=== PATIENT | female | born 1965 | race Caucasian/White ===

== ENCOUNTER 2017-02-16 15:27 | Inpatient (IN) | payer MEDICAID, OTHER ==
[2017-02-16] MEDS ORDERED: LORazepam TAB(*) 1 MG PO ONE (15:39)
[2017-02-16 17:39] LABS: Hematocrit 42 % (35-47); Hemoglobin 14.4 g/dl (12.0-16.0); Mean Corpuscular HGB Conc 34 g/dl (31-36); Mean Corpuscular Hemoglobin 32 pg (27-31); Mean Corpuscular Volume 95 fL (80-97); Mean Platelet Volume 9 um3 (7.4-10.4); Red Blood Count 4.45 10^6/ul (4.0-5.4); Red Cell Distribution Width 13 % (10.5-15); White Blood Count 6.8 10^3/ul (3.5-10.8)
[2017-02-16 17:53] LABS: ALT 12 U/L (7-52); AST 13 U/L (13-39); Anion Gap 5 mmol/L (2-11); BUN/Creatinine Ratio 30.6 (8-20); Blood Urea Nitrogen 19 mg/dL (6-24); CO2 Carbon Dioxide 26 mmol/L (22-32); Calcium 9.4 mg/dL (8.6-10.3); Chloride 107 mmol/L (101-111); EGFR Non-African American 101.1 (>60); Globulin 2.5 g/dL (2-4); Glucose 102 mg/dL (70-100); Potassium 3.9 mmol/L (3.5-5.0); Sodium 138 mmol/L (133-145); Total Protein 6.5 g/dL (6.4-8.9)
[2017-02-16 18:16] LABS: Acetaminophen < 15 mcg/mL; Alcohol < 10 mg/dL (<10); Salicylate < 2.50 mg/dL (<30)
[2017-02-16 18:26] LABS: TSH (Thyroid Stimulating Horm) 0.28 mcIU/mL (0.34-5.60)
[2017-02-16 18:32] LABS: Alkaline Phosphatase 31 U/L (34-104)
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
[2017-02-17] MEDS ORDERED: Albuterol HFA INHALER* 8 gm MDI INH PRN (00:57)
[2017-02-17] MEDS: QUEtiapine TAB* 100 MG PO SCH ×2 (01:11→19:44)
[2017-02-17] MEDS: Naltrexone (NF) 50 MG TAB PO SCH ×2 (01:11→19:43)
--- NOTE | 2017-02-17 01:59 | PN ---
Demetri Norwood SooYoung, scribed for Ed Omer MD on 02/16/17 at 2359 . Progress Note - Progress Note Date of Service: 02/16/17 Note: Sign out from Dr. Thornton, pending MHE. COT: Discussed pt with mental health agency sales representative, pt will be voluntarily admitted. DX: MOOD DISORDER Dispo: Stable, admit to [facility]. The documentation as recorded by the genaroibDemetri marcano SooYoung accurately reflects the service I personally performed and the decisions made by , Ed Omer MD.
[2017-02-17] MEDS ORDERED: Al Hydrox/Mg Hydrox/Simet LIQ* 30 ML UDC PO PRN (03:43)
[2017-02-17] MEDS ORDERED: ACAMPROSATE 333 MG PO SCH (09:00)
[2017-02-17] MEDS ORDERED: RESTASIS EYE BOTH EYES SCH (09:00)
[2017-02-17] MEDS: Omeprazole CAP* 20 MG PO SCH (10:16)
[2017-02-17] MEDS: Docusate CAP* 100 MG PO SCH ×2 (10:16→19:42)
[2017-02-17] MEDS: lamoTRIgine TAB(*) 100 MG PO SCH (10:16)
[2017-02-17] MEDS: Gabapentin CAP(*) 300 MG PO SCH ×3 (10:16→19:42)
[2017-02-17] MEDS: Vitamin THERAPEUTIC TAB PO SCH (10:16)
[2017-02-17] MEDS: Mometasone/Formoter 200/5 MDI INH SCH ×2 (10:18→19:44)
[2017-02-17] MEDS: Polyethylene Glycol 3350* 17 GM PACKET PO SCH (10:19)
[2017-02-17] MEDS: CMC:Cyclosporine 0.05% OPHTH (NF) 0.4 ML VIAL BOTH EYES SCH (11:24)
[2017-02-17] MEDS: ACAMPROSATE 333 MG PO SCH ×2 (14:55→19:44)
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
[2017-02-17] MEDS: Prazosin CAP* 1 MG PO SCH (19:42)
[2017-02-17] MEDS: Prazosin CAP* 5 MG PO SCH (19:43)
[2017-02-17] MEDS ORDERED: QUEtiapine TAB* 100 MG PO SCH (21:00)
[2017-02-18] MEDS: Gabapentin CAP(*) 300 MG PO SCH ×3 (09:45→20:37)
[2017-02-18] MEDS: Vitamin THERAPEUTIC TAB PO SCH (09:46)
[2017-02-18] MEDS: Omeprazole CAP* 20 MG PO SCH (09:46)
[2017-02-18] MEDS: Acetaminophen TAB* 325 MG PO PRN ×2 (09:46→20:38)
[2017-02-18] MEDS: Docusate CAP* 100 MG PO SCH ×2 (09:46→20:36)
[2017-02-18] MEDS: lamoTRIgine TAB(*) 100 MG PO SCH (09:46)
[2017-02-18] MEDS: ACAMPROSATE 333 MG PO SCH ×3 (09:46→20:37)
[2017-02-18] MEDS: Bacitracin OINTMENT* 1 TUBE TOPICAL SCH (09:55)
[2017-02-18] MEDS: CMC:Cyclosporine 0.05% OPHTH (NF) 0.4 ML VIAL BOTH EYES SCH (09:56)
[2017-02-18] MEDS: QUEtiapine TAB* 25 MG PO SCH ×2 (09:56→13:18)
[2017-02-18] MEDS: Polyethylene Glycol 3350* 17 GM PACKET PO SCH (09:57)
[2017-02-18] MEDS ORDERED: Benztropine TAB* 1 MG ONE (13:12)
[2017-02-18] MEDS ORDERED: QUEtiapine TAB* 25 MG ONE (13:12)
[2017-02-18] MEDS: Mometasone/Formoter 200/5 MDI INH SCH ×2 (13:18→20:36)
[2017-02-18] MEDS: Naltrexone (NF) 50 MG TAB PO SCH (20:36)
[2017-02-18] MEDS: Prazosin CAP* 1 MG PO SCH (20:36)
[2017-02-18] MEDS: Prazosin CAP* 5 MG PO SCH (20:36)
[2017-02-18] MEDS: QUEtiapine TAB* 100 MG PO SCH (20:39)
[2017-02-19] MEDS: Omeprazole CAP* 20 MG PO SCH (08:45)
[2017-02-19] MEDS: lamoTRIgine TAB(*) 100 MG PO SCH (08:45)
[2017-02-19] MEDS: Vitamin THERAPEUTIC TAB PO SCH (08:45)
[2017-02-19] MEDS: Acetaminophen TAB* 325 MG PO PRN ×2 (08:45→18:29)
[2017-02-19] MEDS: ACAMPROSATE 333 MG PO SCH ×3 (08:46→20:23)
[2017-02-19] MEDS: Docusate CAP* 100 MG PO SCH ×2 (08:46→20:24)
[2017-02-19] MEDS: Gabapentin CAP(*) 300 MG PO SCH ×3 (08:46→20:23)
[2017-02-19] MEDS: CMC:Cyclosporine 0.05% OPHTH (NF) 0.4 ML VIAL BOTH EYES SCH (08:47)
[2017-02-19] MEDS: Polyethylene Glycol 3350* 17 GM PACKET PO SCH (08:47)
[2017-02-19] MEDS: Mometasone/Formoter 200/5 MDI INH SCH ×2 (08:47→20:24)
[2017-02-19] MEDS: QUEtiapine TAB* 25 MG PO SCH ×2 (08:49→11:59)
--- NOTE | 2017-02-19 10:39 | PN ---
Subjective - Subjective Service Type: 87286 Hosp care 15 min low complexity Subjective: Patient noted to be secluded to her room since admission. She does engage staff and is calm, cooperative with this interview. Patient reports she has been seen by [facility] and her lacerations on her left and right forearms are bandaged. Patient reports worsening NMs, fear of sleep and lack of sleep led to her diminished mood and this suicidal behavior. She reports hx of multiple PTSD symptom decompensations and can not identify the trigger for this decompensation. Patient noted to have sleep 1-2 hours last night, up pacing most of the shift. She is upset her Ambien was not restarted. She reports she and her outpt psychiatrist Dr. Portillo have tried multiple insomnia meds and Ambien in addition to Seroquel in tandem allows her to sleep. She was educated on hypoventilation syndrome in sleep while on concurrent Ambien and Seroquel. She reports no hx of waking from her sleep gasping for air or SOB at any time. She reports ongoing depressed mood. She reports she feels safe on the unit. She denies SI/HI and AH/VH. Objective - Appearance Appearance: Well Developed/Nourished Dysmorphic Features: No Hygiene: Normal Grooming: Fairly Well Kept - Behavior Psychomotor Activities: Normal Exhibits Abnormal Movement: No - Attitude and Relatedness Attitude and Relatedness: Cooperative Eye Contact: Fair - Speech Quality: Unpressured Latencies: Normal Quantity: Appropriate - Mood Patient's Decription of Mood: "depressed" - Affect Observed Affect: Depressed Affect Consistent with: Dysphoria - Thought Process Patient's Thought Process: Coherent Thought Content: No Passive Wish, No Suicidal Planning, No Homicidal Ideation, No Paranoid Ideation - Sensorium Experiencing Hallucinations: No, Sensorium is Clear Type of Hallucinations: Visual: No, Auditory: No - denies today, but reported commanding AHs to kill herself on admission., Command: No - denies today, but reported commanding AHs to kill herself on admission. - Level of Consciousness Level of Consciousness: Alert Orientation: No Intact, No Orientated to Time, No Orientated to Place, No Orientated to Person - Impulse Control Impulse Control: Intact - Insight and Judgement Insight and Judgement: Fair - Group Participation Particating in Group Activities: No - Medication Management Medication Management Adherence: Yes Assessment - Assessment Merits Inpatient Hospitalization: For Immediate Safety, For Stabilization Inpatient DSM-IV Dx: 1. PTSD exacerbation. 2. Borderline PD Plan - Plan Treatment Plan: Name: SANDY JAIMES Birthdate: 1965 [id number] 1. Continue admission to the [facility] for safety and symptom mx. 2. Wound care consulted for recent bilateral forearm lacerations. 3. Continue home psychotropic med regimen as currently prescribed. 4. Will re-start home dose Ambien at 10mg as currently prescribed by outpt psychiatrist for intractable insomnia. 5. Continue gathering collateral information from family and [facility] providers. 6. Patient to participate in milieu activities and groups. Medications: Current Medications Acamprosate (Campral (Nf)) 333 mg PO TID COUNTS INCLUDE 234 BEDS AT THE [facility] Last Admin: 02/19/17 08:46 Dose: 333 mg Acetaminophen (Tylenol Tab*) 650 mg PO Q4H PRN PRN Reason: PAIN or TEMP > 101 F Last Admin: 02/19/17 08:45 Dose: 650 mg Al Hydrox/Mg Hydrox/Simethicone (Maalox Plus*) 30 ml PO Q4H PRN PRN Reason: INDIGESTION Albuterol (Ventolin Hfa Inhaler*) 2 puff INH Q4H PRN PRN Reason: SHORTNESS OF BREATH Bacitracin (Bacitracin Ointment*) 1 applic TOPICAL . DIRECTED COUNTS INCLUDE 234 BEDS AT THE [facility] Last Admin: 02/18/17 09:55 Dose: 1 applic Cyclosporine (Restasis 0.05% Oph) 1 drop BOTH EYES DAILY COUNTS INCLUDE 234 BEDS AT THE [facility] Last Admin: 02/19/17 08:47 Dose: 1 drop Docusate Sodium (Colace Cap*) 100 mg PO BID COUNTS INCLUDE 234 BEDS AT THE [facility] Last Admin: 02/19/17 08:46 Dose: 100 mg Gabapentin (Neurontin Cap(*)) 600 mg PO TID COUNTS INCLUDE 234 BEDS AT THE [facility] Last Admin: 02/19/17 08:46 Dose: 600 mg Lamotrigine (Lamictal Tab(*)) 200 mg PO DAILY COUNTS INCLUDE 234 BEDS AT THE [facility] Last Admin: 02/19/17 08:45 Dose: 200 mg Mometasone Furoate/Formoterol Fumar (Dulera 200/5 Mdi*) 2 puff INH BID COUNTS INCLUDE 234 BEDS AT THE [facility] Last Admin: 02/19/17 08:47 Dose: 2 puff Multivitamins (Theragran Tab*) 1 tab PO DAILY COUNTS INCLUDE 234 BEDS AT THE [facility] Last Admin: 02/19/17 08:45 Dose: 1 tab Naltrexone HCl (Naltrexone (Nf)) 50 mg PO BEDTIME COUNTS INCLUDE 234 BEDS AT THE [facility] Last Admin: 02/18/17 20:36 Dose: 50 mg Omeprazole (Prilosec Cap*) 20 mg PO DAILY SHAYLA Last Admin: 02/19/17 08:45 Dose: 20 mg Polyethylene Glycol/Electrolytes (Miralax*) 17 gm PO DAILY COUNTS INCLUDE 234 BEDS AT THE [facility] Last Admin: 02/19/17 08:47 Dose: 17 gm Prazosin HCl (Minipress Cap*) 5 mg PO 2100 SHAYLA Last Admin: 02/18/17 20:36 Dose: 5 mg Prazosin HCl (Minipress Cap*) 1 mg PO 2100 SHAYLA Last Admin: 02/18/17 20:36 Dose: 1 mg Quetiapine Fumarate (Seroquel Tab*) 150 mg PO 2100 COUNTS INCLUDE 234 BEDS AT THE [facility] Last Admin: 02/18/17 20:39 Dose: 150 mg Quetiapine Fumarate (Seroquel Tab*) 50 mg PO BID@0800,1200 COUNTS INCLUDE 234 BEDS AT THE [facility] Last Admin: 02/19/17 08:49 Dose: 50 mg - Discharge Plan Outpatient Program: [facility]
[2017-02-19] MEDS: Zolpidem TAB* 10 MG PO SCH (20:21)
[2017-02-19] MEDS: QUEtiapine TAB* 100 MG PO SCH (20:22)
[2017-02-19] MEDS: Prazosin CAP* 5 MG PO SCH (20:23)
[2017-02-19] MEDS: Naltrexone (NF) 50 MG TAB PO SCH (20:23)
[2017-02-19] MEDS: Prazosin CAP* 1 MG PO SCH (20:23)
[2017-02-20] MEDS: Acetaminophen TAB* 325 MG PO PRN ×3 (05:50→19:33)
[2017-02-20] MEDS: QUEtiapine TAB* 25 MG PO SCH ×2 (09:10→11:45)
[2017-02-20] MEDS: ACAMPROSATE 333 MG PO SCH ×3 (09:11→20:42)
[2017-02-20] MEDS: Gabapentin CAP(*) 300 MG PO SCH ×3 (09:11→20:42)
[2017-02-20] MEDS: Docusate CAP* 100 MG PO SCH ×2 (09:11→20:42)
[2017-02-20] MEDS: lamoTRIgine TAB(*) 100 MG PO SCH (09:12)
[2017-02-20] MEDS: Omeprazole CAP* 20 MG PO SCH (09:12)
[2017-02-20] MEDS: Vitamin THERAPEUTIC TAB PO SCH (09:12)
[2017-02-20] MEDS: Polyethylene Glycol 3350* 17 GM PACKET PO SCH (09:12)
[2017-02-20] MEDS: Mometasone/Formoter 200/5 MDI INH SCH ×2 (09:12→21:20)
[2017-02-20] MEDS: CMC:Cyclosporine 0.05% OPHTH (NF) 0.4 ML VIAL BOTH EYES SCH (09:14)
--- NOTE | 2017-02-20 15:59 | PN ---
Subjective - Subjective Service Type: [id number] Hosp care 15 min low complexity Subjective: Patient secluded to room much of the day. She continues to report more frequent and intense flashbacks to her traumas. She reports intense anxiety. Patient reports improved sleep. She has been up for meals and is able to verbalize her needs. She is med compliant and denies med s/e's. Patient continue to report feeling safe on the unit. She denies SI/HI and AH/VH. Objective - Appearance Appearance: Well Developed/Nourished Dysmorphic Features: No Hygiene: Normal Grooming: Fairly Well Kept - Behavior Psychomotor Activities: Normal Exhibits Abnormal Movement: No - Attitude and Relatedness Attitude and Relatedness: Cooperative Eye Contact: Fair - Speech Quality: Unpressured Latencies: Normal Quantity: Appropriate - Mood Patient's Decription of Mood: "Anxious" - Affect Observed Affect: Depressed Affect Consistent with: Dysphoria - Thought Process Patient's Thought Process: Coherent Thought Content: No Passive Wish, No Suicidal Planning, No Homicidal Ideation, No Paranoid Ideation - Sensorium Experiencing Hallucinations: No, Sensorium is Clear Type of Hallucinations: Visual: No, Auditory: Yes, Command: No - Level of Consciousness Level of Consciousness: Alert Orientation: Yes Intact, Yes Orientated to Time, Yes Orientated to Place, Yes Orientated to Person - Impulse Control Impulse Control: Intact - Insight and Judgement Insight and Judgement: Fair - Group Participation Particating in Group Activities: Yes - Medication Management Medication Management Adherence: Yes Assessment - Assessment Merits Inpatient Hospitalization: For Immediate Safety, For Stabilization Inpatient DSM-IV Dx: 1. PTSD exacerbation. 2. Borderline PD Plan - Plan Treatment Plan: Name: SANDY JAIMES Birthdate: 1965 [id number] 1. Continue admission to the [facility] for safety and symptom mx. 2. Wound care consulted for recent bilateral forearm lacerations. 3. Continue psychotropic med regimen as currently prescribed. 4. Continue gathering collateral information from family and [facility] providers. 5. Patient to participate in milieu activities and groups. Medications: Current Medications Acamprosate (Campral (Nf)) 333 mg PO TID [facility] Last Admin: 02/20/17 13:36 Dose: 333 mg Acetaminophen (Tylenol Tab*) 650 mg PO Q4H PRN PRN Reason: PAIN or TEMP > 101 F Last Admin: 02/20/17 12:44 Dose: 650 mg Al Hydrox/Mg Hydrox/Simethicone (Maalox Plus*) 30 ml PO Q4H PRN PRN Reason: INDIGESTION Albuterol (Ventolin Hfa Inhaler*) 2 puff INH Q4H PRN PRN Reason: SHORTNESS OF BREATH Bacitracin (Bacitracin Ointment*) 1 applic TOPICAL . DIRECTED [facility] Last Admin: 02/18/17 09:55 Dose: 1 applic Cyclosporine (Restasis 0.05% Oph) 1 drop BOTH EYES DAILY [facility] Last Admin: 02/20/17 09:14 Dose: 1 drop Docusate Sodium (Colace Cap*) 100 mg PO BID [facility] Last Admin: 02/20/17 09:11 Dose: 100 mg Fluticasone Propionate (Flonase Nasal [place] 50mcg*) 2 spray BOTH NARES DAILY [facility] Gabapentin (Neurontin Cap(*)) 600 mg PO TID [facility] Last Admin: 02/20/17 13:36 Dose: 600 mg Lamotrigine (Lamictal Tab(*)) 200 mg PO DAILY [facility] Last Admin: 02/20/17 09:12 Dose: 200 mg Mometasone Furoate/Formoterol Fumar (Dulera 200/5 Mdi*) 2 puff INH BID [facility] Last Admin: 02/20/17 09:12 Dose: 2 puff Multivitamins (Theragran Tab*) 1 tab PO DAILY [facility] Last Admin: 02/20/17 09:12 Dose: 1 tab Naltrexone HCl (Naltrexone (Nf)) 50 mg PO BEDTIME [facility] Last Admin: 02/19/17 20:23 Dose: 50 mg Omeprazole (Prilosec Cap*) 20 mg PO DAILY [facility] Last Admin: 02/20/17 09:12 Dose: 20 mg Polyethylene Glycol/Electrolytes (Miralax*) 17 gm PO DAILY [facility] Last Admin: 02/20/17 09:12 Dose: Not Given Prazosin HCl ([place]ipress Cap*) 5 mg PO 2100 [facility] Last Admin: 02/19/17 20:23 Dose: 5 mg Prazosin HCl (Minipress Cap*) 1 mg PO 2100 [facility] Last Admin: 02/19/17 20:23 Dose: 1 mg Quetiapine Fumarate (Seroquel Tab*) 150 mg PO 2100 [facility] Last Admin: 02/19/17 20:22 Dose: 150 mg Quetiapine Fumarate (Seroquel Tab*) 50 mg PO BID@0800,1200 [facility] Last Admin: 02/20/17 11:45 Dose: 50 mg Silver Sulfadiazine (Silvadine 1%*) 1 applic TOPICAL BID [facility] Zolpidem Tartrate (Ambien Tab*) 10 mg PO BEDTIME [facility] Last Admin: 02/19/17 20:21 Dose: 10 mg - Discharge Plan Discharge Plan: Outpatient Follow Up
[2017-02-20] MEDS: Fluticasone NASAL SPRAY 50MCG* 16 gm SPRAY BTL BOTH NARES SCH (16:30)
[2017-02-20] MEDS: QUEtiapine TAB* 100 MG PO SCH (20:42)
[2017-02-20] MEDS: Naltrexone (NF) 50 MG TAB PO SCH (20:42)
[2017-02-20] MEDS: Prazosin CAP* 1 MG PO SCH (20:42)
[2017-02-20] MEDS: Prazosin CAP* 5 MG PO SCH (20:42)
[2017-02-20] MEDS: Zolpidem TAB* 10 MG PO SCH (20:42)
[2017-02-20] MEDS: Silver Sulfadiazine 1%* 20 GM TOPICAL SCH (21:21)
[2017-02-21] MEDS: Acetaminophen TAB* 325 MG PO PRN (04:25)
[2017-02-21] MEDS: Docusate CAP* 100 MG PO SCH ×2 (08:37→20:18)
[2017-02-21] MEDS: Vitamin THERAPEUTIC TAB PO SCH (08:37)
[2017-02-21] MEDS: Mometasone/Formoter 200/5 MDI INH SCH ×2 (08:37→20:19)
[2017-02-21] MEDS: Fluticasone NASAL SPRAY 50MCG* 16 gm SPRAY BTL BOTH NARES SCH (08:37)
[2017-02-21] MEDS: CMC:Cyclosporine 0.05% OPHTH (NF) 0.4 ML VIAL BOTH EYES SCH (08:38)
[2017-02-21] MEDS: Gabapentin CAP(*) 300 MG PO SCH ×3 (08:38→20:18)
[2017-02-21] MEDS: Omeprazole CAP* 20 MG PO SCH (08:38)
[2017-02-21] MEDS: lamoTRIgine TAB(*) 100 MG PO SCH (08:39)
[2017-02-21] MEDS: ACAMPROSATE 333 MG PO SCH ×3 (08:39→20:17)
[2017-02-21] MEDS: Polyethylene Glycol 3350* 17 GM PACKET PO SCH (08:41)
[2017-02-21] MEDS: Silver Sulfadiazine 1%* 20 GM TOPICAL SCH ×2 (08:45→20:19)
[2017-02-21] MEDS: QUEtiapine TAB* 25 MG PO SCH (09:02)
--- NOTE | 2017-02-21 10:32 | PN ---
Subjective - Subjective Service Type: [id number] Hosp care 15 min low complexity Subjective: Patient noted to be very anxious. She reports ongoing intense and distressing flashbacks which frighten her. She is secluded to her room much of the day. She is up for meals. Patient is med compliant. She continues to be shakey and tremulous but is not in w/d nor has she taken antipsychotic at doses which might precipitate EPS. Will monitor. Patient is med compliant. Patient is hyperactivated, +PMA; she is anxious and tremulous at times because of it. She does not report muscle rigidity, sweats or diarrhea. She had been on 2 antidepressants leading to concern for serotonin syndrome. Patient has been off both since admission. 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 Patient is amenable to d/c Seroquel which was dosed 100mg po qhs prior to admission and 150mg po qhs since admission. She reports ongoing AHs which are commanding but not telling her to kill herself. She reports ongoing poor sleep due to NMs. Patient is complaint with all meds including Prazosin 6mg po qhs. She denies SI/ HI and VH. Objective - Appearance Appearance: Well Developed/Nourished Dysmorphic Features: No Hygiene: Normal Grooming: Fairly Well Kept - Behavior Psychomotor Activities: Abnormal-Increased Exhibits Abnormal Movement: Yes - Attitude and Relatedness Attitude and Relatedness: Cooperative Eye Contact: Poor - Speech Quality: Unpressured Latencies: Short Quantity: Terse - Mood Patient's Decription of Mood: "Anxious" - Affect Observed Affect: Tearful Affect Consistent with: Dysphoria - Thought Process Patient's Thought Process: Coherent Thought Content: No Passive Wish, No Suicidal Planning, No Homicidal Ideation, No Paranoid Ideation - Sensorium Experiencing Hallucinations: Yes Type of Hallucinations: Visual: No, Auditory: Yes, Command: Yes - Level of Consciousness Level of Consciousness: Alert Orientation: Yes Intact, Yes Orientated to Time, Yes Orientated to Place, Yes Orientated to Person - Impulse Control Impulse Control: Intact - Insight and Judgement Insight and Judgement: Fair - Group Participation Particating in Group Activities: No - Medication Management Medication Management Adherence: Yes Assessment - Assessment Merits Inpatient Hospitalization: For Immediate Safety, For Stabilization Inpatient DSM-IV Dx: 1. PTSD exacerbation, r/o Treatment resistent PTSD. 2. Borderline PD Plan - Plan Treatment Plan: Name: SANDY JAIMES Birthdate: 1965 [id number] 1. Continue admission to the [facility] for safety and symptom mx. 2. Wound care consulted for recent bilateral forearm lacerations. 3. Continue to hold home regimen antidepressants. 4. Patient gives informed consent to start [place] 300mg po BID for mood augmentation and chronic SI. 5. Patient gives informed consent to start Olanzapine 10mg po qhs for AHs, worsening flashbacks and NMs, and worsening startle, anxiety and hypervigilent state. 6. Patient is amenable to d/c Seroquel which was dosed 100mg po qhs prior to admission and 150mg po qhs since admission. This provider does not expect a Seroquel discontinuation syndrome, will monitor. 7. Continue gathering collateral information from family and [facility] providers. 8. Patient to participate in milieu activities and groups. Medications: Current Medications Acamprosate (Campral (Nf)) 333 mg PO TID [facility] Last Admin: 02/21/17 08:39 Dose: 333 mg Acetaminophen (Tylenol Tab*) 650 mg PO Q4H PRN PRN Reason: PAIN or TEMP > 101 F Last Admin: 02/21/17 04:25 Dose: 650 mg Al Hydrox/Mg Hydrox/Simethicone (Maalox Plus*) 30 ml PO Q4H PRN PRN Reason: INDIGESTION Albuterol (Ventolin Hfa Inhaler*) 2 puff INH Q4H PRN PRN Reason: SHORTNESS OF BREATH Bacitracin (Bacitracin Ointment*) 1 applic TOPICAL . DIRECTED [facility] Last Admin: 02/18/17 09:55 Dose: 1 applic Cyclosporine (Restasis 0.05% Oph) 1 drop BOTH EYES DAILY [facility] Last Admin: 02/21/17 08:38 Dose: 1 drop Docusate Sodium (Colace Cap*) 100 mg PO BID [facility] Last Admin: 02/21/17 08:37 Dose: 100 mg Fluticasone Propionate (Flonase Nasal [place] 50mcg*) 2 spray BOTH NARES DAILY [facility] Last Admin: 02/21/17 08:37 Dose: 2 spray Gabapentin (Neurontin Cap(*)) 600 mg PO TID [facility] Last Admin: 02/21/17 08:38 Dose: 600 mg Lamotrigine (Lamictal Tab(*)) 200 mg PO DAILY [facility] Last Admin: 02/21/17 08:39 Dose: 200 mg Mometasone Furoate/Formoterol Fumar (Dulera 200/5 Mdi*) 2 puff INH BID [facility] Last Admin: 02/21/17 08:37 Dose: 2 puff Multivitamins (Theragran Tab*) 1 tab PO DAILY [facility] Last Admin: 02/21/17 08:37 Dose: 1 tab Naltrexone HCl (Naltrexone (Nf)) 50 mg PO BEDTIME [facility] Last Admin: 02/20/17 20:42 Dose: 50 mg Omeprazole (Prilosec Cap*) 20 mg PO DAILY [facility] Last Admin: 02/21/17 08:38 Dose: 20 mg Polyethylene Glycol/Electrolytes (Miralax*) 17 gm PO DAILY [facility] Last Admin: 02/21/17 08:41 Dose: Not Given Prazosin HCl (Minipress Cap*) 5 mg PO 2100 [facility] Last Admin: 02/20/17 20:42 Dose: 5 mg Prazosin HCl (Minipress Cap*) 1 mg PO 2100 [facility] Last Admin: 02/20/17 20:42 Dose: 1 mg Quetiapine Fumarate (Seroquel Tab*) 150 mg PO 2100 [facility] Last Admin: 02/20/17 20:42 Dose: 150 mg Quetiapine Fumarate (Seroquel Tab*) 50 mg PO BID@0800,1200 [facility] Last Admin: 02/21/17 09:02 Dose: 50 mg Silver Sulfadiazine (Silvadine 1%*) 1 applic TOPICAL BID [facility] Last Admin: 02/21/17 08:45 Dose: Not Given Zolpidem Tartrate (Ambien Tab*) 10 mg PO BEDTIME [facility] Last Admin: 02/20/17 20:42 Dose: 10 mg - Discharge Plan Discharge Plan: Outpatient Follow Up Outpatient Program: [facility]
[2017-02-21] MEDS ORDERED: LORazepam TAB(*) 1 MG PO ONE (11:44)
[2017-02-21] MEDS: Prazosin CAP* 5 MG PO SCH (20:16)
[2017-02-21] MEDS: Prazosin CAP* 1 MG PO SCH (20:17)
[2017-02-21] MEDS: OLANzapine TAB* 10 MG PO SCH (20:17)
[2017-02-21] MEDS: Zolpidem TAB* 10 MG PO SCH (20:17)
[2017-02-21] MEDS: Lithium Carbonate TAB* 300 MG PO SCH (20:18)
[2017-02-21] MEDS: Naltrexone (NF) 50 MG TAB PO SCH (20:18)
[2017-02-22] MEDS: Fluticasone NASAL SPRAY 50MCG* 16 gm SPRAY BTL BOTH NARES SCH (10:06)
[2017-02-22] MEDS: Mometasone/Formoter 200/5 MDI INH SCH ×2 (10:06→20:52)
[2017-02-22] MEDS: Docusate CAP* 100 MG PO SCH ×2 (10:07→20:52)
[2017-02-22] MEDS: lamoTRIgine TAB(*) 100 MG PO SCH (10:07)
[2017-02-22] MEDS: ACAMPROSATE 333 MG PO SCH ×3 (10:07→20:50)
[2017-02-22] MEDS: Omeprazole CAP* 20 MG PO SCH (10:07)
[2017-02-22] MEDS: Gabapentin CAP(*) 300 MG PO SCH ×3 (10:07→20:50)
[2017-02-22] MEDS: Polyethylene Glycol 3350* 17 GM PACKET PO SCH (10:07)
[2017-02-22] MEDS: CMC:Cyclosporine 0.05% OPHTH (NF) 0.4 ML VIAL BOTH EYES SCH (10:08)
[2017-02-22] MEDS: Vitamin THERAPEUTIC TAB PO SCH (10:14)
[2017-02-22] MEDS: Silver Sulfadiazine 1%* 20 GM TOPICAL SCH ×2 (10:14→20:52)
--- NOTE | 2017-02-22 10:43 | PN ---
Subjective - Subjective Service Type: [id number] Hosp care 15 min low complexity Subjective: Patient more visible in the milieu and noted to social with select peers. She reports ongoing intense and distressing flashbacks. Patient is med compliant. She reports no s/e's on new psychiatric regimen including [place] and Olanzapine. Patient still displays +PMA, but is less anxious in affect and tremulous in manner. She reports ongoing NMs and poor sleep. She denies SI/HI and VH. Objective - Appearance Appearance: Well Developed/Nourished Dysmorphic Features: No Hygiene: Normal Grooming: Fairly Well Kept - Behavior Psychomotor Activities: Normal Exhibits Abnormal Movement: No - Attitude and Relatedness Attitude and Relatedness: Cooperative Eye Contact: Fair - Speech Quality: Unpressured Latencies: Normal Quantity: Appropriate - Mood Patient's Decription of Mood: "Anxious" - Affect Observed Affect: Tense Affect Consistent with: Dysphoria - Thought Process Patient's Thought Process: Coherent Thought Content: No Passive Wish, No Suicidal Planning, No Homicidal Ideation, No Paranoid Ideation - Sensorium Experiencing Hallucinations: No, Sensorium is Clear Type of Hallucinations: Visual: No, Auditory: No, Command: No - Level of Consciousness Level of Consciousness: Alert Orientation: Yes Intact, Yes Orientated to Time, Yes Orientated to Place, Yes Orientated to Person - Impulse Control Impulse Control: Intact - Insight and Judgement Insight and Judgement: Fair - Group Participation Particating in Group Activities: Yes - Medication Management Medication Management Adherence: Yes Assessment - Assessment Merits Inpatient Hospitalization: For Immediate Safety, For Stabilization Inpatient DSM-IV Dx: 1. PTSD exacerbation, r/o Treatment resistent PTSD. 2. Borderline PD Plan - Plan Treatment Plan: Name: SANDY JAIMES Birthdate: 1965 [id number] 1. Continue admission to the [facility] for safety and symptom mx. 2. Wound care consulted for recent bilateral forearm lacerations. 3. Continue to hold home regimen antidepressants. 4. Continue Gabapentin, Prazosin, Naltrexone, Campral, Ambien, and Lamictal at home doses currently prescribed. 5. Continue [place] 300mg po BID for mood augmentation and chronic SI. 6. Continue Olanzapine 10mg po qhs for AHs, worsening flashbacks and NMs, and worsening startle, anxiety and hypervigilent state. 7. Seroquel D/C'd. 8. Collateral information obtained from [facility] providers. 9. Patient to participate in milieu activities and groups. Medications: Current Medications Acamprosate (Campral (Nf)) 333 mg PO TID [facility] Last Admin: 02/22/17 10:07 Dose: 333 mg Acetaminophen (Tylenol Tab*) 650 mg PO Q4H PRN PRN Reason: PAIN or TEMP > 101 F Last Admin: 02/21/17 04:25 Dose: 650 mg Al Hydrox/Mg Hydrox/Simethicone (Maalox Plus*) 30 ml PO Q4H PRN PRN Reason: INDIGESTION Albuterol (Ventolin Hfa Inhaler*) 2 puff INH Q4H PRN PRN Reason: SHORTNESS OF BREATH Bacitracin (Bacitracin Ointment*) 1 applic TOPICAL . DIRECTED [facility] Last Admin: 02/18/17 09:55 Dose: 1 applic Cyclosporine (Restasis 0.05% Oph) 1 drop BOTH EYES DAILY [facility] Last Admin: 02/22/17 10:08 Dose: 1 drop Docusate Sodium (Colace Cap*) 100 mg PO BID [facility] Last Admin: 02/22/17 10:07 Dose: 100 mg Fluticasone Propionate (Flonase Nasal [place] 50mcg*) 2 spray BOTH NARES DAILY [facility] Last Admin: 02/22/17 10:06 Dose: 2 spray Gabapentin (Neurontin Cap(*)) 600 mg PO TID [facility] Last Admin: 02/22/17 10:07 Dose: 600 mg Lamotrigine (Lamictal Tab(*)) 200 mg PO DAILY [facility] Last Admin: 02/22/17 10:07 Dose: 200 mg [place] Carbonate ([place] Carbonate Tab*) 300 mg PO BEDTIME [facility] Last Admin: 02/21/17 20:18 Dose: 300 mg Mometasone Furoate/Formoterol Fumar (Dulera 200/5 Mdi*) 2 puff INH BID [facility] Last Admin: 02/22/17 10:06 Dose: 2 puff Multivitamins (Theragran Tab*) 1 tab PO DAILY [facility] Last Admin: 02/22/17 10:14 Dose: 1 tab Naltrexone HCl (Naltrexone (Nf)) 50 mg PO BEDTIME [facility] Last Admin: 02/21/17 20:18 Dose: 50 mg Olanzapine (Zyprexa Tab*) 10 mg PO BEDTIME [facility] Last Admin: 02/21/17 20:17 Dose: 10 mg Omeprazole (Prilosec Cap*) 20 mg PO DAILY [facility] Last Admin: 02/22/17 10:07 Dose: 20 mg Polyethylene Glycol/Electrolytes (Miralax*) 17 gm PO DAILY [facility] Last Admin: 02/22/17 10:07 Dose: Not Given Prazosin HCl (Minipress Cap*) 5 mg PO 2100 [facility] Last Admin: 02/21/17 20:16 Dose: 5 mg Prazosin HCl (Minipress Cap*) 1 mg PO 2100 [facility] Last Admin: 02/21/17 20:17 Dose: 1 mg Silver Sulfadiazine (Silvadine 1%*) 1 applic TOPICAL BID [facility] Last Admin: 02/22/17 10:14 Dose: Not Given Zolpidem Tartrate (Ambien Tab*) 10 mg PO BEDTIME [facility] Last Admin: 02/21/17 20:17 Dose: 10 mg - Discharge Plan Outpatient Program: [facility]
[2017-02-22] MEDS: LORazepam TAB(*) 1 MG PO PRN (15:37)
[2017-02-22] MEDS: Zolpidem TAB* 10 MG PO SCH (20:50)
[2017-02-22] MEDS: Prazosin CAP* 1 MG PO SCH (20:50)
[2017-02-22] MEDS: Prazosin CAP* 5 MG PO SCH (20:50)
[2017-02-22] MEDS: Naltrexone (NF) 50 MG TAB PO SCH (20:51)
[2017-02-22] MEDS: OLANzapine TAB* 10 MG PO SCH (20:51)
[2017-02-22] MEDS: Lithium Carbonate TAB* 300 MG PO SCH (20:52)
[2017-02-23] MEDS: ACAMPROSATE 333 MG PO SCH ×3 (08:44→20:42)
[2017-02-23] MEDS: CMC:Cyclosporine 0.05% OPHTH (NF) 0.4 ML VIAL BOTH EYES SCH (08:45)
[2017-02-23] MEDS: Docusate CAP* 100 MG PO SCH ×2 (08:45→20:41)
[2017-02-23] MEDS: Fluticasone NASAL SPRAY 50MCG* 16 gm SPRAY BTL BOTH NARES SCH (08:46)
[2017-02-23] MEDS: Gabapentin CAP(*) 300 MG PO SCH ×3 (08:46→20:43)
[2017-02-23] MEDS: lamoTRIgine TAB(*) 100 MG PO SCH (08:47)
[2017-02-23] MEDS: Mometasone/Formoter 200/5 MDI INH SCH ×2 (08:47→20:40)
[2017-02-23] MEDS: Omeprazole CAP* 20 MG PO SCH (08:48)
[2017-02-23] MEDS: Vitamin THERAPEUTIC TAB PO SCH (08:48)
[2017-02-23] MEDS: Polyethylene Glycol 3350* 17 GM PACKET PO SCH (08:48)
[2017-02-23] MEDS: Silver Sulfadiazine 1%* 20 GM TOPICAL SCH ×2 (09:55→20:52)
--- NOTE | 2017-02-23 09:58 | PN ---
Subjective - Subjective Service Type: [id number] Hosp care 15 min low complexity Subjective: Patient more visible in the milieu and noted to social with select peers. She reports improved sleep and reported she had no NMs last night. Patient is noted to be more relaxed in affect and is less tremulous. Patient displays less PMA. She reports no s/e's on current psychiatric regimen. Appetite is fair. She denies SI/HI and AH/ VH. Objective - Appearance Appearance: Well Developed/Nourished Dysmorphic Features: No Hygiene: Mal-odorous Grooming: Fairly Well Kept - Behavior Psychomotor Activities: Abnormal-Increased Exhibits Abnormal Movement: No - Attitude and Relatedness Attitude and Relatedness: Cooperative Eye Contact: Fair - Speech Quality: Unpressured Latencies: Normal Quantity: Appropriate - Mood Patient's Decription of Mood: "Anxious" - Affect Observed Affect: Tense Affect Consistent with: Dysphoria - Thought Process Patient's Thought Process: Coherent Thought Content: No Passive Wish, No Suicidal Planning, No Homicidal Ideation, No Paranoid Ideation - Sensorium Experiencing Hallucinations: No, Sensorium is Clear Type of Hallucinations: Visual: No, Auditory: No, Command: No - Level of Consciousness Level of Consciousness: Alert Orientation: Yes Intact, Yes Orientated to Time, Yes Orientated to Place, Yes Orientated to Person - Impulse Control Impulse Control: Intact - Insight and Judgement Insight and Judgement: Fair - Group Participation Particating in Group Activities: Yes - Medication Management Medication Management Adherence: Yes Assessment - Assessment Merits Inpatient Hospitalization: For Immediate Safety, For Stabilization Inpatient DSM-IV Dx: 1. PTSD exacerbation, r/o Treatment resistent PTSD. 2. Borderline PD Plan - Plan Treatment Plan: Name: SANDY JAIMES Birthdate: 1965 [id number] 1. Continue admission to the [facility] for safety and symptom mx. 2. Wound care consulted for recent bilateral forearm lacerations. 3. Continue to hold home regimen antidepressants. 4. Continue [place] 300mg po BID for mood augmentation and chronic SI. 5. Continue Olanzapine 10mg po qhs for AHs, worsening flashbacks and NMs, 6. Seroquel D/C'd. 7. Continue gathering collateral information from family and [facility] providers. 8. Patient to participate in milieu activities and groups. Medications: Current Medications Acamprosate (Campral (Nf)) 333 mg PO TID [facility] Last Admin: 02/23/17 08:44 Dose: 333 mg Acetaminophen (Tylenol Tab*) 650 mg PO Q4H PRN PRN Reason: PAIN or TEMP > 101 F Last Admin: 02/21/17 04:25 Dose: 650 mg Al Hydrox/Mg Hydrox/Simethicone (Maalox Plus*) 30 ml PO Q4H PRN PRN Reason: INDIGESTION Albuterol (Ventolin Hfa Inhaler*) 2 puff INH Q4H PRN PRN Reason: SHORTNESS OF BREATH Bacitracin (Bacitracin Ointment*) 1 applic TOPICAL . DIRECTED [facility] Last Admin: 02/18/17 09:55 Dose: 1 applic Cyclosporine (Restasis 0.05% Oph) 1 drop BOTH EYES DAILY [facility] Last Admin: 02/23/17 08:45 Dose: 1 drop Docusate Sodium (Colace Cap*) 100 mg PO BID [facility] Last Admin: 02/23/17 08:45 Dose: 100 mg Fluticasone Propionate (Flonase Nasal [place] 50mcg*) 2 spray BOTH NARES DAILY [facility] Last Admin: 02/23/17 08:46 Dose: 2 spray Gabapentin (Neurontin Cap(*)) 600 mg PO TID [facility] Last Admin: 02/23/17 08:46 Dose: 600 mg Lamotrigine (Lamictal Tab(*)) 200 mg PO DAILY [facility] Last Admin: 02/23/17 08:47 Dose: 200 mg [place] Carbonate ([place] Carbonate Tab*) 300 mg PO BEDTIME [facility] Last Admin: 02/22/17 20:52 Dose: 300 mg Lorazepam (Ativan Tab(*)) 2 mg PO DAILY PRN PRN Reason: ANXIETY Last Admin: 02/22/17 15:37 Dose: 2 mg Mometasone Furoate/Formoterol Fumar (Dulera 200/5 Mdi*) 2 puff INH BID [facility] Last Admin: 02/23/17 08:47 Dose: 2 puff Multivitamins (Theragran Tab*) 1 tab PO DAILY [facility] Last Admin: 02/23/17 08:48 Dose: 1 tab Naltrexone HCl (Naltrexone (Nf)) 50 mg PO BEDTIME [facility] Last Admin: 02/22/17 20:51 Dose: 50 mg Olanzapine (Zyprexa Tab*) 10 mg PO BEDTIME [facility] Last Admin: 02/22/17 20:51 Dose: 10 mg Omeprazole (Prilosec Cap*) 20 mg PO DAILY [facility] Last Admin: 02/23/17 08:48 Dose: 20 mg Polyethylene Glycol/Electrolytes (Miralax*) 17 gm PO DAILY [facility] Last Admin: 02/23/17 08:48 Dose: Not Given Prazosin HCl (Minipress Cap*) 5 mg PO 2100 [facility] Last Admin: 02/22/17 20:50 Dose: 5 mg Prazosin HCl (Minipress Cap*) 1 mg PO 2100 [facility] Last Admin: 02/22/17 20:50 Dose: 1 mg Silver Sulfadiazine (Silvadine 1%*) 1 applic TOPICAL BID [facility] Last Admin: 02/23/17 09:55 Dose: 1 applic Zolpidem Tartrate (Ambien Tab*) 10 mg PO BEDTIME [facility] Last Admin: 02/22/17 20:50 Dose: 10 mg - Discharge Plan [facility]
[2017-02-23] MEDS: LORazepam TAB(*) 1 MG PO PRN (18:11)
[2017-02-23] MEDS: Lithium Carbonate TAB* 300 MG PO SCH (20:41)
[2017-02-23] MEDS: Zolpidem TAB* 10 MG PO SCH (20:44)
[2017-02-23] MEDS: OLANzapine TAB* 10 MG PO SCH (20:44)
[2017-02-23] MEDS: Prazosin CAP* 1 MG PO SCH (20:44)
[2017-02-23] MEDS: Naltrexone (NF) 50 MG TAB PO SCH (20:44)
[2017-02-23] MEDS: Prazosin CAP* 5 MG PO SCH (20:44)
[2017-02-24] MEDS: LORazepam TAB(*) 1 MG PO PRN ×2 (00:05→12:56)
[2017-02-24] MEDS: Fluticasone NASAL SPRAY 50MCG* 16 gm SPRAY BTL BOTH NARES SCH (08:35)
[2017-02-24] MEDS: Omeprazole CAP* 20 MG PO SCH (08:36)
[2017-02-24] MEDS: ACAMPROSATE 333 MG PO SCH ×3 (08:36→20:38)
[2017-02-24] MEDS: Mometasone/Formoter 200/5 MDI INH SCH ×2 (08:36→20:40)
[2017-02-24] MEDS: Gabapentin CAP(*) 300 MG PO SCH ×3 (08:36→20:38)
[2017-02-24] MEDS: lamoTRIgine TAB(*) 100 MG PO SCH (08:36)
[2017-02-24] MEDS: Docusate CAP* 100 MG PO SCH ×2 (08:36→20:39)
[2017-02-24] MEDS: CMC:Cyclosporine 0.05% OPHTH (NF) 0.4 ML VIAL BOTH EYES SCH (08:37)
[2017-02-24] MEDS: Vitamin THERAPEUTIC TAB PO SCH (08:44)
[2017-02-24] MEDS: Polyethylene Glycol 3350* 17 GM PACKET PO SCH (08:44)
[2017-02-24] MEDS: Silver Sulfadiazine 1%* 20 GM TOPICAL SCH ×2 (08:44→20:42)
[2017-02-24] MEDS: Naltrexone (NF) 50 MG TAB PO SCH (20:39)
[2017-02-24] MEDS: Zolpidem TAB* 10 MG PO SCH (20:39)
[2017-02-24] MEDS: Prazosin CAP* 5 MG PO SCH (20:39)
[2017-02-24] MEDS: Prazosin CAP* 1 MG PO SCH (20:39)
[2017-02-24] MEDS: OLANzapine TAB* 10 MG PO SCH (20:39)
[2017-02-24] MEDS: Lithium Carbonate TAB* 300 MG PO SCH (20:39)
[2017-02-24] MEDS ORDERED: LORazepam TAB(*) 1 MG ONE (23:27)
[2017-02-25] MEDS: Vitamin THERAPEUTIC TAB PO SCH (09:19)
[2017-02-25] MEDS: Gabapentin CAP(*) 300 MG PO SCH ×3 (09:19→20:44)
[2017-02-25] MEDS: lamoTRIgine TAB(*) 100 MG PO SCH (09:19)
[2017-02-25] MEDS: Mometasone/Formoter 200/5 MDI INH SCH ×2 (09:20→20:48)
[2017-02-25] MEDS: Omeprazole CAP* 20 MG PO SCH (09:20)
[2017-02-25] MEDS: Docusate CAP* 100 MG PO SCH ×2 (09:20→20:45)
[2017-02-25] MEDS: Polyethylene Glycol 3350* 17 GM PACKET PO SCH (09:22)
[2017-02-25] MEDS: Silver Sulfadiazine 1%* 20 GM TOPICAL SCH ×2 (09:22→20:44)
[2017-02-25] MEDS: CMC:Cyclosporine 0.05% OPHTH (NF) 0.4 ML VIAL BOTH EYES SCH (09:23)
[2017-02-25] MEDS: Fluticasone NASAL SPRAY 50MCG* 16 gm SPRAY BTL BOTH NARES SCH (09:23)
[2017-02-25] MEDS: ACAMPROSATE 333 MG PO SCH ×3 (09:24→20:44)
[2017-02-25] MEDS: Acetaminophen TAB* 325 MG PO PRN (15:11)
[2017-02-25] MEDS: LORazepam TAB(*) 1 MG PO PRN (16:07)
[2017-02-25] MEDS: Naltrexone (NF) 50 MG TAB PO SCH (20:45)
[2017-02-25] MEDS: Zolpidem TAB* 10 MG PO SCH (20:45)
[2017-02-25] MEDS: Prazosin CAP* 5 MG PO SCH (20:45)
[2017-02-25] MEDS: Lithium Carbonate TAB* 300 MG PO SCH (20:45)
[2017-02-25] MEDS: OLANzapine TAB* 10 MG PO SCH (20:45)
[2017-02-25] MEDS: Prazosin CAP* 1 MG PO SCH (20:45)
[2017-02-26] MEDS: diPHENhydraMINE PO* 50 MG PO PRN ×2 (03:30→08:48)
[2017-02-26] MEDS: Silver Sulfadiazine 1%* 20 GM TOPICAL SCH (07:10)
[2017-02-26] MEDS: Bacitracin OINTMENT* 1 TUBE TOPICAL SCH (07:10)
[2017-02-26 07:49] VITALS: BP 131/69
[2017-02-26] MEDS: Vitamin THERAPEUTIC TAB PO SCH (08:46)
[2017-02-26] MEDS: Fluticasone NASAL SPRAY 50MCG* 16 gm SPRAY BTL BOTH NARES SCH (08:46)
[2017-02-26] MEDS: Docusate CAP* 100 MG PO SCH (08:46)
[2017-02-26] MEDS: Mometasone/Formoter 200/5 MDI INH SCH (08:46)
[2017-02-26] MEDS: CMC:Cyclosporine 0.05% OPHTH (NF) 0.4 ML VIAL BOTH EYES SCH (08:47)
[2017-02-26] MEDS: Omeprazole CAP* 20 MG PO SCH (08:47)
[2017-02-26] MEDS: Gabapentin CAP(*) 300 MG PO SCH ×2 (08:47→13:53)
[2017-02-26] MEDS: lamoTRIgine TAB(*) 100 MG PO SCH (08:47)
[2017-02-26] MEDS: ACAMPROSATE 333 MG PO SCH ×2 (08:47→13:53)
[2017-02-26] MEDS: Polyethylene Glycol 3350* 17 GM PACKET PO SCH (08:53)
--- NOTE | 2017-02-26 12:53 | DS ---
Subjective - Subjective Service Types: 83629 Hosp DC Day Mgmt simple under 30 min Subjective: Patient noted to be visible most of the day in the milieu, pleasant, social with peers and attending groups. Patient reports ongoing benefit to mood and denies feels of agitation. Patient is med compliant and denies med s/e's. Patient reports feeling ready for discharge. Patient is A&Ox4, linear and GD in TP, and future oriented in TC. Patient reports understanding that [place] requires frequent blood draws to check for [place] level in the blood and the health of her kidneys and thyroid gland which [place] could damage. Patient again denies SI/HI and AH/VH. Patient is psychiatrically stable. Discharge plan has been discussed and patient is amenable and acknowledges understanding. atient instructed to call the crisis hotline, 911, or self present to a local ED if commanding AHs or SIs recurs. Patient was amenable and acknowledged understanding of her community supports. Patient will be discharged home. Objective - Appearance Appearance: Well Developed/Nourished Dysmorphic Features: No Hygiene: Normal Grooming: Fairly Well Kept - Behavior Psychomotor Activities: Normal Exhibits Abnormal Movement: No - Attitude and Relatedness Attitude and Relatedness: Cooperative Eye Contact: Fair - Speech Quality: Unpressured Latencies: Normal Quantity: Terse - Mood Patient's Decription of Mood: "Good" - Affect Observed Affect: Fair Affect Consistent with: Euthymia - Thought Process Patient's Thought Process: Coherent Thought Content: No Passive Wish, No Suicidal Planning, No Homicidal Ideation, No Paranoid Ideation - Sensorium Experiencing Hallucinations: No, Sensorium is Clear Type of Hallucinations: Visual: No, Auditory: No, Command: No - Level of Consciousness Level of Consciousness: Alert Orientation: Yes Intact, Yes Orientated to Time, Yes Orientated to Place, Yes Orientated to Person - Impulse Control Impulse Control: Intact - Insight and Judgement Insight and Judgement: Fair - Medication Management Medication Management Adherence: Yes Treatment Course & Assessment Clinical Course & Impression: HOSPITAL COURSE: Patient is a 51yo female with PPHx significant for MDD, R, S, w/PF, PTSD, Alcohol use d/o. Patient has significant hx for suicide attempts and SIBs, primarily cutting.Patient reports AHs commanding patient to kill herself by cutting. Patient cut both forearms, with significant lacerations to both. She also reported recent poor sleep due to worsening NMs and Flashbacks that are more frequent and distressing. She reports worsening depressive symptoms including: broken sleep, easy agitation, decreased energy, motivation, and concentration. Patient reports worsening PTSD symptoms including hyperstartle, hypervigilence when around people she doesnt know, increased intensity of NMs and Flashbacks and more intrusive memories of her traumas. On admission, patient reported she felt safe on the unit. Wound care was consulted for mx of lacerations to both forearms. Her home psychotropic regimen of Gabapentin 600 mg PO TID for anxiety, Naltrexone 50 mg PO BEDTIME for alcohol cravings, Acamprosate 333 mg PO TID for hx of alcohol dependence, lamoTRIgine 200 mg PO DAILY for mood augmentation/impulsivity, Prazosin 6 mg po qhs for mx of NMs, Zolpidem 10 mg PO BEDTIME for insomnia, and Seroquel 50mg po BID PRN agitation and 100mg po qhs for sleep related anxiety were all restarted. By hospital day 5, patient showed no improvement in intensity of presenting symptoms. Patient was amenable to D/C of Seroquel. She was educated at her current dose, a Seroquel w/d syndrome was not expected. She was amenable to the start of Olanzapine 10mg po qhs for her ongoing AHs, sleep anxiety, and mx of her daytime Flashbacks. Patient also was amenable to initiation of [place] at 300mg po qhs, a 2nd mood stabilizer for additional mood augmentation and as mx of patient's report of chronic SI. Patient reported symptom improvement on Olanzapine and [place]. She reported no NMs, improved sleep, and no further AHs by hospital day 7. On hospital day 9, patient was noted to have no agitation , no further displays of hypervigilence in the milieu, and patient reported no further Flashbacks. Patient noted to be visible most of the day in the milieu, pleasant, social with peers and attending groups. Patient reports ongoing benefit to mood and denies feels of agitation. Patient is med compliant and denies med s/e's. Patient reports feeling ready for discharge. Patient is A&Ox4, linear and GD in TP, and future oriented in TC. Patient reports understanding that [place] requires frequent blood draws to check for [place] level in the blood and the health of her kidneys and thyroid gland which [place] could damage. Patient again denies SI/HI and AH/VH. Patient is psychiatrically stable. Discharge plan has been discussed and patient is amenable and acknowledges understanding. atient instructed to call the crisis hotline, 911, or self present to a local ED if commanding AHs or SIs recurs. Patient was amenable and acknowledged understanding of her community supports. Patient will be discharged home. PERTINENT LABS: Lipid Panel (05/26/16) : Triglycerides - 99mg/dL Cholesterol - 196mg/dL LDL - 130mg/dL HDL -46.6mg/dL Laboratory Tests 02/16/17 02/16/17 02/26/17 17:30 17:30 10:15 WBC 6.8 RBC 4.45 Hgb 14.4 Hct 42 MCV 95 MCH 32 H MCHC 34 RDW 13 Plt Count 250 MPV 9 Neut % (Auto) 65.5 Lymph % (Auto) 22.9 L [place] % (Auto) 9.4 H Eos % (Auto) 1.4 Baso % (Auto) 0.8 Absolute Neuts (auto) 4.5 Absolute Lymphs (auto) 1.6 Absolute Monos (auto) 0.6 Absolute Eos (auto) 0.1 Absolute Basos (auto) 0.1 Absolute Nucleated RBC 0 Nucleated RBC % 0 Sodium 138 Potassium 3.9 Chloride 107 Carbon Dioxide 26 Anion Gap 5 BUN 19 Creatinine 0.62 Est GFR ( Amer) 130.0 Est GFR (Non-Af Amer) 101.1 BUN/Creatinine Ratio 30.6 H Glucose 102 H Calcium 9.4 Total Bilirubin 0.60 AST 13 ALT 12 Alkaline Phosphatase 31 L Total Protein 6.5 Albumin 4.0 Globulin 2.5 Albumin/Globulin Ratio 1.6 TSH 0.28 L Salicylates < 2.50 Acetaminophen < 15 [place] 0.21 L Serum Alcohol < 10 Consultants: Wound care - mx of lacerations to both forearms Discharge Meds: Home Medications Medication Instructions Recorded Confirmed Type Fluticasone-Salmeterol 250-50* 1 puff INH BID 06/05/15 02/16/17 History [Advair Diskus 250-50*] Fexofenadine-Pseudoephedrine 1 tab PO DAILY #30 tab 12/03/15 02/16/17 Rx [Lia-D 24 Hour Allergy 180-240 mg] Gabapentin CAP(*) [Neurontin 300 600 mg PO TID #180 cap 12/03/15 02/16/17 Rx CAP(*)] Naltrexone (NF) 50 mg PO BEDTIME #30 tab 12/03/15 02/16/17 Rx Pantoprazole TAB (NF) [Protonix 40 mg PO QAM #30 tab 12/03/15 02/16/17 Rx TAB (NF)] Acamprosate (NF) [Campral (NF)] 333 mg PO TID 08/08/16 02/16/17 History Diphenhydramine HCl 50 mg PO BEDTIME 08/08/16 02/16/17 History Fluticasone NASAL SPRAY 50MCG* 2 spray BOTH NARES DAILY 08/08/16 02/16/17 History [Flonase NASAL SPRAY 50MCG*] Beclomethasone 80 MCG MDI(NF) 2 puff INH BID 02/16/17 02/16/17 History [Qvar 80 MCG MDI(NF)] Meloxicam(NF) [Mobic(NF)] 15 mg PO DAILY 02/16/17 02/16/17 History Triamcinolone PASTE 0.1% (NF) 1 applic TOPICAL BEDTIME 02/16/17 02/16/17 History [Triamcinolone 0.1% PASTE *] lamoTRIgine TAB(*) [Lamictal 200 mg PO DAILY 02/16/17 02/16/17 History TAB(*)] Acamprosate (NF) [Campral (NF)] 333 mg PO TID tab 02/26/17 Rx [place] Carbonate TAB* 300 mg PO BEDTIME #30 tab 02/26/17 Rx OLANzapine TAB* [Zyprexa 10 MG 10 mg PO BEDTIME #30 tab 02/26/17 Rx TAB*] Prazosin CAP* [Minipress CAP*] 1 mg PO 2100 #30 cap 02/26/17 Rx Prazosin CAP* [Minipress CAP*] 5 mg PO 2100 #30 cap 02/26/17 Rx QUEtiapine TAB* [SEROquel TAB*] 25 mg PO DAILY PRN #30 tab 02/26/17 Rx Silver Sulfadiazine 1%* [SILVadine 1 applic TOPICAL BID #1 tube 02/26/17 Rx 1%*] Vitamin THERAPEUTIC TAB* 1 tab PO DAILY #30 tab 02/26/17 Rx [Theragran TAB*] Zolpidem TAB* [Ambien*] 10 mg PO BEDTIME #30 tab MDD 10mg 02/26/17 Rx Follow-Up: Appt. for within the next 2 weeks scheduled by SW with [facility] provider. Merits Inpatient Hospitalization: Yes Clear for Discharge: Adequate Clinical Respons, Acceptable Safety Profile Inpatient DSM-IV Dx: 1. PTSD exacerbation, r/o Treatment resistent PTSD. 2. Borderline PD Discharge Planning - Discharge Planning Discharge Plan: Outpatient Follow Up Outpatient Program: [facility] Recommendations for Continuing Care: Therapeutic Drug Levels Medications: Current Medications Acamprosate (Campral (Nf)) 333 mg PO TID REPLACED BY [facility] Last Admin: 02/26/17 08:47 Dose: 333 mg Acetaminophen (Tylenol Tab*) 650 mg PO Q4H PRN PRN Reason: PAIN or TEMP > 101 F Last Admin: 02/25/17 15:11 Dose: 650 mg Al Hydrox/Mg Hydrox/Simethicone (Maalox Plus*) 30 ml PO Q4H PRN PRN Reason: INDIGESTION Albuterol (Ventolin Hfa Inhaler*) 2 puff INH Q4H PRN PRN Reason: SHORTNESS OF BREATH Last Admin: 02/26/17 09:53 Dose: 2 inh Bacitracin (Bacitracin Ointment*) 1 applic TOPICAL . DIRECTED REPLACED BY [facility] Last Admin: 02/26/17 07:10 Dose: 1 applic Cyclosporine (Restasis 0.05% Oph) 1 drop BOTH EYES DAILY REPLACED BY [facility] Last Admin: 02/26/17 08:47 Dose: 1 drop Diphenhydramine HCl (Benadryl Po*) 50 mg PO Q6H PRN PRN Reason: ITCHING Last Admin: 02/26/17 08:48 Dose: 50 mg Docusate Sodium (Colace Cap*) 100 mg PO BID REPLACED BY [facility] Last Admin: 02/26/17 08:46 Dose: 100 mg Fluticasone Propionate (Flonase Nasal [place] 50mcg*) 2 spray BOTH NARES DAILY REPLACED BY [facility] Last Admin: 02/26/17 08:46 Dose: 2 spray Gabapentin (Neurontin Cap(*)) 600 mg PO TID REPLACED BY [facility] Last Admin: 02/26/17 08:47 Dose: 600 mg Lamotrigine (Lamictal Tab(*)) 200 mg PO DAILY REPLACED BY [facility] Last Admin: 02/26/17 08:47 Dose: 200 mg [place] Carbonate ([place] Carbonate Tab*) 300 mg PO BEDTIME REPLACED BY [facility] Last Admin: 02/25/17 20:45 Dose: 300 mg Lorazepam (Ativan Tab(*)) 2 mg PO DAILY PRN PRN Reason: ANXIETY Last Admin: 02/25/17 16:07 Dose: 2 mg Mometasone Furoate/Formoterol Fumar (Dulera 200/5 Mdi*) 2 puff INH BID REPLACED BY [facility] Last Admin: 02/26/17 08:46 Dose: 2 puff Multivitamins (Theragran Tab*) 1 tab PO DAILY REPLACED BY [facility] Last Admin: 02/26/17 08:46 Dose: 1 tab Naltrexone HCl (Naltrexone (Nf)) 50 mg PO BEDTIME REPLACED BY [facility] Last Admin: 02/25/17 20:45 Dose: 50 mg Olanzapine (Zyprexa Tab*) 10 mg PO BEDTIME REPLACED BY [facility] Last Admin: 02/25/17 20:45 Dose: 10 mg Omeprazole (Prilosec Cap*) 20 mg PO DAILY REPLACED BY [facility] Last Admin: 02/26/17 08:47 Dose: 20 mg Polyethylene Glycol/Electrolytes (Miralax*) 17 gm PO DAILY REPLACED BY [facility] Last Admin: 02/26/17 08:53 Dose: Not Given Prazosin HCl (Minipress Cap*) 5 mg PO 2100 REPLACED BY [facility] Last Admin: 02/25/17 20:45 Dose: 5 mg Prazosin HCl (Minipress Cap*) 1 mg PO 2100 REPLACED BY [facility] Last Admin: 02/25/17 20:45 Dose: 1 mg Silver Sulfadiazine (Silvadine 1%*) 1 applic TOPICAL BID REPLACED BY [facility] Last Admin: 02/26/17 07:10 Dose: 1 applic Zolpidem Tartrate (Ambien Tab*) 10 mg PO BEDTIME REPLACED BY [facility] Last Admin: 02/25/17 20:45 Dose: 10 mg Discharge Planning: Prescriptions provided for discharge [x] Yes [] No Follow up care details as per social work arrangements. Patient response to discharge plan: [] eager for discharge [x] agreeable with discharge plan [] ambivalent about discharge [] disagrees with discharge today
== END 2017-02-26 16:19 | disposition home or self-care (01) | DRG 755 ==
LOC: ED 15:27 → BSU 23:49
PROVIDERS: ADMIT Psychiatry & Neurology Psychiatry; ATTEND Psychiatry & Neurology Psychiatry
DX: F43.11 Post-traumatic stress disorder, acute (principal); G40.909 Epilepsy, unspecified, not intractable, without status epilepticus; E78.5 Hyperlipidemia, unspecified; F60.3 Borderline personality disorder; K21.9 Gastro-esophageal reflux disease without esophagitis; J45.909 Unspecified asthma, uncomplicated; F10.21 Alcohol dependence, in remission; Z91.041 Radiographic dye allergy status; Z88.5 Allergy status to narcotic agent; Z88.8 Allergy status to other drugs, medicaments and biological substances; Z91.048 Other nonmedicinal substance allergy status; Z62.810 Personal history of physical and sexual abuse in childhood
CPT/HCPCS: 36415; 80053; 80178; 80320; 80329; 84443; 85025; 99222; 99231; 99238; A9270-GY; G0480

== ENCOUNTER 2017-03-21 15:54 | Inpatient (IN) | payer MEDICAID, OTHER ==
[2017-03-21] MEDS ORDERED: LORazepam TAB(*) 1 MG PO ONE (16:08)
[2017-03-21] MEDS ORDERED: LORazepam TAB(*) 1 MG ONE (16:11)
[2017-03-21 17:02] LABS: Hematocrit 46 % (35-47); Hemoglobin 15.6 g/dl (12.0-16.0); Mean Corpuscular HGB Conc 34 g/dl (31-36); Mean Corpuscular Hemoglobin 32 pg (27-31); Mean Corpuscular Volume 94 fL (80-97); Mean Platelet Volume 9 um3 (7.4-10.4); Red Cell Distribution Width 13 % (10.5-15); White Blood Count 8.1 10^3/ul (3.5-10.8)
[2017-03-21 17:23] LABS: ALT 12 U/L (7-52); Albumin 4.2 g/dL (3.2-5.2); Alkaline Phosphatase 37 U/L (34-104); BUN/Creatinine Ratio 19.3 (8-20); Blood Urea Nitrogen 16 mg/dL (6-24); CO2 Carbon Dioxide 24 mmol/L (22-32); Chloride 104 mmol/L (101-111); EGFR African American 92.8 (>60); EGFR Non-African American 72.2 (>60); Globulin 3.1 g/dL (2-4); Glucose 94 mg/dL (70-100); Sodium 136 mmol/L (133-145); Total Protein 7.3 g/dL (6.4-8.9)
[2017-03-21 17:30] LABS: Acetaminophen < 15 mcg/mL; Alcohol < 10 mg/dL (<10); Salicylate < 2.50 mg/dL (<30)
[2017-03-21 17:31] LABS: Anion Gap 8 mmol/L (2-11)
[2017-03-21 17:46] LABS: TSH (Thyroid Stimulating Horm) 0.97 mcIU/mL (0.34-5.60)
--- NOTE | 2017-03-21 21:28 | ED ---
Cash Norwood Thomas, scribed for John Paul Thornton MD on 03/21/17 at 1609 . Psychiatric Complaint - HPI Summary HPI Summary: The patient is a 51 y/o F [facility] after she said she was going to cut her wrists and expressed SI. She is in restraints at time of examination in the ED. She was recently a psychiatric patient at [facility]. She seems depressed. There are no known aggravating or alleviating factors at this time. She does not want to in the ED and is tearful. - History Of Current Complaint Chief Complaint: EDMentalHealth Hx Obtained From: Patient Hx Last Menstrual Period: Doesnt have periods, Uterine was stripped per pt Onset/Duration: Still Present Timing: Constant Severity Currently: Moderate Character: Depressed Aggravating Factor(s): Other - Unknown Alleviating Factor(s): Other - Unknown Related History: Positive For: Prior Psychiatric Issues Has Suicidal: Reports: Thoughts - Allergies/Home Medications Allergies/Adverse Reactions: Allergies Allergy/AdvReac Type Severity Reaction Status Date / Time Cortisone Allergy Intermediate Hives Verified 04/25/16 17:34 Adhesive Tape Allergy Mild Rash Verified 04/25/16 17:34 Codeine Allergy Mild Rash Verified 04/25/16 17:34 Iodinated Contrast Media Allergy Unknown Hives Verified 04/25/16 17:34 Cephalexin Allergy Rash Verified 04/25/16 17:34 Iodine Allergy Unknown Verified 04/25/16 17:34 Reaction Details Home Medications: Home Medications Cyclosporine 0.05% OPHTH (NF) [Restasis 0.05% OPHTH] 1 drop BOTH EYES DAILY 04/27 [History Confirmed 03/21/17] Docusate CAP* [Colace Cap*] 100 mg PO BID 03/21/17 [History Confirmed 03/21/17] Fexofenadine-Pseudoephedrine [Lia-D 24 Hour Allergy] 1 tab PO DAILY [History Confirmed 03/21/17] LORazepam TAB(*) [Ativan 1 MG TAB (*)] 2 mg PO DAILY PRN 03/21/17 [History Confirmed 03/21/17] Prazosin CAP* [Minipress CAP*] 6 mg PO 2100 03/21/17 [History Confirmed 03/21/17 ] PMH/Surg Hx/FS Hx/Imm Hx Previously Healthy: No Endocrine/Hematology History: Denies: Hx Diabetes, Hx Thyroid Disease Cardiovascular History: Reports: Hx Hypercholesterolemia Denies: Hx Hypertension Respiratory History: Reports: Hx Asthma Denies: Hx Chronic Obstructive Pulmonary Disease (COPD) GI History: Reports: Hx Gastroesophageal Reflux Disease, Hx Irritable Bowel, Other GI Disorders - Hyperlipidemia Denies: Hx Ulcer Musculoskeletal History: Reports: Hx Arthritis - Right Knee, Other Musculoskeletal History - Right Hand PLATE AND PIN IN RIGHT KNEE Sensory History: Reports: Hx Cataracts, Hx Contacts or Glasses, Hx Vision Problem Denies: Hx Hearing Aid Opthamlomology History: Reports: Hx Cataracts, Hx Contacts or Glasses, Hx Vision Problem Neurological History: Reports: Hx Seizures - epiplepsy, no seizures for 11yrs Psychiatric History: Reports: Hx Anxiety, Hx Depression, Hx Post Traumatic Stress Disorder, Hx Inpatient Treatment, Hx Community Mental Health Tx, Hx Bipolar Disorder, Hx Suicide Attempt, Hx of Violent Episodes Against Others, Hx Substance Abuse, Other Psychiatric Issues/Disorders - BORDERLINE PERS D/O Denies: Hx Attention Deficit Hyperactivity Disorder, Hx Eating Disorder, Hx Panic Disorder, Hx Schizophrenia - Cancer History Hx Chemotherapy: No Hx Radiation Therapy: No - Surgical History Surgery Procedure, Year, and Place: d&c choley. RIGHT knee surgery 2007. RIGHT cataract [id number]. ORIF RIGHT HAND 2013. SEPTOPLASTY ? TUBAL LIGATION 1999 [facility]. RIGHT NECK LYMP NODE BX OR [facility]. UNSURE Hx Anesthesia Reactions: Yes - NAUSEA AND VOMITING AND HARD TO WAKE - Immunization History Date of Tetanus Vaccine: < 10 YEARS Date of Influenza Vaccine: PT STATES UNSURE Infectious Disease History: Reports: Hx of Known/Suspected MRSA Denies: Hx Clostridium Difficile, Hx Hepatitis, Hx Human Immunodeficiency Virus (HIV), History Other Infectious Disease - Family History Known Family History: Positive: Other - When asked this, the patient does not respond. - Social History Alcohol Use: None Hx Substance Use: Yes Substance Use Type: Reports: None Hx Tobacco Use: No Smoking Status (MU): Never Smoked Tobacco Have You Smoked in the Last Year: No Review of Systems Negative: Fever Psychological: Other - SI, plans to cut self All Other Systems Reviewed And Are Negative: Yes Physical Exam Triage Information Reviewed: Yes Vital Signs On Initial Exam: Temp 99.1, HR 89, RR 20, SaO2 96, BP 154/79 Vital Signs Reviewed: Yes Appearance: Positive: Well-Appearing, No Pain Distress, Obese Skin: Positive: Warm, Skin Color Reflects Adequate Perfusion, Dry Head/Face: Positive: Normal Head/Face Inspection Eyes: Positive: Normal ENT: Positive: Normal ENT inspection Neck: Positive: Supple, Nontender Respiratory/Lung Sounds: Positive: Clear to Auscultation, Breath Sounds Present Cardiovascular: Positive: RRR Abdomen Description: Positive: Nontender, Soft Bowel Sounds: Positive: Present Musculoskeletal: Positive: Normal Neurological: Positive: Normal Psychiatric: Positive: Other - She is tearful. She is labile. Diagnostics - Vital Signs Temp 99.1, HR 89, RR 20, SaO2 96, BP 154/79 - Laboratory Lab Results: Lab Results 03/21/17 03/21/17 Range/Units 16:41 16:41 WBC 8.1 (3.5-10.8) 10^3/ul RBC 4.90 (4.0-5.4) 10^6/ul Hgb 15.6 (12.0-16.0) g/dl Hct 46 (35-47) % MCV 94 (80-97) fL MCH 32 H (27-31) pg MCHC 34 (31-36) g/dl RDW 13 (10.5-15) % Plt Count 350 (150-450) 10^3/ul MPV 9 (7.4-10.4) um3 Neut % (Auto) 63.4 (38-83) % Lymph % (Auto) 24.8 L (25-47) % [place] % (Auto) 8.2 (1-9) % Eos % (Auto) 2.6 (0-6) % Baso % (Auto) 1.0 (0-2) % Absolute Neuts (auto) 5.1 (1.5-7.7) 10^3/ul Absolute Lymphs (auto) 2.0 (1.0-4.8) 10^3/ul Absolute Monos (auto) 0.7 (0-0.8) 10^3/ul Absolute Eos (auto) 0.2 (0-0.6) 10^3/ul Absolute Basos (auto) 0.1 (0-0.2) 10^3/ul Absolute Nucleated RBC 0.01 10^3/ul Nucleated RBC % 0.1 Sodium 136 (133-145) mmol/L Potassium TNP Chloride 104 (101-111) mmol/L Carbon Dioxide 24 (22-32) mmol/L Anion Gap 8 (2-11) mmol/L BUN 16 (6-24) mg/dL Creatinine 0.83 (0.51-0.95) mg/dL Est GFR ( Amer) 92.8 (>60) Est GFR (Non-Af Amer) 72.2 (>60) BUN/Creatinine Ratio 19.3 (8-20) Glucose 94 (70-100) mg/dL Calcium 10.0 (8.6-10.3) mg/dL Total Bilirubin 0.30 (0.2-1.0) mg/dL AST TNP ALT 12 (7-52) U/L Alkaline Phosphatase 37 (34-104) U/L Total Protein 7.3 (6.4-8.9) g/dL Albumin 4.2 (3.2-5.2) g/dL Globulin 3.1 (2-4) g/dL Albumin/Globulin Ratio 1.4 (1-3) TSH 0.97 (0.34-5.60) mcIU/mL Salicylates < 2.50 (<30) mg/dL Acetaminophen < 15 mcg/mL Serum Alcohol < 10 (<10) mg/dL Result Diagrams: 03/21/17 16:41 03/21/17 16:41 Lab Statement: Any lab studies that have been ordered have been reviewed, and results considered in the medical decision making process. Course/Dx - Course Course Of Treatment: Ms. Swenson was quite upset on arrival and was temporarily restrained. She calmed down and was released and medically cleared and is awaiting a MHE. - Differential Dx/Clinical Impression Provider Diagnosis: Mood disorder Discharge - Discharge Plan Condition: Stable Disposition: OTHER Discharge Disposition Comment: Change of Shift Referrals: Jesika Remdan MD [Primary Care Provider] - The documentation as recorded by the Cash rojas Thomas accurately reflects the service I personally performed and the decisions made by me, John Paul Thornton MD.
[2017-03-21] MEDS ORDERED: Acetaminophen TAB* 325 MG PO ONE (23:48)
[2017-03-22] MEDS ORDERED: OLANzapine TAB* 10 MG ONE (01:10)
[2017-03-22] MEDS ORDERED: diPHENhydraMINE PO* 50 MG ONE (01:10)
[2017-03-22] MEDS ORDERED: Prazosin CAP* 1 MG ONE (01:10)
[2017-03-22] MEDS ORDERED: Lithium Carbonate TAB* 300 MG ONE (01:10)
[2017-03-22] MEDS ORDERED: Naltrexone (NF) 50 MG TAB PO ONE (01:10)
[2017-03-22] MEDS ORDERED: Gabapentin CAP(*) 300 MG ONE (01:11)
[2017-03-22] MEDS ORDERED: Zolpidem TAB* 10 MG PO ONE (02:00)
[2017-03-22] MEDS ORDERED: Prazosin CAP* 1 MG PO ONE (02:00)
[2017-03-22] MEDS ORDERED: Al Hydrox/Mg Hydrox/Simet LIQ* 30 ML UDC PO PRN (03:09)
[2017-03-22] MEDS ORDERED: chlorproMAZINE TAB* 50 MG PO PRN (03:18)
[2017-03-22] MEDS: CMCS: Meloxicam(NF) 7.5 MG TAB PO SCH (09:47)
[2017-03-22] MEDS: Omeprazole CAP* 20 MG PO SCH (09:47)
[2017-03-22] MEDS: ACAMPROSATE 333 MG PO SCH ×3 (09:47→20:44)
[2017-03-22] MEDS: Cetirizine* 10 MG TAB PO SCH (09:48)
[2017-03-22] MEDS: Gabapentin CAP(*) 300 MG PO SCH ×3 (09:48→20:45)
[2017-03-22] MEDS: Fluticasone NASAL SPRAY 50MCG* 16 gm SPRAY BTL BOTH NARES SCH (09:48)
[2017-03-22] MEDS: Vitamin THERAPEUTIC TAB PO SCH (09:49)
[2017-03-22] MEDS: Pseudoephedrine HCL ER TAB* 120 MG PO SCH (09:49)
[2017-03-22] MEDS: lamoTRIgine TAB(*) 100 MG PO SCH (09:49)
[2017-03-22] MEDS: Acetaminophen TAB* 325 MG PO PRN ×3 (10:37→18:45)
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
[2017-03-22] MEDS ORDERED: QUEtiapine TAB* 25 MG PO ONE (16:32)
[2017-03-22] MEDS: Mometasone 220 MCG MDI INH SCH (17:59)
[2017-03-22] MEDS: CMCS: Naltrexone (NF) 50 MG TAB PO SCH (20:43)
[2017-03-22] MEDS: QUEtiapine TAB* 25 MG PO PRN (20:43)
[2017-03-22] MEDS: Prazosin CAP* 5 MG PO SCH (20:43)
[2017-03-22] MEDS: QUEtiapine TAB* 100 MG PO SCH (20:44)
[2017-03-22] MEDS: diPHENhydraMINE PO* 50 MG PO SCH (20:45)
[2017-03-22] MEDS: Prazosin CAP* 1 MG PO SCH (20:45)
[2017-03-22] MEDS: Zolpidem TAB* 10 MG PO SCH ×2 (20:55→21:09)
[2017-03-22] MEDS: TRIAMCINOLONE PASTE 0.1% TOPICAL SCH (21:00)
[2017-03-22] MEDS ORDERED: OLANzapine TAB* 10 MG PO SCH (21:00)
[2017-03-22] MEDS ORDERED: Lithium Carbonate TAB* 300 MG PO SCH (21:00)
[2017-03-23] MEDS: Acetaminophen TAB* 325 MG PO PRN ×3 (05:32→17:25)
[2017-03-23] MEDS: Fluticasone NASAL SPRAY 50MCG* 16 gm SPRAY BTL BOTH NARES SCH (09:46)
[2017-03-23] MEDS: CMCS: Meloxicam(NF) 7.5 MG TAB PO SCH (09:47)
[2017-03-23] MEDS: Gabapentin CAP(*) 300 MG PO SCH ×3 (09:47→20:23)
[2017-03-23] MEDS: Cetirizine* 10 MG TAB PO SCH (09:48)
[2017-03-23] MEDS: Omeprazole CAP* 20 MG PO SCH (09:48)
[2017-03-23] MEDS: Pseudoephedrine HCL ER TAB* 120 MG PO SCH (09:48)
[2017-03-23] MEDS: ACAMPROSATE 333 MG PO SCH ×3 (09:48→20:24)
[2017-03-23] MEDS: Vitamin THERAPEUTIC TAB PO SCH (09:48)
[2017-03-23] MEDS: lamoTRIgine TAB(*) 100 MG PO SCH (09:48)
[2017-03-23] MEDS: Vortioxetine (NF) 10 MG TAB (FORMERLY Brintellix) PO SCH (09:54)
[2017-03-23] MEDS: QUEtiapine TAB* 25 MG PO SCH ×2 (09:54→16:47)
--- NOTE | 2017-03-23 10:18 | PN ---
Subjective - Subjective Service Type: [id number] Hosp care 15 min low complexity Subjective: Patient noted to be isolated to her room most of the day. She has not attended groups. She reports she never attends groups when admitted as she can not tolerate groups of strangers. Patient reports ongoing AHs. They are not commanding, but make derogatory comments to her. She reports ongoing intrusive memories of her prior traumas. Patient reports ongoing flashbacks. Patient reports sleep improved on Seroquel re-started. She reports no NMs last night. Patient reports increased pain in her right knee as she can not wear her brace due to her SIB today and unit policy. Patient denies SI/HI and VH. Patient is med compliant and denies med s/e's. Objective - Appearance Appearance: Well Developed/Nourished Dysmorphic Features: No Hygiene: Normal Grooming: Fairly Well Kept - Behavior Psychomotor Activities: Normal Exhibits Abnormal Movement: No - Attitude and Relatedness Attitude and Relatedness: Cooperative Eye Contact: Fair - Speech Quality: Unpressured Latencies: Normal Quantity: Appropriate - Mood Patient's Decription of Mood: "Anxious" - Affect Observed Affect: Tense Affect Consistent with: Dysphoria - Thought Process Patient's Thought Process: Coherent Thought Content: Yes Passive Wish, No Suicidal Planning, No Homicidal Ideation, No Paranoid Ideation - Sensorium Experiencing Hallucinations: Yes Type of Hallucinations: Visual: No, Auditory: Yes - voices making derogatory comments to her, Command: No - Level of Consciousness Level of Consciousness: Alert Orientation: Yes Intact, Yes Orientated to Time, Yes Orientated to Place, Yes Orientated to Person - Impulse Control Impulse Control: Poor - Insight and Judgement Insight and Judgement: Fair - Group Participation Particating in Group Activities: Yes - Medication Management Medication Management Adherence: Yes Assessment - Assessment Merits Inpatient Hospitalization: For Immediate Safety, For Stabilization Inpatient DSM-IV Dx: 1. PTSD Exacerbation. 2. Borderline PD. 3. Alcohol use d/ o. 4. Opioid use d/o Plan - Plan Treatment Plan: Name: SANDY JAIMES Birthdate: 1965 [id number] PLAN: -------- 1. Continue admission to the [facility] for safety and symptom mx. 2. Continue home psychotropic med regimen as currently prescribed, with exception of [place] and Olanzapine. 3. Patient requests return to psychotropic med regimen prior to her 02/2017 [facility] admission. She reports noting benefit to symptoms more on that regimen. 4. [place] and Olanzapine will be discontinued due to reported ineffectiveness. 5. Continue Trintellix 10mg po qam started by outpt psychiatrist. 6. Continue Seroquel from prior regimen at 150mg po qhs for psychosis and mood augmentation. Continue Seroquel 50mg po BID (8am and 3pm) for anxiety/agitation/mood augmentation/psychosis. 7. Continue home medical meds as Rx'd pre-admission. 8. Will add during admission Ultram 50mg po BID PRN for right knee pain, patient unable to wear brace due to her SIB today and unit protocol. 9. Continue gathering collateral information from family and [facility] providers. 10. Patient to participate in milieu activities and groups. Continued Medication Management: Different Medication Medications: Current Medications Acamprosate (Campral (Nf)) 333 mg PO TID [facility] Last Admin: 03/23/17 09:48 Dose: 333 mg Acetaminophen (Tylenol Tab*) 650 mg PO Q4H PRN PRN Reason: PAIN or TEMP > 101 F Last Admin: 03/23/17 05:32 Dose: 650 mg Al Hydrox/Mg Hydrox/Simethicone (Maalox Plus*) 30 ml PO Q4H PRN PRN Reason: INDIGESTION Cetirizine HCl (Zyrtec*) 10 mg PO DAILY [facility] Last Admin: 03/23/17 09:48 Dose: 10 mg Diphenhydramine HCl (Benadryl Po*) 50 mg PO BEDTIME [facility] Last Admin: 03/22/17 20:45 Dose: 50 mg Fluticasone Propionate (Flonase Nasal [place] 50mcg*) 2 spray BOTH NARES DAILY [facility] Last Admin: 03/23/17 09:46 Dose: 2 spray Gabapentin (Neurontin Cap(*)) 600 mg PO TID [facility] Last Admin: 03/23/17 09:47 Dose: 600 mg Lamotrigine (Lamictal Tab(*)) 200 mg PO DAILY [facility] Last Admin: 03/23/17 09:48 Dose: 200 mg Meloxicam (Mobic(Nf)) 15 mg PO DAILY WITH MEAL [facility] Last Admin: 03/23/17 09:47 Dose: 15 mg Mometasone Furoate (Asmanex 220 Mcg Mdi *) 2 puff INH QPM [facility] Last Admin: 03/22/17 17:59 Dose: Not Given Multivitamins (Theragran Tab*) 1 tab PO DAILY [facility] Last Admin: 03/23/17 09:48 Dose: 1 tab Naltrexone HCl (Naltrexone (Nf)) 50 mg PO BEDTIME [facility] Last Admin: 03/22/17 20:43 Dose: 50 mg Omeprazole (Prilosec Cap*) 20 mg PO DAILY@0730 [facility] Last Admin: 03/23/17 09:48 Dose: 20 mg Prazosin HCl (Minipress Cap*) 5 mg PO BEDTIME [facility] Last Admin: 03/22/17 20:43 Dose: 5 mg Prazosin HCl (Minipress Cap*) 1 mg PO BEDTIME [facility] Last Admin: 03/22/17 20:45 Dose: 1 mg Pseudoephedrine HCl (Sudafed 12 Hour*) 240 mg PO DAILY [facility] Last Admin: 03/23/17 09:48 Dose: 240 mg Quetiapine Fumarate (Seroquel Tab*) 25 mg PO BID PRN PRN Reason: breakthrough anxiety Last Admin: 03/22/17 20:43 Dose: 25 mg Quetiapine Fumarate (Seroquel Tab*) 50 mg PO BID@0800,1500 [facility] Last Admin: 03/23/17 09:54 Dose: 50 mg Quetiapine Fumarate (Seroquel Tab*) 150 mg PO BEDTIME [facility] Last Admin: 03/22/17 20:44 Dose: 150 mg Triamcinolone Acetonide (Triamcinolone 0.1% Paste *) 1 applic TOPICAL BEDTIME [facility] Last Admin: 03/22/17 21:00 Dose: Not Given Vortioxetine (Trintellix (Nf)) 10 mg PO DAILY [facility] Last Admin: 03/23/17 09:54 Dose: Not Given Zolpidem Tartrate (Ambien Tab*) 10 mg PO BEDTIME [facility] Last Admin: 03/22/17 21:09 Dose: 10 mg - Discharge Plan Discharge Plan: Outpatient Follow Up Outpatient Program: [facility]
[2017-03-23] MEDS: QUEtiapine TAB* 25 MG PO PRN ×2 (13:45→23:40)
[2017-03-23] MEDS: Mometasone 220 MCG MDI INH SCH (17:27)
[2017-03-23] MEDS ORDERED: traMADol TAB* 50 MG PO PRN (19:21)
[2017-03-23] MEDS ORDERED: traMADol TAB* 50 MG PO ONE (19:21)
[2017-03-23] MEDS: QUEtiapine TAB* 100 MG PO SCH (20:24)
[2017-03-23] MEDS: CMCS: Naltrexone (NF) 50 MG TAB PO SCH (20:24)
[2017-03-23] MEDS: diPHENhydraMINE PO* 50 MG PO SCH (20:24)
[2017-03-23] MEDS: Prazosin CAP* 5 MG PO SCH (20:24)
[2017-03-23] MEDS: Prazosin CAP* 1 MG PO SCH (20:24)
[2017-03-23] MEDS: TRIAMCINOLONE PASTE 0.1% TOPICAL SCH (21:01)
[2017-03-23] MEDS: Zolpidem TAB* 10 MG PO SCH (21:35)
[2017-03-24] MEDS: Vortioxetine (NF) 10 MG TAB (FORMERLY Brintellix) PO SCH (08:05)
[2017-03-24] MEDS: Fluticasone NASAL SPRAY 50MCG* 16 gm SPRAY BTL BOTH NARES SCH (09:43)
[2017-03-24] MEDS: Pseudoephedrine HCL ER TAB* 120 MG PO SCH (09:43)
[2017-03-24] MEDS: Gabapentin CAP(*) 300 MG PO SCH ×3 (09:43→21:03)
[2017-03-24] MEDS: ACAMPROSATE 333 MG PO SCH ×3 (09:43→21:06)
[2017-03-24] MEDS: Vitamin THERAPEUTIC TAB PO SCH (09:43)
[2017-03-24] MEDS: lamoTRIgine TAB(*) 100 MG PO SCH (09:43)
[2017-03-24] MEDS: Cetirizine* 10 MG TAB PO SCH (09:44)
[2017-03-24] MEDS: CMCS: Meloxicam(NF) 7.5 MG TAB PO SCH (09:44)
[2017-03-24] MEDS: Omeprazole CAP* 20 MG PO SCH (09:44)
[2017-03-24] MEDS: QUEtiapine TAB* 25 MG PO SCH ×2 (09:45→15:53)
[2017-03-24] MEDS: Acetaminophen TAB* 325 MG PO PRN ×2 (13:00→17:15)
[2017-03-24] MEDS: Mometasone 220 MCG MDI INH SCH (17:53)
[2017-03-24] MEDS: Prazosin CAP* 5 MG PO SCH (21:02)
[2017-03-24] MEDS: Prazosin CAP* 1 MG PO SCH (21:02)
[2017-03-24] MEDS: Zolpidem TAB* 10 MG PO SCH (21:03)
[2017-03-24] MEDS: CMCS: Naltrexone (NF) 50 MG TAB PO SCH (21:03)
[2017-03-24] MEDS: TRIAMCINOLONE PASTE 0.1% TOPICAL SCH (21:04)
[2017-03-24] MEDS: QUEtiapine TAB* 100 MG PO SCH (21:04)
[2017-03-24] MEDS: diPHENhydraMINE PO* 50 MG PO SCH (21:04)
[2017-03-25] MEDS: QUEtiapine TAB* 25 MG PO PRN ×4 (00:35→18:24)
[2017-03-25] MEDS: Fluticasone NASAL SPRAY 50MCG* 16 gm SPRAY BTL BOTH NARES SCH (08:59)
[2017-03-25] MEDS: CMCS: Meloxicam(NF) 7.5 MG TAB PO SCH (08:59)
[2017-03-25] MEDS: Omeprazole CAP* 20 MG PO SCH (09:00)
[2017-03-25] MEDS: Gabapentin CAP(*) 300 MG PO SCH ×3 (09:00→20:58)
[2017-03-25] MEDS: Cetirizine* 10 MG TAB PO SCH (09:01)
[2017-03-25] MEDS: Vitamin THERAPEUTIC TAB PO SCH (09:01)
[2017-03-25] MEDS: lamoTRIgine TAB(*) 100 MG PO SCH (09:01)
[2017-03-25] MEDS: ACAMPROSATE 333 MG PO SCH ×3 (09:01→20:58)
[2017-03-25] MEDS: Pseudoephedrine HCL ER TAB* 120 MG PO SCH (09:01)
[2017-03-25] MEDS: Vortioxetine (NF) 10 MG TAB (FORMERLY Brintellix) PO SCH (09:33)
[2017-03-25] MEDS: QUEtiapine TAB* 25 MG PO SCH ×2 (09:33→14:48)
[2017-03-25] MEDS: Mometasone 220 MCG MDI INH SCH (18:16)
--- NOTE | 2017-03-25 19:43 | PN ---
Subjective - Subjective Service Type: [id number] Hosp care 15 min low complexity Subjective: Sandy didn't have any complaints although she appeared in distress. Laying in bed, eyes about closed, extremely dysphoric. Denies SI/HI or hallucinations. Objective - Appearance Appearance: Healthy Appearing Dysmorphic Features: No Hygiene: Normal Grooming: Fairly Well Kept - Behavior Psychomotor Activities: Normal Exhibits Abnormal Movement: No - Attitude and Relatedness Attitude and Relatedness: Superficially Cooperative Eye Contact: Poor - Speech Quality: Unpressured Latencies: Normal Quantity: Terse - Mood Patient's Decription of Mood: "Okay" - Affect Observed Affect: Constricted Affect Consistent with: Dysphoria - Thought Process Patient's Thought Process: Coherent, Impoverished Thought Content: No Passive Wish, No Suicidal Planning, No Homicidal Ideation, No Paranoid Ideation - Sensorium Experiencing Hallucinations: No, Sensorium is Clear Type of Hallucinations: Visual: No, Auditory: No, Command: No - Level of Consciousness Level of Consciousness: Alert Orientation: Yes Intact, Yes Orientated to Time, Yes Orientated to Place, Yes Orientated to Person - Impulse Control Impulse Control: Intact - Insight and Judgement Insight and Judgement: Fair - Group Participation Particating in Group Activities: No - Medication Management Medication Management Adherence: Yes Assessment - Assessment Merits Inpatient Hospitalization: Consolidate Improvements, Pending Safe DC Plan Inpatient DSM-IV Dx: 1. PTSD Exacerbation. 2. Borderline PD. 3. Alcohol use d/ o. 4. Opioid use d/o Clinical Impression: Doing well per all observations and reports and is at baseline. Plan - Plan Treatment Plan: Name: SANDY JAIMES Birthdate: 1965 [id number] Continued Medication Management: Continue Outpt Medication Medications: Current Medications Acamprosate (Campral (Nf)) 333 mg PO TID [facility] Last Admin: 03/25/17 14:06 Dose: 333 mg Acetaminophen (Tylenol Tab*) 650 mg PO Q4H PRN PRN Reason: PAIN or TEMP > 101 F Last Admin: 03/24/17 17:15 Dose: 650 mg Al Hydrox/Mg Hydrox/Simethicone (Maalox Plus*) 30 ml PO Q4H PRN PRN Reason: INDIGESTION Cetirizine HCl (Zyrtec*) 10 mg PO DAILY [facility] Last Admin: 03/25/17 09:01 Dose: 10 mg Diphenhydramine HCl (Benadryl Po*) 50 mg PO BEDTIME [facility] Last Admin: 03/24/17 21:04 Dose: 50 mg Fluticasone Propionate (Flonase Nasal [place] 50mcg*) 2 spray BOTH NARES DAILY [facility] Last Admin: 03/25/17 08:59 Dose: 2 spray Gabapentin (Neurontin Cap(*)) 600 mg PO TID [facility] Last Admin: 03/25/17 14:43 Dose: 600 mg Lamotrigine (Lamictal Tab(*)) 200 mg PO DAILY [facility] Last Admin: 03/25/17 09:01 Dose: 200 mg Meloxicam (Mobic(Nf)) 15 mg PO DAILY WITH MEAL [facility] Last Admin: 03/25/17 08:59 Dose: 15 mg Mometasone Furoate (Asmanex 220 Mcg Mdi *) 2 puff INH QPM [facility] Last Admin: 03/25/17 18:16 Dose: 2 puff Multivitamins (Theragran Tab*) 1 tab PO DAILY [facility] Last Admin: 03/25/17 09:01 Dose: 1 tab Naltrexone HCl (Naltrexone (Nf)) 50 mg PO BEDTIME [facility] Last Admin: 03/24/17 21:03 Dose: 50 mg Omeprazole (Prilosec Cap*) 20 mg PO DAILY@0730 [facility] Last Admin: 03/25/17 09:00 Dose: 20 mg Prazosin HCl (Minipress Cap*) 5 mg PO BEDTIME [facility] Last Admin: 03/24/17 21:02 Dose: 5 mg Prazosin HCl (Minipress Cap*) 1 mg PO BEDTIME [facility] Last Admin: 03/24/17 21:02 Dose: 1 mg Pseudoephedrine HCl (Sudafed 12 Hour*) 240 mg PO DAILY [facility] Last Admin: 03/25/17 09:01 Dose: 240 mg Quetiapine Fumarate (Seroquel Tab*) 25 mg PO BID PRN PRN Reason: breakthrough anxiety Last Admin: 03/25/17 18:24 Dose: 25 mg Quetiapine Fumarate (Seroquel Tab*) 50 mg PO BID@0800,1500 [facility] Last Admin: 03/25/17 14:48 Dose: 50 mg Quetiapine Fumarate (Seroquel Tab*) 150 mg PO BEDTIME [facility] Last Admin: 03/24/17 21:04 Dose: 150 mg Tramadol HCl (Ultram*) 50 mg PO Q12H PRN PRN Reason: PAIN Triamcinolone Acetonide (Triamcinolone 0.1% Paste *) 1 applic TOPICAL BEDTIME [facility] Last Admin: 03/24/17 21:04 Dose: Not Given Vortioxetine (Trintellix (Nf)) 10 mg PO DAILY [facility] Last Admin: 03/25/17 09:33 Dose: 10 mg Zolpidem Tartrate (Ambien Tab*) 10 mg PO BEDTIME [facility] Last Admin: 03/24/17 21:03 Dose: 10 mg - Discharge Plan Discharge Plan: Outpatient Follow [facility]
[2017-03-25] MEDS: CMCS: Naltrexone (NF) 50 MG TAB PO SCH (20:57)
[2017-03-25] MEDS: Prazosin CAP* 1 MG PO SCH (20:58)
[2017-03-25] MEDS: diPHENhydraMINE PO* 50 MG PO SCH (20:58)
[2017-03-25] MEDS: QUEtiapine TAB* 100 MG PO SCH (20:59)
[2017-03-25] MEDS: Prazosin CAP* 5 MG PO SCH (21:00)
[2017-03-25] MEDS: Zolpidem TAB* 10 MG PO SCH (21:00)
[2017-03-25] MEDS: TRIAMCINOLONE PASTE 0.1% TOPICAL SCH (21:04)
[2017-03-26] MEDS: Omeprazole CAP* 20 MG PO SCH (09:01)
[2017-03-26] MEDS: Cetirizine* 10 MG TAB PO SCH (09:01)
[2017-03-26] MEDS: ACAMPROSATE 333 MG PO SCH ×3 (09:01→20:53)
[2017-03-26] MEDS: Vitamin THERAPEUTIC TAB PO SCH (09:01)
[2017-03-26] MEDS: lamoTRIgine TAB(*) 100 MG PO SCH (09:01)
[2017-03-26] MEDS: Gabapentin CAP(*) 300 MG PO SCH ×3 (09:01→21:00)
[2017-03-26] MEDS: CMCS: Meloxicam(NF) 7.5 MG TAB PO SCH (09:02)
[2017-03-26] MEDS: Fluticasone NASAL SPRAY 50MCG* 16 gm SPRAY BTL BOTH NARES SCH (09:02)
[2017-03-26] MEDS: Pseudoephedrine HCL ER TAB* 120 MG PO SCH (09:02)
[2017-03-26] MEDS: QUEtiapine TAB* 25 MG PO SCH ×2 (09:03→15:27)
[2017-03-26] MEDS: Vortioxetine (NF) 10 MG TAB (FORMERLY Brintellix) PO SCH (09:28)
--- NOTE | 2017-03-26 12:05 | PN ---
Subjective - Subjective Service Type: 87326 Hosp care 15 min low complexity Subjective: Patient continues to isolate in her bedroom. Patient has had 2 instances of SIB , one with a comb she broke into pieces and one using the edges of an ice-pack. Patient received PRN Thorazine with benefit to agitation. On interview, patient is somnolent. She requests her clothing back. She was informed team is looking for a period of stability before her clothes can be returned, per unit protocol. Patient acknowledged understanding. Patient denies SI/HI and AH/VH. She reports cutting is a means of letting go of the anger she feels. Objective - Appearance Appearance: Well Developed/Nourished Dysmorphic Features: No Hygiene: Normal Grooming: Fairly Well Kept - Behavior Psychomotor Activities: Abnormal-Decreased Exhibits Abnormal Movement: No - Attitude and Relatedness Attitude and Relatedness: Minimally Cooperative Eye Contact: Fair - Speech Quality: Unpressured Latencies: Normal Quantity: Appropriate - Mood Patient's Decription of Mood: "Upset" - Affect Observed Affect: Tense Affect Consistent with: Dysphoria - Thought Process Patient's Thought Process: Coherent, Goal Directed Thought Content: No Passive Wish, No Suicidal Planning, No Homicidal Ideation, No Paranoid Ideation - Sensorium Experiencing Hallucinations: No, Sensorium is Clear Type of Hallucinations: Visual: No, Auditory: No, Command: No - Level of Consciousness Level of Consciousness: Alert Orientation: Yes Intact, Yes Orientated to Time, Yes Orientated to Place, Yes Orientated to Person - Impulse Control Impulse Control: Intact - Insight and Judgement Insight and Judgement: Fair - Group Participation Particating in Group Activities: Yes - Medication Management Medication Management Adherence: Yes Assessment - Assessment Merits Inpatient Hospitalization: For Immediate Safety, For Stabilization Inpatient DSM-IV Dx: 1. PTSD Exacerbation. 2. Borderline PD. 3. Alcohol use d/ o. 4. Opioid use d/o Plan - Plan Treatment Plan: Name: SANDY JAIMES Birthdate: 1965 [id number] PLAN: -------- 1. Continue admission to the [facility] for safety and symptom mx. 2. Continue home psychotropic med regimen as currently prescribed, with exception of [place] and Olanzapine. 3. Patient requests return to psychotropic med regimen prior to her 02/2017 [facility] admission. She reports noting benefit to symptoms more on that regimen. 4. [place] and Olanzapine will be discontinued due to reported ineffectiveness. 5. Continue Trintellix 10mg po qam started by outpt psychiatrist. 6. Continue Seroquel from prior regimen at 150mg po qhs for psychosis and mood augmentation. Continue Seroquel 50mg po BID (8am and 3pm) for anxiety/agitation/mood augmentation/psychosis. 7. Continue home medical meds as Rx'd pre-admission. 8. Continue Ultram 50mg po BID PRN for right knee pain, patient unable to wear brace due to her SIB today and unit protocol. 9. Continue gathering collateral information from family and [facility] providers. 10. Patient to participate in milieu activities and groups. Medications: Current Medications Acamprosate (Campral (Nf)) 333 mg PO TID [facility] Last Admin: 03/26/17 09:01 Dose: 333 mg Acetaminophen (Tylenol Tab*) 650 mg PO Q4H PRN PRN Reason: PAIN or TEMP > 101 F Last Admin: 03/24/17 17:15 Dose: 650 mg Al Hydrox/Mg Hydrox/Simethicone (Maalox Plus*) 30 ml PO Q4H PRN PRN Reason: INDIGESTION Cetirizine HCl (Zyrtec*) 10 mg PO DAILY [facility] Last Admin: 03/26/17 09:01 Dose: 10 mg Diphenhydramine HCl (Benadryl Po*) 50 mg PO BEDTIME [facility] Last Admin: 03/25/17 20:58 Dose: 50 mg Fluticasone Propionate (Flonase Nasal [place] 50mcg*) 2 spray BOTH NARES DAILY [facility] Last Admin: 03/26/17 09:02 Dose: 2 spray Gabapentin (Neurontin Cap(*)) 600 mg PO TID [facility] Last Admin: 03/26/17 09:01 Dose: 600 mg Lamotrigine (Lamictal Tab(*)) 200 mg PO DAILY [facility] Last Admin: 03/26/17 09:01 Dose: 200 mg Meloxicam (Mobic(Nf)) 15 mg PO DAILY WITH MEAL [facility] Last Admin: 03/26/17 09:02 Dose: 15 mg Mometasone Furoate (Asmanex 220 Mcg Mdi *) 2 puff INH QPM [facility] Last Admin: 03/25/17 18:16 Dose: 2 puff Multivitamins (Theragran Tab*) 1 tab PO DAILY [facility] Last Admin: 03/26/17 09:01 Dose: 1 tab Naltrexone HCl (Naltrexone (Nf)) 50 mg PO BEDTIME [facility] Last Admin: 03/25/17 20:57 Dose: 50 mg Omeprazole (Prilosec Cap*) 20 mg PO DAILY@0730 [facility] Last Admin: 03/26/17 09:01 Dose: 20 mg Prazosin HCl (Minipress Cap*) 5 mg PO BEDTIME [facility] Last Admin: 03/25/17 21:00 Dose: 5 mg Prazosin HCl (Minipress Cap*) 1 mg PO BEDTIME [facility] Last Admin: 03/25/17 20:58 Dose: 1 mg Pseudoephedrine HCl (Sudafed 12 Hour*) 240 mg PO DAILY [facility] Last Admin: 03/26/17 09:02 Dose: 240 mg Quetiapine Fumarate (Seroquel Tab*) 25 mg PO BID PRN PRN Reason: breakthrough anxiety Last Admin: 03/25/17 18:24 Dose: 25 mg Quetiapine Fumarate (Seroquel Tab*) 50 mg PO BID@0800,1500 [facility] Last Admin: 03/26/17 09:03 Dose: 50 mg Quetiapine Fumarate (Seroquel Tab*) 150 mg PO BEDTIME [facility] Last Admin: 03/25/17 20:59 Dose: 150 mg Tramadol HCl (Ultram*) 50 mg PO Q12H PRN PRN Reason: PAIN Triamcinolone Acetonide (Triamcinolone 0.1% Paste *) 1 applic TOPICAL BEDTIME [facility] Last Admin: 03/25/17 21:04 Dose: Not Given Vortioxetine (Trintellix (Nf)) 10 mg PO DAILY [facility] Last Admin: 03/26/17 09:28 Dose: Not Given Zolpidem Tartrate (Ambien Tab*) 10 mg PO BEDTIME [facility] Last Admin: 03/25/17 21:00 Dose: 10 mg - Discharge Plan Discharge Plan: [facility]
[2017-03-26] MEDS: QUEtiapine TAB* 25 MG PO PRN (12:37)
[2017-03-26] MEDS ORDERED: chlorproMAZINE TAB* 50 MG ONE ×2 (13:52→20:58)
[2017-03-26] MEDS: Mometasone 220 MCG MDI INH SCH (17:52)
[2017-03-26] MEDS ORDERED: chlorproMAZINE TAB* 50 MG PO ONE (20:51)
[2017-03-26] MEDS: CMCS: Naltrexone (NF) 50 MG TAB PO SCH (20:53)
[2017-03-26] MEDS: QUEtiapine TAB* 100 MG PO SCH (20:54)
[2017-03-26] MEDS: diPHENhydraMINE PO* 50 MG PO SCH (20:55)
[2017-03-26] MEDS: Prazosin CAP* 1 MG PO SCH (20:55)
[2017-03-26] MEDS: Prazosin CAP* 5 MG PO SCH (20:55)
[2017-03-26] MEDS: Zolpidem TAB* 10 MG PO SCH (20:56)
[2017-03-26] MEDS: TRIAMCINOLONE PASTE 0.1% TOPICAL SCH (21:00)
[2017-03-27] MEDS: QUEtiapine TAB* 25 MG PO PRN ×2 (01:05→11:15)
[2017-03-27] MEDS: CMCS: Meloxicam(NF) 7.5 MG TAB PO SCH (09:20)
[2017-03-27] MEDS: Gabapentin CAP(*) 300 MG PO SCH ×3 (09:20→21:14)
[2017-03-27] MEDS: Cetirizine* 10 MG TAB PO SCH (09:20)
[2017-03-27] MEDS: Omeprazole CAP* 20 MG PO SCH (09:21)
[2017-03-27] MEDS: Pseudoephedrine HCL ER TAB* 120 MG PO SCH (09:21)
[2017-03-27] MEDS: Vitamin THERAPEUTIC TAB PO SCH (09:21)
[2017-03-27] MEDS: Fluticasone NASAL SPRAY 50MCG* 16 gm SPRAY BTL BOTH NARES SCH (09:21)
[2017-03-27] MEDS: lamoTRIgine TAB(*) 100 MG PO SCH (09:21)
[2017-03-27] MEDS: ACAMPROSATE 333 MG PO SCH ×3 (09:22→21:10)
[2017-03-27] MEDS: QUEtiapine TAB* 25 MG PO SCH ×2 (09:24→15:42)
[2017-03-27] MEDS: Vortioxetine (NF) 10 MG TAB (FORMERLY Brintellix) PO SCH (09:29)
--- NOTE | 2017-03-27 12:47 | PN ---
Subjective - Subjective Service Type: [id number] Hosp care 15 min low complexity Subjective: Patient noted to isolate in her room most of the day. Yesterday, patient self- injured twice and received 2 PRNs, last in the evening hours. Patient reports ongoing AHs which are not commanding but derogatory towards her. Patient reports ongoing thoughts to self-injure, but reports cutting is a release for her. She denies SI/HI or VH. Patient has been up for meals, attending to ADLs, and cooperative with staff. It was again explained to patient that she will be taken out of paper scrubs and given her clothes back after a 24-hr period of no SIB. Patient acknowledged understanding. Patient reports fair sleep due to PRNs, no NMs and no FBs. Objective - Appearance Appearance: Well Developed/Nourished Dysmorphic Features: No Hygiene: Normal Grooming: Fairly Well Kept - Behavior Psychomotor Activities: Abnormal-Increased Exhibits Abnormal Movement: No - Attitude and Relatedness Attitude and Relatedness: Cooperative Eye Contact: Fair - Speech Quality: Unpressured Latencies: Normal Quantity: Terse - Mood Patient's Decription of Mood: "Upset" - Affect Observed Affect: Tense Affect Consistent with: Dysphoria - Thought Process Patient's Thought Process: Coherent, Goal Directed Thought Content: No Passive Wish, No Suicidal Planning, No Homicidal Ideation, No Paranoid Ideation - Sensorium Experiencing Hallucinations: No, Sensorium is Clear Type of Hallucinations: Visual: No, Auditory: No, Command: No - Level of Consciousness Level of Consciousness: Alert Orientation: Yes Intact, Yes Orientated to Time, Yes Orientated to Place, Yes Orientated to Person - Impulse Control Impulse Control: Intact - Insight and Judgement Insight and Judgement: Fair - Group Participation Particating in Group Activities: No - Medication Management Medication Management Adherence: Yes Assessment - Assessment Merits Inpatient Hospitalization: For Immediate Safety, For Stabilization Inpatient DSM-IV Dx: 1. PTSD Exacerbation. 2. Borderline PD. 3. Alcohol use d/ o. 4. Opioid use d/o Plan - Plan Treatment Plan: Name: SANDY JAIMES Birthdate: 1965 [id number] PLAN: -------- 1. Continue admission to the [facility] for safety and symptom mx. 2. Continue home psychotropic med regimen as currently prescribed, with exception of [place] and Olanzapine. 3. Patient requests return to psychotropic med regimen prior to her 02/2017 [facility] admission. She reports noting benefit to symptoms more on that regimen. 4. [place] and Olanzapine will be discontinued due to reported ineffectiveness. 5. Continue Trintellix 10mg po qam started by outpt psychiatrist. 6. Continue Seroquel from prior regimen at 150mg po qhs for psychosis and mood augmentation. Increase Seroquel from 50mg po BID to 100mg po BID (8am and 3pm) for anxiety /agitation/mood augmentation/psychosis. 7. Will add a Thorazine 50mg po daily PRN for breakthrough agitation. 8. Continue home medical meds as Rx'd pre-admission. 9. Continue Ultram 50mg po BID PRN for right knee pain, patient unable to wear brace due to her SIB today and unit protocol. 10. Continue gathering collateral information from family and [facility] providers. 11. Patient to participate in milieu activities and groups. Continued Medication Management: Different Medication Medications: Current Medications Acamprosate (Campral (Nf)) 333 mg PO TID [facility] Last Admin: 03/27/17 09:22 Dose: 333 mg Acetaminophen (Tylenol Tab*) 650 mg PO Q4H PRN PRN Reason: PAIN or TEMP > 101 F Last Admin: 03/24/17 17:15 Dose: 650 mg Al Hydrox/Mg Hydrox/Simethicone (Maalox Plus*) 30 ml PO Q4H PRN PRN Reason: INDIGESTION Cetirizine HCl (Zyrtec*) 10 mg PO DAILY [facility] Last Admin: 03/27/17 09:20 Dose: 10 mg Diphenhydramine HCl (Benadryl Po*) 50 mg PO BEDTIME [facility] Last Admin: 03/26/17 20:55 Dose: 50 mg Fluticasone Propionate (Flonase Nasal [place] 50mcg*) 2 spray BOTH NARES DAILY [facility] Last Admin: 03/27/17 09:21 Dose: 2 spray Gabapentin (Neurontin Cap(*)) 600 mg PO TID [facility] Last Admin: 03/27/17 09:20 Dose: 600 mg Lamotrigine (Lamictal Tab(*)) 200 mg PO DAILY [facility] Last Admin: 03/27/17 09:21 Dose: 200 mg Meloxicam (Mobic(Nf)) 15 mg PO DAILY WITH MEAL [facility] Last Admin: 03/27/17 09:20 Dose: 15 mg Mometasone Furoate (Asmanex 220 Mcg Mdi *) 2 puff INH QPM [facility] Last Admin: 03/26/17 17:52 Dose: 2 puff Multivitamins (Theragran Tab*) 1 tab PO DAILY [facility] Last Admin: 03/27/17 09:21 Dose: 1 tab Naltrexone HCl (Naltrexone (Nf)) 50 mg PO BEDTIME [facility] Last Admin: 03/26/17 20:53 Dose: 50 mg Omeprazole (Prilosec Cap*) 20 mg PO DAILY@0730 [facility] Last Admin: 03/27/17 09:21 Dose: 20 mg Prazosin HCl (Minipress Cap*) 5 mg PO BEDTIME [facility] Last Admin: 03/26/17 20:55 Dose: 5 mg Prazosin HCl (Minipress Cap*) 1 mg PO BEDTIME [facility] Last Admin: 03/26/17 20:55 Dose: 1 mg Pseudoephedrine HCl (Sudafed 12 Hour*) 240 mg PO DAILY [facility] Last Admin: 03/27/17 09:21 Dose: 240 mg Quetiapine Fumarate (Seroquel Tab*) 25 mg PO BID PRN PRN Reason: breakthrough anxiety Last Admin: 03/27/17 11:15 Dose: 25 mg Quetiapine Fumarate (Seroquel Tab*) 50 mg PO BID@0800,1500 [facility] Last Admin: 03/27/17 09:24 Dose: 50 mg Quetiapine Fumarate (Seroquel Tab*) 150 mg PO BEDTIME [facility] Last Admin: 03/26/17 20:54 Dose: 150 mg Tramadol HCl (Ultram*) 50 mg PO Q12H PRN PRN Reason: PAIN Last Admin: 03/27/17 01:05 Dose: 50 mg Triamcinolone Acetonide (Triamcinolone 0.1% Paste *) 1 applic TOPICAL BEDTIME [facility] Last Admin: 03/26/17 21:00 Dose: Not Given Vortioxetine (Trintellix (Nf)) 10 mg PO DAILY [facility] Last Admin: 03/27/17 09:29 Dose: Not Given Zolpidem Tartrate (Ambien Tab*) 10 mg PO BEDTIME [facility] Last Admin: 03/26/17 20:56 Dose: 10 mg - Discharge Plan Discharge Plan: [facility]
[2017-03-27] MEDS: Mometasone 220 MCG MDI INH SCH (17:56)
[2017-03-27] MEDS: chlorproMAZINE TAB* 50 MG PO PRN (18:56)
[2017-03-27] MEDS: Prazosin CAP* 5 MG PO SCH (21:11)
[2017-03-27] MEDS: diPHENhydraMINE PO* 50 MG PO SCH (21:13)
[2017-03-27] MEDS: Prazosin CAP* 1 MG PO SCH (21:15)
[2017-03-27] MEDS: CMCS: Naltrexone (NF) 50 MG TAB PO SCH (21:15)
[2017-03-27] MEDS: QUEtiapine TAB* 100 MG PO SCH (21:16)
[2017-03-27] MEDS: Zolpidem TAB* 10 MG PO SCH (21:18)
[2017-03-27] MEDS: TRIAMCINOLONE PASTE 0.1% TOPICAL SCH (21:18)
[2017-03-28] MEDS: QUEtiapine TAB* 25 MG PO PRN ×2 (05:18→13:42)
[2017-03-28] MEDS: chlorproMAZINE TAB* 50 MG PO PRN (05:18)
[2017-03-28] MEDS: CMCS: Meloxicam(NF) 7.5 MG TAB PO SCH (09:29)
[2017-03-28] MEDS: Pseudoephedrine HCL ER TAB* 120 MG PO SCH (09:30)
[2017-03-28] MEDS: ACAMPROSATE 333 MG PO SCH ×3 (09:30→19:15)
[2017-03-28] MEDS: QUEtiapine TAB* 25 MG PO SCH ×2 (09:31→15:43)
[2017-03-28] MEDS: Gabapentin CAP(*) 300 MG PO SCH ×3 (09:31→19:20)
[2017-03-28] MEDS: Omeprazole CAP* 20 MG PO SCH (09:33)
[2017-03-28] MEDS: lamoTRIgine TAB(*) 100 MG PO SCH (09:33)
[2017-03-28] MEDS: Vitamin THERAPEUTIC TAB PO SCH (09:34)
[2017-03-28] MEDS: Cetirizine* 10 MG TAB PO SCH (09:34)
[2017-03-28] MEDS: Fluticasone NASAL SPRAY 50MCG* 16 gm SPRAY BTL BOTH NARES SCH (09:34)
[2017-03-28] MEDS: Vortioxetine (NF) 10 MG TAB (FORMERLY Brintellix) PO SCH (09:34)
[2017-03-28] MEDS: Mometasone 220 MCG MDI INH SCH (17:00)
[2017-03-28] MEDS: Prazosin CAP* 5 MG PO SCH (19:15)
[2017-03-28] MEDS: diPHENhydraMINE PO* 50 MG PO SCH (19:17)
[2017-03-28] MEDS: CMCS: Naltrexone (NF) 50 MG TAB PO SCH (19:19)
[2017-03-28] MEDS: QUEtiapine TAB* 100 MG PO SCH (19:19)
[2017-03-28] MEDS: Prazosin CAP* 1 MG PO SCH (19:20)
[2017-03-28] MEDS: Zolpidem TAB* 10 MG PO SCH (19:21)
[2017-03-28] MEDS: TRIAMCINOLONE PASTE 0.1% TOPICAL SCH (22:02)
[2017-03-29] MEDS: chlorproMAZINE TAB* 50 MG PO PRN (01:37)
--- NOTE | 2017-03-29 08:42 | PN ---
Subjective - Subjective Service Type: [id number] Hosp care 15 min low complexity Subjective: Patient noted to isolate in her room most of the day again today. She was reported to have had another episode of SIB early this am at approx 5am. Patient continues to use both Seroquel PRNs and the Thorazine PRN ordered. On interview she again asks to get out of the paper scrubs she is in and have her own clothes back. Patient again explained unit rules and policy to return clothing after a 24hr period of demonstrating ability to control impulses to self-injure. Patient reports ongoing but improved AHs which are not commanding but derogatory towards her. Patient reports ongoing thoughts to self-injure. She reports she will notify staff for a PRN prior to hurting herself. She denies SI/HI or VH. Patient has been up for meals, attending to ADLs, and cooperative with staff. Patient reports fair sleep due to PRNs, no NMs and no FBs. Objective - Appearance Appearance: Well Developed/Nourished Dysmorphic Features: No Hygiene: Normal Grooming: Fairly Well Kept - Behavior Psychomotor Activities: Abnormal-Increased Exhibits Abnormal Movement: No - Attitude and Relatedness Attitude and Relatedness: Cooperative Eye Contact: Poor - Speech Quality: Unpressured Latencies: Normal Quantity: Appropriate - Mood Patient's Decription of Mood: "Anxious" - Affect Observed Affect: Depressed Affect Consistent with: Dysphoria - Thought Process Patient's Thought Process: Coherent Thought Content: No Passive Wish, No Suicidal Planning, No Homicidal Ideation, No Paranoid Ideation - Sensorium Experiencing Hallucinations: No, Sensorium is Clear Type of Hallucinations: Visual: No, Auditory: Yes - derogatory comments, Command : No - Level of Consciousness Level of Consciousness: Alert Orientation: Yes Intact, Yes Orientated to Time, Yes Orientated to Place, Yes Orientated to Person - Impulse Control Impulse Control: Intact - Insight and Judgement Insight and Judgement: Poor - Group Participation Particating in Group Activities: No - Medication Management Medication Management Adherence: Yes Assessment - Assessment Merits Inpatient Hospitalization: For Immediate Safety, For Stabilization Inpatient DSM-IV Dx: 1. PTSD Exacerbation. 2. Borderline PD. 3. Alcohol use d/ o. 4. Opioid use d/o Plan - Plan Treatment Plan: Name: SANDY JAIMES Birthdate: 1965 [id number] PLAN: -------- 1. Continue admission to the [facility] for safety and symptom mx. 2. Continue home psychotropic med regimen as currently prescribed, with exception of [place] and Olanzapine. 3. Patient requests return to psychotropic med regimen prior to her 02/2017 [facility] admission. She reports noting benefit to symptoms more on that regimen. 4. [place] and Olanzapine will be discontinued due to reported ineffectiveness. 5. Continue Trintellix 10mg po qam started by outpt psychiatrist. 6. Continue Seroquel from prior regimen at 150mg po qhs for psychosis and mood augmentation. Continue Seroquel from 50mg po BID to 100mg po BID (8am and 3pm) for anxiety /agitation/mood augmentation/psychosis. 7. Continue Thorazine 50mg po daily PRN for breakthrough agitation. 8. Continue home medical meds as Rx'd pre-admission. 9. Continue Ultram 50mg po BID PRN for right knee pain, patient unable to wear brace due to her SIB today and unit protocol. 10. Continue gathering collateral information from family and [facility] providers. 11. Patient to participate in milieu activities and groups. Continued Medication Management: Different Medication Medications: Current Medications Acamprosate (Campral (Nf)) 333 mg PO TID [facility] Last Admin: 03/28/17 19:15 Dose: 333 mg Acetaminophen (Tylenol Tab*) 650 mg PO Q4H PRN PRN Reason: PAIN or TEMP > 101 F Last Admin: 03/24/17 17:15 Dose: 650 mg Al Hydrox/Mg Hydrox/Simethicone (Maalox Plus*) 30 ml PO Q4H PRN PRN Reason: INDIGESTION Cetirizine HCl (Zyrtec*) 10 mg PO DAILY [facility] Last Admin: 03/28/17 09:34 Dose: 10 mg Chlorpromazine HCl (Thorazine Tab*) 50 mg PO DAILY PRN PRN Reason: AGITATION Last Admin: 03/29/17 01:37 Dose: 50 mg Diphenhydramine HCl (Benadryl Po*) 50 mg PO BEDTIME [facility] Last Admin: 03/28/17 19:17 Dose: 50 mg Fluticasone Propionate (Flonase Nasal [place] 50mcg*) 2 spray BOTH NARES DAILY [facility] Last Admin: 03/28/17 09:34 Dose: 2 spray Gabapentin (Neurontin Cap(*)) 600 mg PO TID [facility] Last Admin: 03/28/17 19:20 Dose: 600 mg Lamotrigine (Lamictal Tab(*)) 200 mg PO DAILY [facility] Last Admin: 03/28/17 09:33 Dose: 200 mg Meloxicam (Mobic(Nf)) 15 mg PO DAILY WITH MEAL [facility] Last Admin: 03/28/17 09:29 Dose: 15 mg Mometasone Furoate (Asmanex 220 Mcg Mdi *) 2 puff INH QPM [facility] Last Admin: 03/28/17 17:00 Dose: 2 puff Multivitamins (Theragran Tab*) 1 tab PO DAILY [facility] Last Admin: 03/28/17 09:34 Dose: Not Given Naltrexone HCl (Naltrexone (Nf)) 50 mg PO BEDTIME [facility] Last Admin: 03/28/17 19:19 Dose: 50 mg Omeprazole (Prilosec Cap*) 20 mg PO DAILY@0730 [facility] Last Admin: 03/28/17 09:33 Dose: 20 mg Prazosin HCl (Minipress Cap*) 5 mg PO BEDTIME [facility] Last Admin: 03/28/17 19:15 Dose: 5 mg Prazosin HCl (Minipress Cap*) 1 mg PO BEDTIME [facility] Last Admin: 03/28/17 19:20 Dose: 1 mg Pseudoephedrine HCl (Sudafed 12 Hour*) 240 mg PO DAILY [facility] Last Admin: 03/28/17 09:30 Dose: 240 mg Quetiapine Fumarate (Seroquel Tab*) 25 mg PO BID PRN PRN Reason: breakthrough anxiety Last Admin: 03/28/17 13:42 Dose: 25 mg Quetiapine Fumarate (Seroquel Tab*) 150 mg PO BEDTIME [facility] Last Admin: 03/28/17 19:19 Dose: 150 mg Quetiapine Fumarate (Seroquel Tab*) 100 mg PO BID@0800,1500 [facility] Last Admin: 03/28/17 15:43 Dose: 100 mg Tramadol HCl (Ultram*) 50 mg PO Q12H PRN PRN Reason: PAIN Last Admin: 03/27/17 01:05 Dose: 50 mg Triamcinolone Acetonide (Triamcinolone 0.1% Paste *) 1 applic TOPICAL BEDTIME [facility] Last Admin: 10/18/17 22:02 Dose: Not Given Vortioxetine (Trintellix (Nf)) 10 mg PO DAILY [facility] Last Admin: 03/28/17 09:34 Dose: Not Given Zolpidem Tartrate (Ambien Tab*) 10 mg PO BEDTIME [facility] Last Admin: 03/28/17 19:21 Dose: 10 mg - Discharge Plan Discharge Plan: Outpatient Follow Up Outpatient Program: [facility]
[2017-03-29] MEDS: Gabapentin CAP(*) 300 MG PO SCH ×2 (09:42→15:16)
[2017-03-29] MEDS: Cetirizine* 10 MG TAB PO SCH (09:43)
[2017-03-29] MEDS: Omeprazole CAP* 20 MG PO SCH (09:43)
[2017-03-29] MEDS: QUEtiapine TAB* 25 MG PO SCH ×2 (09:43→15:16)
[2017-03-29] MEDS: Vitamin THERAPEUTIC TAB PO SCH (09:43)
[2017-03-29] MEDS: lamoTRIgine TAB(*) 100 MG PO SCH (09:43)
[2017-03-29] MEDS: CMCS: Meloxicam(NF) 7.5 MG TAB PO SCH (09:45)
[2017-03-29] MEDS: Pseudoephedrine HCL ER TAB* 120 MG PO SCH (09:46)
[2017-03-29] MEDS: Fluticasone NASAL SPRAY 50MCG* 16 gm SPRAY BTL BOTH NARES SCH (09:46)
[2017-03-29] MEDS: ACAMPROSATE 333 MG PO SCH ×3 (09:46→21:09)
[2017-03-29] MEDS: Vortioxetine (NF) 10 MG TAB (FORMERLY Brintellix) PO SCH (09:50)
--- NOTE | 2017-03-29 11:56 | PN ---
Subjective - Subjective Service Type: 75338 Hosp care 15 min low complexity Subjective: Patient continues to use both Seroquel PRNs and the Thorazine PRN ordered. Patient reports ongoing but improved AHs which are not commanding but derogatory towards her. Patient reports ongoing thoughts to self-injure. Patient though has not self-injured, but has asked for the quiet room as a coping mechanism. Paper scrubs have been d/c'd. Patient has been given back her clothing. She was encouraged to continue to notify staff to talk or for a PRN prior to hurting herself. She denies SI/HI or VH. Patient has been up for meals, attending to ADLs, and cooperative with staff. Patient reports fair sleep due to PRNs, no NMs and no FBs. Objective - Appearance Appearance: Well Developed/Nourished Dysmorphic Features: No Hygiene: Normal Grooming: Fairly Well Kept - Behavior Psychomotor Activities: Normal Exhibits Abnormal Movement: No - Attitude and Relatedness Attitude and Relatedness: Cooperative Eye Contact: Fair - Speech Quality: Unpressured Latencies: Normal Quantity: Appropriate - Mood Patient's Decription of Mood: "Fine" - Affect Observed Affect: Depressed Affect Consistent with: Dysphoria - Thought Process Patient's Thought Process: Coherent Thought Content: No Passive Wish, No Suicidal Planning, No Homicidal Ideation, No Paranoid Ideation - Sensorium Experiencing Hallucinations: No, Sensorium is Clear Type of Hallucinations: Visual: No, Auditory: No, Command: No - Level of Consciousness Level of Consciousness: Alert Orientation: Yes Intact, Yes Orientated to Time, Yes Orientated to Place, Yes Orientated to Person - Impulse Control Impulse Control: Impaired - Insight and Judgement Insight and Judgement: Poor - Group Participation Particating in Group Activities: No - Medication Management Medication Management Adherence: Yes Assessment - Assessment Merits Inpatient Hospitalization: For Immediate Safety, For Stabilization Inpatient DSM-IV Dx: 1. PTSD Exacerbation. 2. Borderline PD. 3. Alcohol use d/ o. 4. Opioid use d/o Plan - Plan Treatment Plan: Name: SANDY JAIMES Birthdate: 1965 [id number] PLAN: -------- 1. Continue admission to the [facility] for safety and symptom mx. 2. Continue home psychotropic med regimen as currently prescribed, with exception of [place] and Olanzapine. 3. Patient requests return to psychotropic med regimen prior to her 02/2017 [facility] admission. She reports noting benefit to symptoms more on that regimen. 4. [place] and Olanzapine will be discontinued due to reported ineffectiveness. 5. Continue Trintellix 10mg po qam started by outpt psychiatrist. 6. Will increase Seroquel from 150mg to 250mg po qhs for psychosis and mood augmentation. Continue Seroquel 100mg po BID (8am and 3pm) for anxiety/agitation/mood augmentation/psychosis. 7. Continue Thorazine 50mg po daily PRN for breakthrough agitation. Continue Seroquel 25mg po BID PRN for anxiety/agitation. 8. Continue home medical meds as Rx'd pre-admission. 9. Continue Ultram 50mg po BID PRN for right knee pain, patient unable to wear brace due to her SIB today and unit protocol. 10. Continue gathering collateral information from family and [facility] providers. 11. Patient to participate in milieu activities and groups. Continued Medication Management: Different Medication Medications: Current Medications Acamprosate (Campral (Nf)) 333 mg PO TID REPLACED BY [facility] Last Admin: 03/29/17 09:46 Dose: 333 mg Acetaminophen (Tylenol Tab*) 650 mg PO Q4H PRN PRN Reason: PAIN or TEMP > 101 F Last Admin: 03/24/17 17:15 Dose: 650 mg Al Hydrox/Mg Hydrox/Simethicone (Maalox Plus*) 30 ml PO Q4H PRN PRN Reason: INDIGESTION Cetirizine HCl (Zyrtec*) 10 mg PO DAILY REPLACED BY [facility] Last Admin: 03/29/17 09:43 Dose: 10 mg Chlorpromazine HCl (Thorazine Tab*) 50 mg PO DAILY PRN PRN Reason: AGITATION Last Admin: 03/29/17 01:37 Dose: 50 mg Diphenhydramine HCl (Benadryl Po*) 50 mg PO BEDTIME REPLACED BY [facility] Last Admin: 03/28/17 19:17 Dose: 50 mg Fluticasone Propionate (Flonase Nasal [place] 50mcg*) 2 spray BOTH NARES DAILY REPLACED BY [facility] Last Admin: 03/29/17 09:46 Dose: 2 spray Gabapentin (Neurontin Cap(*)) 600 mg PO TID REPLACED BY [facility] Last Admin: 03/29/17 09:42 Dose: 600 mg Lamotrigine (Lamictal Tab(*)) 200 mg PO DAILY REPLACED BY [facility] Last Admin: 03/29/17 09:43 Dose: 200 mg Meloxicam (Mobic(Nf)) 15 mg PO DAILY WITH MEAL REPLACED BY [facility] Last Admin: 03/29/17 09:45 Dose: 15 mg Mometasone Furoate (Asmanex 220 Mcg Mdi *) 2 puff INH QPM REPLACED BY [facility] Last Admin: 03/28/17 17:00 Dose: 2 puff Multivitamins (Theragran Tab*) 1 tab PO DAILY SHAYLA Last Admin: 03/29/17 09:43 Dose: 1 tab Naltrexone HCl (Naltrexone (Nf)) 50 mg PO BEDTIME REPLACED BY [facility] Last Admin: 03/28/17 19:19 Dose: 50 mg Omeprazole (Prilosec Cap*) 20 mg PO DAILY@0730 REPLACED BY [facility] Last Admin: 03/29/17 09:43 Dose: 20 mg Prazosin HCl (Minipress Cap*) 5 mg PO BEDTIME SHAYLA Last Admin: 03/28/17 19:15 Dose: 5 mg Prazosin HCl (Minipress Cap*) 1 mg PO BEDTIME SHAYLA Last Admin: 03/28/17 19:20 Dose: 1 mg Pseudoephedrine HCl (Sudafed 12 Hour*) 240 mg PO DAILY REPLACED BY [facility] Last Admin: 03/29/17 09:46 Dose: 240 mg Quetiapine Fumarate (Seroquel Tab*) 25 mg PO BID PRN PRN Reason: breakthrough anxiety Last Admin: 03/28/17 13:42 Dose: 25 mg Quetiapine Fumarate (Seroquel Tab*) 150 mg PO BEDTIME SHAYLA Last Admin: 03/28/17 19:19 Dose: 150 mg Quetiapine Fumarate (Seroquel Tab*) 100 mg PO BID@0800,1500 REPLACED BY [facility] Last Admin: 03/29/17 09:43 Dose: 100 mg Tramadol HCl (Ultram*) 50 mg PO Q12H PRN PRN Reason: PAIN Last Admin: 03/27/17 01:05 Dose: 50 mg Triamcinolone Acetonide (Triamcinolone 0.1% Paste *) 1 applic TOPICAL BEDTIME REPLACED BY [facility] Last Admin: 03/28/17 22:02 Dose: Not Given Vortioxetine (Trintellix (Nf)) 10 mg PO DAILY REPLACED BY [facility] Last Admin: 03/29/17 09:50 Dose: Not Given Zolpidem Tartrate (Ambien Tab*) 10 mg PO BEDTIME SHAYLA Last Admin: 03/28/17 19:21 Dose: 10 mg - Discharge Plan Discharge Plan: Outpatient Follow Up Outpatient Program: [facility]
[2017-03-29] MEDS: QUEtiapine TAB* 25 MG PO PRN (17:10)
[2017-03-29] MEDS: Mometasone 220 MCG MDI INH SCH (17:42)
[2017-03-29] MEDS ORDERED: QUEtiapine TAB* 100 MG PO SCH (21:00)
[2017-03-29] MEDS ORDERED: QUEtiapine TAB* 25 MG PO SCH (21:00)
[2017-03-29] MEDS ORDERED: Zolpidem TAB* 10 MG PO SCH (21:00)
[2017-03-29] MEDS: CMCS: Naltrexone (NF) 50 MG TAB PO SCH (21:06)
[2017-03-29] MEDS: Prazosin CAP* 5 MG PO SCH (21:06)
[2017-03-29] MEDS: diPHENhydraMINE PO* 50 MG PO SCH (21:07)
[2017-03-29] MEDS: Prazosin CAP* 1 MG PO SCH (21:07)
[2017-03-29] MEDS: TRIAMCINOLONE PASTE 0.1% TOPICAL SCH (21:09)
[2017-03-30 07:46] VITALS: BP 131/60
[2017-03-30] MEDS: Vitamin THERAPEUTIC TAB PO SCH ×2 (09:19→09:48)
[2017-03-30] MEDS: lamoTRIgine TAB(*) 100 MG PO SCH (09:19)
[2017-03-30] MEDS: CMCS: Meloxicam(NF) 7.5 MG TAB PO SCH (09:19)
[2017-03-30] MEDS: Fluticasone NASAL SPRAY 50MCG* 16 gm SPRAY BTL BOTH NARES SCH (09:19)
[2017-03-30] MEDS: Omeprazole CAP* 20 MG PO SCH (09:20)
[2017-03-30] MEDS: Pseudoephedrine HCL ER TAB* 120 MG PO SCH (09:20)
[2017-03-30] MEDS: ACAMPROSATE 333 MG PO SCH (09:22)
[2017-03-30] MEDS: QUEtiapine TAB* 25 MG PO SCH (09:22)
[2017-03-30] MEDS: Cetirizine* 10 MG TAB PO SCH (09:46)
[2017-03-30] MEDS: Vortioxetine (NF) 10 MG TAB (FORMERLY Brintellix) PO SCH (09:47)
--- NOTE | 2017-03-30 10:26 | DS ---
Subjective - Subjective Service Types: 87877 Hosp DC Day Mgmt simple under 30 min Subjective: Patient noted to be visible most of the day in the milieu, pleasant, social with peers and staff. Patient is happy that she has not harmed herself. Patient >48hrs w/o SIB. She has been able to communicate her thoughts to self- injure, talk or get PRNs administered instead of harming herself. Patient reports good sleep last night. She reports benefit on Seroquel at increased qhs dose last night. She reports no med s/e's. Patient reports feeling ready for discharge. Patient is A&Ox4, linear and GD in TP, and future oriented in TC. Patient reports she is looking forward to petting her cat. Patient again denies SI/HI and VH. She reports background AHs that are not distressing. Discharge plan has been discussed and patient is amenable and acknowledges understanding. Patient instructed to call the crisis hotline, 911, or self present to a local ED if SI recurs. Patient was amenable and acknowledged understanding of community supports. Patient will be discharged home by cab. Objective - Appearance Appearance: Well Developed/Nourished Dysmorphic Features: No Hygiene: Normal Grooming: Fairly Well Kept - Behavior Psychomotor Activities: Normal Exhibits Abnormal Movement: No - Attitude and Relatedness Attitude and Relatedness: Cooperative Eye Contact: Fair - Speech Quality: Unpressured Latencies: Normal Quantity: Appropriate - Mood Patient's Decription of Mood: "Good" - Affect Observed Affect: Fair Affect Consistent with: Euthymia - Thought Process Patient's Thought Process: Coherent Thought Content: No Passive Wish, No Suicidal Planning, No Homicidal Ideation, No Paranoid Ideation - Sensorium Experiencing Hallucinations: Yes Type of Hallucinations: Visual: No, Auditory: Yes - AHs of derogatory comments which are non-distressing, Command: No - Level of Consciousness Level of Consciousness: Alert Orientation: Yes Intact, Yes Orientated to Time, Yes Orientated to Place, Yes Orientated to Person - Impulse Control Impulse Control: Intact - Insight and Judgement Insight and Judgement: Fair - Group Participation Particating in Group Activities: No - Medication Management Medication Management Adherence: Yes Treatment Course & Assessment Clinical Course & Impression: HOSPITAL COURSE: Patient is a 51yo female with PPHx significant for MDD, R, S, w/PF, PTSD, Alcohol use d/o and Opioid use d/o. Patient has significant hx for suicide attempts and SIBs, primarily cutting. Patient reports AHs commanding patient to kill herself by cutting. Patient reports recent poor sleep due to worsening NMs and Flashbacks that are more frequent and distressing. She reports worsening depressive symptoms as well. Of note, patient was admitted to the [facility] on with similar presentation. Patient reports she felt safe on the unit. Patient requests change in her psychotropic medication regimen. Patient reports feeling she had better benefit to her symptoms on regimen prior to her 02/2017 [facility] admission. Patient request discontinuation of Olanzapine and [place] started during last admission due to ineffectiveness. She reports being started on Trintellix by her outpt psychiatrist with benefit. Patient requests this med be continued inpt. She requests re-start of Seroquel at prior regimen dose of 150mg po qhs and 50mg po BID for anxiety/agitation/psychosis and mood augmentation. Remaining medications of prior regimen will be re-started including Gabapentin 600 mg PO TID for anxiety, Naltrexone 50 mg PO BEDTIME for alcohol cravings, Acamprosate 333 mg PO TID for hx of alcohol dependence, lamoTRIgine 200 mg PO DAILY for mood augmentation/impulsivity, Prazosin 6 mg po qhs for mx of NMs, and Zolpidem 10 mg PO BEDTIME for insomnia. Patient has been med and MH appt compliant since last discharge. She denies alcohol or illicit substance use play a role in this presentation. On admission, she denied SI/HI and VH. Admission days #1-3 patient continued to be symptomatic of admitting symptoms. On day#4 patient began self-injuring. On day #4, patient has had 2 instances of SIB, one with a comb she broke into pieces and one using the edges of an ice- pack. Patient received PRN Thorazine with benefit to agitation. On interview, patient is somnolent. She requests her clothing back. She was informed team is looking for a period of stability before her clothes can be returned, per unit protocol. Patient acknowledged understanding. Patient denied SI/HI and AH/VH. She reported cutting is a means of letting go of the anger she feels. On admission day #5, BID doses of Seroquel were increased from 50mg to 100mg. Patient noted to isolate in her room most of the day again today. She was reported to have had another episode of SIB early this am at approx 5am. Patient continues to use both Seroquel PRNs and the Thorazine PRN ordered. On interview she again asks to get out of the paper scrubs she is in and have her own clothes back. Patient again explained unit rules and policy to return clothing after a 24hr period of demonstrating ability to control impulses to self-injure. Patient reports ongoing but improved AHs which are not commanding but derogatory towards her. Patient reports ongoing thoughts to self-injure. She reports she will notify staff for a PRN prior to hurting herself. She denies SI/HI or VH. Patient had been up for meals, attending to ADLs, and cooperative with staff. Patient reported fair sleep due to PRNs, no NMs and no FBs. On admission day#7, the qhs dose was increased from 150mg to 250mg. Patient 's AHs, agitation, sleep, and anxiety improved noticeably over these 2 days. Patient had no SIB from the start of day #7 through day#8. On admission day #8, day of discharge, patient noted to be visible most of the day in the milieu, pleasant, social with peers and staff. Patient is happy that she has not harmed herself. Patient >48hrs w/o SIB. She has been able to communicate her thoughts to self-injure, talk or get PRNs administered instead of harming herself.Patient reports good sleep last night. She reports benefit on Seroquel at increased qhs dose last night. She reports no med s/e's. Patient reports feeling ready for discharge. Patient is A&Ox4, linear and GD in TP, and future oriented in TC. Patient reports she is looking forward to petting her cat. Patient again denies SI/HI and VH. She reports background AHs that quieter and are not distressing. Discharge plan has been discussed and patient is amenable and acknowledges understanding. Patient instructed to call the crisis hotline, 911, or self present to a local ED if SI recurs. Patient was amenable and acknowledged understanding of community supports. Patient will be discharge home by cab. PERTINENT LABS: Laboratory Tests 03/21/17 03/21/17 03/23/17 16:41 16:41 16:11 WBC 8.1 RBC 4.90 Hgb 15.6 Hct 46 MCV 94 MCH 32 H MCHC 34 RDW 13 Plt Count 350 MPV 9 Neut % (Auto) 63.4 Lymph % (Auto) 24.8 L [place] % (Auto) 8.2 Eos % (Auto) 2.6 Baso % (Auto) 1.0 Absolute Neuts (auto) 5.1 Absolute Lymphs (auto) 2.0 Absolute Monos (auto) 0.7 Absolute Eos (auto) 0.2 Absolute Basos (auto) 0.1 Absolute Nucleated RBC 0.01 Nucleated RBC % 0.1 Sodium 136 Potassium TNP Chloride 104 Carbon Dioxide 24 Anion Gap 8 BUN 16 Creatinine 0.83 Est GFR ( Amer) 92.8 Est GFR (Non-Af Amer) 72.2 BUN/Creatinine Ratio 19.3 Glucose 94 Hemoglobin A1c 4.8 Calcium 10.0 Total Bilirubin 0.30 AST TNP ALT 12 Alkaline Phosphatase 37 Total Protein 7.3 Albumin 4.2 Globulin 3.1 Albumin/Globulin Ratio 1.4 TSH 0.97 Salicylates < 2.50 Acetaminophen < 15 Serum Alcohol < 10 Consultants: none Discharge Meds: Home Medications Medication Instructions Recorded Confirmed Type Naltrexone (NF) 50 mg PO BEDTIME #30 tab 12/03/15 03/21/17 Rx Pantoprazole TAB (NF) [Protonix 40 mg PO QAM #30 tab 12/03/15 03/21/17 Rx TAB (NF)] Fluticasone NASAL SPRAY 50MCG* 2 spray BOTH NARES DAILY 08/08/16 03/21/17 History [Flonase NASAL SPRAY 50MCG*] Beclomethasone 80 MCG MDI(NF) 2 puff INH BID 02/16/17 03/21/17 History [Qvar 80 MCG MDI(NF)] Meloxicam(NF) [Mobic(NF)] 15 mg PO DAILY 02/16/17 03/21/17 History Triamcinolone PASTE 0.1% (NF) 1 applic TOPICAL BEDTIME 02/16/17 03/21/17 History [Triamcinolone 0.1% PASTE *] lamoTRIgine TAB(*) [Lamictal 200 mg PO DAILY 02/16/17 03/21/17 History TAB(*)] Acamprosate (NF) [Campral (NF)] 333 mg PO TID tab 02/26/17 03/21/17 Rx Silver Sulfadiazine 1%* [SILVadine 1 applic TOPICAL BID #1 tube 02/26/17 Rx 1%*] Vitamin THERAPEUTIC TAB* 1 tab PO DAILY #30 tab 02/26/17 03/21/17 Rx [Theragran TAB*] Zolpidem TAB* [Ambien*] 10 mg PO BEDTIME #30 tab MDD 10mg 02/26/17 03/21/17 Rx Cyclosporine 0.05% OPHTH (NF) 1 drop BOTH EYES DAILY 03/21/17 03/21/17 History [Restasis 0.05% OPHTH] Docusate CAP* [Colace Cap*] 100 mg PO BID 03/21/17 03/21/17 History Fexofenadine-Pseudoephedrine 1 tab PO DAILY 03/21/17 03/21/17 History [Lia-D 24 Hour Allergy 180-240 mg] Prazosin CAP* [Minipress CAP*] 6 mg PO 2100 03/21/17 03/21/17 History QUEtiapine TAB* [Seroquel TAB*] 25 mg PO BID PRN #60 tab 03/30/17 Rx QUEtiapine TAB* [Seroquel TAB*] 100 mg PO BID@0800,1500 #240 tab 03/30/17 Rx QUEtiapine TAB* [Seroquel TAB*] 250 mg PO BEDTIME #90 tab 03/30/17 Rx Vortioxetine (NF) [Trintellix (NF)] 10 mg PO DAILY #30 tab 03/30/17 Rx Follow-Up: Appt. for within the next 2 weeks scheduled by SW with provider. Clear for Discharge: Adequate Clinical Respons, Acceptable Safety Profile Inpatient DSM-IV Dx: 1. PTSD Exacerbation. 2. Borderline PD. 3. Alcohol use d/ o. 4. Opioid use d/o Discharge Planning - Discharge Planning Discharge Plan: Outpatient Follow Up Outpatient Program: [facility] Recommendations for Continuing Care: Medication Management Medications: Current Medications Acamprosate (Campral (Nf)) 333 mg PO TID SHAYLA Last Admin: 03/30/17 09:22 Dose: 333 mg Acetaminophen (Tylenol Tab*) 650 mg PO Q4H PRN PRN Reason: PAIN or TEMP > 101 F Last Admin: 03/24/17 17:15 Dose: 650 mg Al Hydrox/Mg Hydrox/Simethicone (Maalox Plus*) 30 ml PO Q4H PRN PRN Reason: INDIGESTION Cetirizine HCl (Zyrtec*) 10 mg PO DAILY SHAYLA Last Admin: 03/30/17 09:46 Dose: 10 mg Chlorpromazine HCl (Thorazine Tab*) 50 mg PO DAILY PRN PRN Reason: AGITATION Last Admin: 03/29/17 01:37 Dose: 50 mg Diphenhydramine HCl (Benadryl Po*) 50 mg PO BEDTIME SHAYLA Last Admin: 03/29/17 21:07 Dose: 50 mg Fluticasone Propionate (Flonase Nasal [place] 50mcg*) 2 spray BOTH NARES DAILY SHAYLA Last Admin: 03/30/17 09:19 Dose: 2 spray Lamotrigine (Lamictal Tab(*)) 200 mg PO DAILY SHAYLA Last Admin: 03/30/17 09:19 Dose: 200 mg Meloxicam (Mobic(Nf)) 15 mg PO DAILY WITH MEAL SHAYLA Last Admin: 03/30/17 09:19 Dose: 15 mg Mometasone Furoate (Asmanex 220 Mcg Mdi *) 2 puff INH QPM SHAYLA Last Admin: 03/29/17 17:42 Dose: 2 puff Multivitamins (Theragran Tab*) 1 tab PO DAILY SHAYLA Last Admin: 03/30/17 09:48 Dose: Not Given Naltrexone HCl (Naltrexone (Nf)) 50 mg PO BEDTIME SHAYLA Last Admin: 03/29/17 21:06 Dose: 50 mg Omeprazole (Prilosec Cap*) 20 mg PO DAILY@0730 SHAYLA Last Admin: 03/30/17 09:20 Dose: 20 mg Prazosin HCl (Minipress Cap*) 5 mg PO BEDTIME SHAYLA Last Admin: 03/29/17 21:06 Dose: 5 mg Prazosin HCl (Minipress Cap*) 1 mg PO BEDTIME SHAYLA Last Admin: 03/29/17 21:07 Dose: 1 mg Pseudoephedrine HCl (Sudafed 12 Hour*) 240 mg PO DAILY [facility] Last Admin: 03/30/17 09:20 Dose: 240 mg Quetiapine Fumarate (Seroquel Tab*) 25 mg PO BID PRN PRN Reason: breakthrough anxiety Last Admin: 03/29/17 17:10 Dose: 25 mg Quetiapine Fumarate (Seroquel Tab*) 100 mg PO BID@0800,1500 [facility] Last Admin: 03/30/17 09:22 Dose: 100 mg Quetiapine Fumarate (Seroquel Tab*) 200 mg PO BEDTIME [facility] Last Admin: 03/29/17 21:06 Dose: 200 mg Quetiapine Fumarate (Seroquel Tab*) 50 mg PO BEDTIME [facility] Last Admin: 03/29/17 21:07 Dose: 50 mg Tramadol HCl (Ultram*) 50 mg PO Q12H PRN PRN Reason: PAIN Last Admin: 03/27/17 01:05 Dose: 50 mg Triamcinolone Acetonide (Triamcinolone 0.1% Paste *) 1 applic TOPICAL BEDTIME [facility] Last Admin: 03/29/17 21:09 Dose: Not Given Vortioxetine (Trintellix (Nf)) 10 mg PO DAILY [facility] Last Admin: 03/30/17 09:47 Dose: Not Given Zolpidem Tartrate (Ambien Tab*) 10 mg PO BEDTIME [facility] Last Admin: 03/29/17 21:07 Dose: 10 mg Discharge Planning: Prescriptions provided for discharge [x] Yes [] No Follow up care details as per social work arrangements. Patient response to discharge plan: [] eager for discharge [x] agreeable with discharge plan [] ambivalent about discharge [] disagrees with discharge today
== END 2017-03-30 13:00 | disposition home or self-care (01) | DRG 755 ==
LOC: ED 15:54 → BSU 03-22 00:22
PROVIDERS: ADMIT Psychiatry & Neurology Psychiatry; ATTEND Psychiatry & Neurology Psychiatry
DX: F43.11 Post-traumatic stress disorder, acute (principal); G40.909 Epilepsy, unspecified, not intractable, without status epilepticus; E78.5 Hyperlipidemia, unspecified; F43.12 Post-traumatic stress disorder, chronic; J45.909 Unspecified asthma, uncomplicated; K21.9 Gastro-esophageal reflux disease without esophagitis; K58.9 Irritable bowel syndrome, unspecified; M17.11 Unilateral primary osteoarthritis, right knee; F41.9 Anxiety disorder, unspecified; F32.9 Major depressive disorder, single episode, unspecified; F60.3 Borderline personality disorder; F31.9 Bipolar disorder, unspecified; Z62.810 Personal history of physical and sexual abuse in childhood; F11.90 Opioid use, unspecified, uncomplicated; X78.9XXA Intentional self-harm by unspecified sharp object, initial encounter; Z88.8 Allergy status to other drugs, medicaments and biological substances; Z88.6 Allergy status to analgesic agent; Z98.51 Tubal ligation status; Z91.5 Personal history of self-harm; Z98.41 Cataract extraction status, right eye; Z72.89 Other problems related to lifestyle; Z88.1 Allergy status to other antibiotic agents; Z91.041 Radiographic dye allergy status; Y92.009 Unspecified place in unspecified non-institutional (private) residence as the place of occurrence of the external cause
CPT/HCPCS: 36415; 80053; 80320; 80329; 83036; 84443; 85025; 99222; 99231; 99238; A9270-GY; G0480

== ENCOUNTER 2018-02-04 12:36 | Inpatient (IN) | payer OTHER ==
[~2018-02-04 12:36] MED LIST: LORazepam TAB(*) 1 MG ONE; QUEtiapine TAB* 100 MG ONE
[2018-02-04] MEDS ORDERED: LORazepam TAB(*) 1 MG PO ONE ×2 (12:37→13:13)
[2018-02-04] MEDS ORDERED: QUEtiapine TAB* 100 MG PO ONE ×2 (12:37→13:13)
--- NOTE | 2018-02-04 12:49 | ED ---
Psychiatric Complaint - HPI Summary HPI Summary: The pt is a 52 y/o female [facility] c/o of suicidal ideations worse today. She was referred to the ED by her psychiatrist at [facility]. She disclosed to her therapist plans to take a bottle of pills. Upon exam, the pt is uncooperative. She is crying and insists that she wants to go home. As per nurses notes, she reports HI, decreased appetite , superficial, pain in the RLE (due to surgery), and insomnia. - History Of Current Complaint Time Seen by Provider: 02/04/18 12:38 Hx Obtained From: Patient Hx Last Menstrual Period: Doesnt have periods, Uterine was stripped per pt Onset/Duration: Gradual Onset, Still Present, Worse Since - Today Timing: Constant Aggravating Factor(s): Recent Stress - Loss of mother in Oct, 2017 Associated Signs And Symptoms: Positive: Negative - Lack of cooperation, Sleep Disturbance, Appetite Change Related History: Positive For: Prior Psychiatric Issues Has Suicidal: Reports: Thoughts, With A Plan Recent Stressor(s): in the family - Allergies/Home Medications Allergies/Adverse Reactions: Allergies Allergy/AdvReac Type Severity Reaction Status Date / Time MS Cortisone [Cortisone] Allergy Intermediate Hives Verified 02/04/18 18:14 Adhesive Tape Allergy Mild Rash Verified 02/04/18 18:14 MS Codeine [Codeine] Allergy Mild Rash Verified 02/04/18 18:14 MS Iodinated Contrast Media Allergy Unknown Hives Verified 02/04/18 18:14 MS Cephalexin [Cephalexin] Allergy Rash Verified 02/04/18 18:14 MS Iodine [Iodine] Allergy Unknown Verified 02/04/18 18:14 Reaction Details PMH/Surg Hx/FS Hx/Imm Hx Previously Healthy: No Endocrine/Hematology History: Denies: Hx Diabetes, Hx Thyroid Disease Cardiovascular History: Reports: Hx Hypercholesterolemia Denies: Hx Hypertension Respiratory History: Reports: Hx Asthma Denies: Hx Chronic Obstructive Pulmonary Disease (COPD) GI History: Reports: Hx Gastroesophageal Reflux Disease, Hx Irritable Bowel, Other GI Disorders - Hyperlipidemia Denies: Hx Ulcer Musculoskeletal History: Reports: Hx Arthritis - Right Knee, Hx Osteoporosis, Other Musculoskeletal History - Right Hand PLATE AND PIN IN RIGHT KNEE Sensory History: Reports: Hx Cataracts, Hx Contacts or Glasses, Hx Vision Problem Denies: Hx Hearing Aid Opthamlomology History: Reports: Hx Cataracts, Hx Contacts or Glasses, Hx Vision Problem Neurological History: Reports: Hx Seizures - epiplepsy, no seizures for 11yrs Psychiatric History: Reports: Hx Anxiety, Hx Depression, Hx Post Traumatic Stress Disorder, Hx Inpatient Treatment, Hx Community Mental Health Tx, Hx Bipolar Disorder, Hx Suicide Attempt, Hx of Violent Episodes Against Others, Hx Substance Abuse, Other Psychiatric Issues/Disorders - BORDERLINE PERS D/O Denies: Hx Attention Deficit Hyperactivity Disorder, Hx Eating Disorder, Hx Panic Disorder, Hx Schizophrenia - Cancer History Hx Chemotherapy: No Hx Radiation Therapy: No - Surgical History Surgery Procedure, Year, and Place: d&c choley. RIGHT knee surgery 2007. RIGHT cataract [id number]. ORIF RIGHT HAND 2013. SEPTOPLASTY ? TUBAL LIGATION 1999 [facility]. RIGHT NECK LYMP NODE BX OR [facility]. UNSURE Hx Anesthesia Reactions: Yes - NAUSEA AND VOMITING AND HARD TO WAKE - Immunization History Date of Tetanus Vaccine: < 10 YEARS Date of Influenza Vaccine: PT STATES UNSURE Infectious Disease History: Reports: Hx of Known/Suspected MRSA Denies: Hx Clostridium Difficile, Hx Hepatitis, Hx Human Immunodeficiency Virus (HIV), History Other Infectious Disease - Family History Known Family History: Positive: Unknown - pt is uncooperative., Other - When asked this, the patient does not respond. - Social History Occupation: Unemployed Lives: Alone Alcohol Use: None Alcohol Amount: last use yesterday AM - has gone through rehab in the past Hx Substance Use: Yes Substance Use Type: Reports: None Substance Use Comment - Amount & Last Used: OPIATES NOT SINCE APR 2014 PER PT Hx Tobacco Use: No Smoking Status (MU): Never Smoked Tobacco Amount Used/How Often: never smoked. Has not smoked in the last 30 days Have You Smoked in the Last Year: No Review of Systems Constitutional: Other - Positive:Decreased appetite Positive: Depressed, Other - Positive: SI/HI All Other Systems Reviewed And Are Negative: Yes Diagnostics - Laboratory Result Diagrams: 02/04/18 13:09 02/04/18 13:09 Lab Statement: Any lab studies that have been ordered have been reviewed, and results considered in the medical decision making process. Course/Dx - Course Course Of Treatment: A 52 year-old F presents to the ED with a CC of suicidal ideations worse today. She was referred to the ED by her psychiatrist at [facility]. She disclosed to her therapist plans to take a bottle of pills. Upon exam, the pt is uncooperative. She is crying and insists that she wants to go home. As per nurses notes, she reports HI, decreased appetite, superficial, pain in the RLE (due to surgery), and insomnia. The patient was cleared for a MHE. She will be admitted by Dr. Franz(psychiatrist) with a final Dx of unspecified depression. - Differential Dx/Clinical Impression Provider Diagnosis: Depression Discharge - Sign-Out/Discharge Documenting (check all that apply): Patient Departure - Admit - Discharge Plan Condition: Improved Disposition: ADMITTED TO [facility] - Billing Disposition and Condition Condition: IMPROVED Disposition: Admitted to [facility] - Attestation Statements Document Initiated by Rupaliibe: Yes Documenting Scribe: Cindy Londono Provider For Whom Luana is Documenting (Include Credential): Dr. Chiara MD Scribe Attestation: ICindy , scribed for Dr. Chiara MD on 02/04/18 at 1820. Scribe Documentation Reviewed: Yes Provider Attestation: The documentation as recorded by the Cindy rojas accurately reflects the service I personally performed and the decisions made by me, Dr. Chiara MD
[2018-02-04 13:19] LABS: ABS Basophils 0.1 10^3/ul (0-0.2); ABS Eosinophils 0 10^3/ul (0-0.6); ABS Lymphocytes 1.7 10^3/ul (1.0-4.8); ABS Monocytes 0.7 10^3/ul (0-0.8); ABS Neutrophils 6.9 10^3/ul (1.5-7.7); ABS Nucleated RBC 0 10^3/ul; Eosinophil % 0.3 % (0-6); Hematocrit 48 % (35-47); Hemoglobin 16.5 g/dl (12.0-16.0); Lymphocyte % 18.3 % (25-47); Mean Corpuscular HGB Conc 35 g/dl (31-36); Mean Corpuscular Hemoglobin 32 pg (27-31); Mean Corpuscular Volume 94 fL (80-97); Nucleated Red Blood Cells % 0; Platelet Count 296 10^3/ul (150-450); Red Cell Distribution Width 13 % (10.5-15); White Blood Count 9.5 10^3/ul (3.5-10.8)
--- OUTSIDE RECORDS SUMMARY | 2018-02-04 13:58 | XMS REPORT ---
:1965 External Reference #:[id number] Author Organization Ever Flor M.D., [facility] Address [address] [place] [address] Phone [phone] Care Team Providers Name Role Phone Jesika Redman MD Care Team Information Cloud Infrastructure Architect Unavailable Jesika Redman MD Primary Care Physician Unavailable Payers Type Date Identification Numbers Payment Provider Subscriber Health Maintenance Policy Number: [id number] [employer] Emelyn Swenson [facility] (O) PayID: [id number] [address] [address] [place] [address] Problems Date Description Provider Status Onset: 08/11/2016 Keratoconjunctivitis sicca, not Ever Flor M.D. Active specified as Sjogren's Onset: 08/11/2016 Myopia Ever Flor M.D. 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 Active Onset: 08/10/2015 Vitreous degeneration Brad Beatty O.D. 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 Active Onset: 03/13/2014 Lens Replaced By Other Means Brad Beatty O.D. 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 Active Onset: 03/13/2014 After-cataract with vision obscured Brad Beatty O.D. Active Onset: 03/13/2014 Epiretinal membrane Brad Beatty O.D. Active Family History Date Family Member(s) Problem(s) Comments General Glaucoma aunt General Heart Disease grandparent General Cancer grandparent Father High BP Mother Cataract Mother High BP Social History Type Date Description Comments ETOH Use Denies alcohol use Smoking Patient has never smoked Allergies, Adverse Reactions, Alerts Date Description Reaction Status Severity Comments 08/20/2013 Contrast Dye active 08/20/2013 Codeine active 08/20/2013 Cortisone active 08/20/2013 Cephalexin active 08/20/2013 Adhesives active 08/20/2013 Iodine active Medications Medication Date Status Form Strength Qnty SIG Indications Ordering Provider Prednisolone 12/27/ Active Suspension 1% 10ml 1 drop Brad Alfaro 2017 right eye Tristan, four OD times a day x 1 week, then taper as directed Restasis 05/30/ Active Emulsion 0.05% 180un one drop Brad 2016 its twice per , day both OD eyes Minipress / Active Capsules 2mg Unknown 0000 Lamictal / Active Tablets 150mg 1 by Unknown 0000 mouth every night Neurontin / Active Capsules 400mg Unknown 0000 Ambien 00/ Active Tablets 5mg Unknown 0000 Protonix / Active Tablets DR 20mg Unknown 0000 Lia-D 12 / Active Tablets ER Unknown Hour Allergy & 0000 12HR Congestion Advair HFA / Active Aerosol Unknown 0000 Chlorpromazine / Active Tablets 25mg Unknown HCL 0000 Naltrexone HCL / Active Tablets 50mg Unknown 0000 Restasis 08/11/ Hx Emulsion 0.05% 180vi 1 drops H16.223 Ever 2017 - als both eyes Flor, 05/30/ twice a M.D. 2016 Vital Signs Date Vital Result Comment 01/03/2018 Intraocular Pressure Right Eye 15 mmHg Intraocular Pressure Left Eye 14 mmHg 10/08/2017 Intraocular Pressure Right Eye 14 mmHg Intraocular Pressure Left Eye 14 mmHg 08/11/2016 Intraocular Pressure Right Eye 14 mmHg Intraocular Pressure Left Eye 14 mmHg 08/10/2015 Intraocular Pressure Right Eye 14 mmHg Intraocular Pressure Left Eye 14 mmHg 05/05/2014 Intraocular Pressure Right Eye 15 mmHg Intraocular Pressure Left Eye 16 mmHg 03/13/2014 Intraocular Pressure Right Eye 12 mmHg Intraocular Pressure Left Eye 12 mmHg Results Description No Information Procedures Date CPT Code Description Status 10/08/2017 83468 Refraction Completed 10/08/2017 74822 Eye Exam Est Intermediate Completed 04/09/2017 09767 Oct Retina Completed 04/09/2017 97194 Eye Exam Est Intermediate Completed 08/11/2016 42098 Fundus Photography W/Interpretation & Report Completed 08/11/2016 03938 Refraction Completed 08/11/2016 13120 Eye Exam Est Comprehensive Completed 08/10/2015 34912 Eye Exam Est Comprehensive Completed 08/10/2015 24733 Refraction Completed 08/10/2015 17975 Ophthalmoscopy Subsequent Completed 04/23/2014 71152 Remove Secondary Cataract, Laser (Yag) Completed 04/02/2014 11578 Oct Retina Completed 04/02/2014 78764 Eye Exam Est Intermediate Completed 03/13/2014 83147 Ophthalmoscopy Subsequent Completed 03/13/2014 47022 Eye Exam Est Comprehensive Completed 05/23/2011 10034 Fundus Photography W/Interpretation & Report Completed 05/23/2011 16645 Ophthalmoscopy Initial Completed 05/23/2011 81406 Refraction Completed 05/23/2011 96254 Eye Exam New Comprehensive Completed Encounters Type Date Location Provider CPT E/M Dx Office Visit 01/03/2018 3:15p [place] [address] H20.011 H16.223 Office Visit 12/27/2017 9:15a [place] [address] H16.223 H20.011 Plan of Care Future Appointment(s):04/09/2018 10:45 am - Brad Tristan, [facility] at [facility] [id number] - Brad Tristan, OD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, right eyeH16.223 Keratoconjunct sicca, not specified as Sjogren's, bilateralFollow up:2 weeks IOP , sooner PRN
--- OUTSIDE RECORDS SUMMARY | 2018-02-04 13:59 | XMS REPORT ---
:1965 External Reference #:[id number] Author Organization [employer] Address [address] [address] Phone [phone] Care Team Providers Name Role Phone Jesika Redman MD Primary Care Physician Unavailable Payers Type Date Identification Numbers Payment Provider Subscriber Medicaid Expires: 2013 Policy Number: [id number] Medicaid Emelyn Swenson PayID: [id number] [address] [place] [address] Commercial Effective: Policy Number: You/[employer] Medicaid Emelyn Swenson 2013 [id number] PayID: [id number] [address] [address] [place] [address] Problems Date Description Provider Status Onset: 11/04/2015 Autumn Bradley M.D. 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 sex w/ one boyfriend. ETOH Use Currently consumes alcohol Smoking Patient has never smoked Exercise Type/Frequency Exercises regularly Allergies, Adverse Reactions, Alerts Date Description Reaction Status Severity Comments 05/14/2008 Codeine active passes out 01/26/2014 Cephalexin active 05/14/2008 Iodine active 05/14/2008 Cortisone active 05/14/2008 nonsteroidal antiinf active 01/26/2014 Adhesive Tape active Medications Medication Date Status Form Strength Qnty SIG Indications Ordering Provider Corwin 05/04 Active Tablets 7.5mg 30tab 1 by mouth Mary Jane /2017 s every day Pierce Williamson Zolpidem Active Tablets 10mg 1/2 to 1 Unknown Tartrate /0000 tab by mouth every night at bedtime as needed Prazosin HCL Active Capsules 2mg once daily Unknown / Naltrexone HCL Active Tablets 50mg one tab Unknown / daily in pm Acamprosate Active Tablets DR 333mg take 1 tab Unknown Calcium / tid Lia-D 24 Active Tablets ER 180-240mg 1 by mouth Unknown Hour Allergy & /0000 24HR daily as Congestion needed for allergy symptoms Fluticasone Active Suspension 50mcg/Act 2 sprays Unknown each nostril daily as needed Seroquel Active Tablets 100mg one at Unknown /0000 bedtime Seroquel Active Tablets 50mg take 1 Unknown /0000 tablet by mouth bid Protonix Active Tablets DR 40mg 1 by mouth Unknown / every day Trintellix Active Tablets 10mg 1 by mouth Unknown /0000 every day Lamictal Active Tablets 200mg 1 by mouth Unknown /0000 daily Colace Active Capsules 100mg 1 tab by Unknown /0000 mouth 2-3 times a day as needed Ventolin HFA Active Aerosol 108(90Bas 2 puffs by Unknown /0000 e) mouth four mcg/Act times a day as needed Qvar Active daily Unknown Neurontin 11/03 Hx Capsules 300mg 30cap 1 by mouth s every night Kirk, - at bedtime M.D. 02/24 in to the 3rd 600 mg dose daily Ibuprofen 01/27 Hx Tablets 600mg 60tab 1 by mouth Diann s three times Vega-You - a day as ng, M.D. 11/02 Lactulose 04/29 Hx Solution 10GM/15ML 1bott 30ml po qhs 789.03 ana le swathi Mcbride, - constipatio M.D. 11/02 Patanol 04/22 Hx Solution 0.1% 5ml 1 gtt ou 372.14 bid swathi Mcbride - M.D. 11/02 Opana 04/14 Hx Tablets 5mg 40tab 1 or 2 q 6 Thananart, s hours prn Rae - pain M.D. 11/02 Vicoprofen 04/13 Hx Tablets 7.5-200mg 30tab 1 po q 8 625.9 Thananart, s hours prn Rae, - pain M.D. 04/14 Ciprofloxacin 04/13 Hx Tablets 250mg 14tab 1 bid x 7 788.1 Thananart, s days Rae, - M.D. 04/22 Naproxen 02/17 Hx Tablets 500mg 60tab 1 tab po Thananart, s bid prn Rae - M.D. 11/02 Multi-Vitamin/M 02/10 Hx Tablets 30tab 1 po qd Thananart, iner s Rae - M.D. 11/02 Neurontin 02/10 Hx Tablets 1200mg 90tab po tid Thananart, s Rae - M.DAhmet 11/02 Voltaren 10/12 Hx Gel 1% 5Tube apply to 719.46 Thananart, s affected Rae, - area qd prn M.D. 11/02 Nexium 09/[address] 40mg 90cap 1 po qd Thananart, s Rae - M.D. 11/02 Amitiza 08/10 Hx Capsules 24mcg 60cap 1 bid po Thananart, s with food Rae - M.DAhmet 11/02 Trazodone HCL 05/14 Hx Tablets 300mg 30tab anart, s Rae - M.DAhmet 11/02 Nu-Iron 150 05/14 Hx Capsules 150mg 30cap 1 tab po qd 281.9 Thananart, s Rae - M.D. 10/12 Clonazepam 00/ Hx Unknown /0000 - 02/10 Cymbalta Hx 60mg 1 po q am Unknown /0000 - 11/02 Gabapentin 00/00 Hx Unknown /0000 - 04/22 Lia-D 24 Hx Tablets ER 24Hour 30tab 1 Tab qd Thananart, Hour /0000 24HR s prn Karissa Mcbride M.D. 11/02 Colace Hx Capsules 100mg 180ca 2 po qam & Unknown /0000 ps 2 po q pm - 11/02 Geoden Hx prn, she Unknown /0000 does not - know the 08/12 /2008 Geodon Hx Capsules 40mg 1 in Am, 1 Unknown /0000 1/2 tab qhs - 11/02 Prazosin HCL Hx Capsules 2mg 1 po q hs Unknown / - 11/02 Klonopin Hx Tablets 0.5mg 60tab 1 po qam & Unknown /0000 s 1 po Q pm - 11/02 Lia-D 24 Hx Unknown Hour Allergy & /0000 Congestion - 11/02 Ambien CR / Hx 12.5mg Unknown / - 11/02 Cymbalta 00 Hx 120mg Unknown / - 11/02 Docusate Sodium 00 Hx Unknown / - 11/02 Lamotrigine ER 00/ Hx 300mg Unknown / - 11/02 Mirtazapine / Hx 30mg Unknown / - 11/02 Prazosin HCL Hx 3mg Unknown / - 11/02 Pulmicort 00 Hx Unknown Flexhaler / - 11/02 Seroquel Hx 75mg Unknown / - 11/02 Gabapentin 00/ Hx Tablets 600mg 1 tid Unknown /0000 - 02/24 Chlorpromazine 00 Hx Tablets 25mg 1 tab by Unknown HCL /0000 mouth three - times a day 02/24 as needed /2016 for hiccups. do not take more than 3 daily Lamotrigine 00/00 Hx Tablets 150mg 1 by mouth Unknown /0000 twice a day - 03/27 Pantoprazole 00/ Hx Tablets DR 40mg 1 by mouth Unknown Sodium /0000 every day - 02/24 Advair Diskus 00 Hx Aerosol 250-50mcg 1 puff by Unknown /0000 /Dose mouth twice - a day 02/24 Proair HFA 00 Hx Aerosol 108(90Bas 2 puffs by Unknown /0000 e) mouth every - mcg/Act 4 hours as 02/24 Meloxicam Hx Tablets 15mg once daily Unknown /0000 with food - 02/24 Albuterol Hx 90mcg every 6 Unknown Sulfate /0000 hours as - needed 02/24 Viibryd Hx Tablets 40mg take 1 tab Unknown /0000 every in - the morning 02/24 Vital Signs Date Vital Result Comment 01/09/2018 Height 63 inches 5'3" Heart Rate 78 /min BP Systolic 118 mmHg BP Diastolic 66 mmHg Respiratory Rate 12 /min Body Temperature 98.1 F Pain Level 5 06/13/2017 Height 63 inches 5'3" Heart Rate 72 /min Respiratory Rate 15 /min Body Temperature 98.1 F Pain Level 7 04/26/2017 Height 63 inches 5'3" Heart Rate 74 /min reg BP Systolic Sitting 122 mmHg Lue, reg cuff BP Diastolic Sitting 84 mmHg Lue, reg cuff Respiratory Rate 16 /min Body Temperature 97.5 F tympanic Pain Level 6 left wrist/hand 05/22/2016 Height 63 inches 5'3" Respiratory Rate 16 /min Pain Level 0 + areas of tenderness 04/24/2016 Height 63 inches 5'3" Heart Rate 60 /min Respiratory Rate 16 /min Body Temperature 98.0 F Pain Level 2 03/29/2016 Height 63 inches 5'3" BP Systolic 108 mmHg BP Diastolic 76 mmHg Pain Level 5 11/04/2015 Height 63 inches 5'3" Heart Rate 60 /min BP Systolic Sitting 104 mmHg BP Diastolic Sitting 58 mmHg Respiratory Rate 16 /min Pain Level 5 03/10/2014 Height 63 inches 5'3" Heart Rate 75 /min BP Systolic 119 mmHg BP Diastolic 77 mmHg 01/27/2014 Height 63 inches 5'3" Heart Rate 83 /min BP Systolic 124 mmHg BP Diastolic 77 mmHg 02/02/2011 Height 63 inches 5'3" Heart Rate 100 /min BP Systolic 151 mmHg BP Diastolic 84 mmHg 04/29/2009 Heart Rate 92 /min BP Systolic Sitting 112 mmHg BP Diastolic Sitting 62 mmHg 04/22/2009 Heart Rate 80 /min BP Systolic Sitting 90 mmHg BP Diastolic Sitting 54 mmHg Body Temperature 98.3 F 04/13/2009 Heart Rate 72 /min BP Systolic Sitting 110 mmHg BP Diastolic Sitting 60 mmHg 02/10/2009 Heart Rate 66 /min BP Systolic Sitting 110 mmHg BP Diastolic Sitting 66 mmHg 11/09/2008 Heart Rate 85 /min BP Systolic Sitting 116 mmHg BP Diastolic Sitting 70 mmHg O2 % BldC Oximetry 94 % 10/21/2008 Heart Rate 70 /min BP Systolic Sitting 100 mmHg BP Diastolic Sitting 64 mmHg Body Temperature 98.2 F 10/12/2008 Heart Rate 82 /min BP Systolic Sitting 100 mmHg BP Diastolic Sitting 74 mmHg 08/12/2008 Height 63 inches 5'3" Weight 158.00 lb refused Heart Rate 76 /min BP Systolic Sitting 132 mmHg BP Diastolic Sitting 68 mmHg BMI (Body Mass Index) 28.0 kg/m2 05/14/2008 Height 63 inches 5'3" Weight 132.00 lb Heart Rate 68 /min BP Systolic Sitting 120 mmHg BP Diastolic Sitting 70 mmHg BMI (Body Mass Index) 23.4 kg/m2 Results Test Date Test Result H/L Range Note CBC With Manual Diff 06/08/2009 White Blood Count 6.4 CUMM 4.8-10.8 Red Cell Count 4.63 CUMM 4.2-5.4 Hemoglobin 14.6 g/dL 12.0-16.0 Hematocrit 43 % 35-47 Mean Corpuscular Volume 93 um3 79-97 Mean Corpuscular Hemoglob 32 pg High 27-31 Mean Corpuscular HGB Cone 34 g/dL 32-36 Redcell Distribution WDTH 13 % 10.5-15 Platelet Count 502 CUMM High 150-450 Mean Platelet Volume 8.3 um3 7.4-10.4 Polysegmented Neutrophil 51 % 38-83 Lymphocyte 34 % 25-47 Monocyte 8 % 0-13 Eosenophil 3 % 0-6 Basophil 1 % 0-2 Atypical Lymph 3 % 0-6 Absolute Neutrophil Count 3.2 Anisocytosis SLIGHT Hypochromasia SLIGHT Lipid Profile (Trig/Chol/HDL) 06/08/2009 Triglyceride 70 mg/dL 40-200 Cholesterol 227 mg/dL High Less Than 200 1 High Density Lipoprotein 50 mg/dL 40-60 2 Cholesterol/HDL Ratio 4.54 AVERAGE High 1-4.44 Low Density Lipoprotein 163 mg/dL High Less Than 100 3 Laboratory test finding 06/08/2009 Glucose 97 mg/dL 70-100 4 Ua Stat 04/23/2009 Ua Color YELLOW Appearance-Urine CLEAR Specific [place]-Ur 1.018 1.010-1.030 Esterase-Urine NEGATIVE Negative Nitrite NEGATIVE Negative [id number] NEGATIVE Negative Protein-Urine NEGATIVE Negative PH-Urine 8.0 5-9 Blood-Urine NEGATIVE Negative Ketones-Urine 2+ Negative Bilirubin-Ur NEGATIVE Negative Glucose-Urine NEGATIVE Negative Basic Metabolic Panel 04/22/2009 Sodium 135 mmol/L 135-145 Potassium 4.6 mmol/L 3.5-5.0 Chloride 106 mmol/L 101-111 Co2 (Carbon Dioxide) 26.0 mmol/L 22-32 Anion Gap 3.0 mmol/L 2-11 5 Glucose 68 mg/dL Low 70-100 6 BUN 10 mg/dL 6-24 Creatinine 0.60 mg/dL 0.50-1.40 One Over Creatinine 1.60 BUN/Creatinine Ratio 16.7 8-20 Calcium 8.9 mg/dL 8.1-9.9 7 eGFR Non- 115.4 > 60 eGFR 139.7 > 60 8 CBC With Manual Diff 04/22/2009 White Blood Count 4.4 CUMM Low 4.8-10.8 Red Cell Count 4.28 CUMM 4.2-5.4 Hemoglobin 13.8 g/dL 12.0-16.0 Hematocrit 41 % 35-47 Mean Corpuscular Volume 96 um3 79-97 Mean Corpuscular Hemoglob 32 pg High 27-31 Mean Corpuscular HGB Cone 34 g/dL 32-36 Redcell Distribution WDTH 13 % 10.5-15 Platelet Count 283 CUMM 150-450 Mean Platelet Volume 8.5 um3 7.4-10.4 Polysegmented Neutrophil 44 % 38-83 Lymphocyte 45 % 25-47 Monocyte 11 % 0-13 Absolute Neutrophil Count 1.9 RBC Morphology NORMAL Manual Diff Comments (SEE NOTE) 9 GC/Chlamydia Dna Probe 04/13/2009 GC By Aptima NEGATIVE Negative 10 CHL By Aptima NEGATIVE Negative 11 Urine Culture & Sensitivi 04/13/2009 Urine Culture Sensitivi NG 12 Herpes Simplex Type 1&2 03/16/2009 Herpes Simplex Type 1 Igg Negative Negative Igg Herpex Simplex Type 2 Igg Negative Negative 13 Vad 03/16/2009 Vad Final NONREACTIVE Nonreactive 14 GCCHLTP 03/16/2009 CHL On Thin Prep Vial NEGATIVE Negative 15 GC On Thin Prep Vial NEGATIVE Negative 16 Cytology Misc 03/16/2009 Cytology <SEE NOTE> 17 Laboratory test 03/16/2009 RPR NON REACTIVE Nonreactive finding Herpes Simplex Type 1 2 Igm Negative Negative 18 Lipid Profile (Trig/Chol/HDL) 03/01/2009 Triglyceride 91 mg/dL 40-200 Cholesterol 203 mg/dL High Less Than 200 19 High Density Lipoprotein 31 mg/dL Low 40-60 20 Cholesterol/HDL Ratio 6.55 AVERAGE High 1-4.44 Low Density Lipoprotein 154 mg/dL High Less Than 100 21 CBC With Electronic Diff 03/01/2009 White Blood Count 5.1 CUMM 4.8-10.8 Red Cell Count 4.84 CUMM 4.2-5.4 Hemoglobin 15.4 g/dL 12.0-16.0 Hematocrit 46 % 35-47 Mean Corpuscular Volume 94 um3 79-97 Mean Corpuscular Hemoglob 32 pg High 27-31 Mean Corpuscular HGB Cone 34 g/dL 32-36 Redcell Distribution WDTH 13 % 10.5-15 Platelet Count 325 CUMM 150-450 Mean Platelet Volume 8.6 um3 7.4-10.4 Gran % 47.2 % 38-83 Lymph % 42.5 % 25-47 Mononuclear % 8.1 % 1-9 Eosinophil % 1.6 % 0-6 Basophil % 0.6 % 0-2 Abs Lymphs 2.2 1.0-4.8 Abs Mononuclear 0.4 0-0.8 Absolute Neutrophil Count 2.4 1.5-7.7 Abs Eosinophils 0.1 0-0.6 Abs Basophils 0 0-0.2 Liver Function Panel 03/01/2009 Total Protein 6.4 GM/DL 6.2-8.1 Albumin 4.2 GM/DL 3.6-5.4 Globulin 2.2 GM/DL 2-4 Albumin/Globulin Ratio 1.9 1-3 Bilirubin Total 0.8 mg/dL 0.4-1.5 22 Bilirubin Direct 0.1 mg/dL 0.1-0.5 Indirect Bilirubin 0.7 mg/dL 0.1-0.75 Alkaline Phosphatase 42 U/L 30-110 Alt (SGPT) 13 U/L Low 14-54 Ast (Sgot) 14 U/L 12-42 Laboratory test finding 11/10/2008 TSH 0.40 MIU/ML 0.34-5.60 Basic Metabolic Panel Stat 11/10/2008 Sodium 138 mmol/L 135-145 Potassium 4.4 mmol/L 3.5-5.0 Chloride 103 mmol/L 101-111 Co2 (Carbon Dioxide) 26.0 mmol/L 22-32 Anion Gap 9.0 mmol/L 2-11 23 Glucose 103 mg/dL High 70-100 24 BUN 9 mg/dL 6-24 Creatinine 0.90 mg/dL 0.50-1.40 One Over Creatinine 1.10 BUN/Creatinine Ratio 10.0 8-20 Calcium 9.6 mg/dL 8.1-9.9 25 HCG Qualitative Stat 11/10/2008 Serum Qual HCG NEGATIVE Negative 26 CBC With Electronic Diff Stat 11/10/2008 White Blood Count 5.9 CUMM 4.8- 10.8 Red Cell Count 4.62 CUMM 4.2-5.4 Hemoglobin 14.3 g/dL 12.0-16.0 Hematocrit 41 % 35-47 Mean Corpuscular Volume 88 um3 79-97 Mean Corpuscular Hemoglob 31 pg 27-31 Mean Corpuscular HGB Cone 35 g/dL 32-36 Redcell Distribution WDTH 16 % High 10.5-15 Platelet Count 312 CUMM 150-450 Mean Platelet Volume 8.4 um3 7.4-10.4 Gran % 52.6 % 38-83 Lymph % 35.3 % 25-47 Mononuclear % 10.0 % High 1-9 Eosinophil % 1.4 % 0-6 Basophil % 0.7 % 0-2 Abs Lymphs 2.1 1.0-4.8 Abs Mononuclear 0.6 0-0.8 Absolute Neutrophil Count 3.1 1.5-7.7 Abs Eosinophils 0.1 0-0.6 Abs Basophils 0 0-0.2 Thyroid Panel 10/19/2008 Free Thyroxine 0.82 NG/ML 0.61-1.24 27 Thyroxine 6.7 g/dL 5-12 TSH 0.48 MIU/ML 0.34-5.60 Laboratory test finding 10/19/2008 Monospot NEGATIVE Negative CBC With Manual Diff Stat 10/19/2008 White Blood Count 6.0 CUMM 4.8-10.8 Red Cell Count 4.43 CUMM 4.2-5.4 Hemoglobin 13.3 g/dL 12.0-16.0 Hematocrit 39 % 35-47 Mean Corpuscular Volume 87 um3 79-97 Mean Corpuscular Hemoglob 30 pg 27-31 Mean Corpuscular HGB Cone 35 g/dL 32-36 Redcell Distribution WDTH 15 % 10.5-15 Platelet Count 275 CUMM 150-450 Mean Platelet Volume 9.1 um3 7.4-10.4 Polysegmented Neutrophil 41 % 38-83 Band Neutrophil 1 % 0-8 Lymphocyte 40 % 25-47 Monocyte 4 % 0-13 Eosenophil 2 % 0-6 Basophil 1 % 0-2 Atypical Lymph 11 % High 0-6 Absolute Neutrophil Count 2.5 Anisocytosis SLIGHT Polychromasia SLIGHT Jose Luis Palmer Comprehensive 10/19/2008 Ebv Vca Igg Negative Negative Ebv Vca Igm Negative Negative Ebna Negative Negative Ebv Interpretation . () 28 P33S 10/19/2008 Sodium 137 mmol/L 135-145 Potassium 3.9 mmol/L 3.5-5.0 Chloride 105 mmol/L 101-111 Co2 (Carbon Dioxide) 25.0 mmol/L 22-32 Anion Gap 7.0 mmol/L 2-11 29 Glucose 117 mg/dL High 70-100 30 BUN 11 mg/dL 6-24 Creatinine 0.80 mg/dL 0.50-1.40 One Over Creatinine 1.20 BUN/Creatinine Ratio 13.8 8-20 Calcium 9.5 mg/dL 8.1-9.9 31 Total Protein 6.4 GM/DL 6.2-8.1 Albumin 3.9 GM/DL 3.6-5.4 Globulin 2.5 GM/DL 2-4 Albumin/Globulin Ratio 1.6 1-3 Bilirubin Total 0.8 mg/dL 0.4-1.5 Alkaline Phosphatase 38 U/L 30-110 Alt (SGPT) 8 U/L Low 14-54 Ast (Sgot) 15 U/L 12-42 Laboratory test finding 10/19/2008 Stool For Blood NEGATIVE Negative CBC With Electronic Diff 10/12/2008 White Blood Count 5.4 CUMM 4.8-10.8 Red Cell Count 4.09 CUMM Low 4.2-5.4 Hemoglobin 12.3 g/dL 12.0-16.0 Hematocrit 37 % 35-47 Mean Corpuscular Volume 89 um3 79-97 Mean Corpuscular Hemoglob 30 pg 27-31 Mean Corpuscular HGB Cone 34 g/dL 32-36 Redcell Distribution WDTH 16 % High 10.5-15 Platelet Count 254 CUMM 150-450 Mean Platelet Volume 9.7 um3 7.4-10.4 Gran % 50.0 % 38-83 Lymph % 42.5 % 25-47 Mononuclear % 6.0 % 1-9 Eosinophil % 1.2 % 0-6 Basophil % 0.3 % 0-2 Abs Lymphs 2.3 1.0-4.8 Abs Mononuclear 0.3 0-0.8 Absolute Neutrophil Count 2.7 1.5-7.7 Abs Eosinophils 0.1 0-0.6 Abs Basophils 0 0-0.2 Basic Metabolic Panel 10/12/2008 Sodium 140 mmol/L 135-145 Potassium 4.5 mmol/L 3.5-5.0 Chloride 106 mmol/L 101-111 Co2 (Carbon Dioxide) 27.0 mmol/L 22-32 Anion Gap 7.0 mmol/L 2-11 32 Glucose 83 mg/dL 70-100 33 BUN 11 mg/dL 6-24 Creatinine 0.70 mg/dL 0.50-1.40 One Over Creatinine 1.40 BUN/Creatinine Ratio 15.7 8-20 Calcium 8.9 mg/dL 8.1-9.9 34 Laboratory test finding 10/12/2008 TSH 0.59 MIU/ML 0.34-5.60 1 CHOLESTEROL INTERPRETATION: Desirable: Less than 200 MG/DL Borderline-High Risk: 200-239 MG/DL High-Risk: 240 MG/DL and over 2 HDL INTERPRETATION: Undesirable: High Risk: Less than 40 MG/DL Desirable: Low Risk: Greater than 60 MG/DL 3 LDL INTERPRETATION: Low Risk Optimal Level: LDL Less than 100 MG/DL Near or Above Optimal: LDL 100-129 MG/DL Borderline High Risk: LDL 130-159 MG/DL High Risk: LDL 160-189 MG/DL Very High Risk: LDL Greater than 189 MG/DL 4 Note change in reference range as of 01/30/08. The change was based on recommendations from the [employer]. 5 Anion gap measurement may be of limited value in the presence of any alkalosis, especially in a combined acid base disorder. . 6 Note change in reference range as of 01/30/08. The change was based on recommendations from the [employer]. 7 Please note change in reference range effective 07 . 8 Because ethnic data is not always readily available, this report includes an eGFR for both -Americans and non- Americans. The National Kidney Disease Education Program (NKDEP) does not endorse the use of the MDRD equation for patients that are not between the ages of 18 and 70, are , have extremes of body size, muscle mass, or nutritional status, or are non- or non-. According to the National Kidney Foundation, irrespective of diagnosis, the stage of the disease is based on the level of kidney function: Stage Description GFR(mL/min/1.73 m(2)) 1 Kidney damage with normal or decreased GFR 90 2 Kidney damage with mild decrease in GFR 60-89 3 Moderate decrease in GFR 30-59 4 Severe decrease in GFR 15-29 5 Kidney failure <15 (or dialysis) 9 REVIEWED BY OMI CAMACHO MD 10 . A negative result does not preclude the presence of a C.trachomatis or N.gonorrhoeae infection because results are dependent on adequate specimen collection, absence of inhibitors, and sufficient rRNA to be detected. Test results may be affected by improper specimen collection, improper specimen storage, technical error, or specimen mixup. . 11 . A negative result does not preclude the presence of a C.trachomatis or N.gonorrhoeae infection because results are dependent on adequate specimen collection, absence of inhibitors, and sufficient rRNA to be detected. Test results may be affected by improper specimen collection, improper specimen storage, technical error, or specimen mixup. . 12 FINAL: NO GROWTH DAY 2 (<1,000 CFU/mL) 13 Test Performed by: [facility] Dpt of Lab Med and Pathology [address] [place] [address] Regional Liaison: Tanvir Nathan III, M.D. 14 FINAL INTERPRETATION: No HIV antibody is detected. . This information has been disclosed to you from confidential records which are protected by [place] State law. State law prohibits you from making further disclosure of this information without the specific written consent of the person to whom it pertains, or as otherwise permitted by law. Any unauthorized further disclosure in violation of state law may result in a fine or long-term sentence or both. General authorization for the release of medical or other information is not, except in limited circumstances set forth in Part 63, Title 10, of [place]CRR, sufficient authorization for further disclosure. Disclosure of confidential HIV information that occurs as the result of a general authorization for the release of medical or other information will be in violation of the state law and may result in a fine or a long-term sentence. . 15 . A negative result does not preclude the presence of a C.trachomatis or N.gonorrhoeae infection because results are dependent on adequate specimen collection, absence of inhibitors, and sufficient rRNA to be detected. Test results may be affected by improper specimen collection, improper specimen storage, technical error, or specimen mixup. . 16 . A negative result does not preclude the presence of a C.trachomatis or N.gonorrhoeae infection because results are dependent on adequate specimen collection, absence of inhibitors, and sufficient rRNA to be detected. Test results may be affected by improper specimen collection, improper specimen storage, technical error, or specimen mixup. . 17 ---- RUN DATE: 03/17/09 [facility] LIVE PAGE 1 RUN TIME: 1257 Specimen Inquiry RUN USER: INTERFACE -- Name: EMELYN PENA Status: REG REF Re03/16/09 Age/Sex: 43/F Unit#: [id number] Location: [facility] : 63 -- Specimen: [id number] Spec Date: 03/16/[address]: Michelle meraz MD Spec Type: CYTOLOGY Received: 03/17/09-1047 Copies to: Rae meraz MD SOURCE ECTOCERVICAL/ENDOCERVICAL Thin Prep with Reflex HPV Test PATIENT INFORMATION ACTUAL COLLECTION DATE: 03/16/09 ? No POST MENOPAUSAL? No HYSTERECTOMY? No PREVIOUS ABNORMAL PAP SMEARS No PATIENT HISTORY: 2007 ADEQUACY OF SPECIMEN Satisfactory for evaluation * Transformation zone component identified * DIAGNOSIS NEGATIVE FOR INTRAEPITHELIAL LESION OR MALIGNANCY * This Pap test was evaluated with the assistance of the CanvaPrep Pap Test Imaging System. The Pap Smear is a screening test designed to aid in the detection of premalign ant and malignant conditions of the uterine cervix. It is not a diagnostic procedure a nd should not be used as the sole means of detecting cervical cancer. Both false- positiv e and false-negative reports do occur. Depending on your risk status, a Pap smear chace uld be obtained and evaluated every one to three years. Final Interpretation electronically signed by: Osbaldo BROWN(ASCP) 03/17/09 1257 -- -- DEPARTMENT OF PATHOLOGY, [address] [place] [address] [facility] Permit #[id number] Jay Alamo M.D. Director Omi Camacho M.D. Egg Sorter Dir sundar -- 18 Test Performed by: [facility] Dpt of Lab Med and Pathology [address] [place] [address] Regional Liaison: Tanvir Nathan III, M.D. 19 CHOLESTEROL INTERPRETATION: Desirable: Less than 200 MG/DL Borderline-High Risk: 200-239 MG/DL High-Risk: 240 MG/DL and over 20 HDL INTERPRETATION: Undesirable: High Risk: Less than 40 MG/DL Desirable: Low Risk: Greater than 60 MG/DL 21 LDL INTERPRETATION: Low Risk Optimal Level: LDL Less than 100 MG/DL Near or Above Optimal: LDL 100-129 MG/DL Borderline High Risk: LDL 130-159 MG/DL High Risk: LDL 160-189 MG/DL Very High Risk: LDL Greater than 189 MG/DL 22 A metabolite of Naproxen, O-desmethylnaproxen, has been shown to interfere with the Jendrassik-Gume method for measuring total bilirubin. Samples from patients who have taken Naproxen have shown spurious elevation in total bilirubin levels. 23 Anion gap measurement may be of limited value in the presence of any alkalosis, especially in a combined acid base disorder. . 24 Note change in reference range as of 01/30/08. The change was based on recommendations from the [employer]. 25 Please note change in reference range effective 07 . 26 If is still suspected, please repeat test after 48 to 72 hours. . 27 PLEASE NOTE NEW REFERENCE RANGES. 28 Results suggest no prior exposure to Jose Luis-Palmer Virus. However, a second serum specimen should be tested in 10-14 days if clinically indicated. In most populations, at least 90% of the adult population will have been infected with EBV sometime in the past and therefore, will be positive for anti-VCA/IgG and anti-EBNA. Antibodies to EBNA develop 6-8 weeks after primary infection and remain present for life. Presence of VCA/IgM antibodies indicates recent primary infection with EBV. Test Performed by: [facility] Dpt of Lab Med and Pathology [address] [place] [address] Regional Liaison: Tanvir Nathan III, M.D. 29 Anion gap measurement may be of limited value in the presence of any alkalosis, especially in a combined acid base disorder. . 30 Note change in reference range as of 01/30/08. The change was based on recommendations from the [employer]. 31 Please note change in reference range effective 07 . 32 Anion gap measurement may be of limited value in the presence of any alkalosis, especially in a combined acid base disorder. . 33 Note change in reference range as of 01/30/08. The change was based on recommendations from the [employer]. 34 Please note change in reference range effective 07 . Procedures Date CPT Code Description Status 02/06/2017 34688 biopsy,vestibule of mouth Completed 04/11/2016 94607 Carpal Tunnel Release Completed 09/20/2015 44581 EKG, Interpretation Only Completed 08/14/2014 30415 EEG Recording Awake & Asleep Completed 02/24/2014 22998 EKG, Interpretation Only Completed 01/27/2014 17358 Rad Exam; Wrist, Comp, Min 3 Views Completed 09/04/2008 Mammogram Completed Encounters Type Date Location Provider CPT E/M Dx Office Visit 06/13/2017 [facility] SPENSER Black 11005 M18.12 11:15a Of C.M.A. Office Visit 04/26/2017 [facility] Alexa Leyva, 48364 M18.12 2:30p Of C.M.[place] PAZ-C Office Visit 03/29/2016 [facility] Mary Jane Williamson, 16686 G56.02 2:00p Of C.M.A. M.D. Office Visit 11/04/2015 [facility] Tirp Bradley M.D. 69046 M54.31 9:00a Of Iam M22.2x1 Office Visit 03/10/2014 11:30a [facility] Diann 80104 715.34 Of Iam Darnell M.D. Office Visit 03/05/2014 7:09p [facility] Lyndsey Newman, [place] 72142 682.3 Assoc, Hospitalists 300.15 309.81 Office Visit 03/03/2014 7:08p [facility], Lyndsey Newman, [place] 29718 682.3 Hospitalists 300.15 309.81 Office Visit 03/02/2014 7:07p [facility], Monika Wilkes 21321 682.3 Hospitalists M.DAhmet 300.15 309.81 Office Visit 03/01/2014 7:07p [facility], Amisha Sellers 25982 682.3 Hospitalists D.O. 300.15 309.81 Office Visit 01/27/2014 9:30a [facility] Diann Darnell, 07823 727.43 Of Iam Pelayo 715.34 Office Visit 02/02/2011 10:45a [facility] Diann Darnell, 36280 727.04 Of Iam Pelayo Office Visit 04/29/2009 9:40a DO Not Use [employer] [facility] [facility] AT Rae Lynch, 38392 789.03 Jo Pelayo Office Visit 04/22/2009 10:00a DO Not Use [employer] AT Rae Lynch, 97639 625.9 Jo Pelayo 788.1 372.14 789.03 Office Visit 04/13/2009 11:00a DO Not Use [place] [address] 625.9 [place] 788.1 Office Visit 02/10/2009 11:00a DO Not Use [employer] AT Rae Lynch, 13777 272.4 Jo Pelayo 719.47 Office Visit 11/09/2008 1:40p DO Not Use [facility], 17694 780.4 [place] M.D. 780.79 Office Visit 10/21/2008 9:40a DO Not Use [facility] [place], 32712 780.4 [place] M.D. 780.79 Office Visit 10/12/2008 3:00p DO Not Use [facility], 78488 719.46 [place] M.D. 780.79 780.4 Office Visit 08/12/2008 10:40a DO Not Use [facility], 55858 783.21 [place] M.D. V76.12 280.9 Office Visit 05/14/2008 11:00a DO Not Use [facility], 09237 296.30 [place] M.D. 272.4 530.81 564.1 281.9 Plan of Care Future Appointment(s):01/14/2018 9:00 am - [facility]
--- OUTSIDE RECORDS SUMMARY | 2018-02-04 13:59 | XMS REPORT ---
:1965 External Reference #:[id number] Author Organization [employer] Address [address] [place] [address] [place] [address] Phone [phone] Care Team Providers Name Role Phone Jesika Redman MD Primary Care Physician Unavailable Payers Type Date Identification Numbers Payment Provider Subscriber Medicaid Expires: 2013 Policy Number: [id number] Emelyn Swenson PayID: [id number] [address] [place] [address] Commercial Effective: Policy Number: You/[employer] Medicaid Emelyn Swenson 2013 [id number] PayID: [id number] [address] [address] [place] [address] Problems Date Description Provider Status Onset: 01/14/2018 Localized, primary 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 Active Family History Date Family [...] Form Strength Qnty SIG Indications Ordering Provider Meloxicam 01/14 Active Tablets 15mg 30tab 1 by mouth M70.62 Jigna s every day Pierce Steiner Mobic 05/04 Active Tablets 7.5mg 30tab 1 by mouth Mary Jane s every day Pierce Williamson Zolpidem Active Tablets 10mg 1/2 to 1 Unknown Tartrate /0000 tab by mouth every night at bedtime as needed Prazosin HCL Active Capsules 2mg once daily Unknown / Naltrexone HCL Active Tablets 50mg one tab Unknown /0000 daily in pm Acamprosate Active Tablets DR 333mg take 1 tab Unknown Calcium /0000 tid Lia-D 24 Active Tablets ER 180-240mg [...] Tablets DR 40mg 1 by mouth Unknown /0000 every day Trintellix Active Tablets 10mg 1 by mouth Unknown /0000 every day Lamictal Active Tablets 200mg 1 by mouth Unknown /0000 daily Colace Active Capsules 100mg 1 tab by Unknown /0000 mouth 2-3 times a day as needed Ventolin HFA Active Aerosol 108(90Bas 2 puffs by Unknown /0000 e) mouth four mcg/Act times a day as needed Qvar Active daily Unknown 0000 Neurontin 11/03 Hx Capsules 300mg 30cap 1 by mouth s every night Karissa Bradley at bedtime MLeo 02/24 in to the 3rd 600 mg dose daily Ibuprofen 01/27 Hx Tablets 600mg 60tab 1 by mouth Diann s three times Vega-You - a day as Pierce flores 11/02 Lactulose 04/29 Hx Solution 10GM/15ML 1bott 30ml po qhs 789.03 Thananart, le prn Rae, - constipatio M.D. 11/02 n Patanol 04/22 Hx Solution 0.1% 5ml 1 gtt ou 372.14 Thananart, bid prn Rae, - M.D. 11/02 Opana 04/14 Hx Tablets 5mg 40tab 1 or 2 q 6 Thananart, s hours prn Rae, - pain M.D. 11/02 Vicoprofen 04/13 Hx Tablets 7.5-200mg 30tab 1 po q 8 625.9 Thananart, s hours prn Rae, - pain M.D. 04/14 Ciprofloxacin 04/13 Hx Tablets 250mg 14tab 1 bid x 7 788.1 Thananart, s days Rae, - M.D. 04/22 Naproxen 02/17 Hx Tablets 500mg 60tab 1 tab po Thananart, s bid prn Rae, - M.D. 11/02 Multi-Vitamin/M 02/10 Hx Tablets 30tab 1 po qd Thananart, iner s Rae, - M.D. 11/02 Neurontin 02/10 Hx Tablets 1200mg 90tab po tid anart, s Rae, - M.D. 11/02 Voltaren 10/12 Hx Gel 1% 5Tube apply to 719.46 , s affected Rae, - area qd prn M.D. 11/02 Nexium 09/[address] 40mg 90cap 1 po qd Thananart, s Rae, - M.D. 11/02 Amitiza 08/10 Hx Capsules 24mcg 60cap 1 bid po Thananart, s with food Rae, - M.D. 11/02 Trazodone HCL 05/14 Hx Tablets 300mg 30tab Thananart, s Rae, - M.D. 11/02 Nu-Iron 150 05/14 Hx Capsules 150mg 30cap 1 tab po qd 281.9 Thananart, s Rae, - M.D. 10/12 Clonazepam 00/00 Hx Unknown / - 02/10 Cymbalta 00/00 Hx 60mg 1 po q am Unknown / - 11/02 Gabapentin 00/00 Hx Unknown / - 04/22 Lia-D 24 Hx Tablets ER 24Hour 30tab 1 Tab qd Thananart, Hour / 24HR s prn Karissa Mcbride M.D. 11/02 Colace Hx Capsules 100mg 180ca 2 po qam & Unknown /0000 ps 2 po q pm - 11/02 Geoden 00 Hx prn, she Unknown /0000 does not - know the 08/12 dosage /2008 Geodon Hx Capsules 40mg 1 in Am, 1 Unknown /0000 1/2 tab qhs - 11/02 Prazosin HCL Hx Capsules 2mg 1 po q hs / - 11/02 Klonopin Hx Tablets 0.5mg 60tab 1 po qam & Unknown /0000 s 1 po Q pm - 11/02 Lia-D 24 / Hx Unknown Hour Allergy & /0000 Congestion - 11/02 Ambien CR 00/ Hx 12.5mg Unknown - 11/02 Cymbalta 00 Hx 120mg - 11/02 Docusate Sodium 00/ Hx Unknown / - 11/02 Lamotrigine ER 00/00 Hx 300mg Unknown - 11/02 Mirtazapine 00/ Hx 30mg Unknown - 11/02 Prazosin HCL Hx 3mg Unknown - 11/02 Pulmicort 00/00 Hx Unknown Flexhaler / - 11/02 Seroquel 00/ Hx 75mg Unknown / - 11/02 Gabapentin 00/00 Hx Tablets 600mg 1 tid Unknown - 02/24 Chlorpromazine Hx Tablets 25mg 1 tab by Unknown HCL /0000 mouth three - times a day 02/24 as needed /2016 for hiccups. do not take more than 3 daily Lamotrigine 00 Hx Tablets 150mg 1 by mouth Unknown /0000 twice a day - 03/27 [address]oprazole [address] 40mg 1 by mouth Unknown Sodium /0000 every day - 02/24 Advair Diskus Hx Aerosol 250-50mcg 1 puff by Unknown /0000 /Dose mouth twice - a day 02/24 Proair HFA Hx Aerosol 108(90Bas 2 puffs by Unknown /0000 e) mouth every - mcg/Act 4 hours as 02/24 Meloxicam Hx Tablets 15mg once daily Unknown /0000 with food - 02/24 Albuterol Hx 90mcg every 6 Unknown Sulfate /0000 hours as - needed 02/24 Viibryd Hx Tablets 40mg take 1 tab Unknown /0000 every in - the morning 02/24 Vital Signs Date Vital Result Comment 01/14/2018 Height 63 inches 5'3" Heart Rate 74 /min BP Systolic 121 mmHg BP Diastolic 62 mmHg Respiratory Rate 16 /min Body Temperature 97.1 F 01/09/2018 Height 63 inches 5'3" Heart Rate [...] 04/23/2009 Ua Color YELLOW Appearance-Urine CLEAR Specific [place]-Ur 1.018 1.010-1.030 Esterase-Urine NEGATIVE Negative Nitrite NEGATIVE Negative Kixsxfrlyuxa-Dd-DME NEGATIVE Negative Protein-Urine NEGATIVE Negative PH-Urine 8.0 [...] NORMAL Manual Diff Comments (SEE NOTE) 9 Urine Culture & Sensitivi 04/13/2009 Urine Culture Sensitivi NG 10 GC/Chlamydia Dna Probe 04/13/2009 GC By Aptima NEGATIVE Negative 11 CHL By Aptima NEGATIVE Negative 12 Laboratory test finding 03/16/2009 RPR NON REACTIVE Nonreactive Herpes Simplex Type 1 2 Igm Negative Negative 13 Herpes Simplex Type 1&2 03/16/2009 Herpes Simplex Type 1 Igg Negative Negative Igg Herpex Simplex Type 2 Igg Negative Negative 14 Vad 03/16/2009 Vad Final NONREACTIVE Nonreactive 15 GCCHLTP 03/16/2009 CHL On Thin Prep Vial NEGATIVE Negative 16 GC On Thin Prep Vial NEGATIVE Negative 17 Cytology Misc 03/16/2009 Cytology <SEE NOTE> 18 Lipid Profile 03/01/2009 Triglyceride 91 mg/dL 40-200 (Trig/Chol/HDL) Cholesterol 203 mg/dL High Less Than 200 [...] Low 14-54 Ast (Sgot) 14 U/L 12-42 CBC With Electronic Diff Stat 11/10/2008 White [...] Eosinophils 0.1 0-0.6 Abs Basophils 0 0-0.2 HCG Qualitative Stat 11/10/2008 Serum Qual HCG NEGATIVE Negative 23 Basic Metabolic Panel Stat 11/10/2008 Sodium 138 mmol/L 135-145 Potassium 4.4 mmol/L 3.5-5.0 Chloride 103 mmol/L 101-111 Co2 (Carbon Dioxide) 26.0 mmol/L 22-32 Anion Gap 9.0 mmol/L 2-11 24 Glucose 103 mg/dL High 70-100 25 BUN 9 mg/dL 6-24 Creatinine 0.90 mg/dL 0.50-1.40 One Over Creatinine 1.10 BUN/Creatinine Ratio 10.0 8-20 Calcium 9.6 mg/dL 8.1-9.9 26 Laboratory test finding 11/10/2008 TSH 0.40 MIU/ML 0.34-5.60 Jose Luis Palmer Comprehensive 10/19/2008 Ebv Vca Igg Negative Negative Ebv Vca Igm Negative Negative Ebna Negative Negative Ebv Interpretation . () 27 CBC With Manual Diff Stat 10/19/2008 White [...] Neutrophil Count 2.5 Anisocytosis SLIGHT Polychromasia SLIGHT Laboratory test finding 10/19/2008 Monospot NEGATIVE Negative Thyroid Panel 10/19/2008 Free Thyroxine 0.82 NG/ML 0.61-1.24 28 Thyroxine 6.7 g/dL 5-12 TSH 0.48 MIU/ML 0.34-5.60 P33S 10/19/2008 Sodium 137 mmol/L 135-145 Potassium [...] change was based on recommendations from the [employer] [place] [employer]. 5 Anion gap measurement may be of limited value in the presence of any alkalosis, especially in a combined acid base disorder. . 6 Note change in reference range as of 01/30/08. The change was based on recommendations from the [employer]. 7 Please note change in [...] failure <15 (or dialysis) 9 REVIEWED BY NIMO MONTALVO MD 10 FINAL: NO GROWTH DAY 2 (<1,000 CFU/mL) 11 . A negative result does not preclude the presence of a C.trachomatis or N.gonorrhoeae infection because results are dependent on adequate specimen collection, absence of inhibitors, and sufficient rRNA to be detected. Test results may be affected by improper specimen collection, improper specimen storage, technical error, or specimen mixup. . 12 . A negative result does not preclude the presence of a C.trachomatis or N.gonorrhoeae infection because results are dependent on adequate specimen collection, absence of inhibitors, and sufficient rRNA to be detected. Test results may be affected by improper specimen collection, improper specimen storage, technical error, or specimen mixup. . 13 Test Performed by: [facility] Dpt of Lab Med and Pathology [address] [place] [address] Mill Work: Tanvir Nathan III, M.D. 14 Test Performed by: [facility] Dpt of Lab Med and Pathology [address] [place], [place] [address] Mill Work: Tanvir Nathan III, M.D. 15 FINAL INTERPRETATION: No HIV antibody is detected. . This information has been disclosed to you from confidential records which are protected by [place] State law. State law prohibits you from making further disclosure of this information without the specific written consent of the person to whom it pertains, or as otherwise permitted by law. Any unauthorized further disclosure in violation of state law may result in a fine or correction sentence or both. General authorization for the release of medical or other information is not, except in limited circumstances set forth in Part 63, Title 10, of [facility], sufficient authorization for further disclosure. Disclosure of confidential HIV information that occurs as the result of a general authorization for the release of medical or other information will be in violation of the state law and may result in a fine or a correction sentence. . 16 . A negative result does not preclude the presence of a C.trachomatis or N.gonorrhoeae infection because results are dependent on adequate specimen collection, absence of inhibitors, and sufficient rRNA to be detected. Test results may be affected by improper specimen collection, improper specimen storage, technical error, or specimen mixup. . 17 . A negative result does not preclude the presence of a C.trachomatis or N.gonorrhoeae infection because results are dependent on adequate specimen collection, absence of inhibitors, and sufficient rRNA to be detected. Test results may be affected by improper specimen collection, improper specimen storage, technical error, or specimen mixup. . 18 ---- [facility]: [facility]17[facility] TIME: 1257 Specimen Inquiry RUN USER: INTERFACE -- Name: EMELYN PENA Status: REG REF Re03/16/09 Age/Sex: 43/F Unit#: [id number] [facility] -- Specimen: [id number] SOUT Spec Date: 03/16/[address] [facility] Dr: Michelle meraz MD Spec Type: CYTOLOGY Received: 03/17/09-3957 Copies to: Rae meraz MD SOURCE ECTOCERVICAL/ENDOCERVICAL [...] was evaluated with the assistance of the ThinPrep Pap Test Imaging System. The Pap Smear [...] 03/17/09 1257 -- -- DEPARTMENT OF PATHOLOGY, [address] [place] [address] [facility] Permit #[id number] Pierce Valerio M.D. Reservation Sales Agent Dir sundar -- 19 CHOLESTEROL INTERPRETATION: Desirable: Less than 200 [...] has been shown to interfere with the Delta-Gume method for measuring total bilirubin. Samples from patients who have taken Naproxen have shown spurious elevation in total bilirubin levels. 23 If is still suspected, please repeat test after 48 to 72 hours. . 24 Anion gap measurement may be of limited value in the presence of any alkalosis, especially in a combined acid base disorder. . 25 Note change in reference range as of 01/30/08. The change was based on recommendations from the [employer]. 26 Please note change in reference range effective 07 . 27 Results suggest no prior exposure to Jose [...] primary infection with EBV. Test Performed by: [facility] Dpt of Lab Med and Pathology [address] [place] [address] Mill Work: Tanvir Nathan III, M.D. 28 PLEASE NOTE NEW REFERENCE RANGES. 29 Anion gap measurement may be of limited value in the presence of any alkalosis, especially in a combined acid base disorder. . 30 Note change in reference range as of 01/30/08. The change was based on recommendations from the [employer]. 31 Please note change in reference range effective 07 . 32 Anion gap measurement may be of limited value in the presence of any alkalosis, especially in a combined acid base disorder. . 33 Note change in reference range as of 01/30/08. The change was based on recommendations from the [employer]. 34 Please note change in reference range effective 07 . Procedures Date CPT Code Description Status 02/06/2017 74129 biopsy,vestibule of mouth Completed 04/11/2016 08313 Carpal Tunnel Release Completed 09/20/2015 27391 EKG, Interpretation Only Completed 08/14/2014 40033 EEG Recording Awake & Asleep Completed 02/24/2014 69040 EKG, Interpretation Only Completed 01/27/2014 81250 Rad Exam; Wrist, Comp, Min 3 Views Completed 09/04/2008 Mammogram Completed Encounters Type Date Location Provider CPT E/M Dx Office Visit 06/13/2017 [facility] Rosalba Self, [place]-C 31430 M18.12 11:15a Of Flory.M.AAhmet Office Visit 04/26/2017 [facility] Alexa Leyva, 19938 M18.12 2:30p Of Flory.Kd RPA-C Office Visit 03/29/2016 [facility] Mary Jane Williamson, 89850 G56.02 2:00p Of Iam Pelayo Office Visit 11/04/2015 [facility] Trip Bradley M.D. 87733 M54.31 9:00a Of Iam M22.2x1 Office Visit 03/10/2014 11:30a [facility] Diann 82778 715.34 Of Iam Darnell M.D. Office Visit 03/05/2014 7:09p [facility] Lyndsey Newman, [place] 14038 682.3 Assoc, Hospitalists 300.15 309.81 Office Visit 03/03/2014 7:08p [facility], [place] [address] 682.3 Hospitalists 300.15 309.81 Office Visit 03/02/2014 7:07p [facility], Monika Wilkes 76253 682.3 Hospitalists MAhmetDAmhet 300.15 309.81 Office Visit 03/01/2014 7:07p [facility], Amisha Sellers 51664 682.3 Hospitalists D.OAhmet 300.15 309.81 Office Visit 01/27/2014 9:30a [facility] Diann Darnell, 64736 727.43 Of Iam Pelayo 715.34 Office Visit 02/02/2011 10:45a [facility] Diann Darnell, 32432 727.04 Of Iam Pelayo Office Visit 04/29/2009 9:40a DO Not Use Outpatient Coding Specialist AT Rae Lynch, 18707 789.03 Jo Pelayo Office Visit 04/22/2009 10:00a DO Not Use Outpatient Coding Specialist AT Rae Lynch, 61024 625.9 [place] M.D. 788.1 372.14 789.03 Office Visit 04/13/2009 11:00a DO Not Use Outpatient [place] [address] 625.9 [place] 788.1 Office Visit 02/10/2009 11:00a DO Not Use [facility] Rae, 70726 272.4 [place] M.D. 719.47 Office Visit 11/09/2008 1:40p DO Not Use [facility] [place]ae, 64404 780.4 [place] M.D. 780.79 Office Visit 10/21/2008 9:40a DO Not Use [facility] Specialist [facility], Rae, 69396 780.4 [place] M.D. 780.79 Office Visit 10/12/2008 3:00p DO Not Use [facility]ist [facility], Rae, 03020 719.46 [place] M.D. 780.79 780.4 Office Visit 08/12/2008 10:40a DO Not Use [facility] Rae, 60807 783.21 [place] M.D. V76.12 280.9 Office Visit 05/14/2008 11:00a DO Not Use [facility] [place], [address]07[address] 296.30 [place] M.D. 272.4 530.81 564.1 281.9 Plan of Care Future Appointment(s):02/25/2018 10:00 am - Jigna Steiner M.D. at [facility].01/14/2018 - Jigna Steiner M.D.M25.562 Pain in left kneeNew Xrays:Knee 3 Views LTFollow up:Follow up: 6 dftnjS28.552 Pain in left hipNew Xrays:Hip Left 2 Views And Pelvis 40835 - 55238D05.12 Unilateral primary osteoarthritis, left hipM70.62 Trochanteric bursitis, left hipNew Medication: Meloxicam 15 mgNew Therapy:Physical Therapy
[2018-02-04] MEDS ORDERED: Acetaminophen TAB* 325 MG PO ONE (15:09)
[2018-02-04] MEDS ORDERED: Al Hydrox/Mg Hydrox/Simet LIQ* 30 ML UDC PO PRN (16:45)
[2018-02-05] MEDS: Vitamin THERAPEUTIC TAB PO SCH (09:35)
[2018-02-05] MEDS ORDERED: Docusate CAP* 100 MG PO PRN (10:47)
[2018-02-05] MEDS ORDERED: QUEtiapine TAB* 25 MG PO ONE (10:50)
[2018-02-05] MEDS ORDERED: Pantoprazole TAB (NF) 40 MG TAB PO SCH (11:00)
[2018-02-05] MEDS: lamoTRIgine TAB(*) 100 MG PO SCH (11:38)
[2018-02-05] MEDS: Omeprazole CAP* 20 MG PO SCH (11:38)
[2018-02-05] MEDS: Cetirizine* 10 MG TAB PO SCH (11:38)
[2018-02-05] MEDS: Naltrexone TAB* 50 MG TAB PO SCH (11:39)
[2018-02-05] MEDS: Acetaminophen TAB* 325 MG PO PRN (11:42)
[2018-02-05] MEDS: CMCS: Meloxicam(NF) 7.5 MG TAB PO SCH (13:58)
[2018-02-05] MEDS: CMCS: Vortioxetine (NF) 10 MG TAB (FORMERLY Brintellix) PO SCH (13:59)
[2018-02-05] MEDS: CMCS: Cyclosporine 0.05% OPHTH (NF) 0.4 ML VIAL BOTH EYES SCH (14:00)
[2018-02-05] MEDS: Fluticasone NASAL SPRAY 50MCG* 16 gm SPRAY BTL BOTH NARES SCH (14:00)
[2018-02-05] MEDS: Silver Sulfadiazine 1%* 20 GM TOPICAL SCH ×2 (14:02→22:06)
[2018-02-05] MEDS: Mometasone 220 MCG MDI INH SCH (17:46)
[2018-02-05] MEDS: Analgesic BALM* 114 GM TOPICAL SCH ×2 (17:46→22:08)
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
[2018-02-05] MEDS: Prazosin CAP* 1 MG PO SCH (22:00)
[2018-02-05] MEDS: Zolpidem TAB* 10 MG PO SCH (22:01)
[2018-02-05] MEDS: QUEtiapine TAB* 100 MG PO SCH (22:05)
[2018-02-06] MEDS: Acetaminophen TAB* 325 MG PO PRN ×2 (02:30→13:06)
[2018-02-06] MEDS: Vitamin THERAPEUTIC TAB PO SCH ×2 (09:30→09:54)
[2018-02-06] MEDS: Analgesic BALM* 114 GM TOPICAL SCH ×2 (09:48→13:08)
[2018-02-06] MEDS: Fluticasone NASAL SPRAY 50MCG* 16 gm SPRAY BTL BOTH NARES SCH (09:48)
[2018-02-06] MEDS: CMCS: Meloxicam(NF) 7.5 MG TAB PO SCH (09:49)
[2018-02-06] MEDS: Silver Sulfadiazine 1%* 20 GM TOPICAL SCH ×2 (09:49→20:50)
[2018-02-06] MEDS: CMCS: Cyclosporine 0.05% OPHTH (NF) 0.4 ML VIAL BOTH EYES SCH (09:49)
[2018-02-06] MEDS: CMCS: Vortioxetine (NF) 10 MG TAB (FORMERLY Brintellix) PO SCH (09:49)
[2018-02-06] MEDS: Naltrexone TAB* 50 MG TAB PO SCH (09:52)
[2018-02-06] MEDS: lamoTRIgine TAB(*) 100 MG PO SCH (09:52)
[2018-02-06] MEDS: Cetirizine* 10 MG TAB PO SCH (09:52)
[2018-02-06] MEDS: Omeprazole CAP* 20 MG PO SCH (09:53)
[2018-02-06] MEDS ORDERED: Analgesic BALM* 114 GM TOPICAL PRN (13:50)
[2018-02-06] MEDS: LORazepam TAB(*) 1 MG PO PRN (14:10)
[2018-02-06] MEDS: Lidocaine PATCH 5%* 1 PATCH TRANSDERM SCH (14:10)
--- NOTE | 2018-02-06 14:31 | PN ---
Subjective - Subjective Date of Service: 02/06/18 Service Type: 32888 Hosp care 25 min moderate complexity Subjective: Patient reports poor sleep, poor concentration and urges for self-harm. She reports eating small amounts for breakfast and lunch without nausea, which is an improvement. Patient given a water pitcher to increase fluid intake. She continues to present as tremulous and visibly anxious. Breathing is shallow and rapid. She is primarily seclusive to her room. She reports dislike of odor of "bengay" and is agreeable to trial lidocaine patch. She participated in PT exercises. Objective - Appearance Appearance: Well Developed/Nourished Dysmorphic Features: Yes Hygiene: Normal Grooming: Disheveled - Behavior Psychomotor Activities: Abnormal-Increased - lip-smacking, eye blinking Exhibits Abnormal Movement: Yes - Attitude and Relatedness Attitude and Relatedness: Withdrawn Eye Contact: Poor - Speech Quality: Unpressured Latencies: Short Quantity: Terse - Mood Patient's Decription of Mood: "Anxious" - Affect Observed Affect: Depressed Affect Consistent with: Dysphoria - Thought Process Patient's Thought Process: Tangential, Impoverished Thought Content: Yes Passive Wish, No Suicidal Planning, No Homicidal Ideation, No Paranoid Ideation - Sensorium Experiencing Hallucinations: No, Sensorium is Clear Type of Hallucinations: Visual: No, Auditory: No, Command: No - Level of Consciousness Level of Consciousness: Alert Orientation: Yes Intact, Yes Orientated to Time, Yes Orientated to Place, Yes Orientated to Person - Impulse Control Impulse Control: Impaired - Insight and Judgement Insight and Judgement: Fair - Group Participation Particating in Group Activities: No - Medication Management Medication Management Adherence: Yes Assessment - Assessment Merits Inpatient Hospitalization: For Immediate Safety, For Stabilization Inpatient DSM-V Dx: F43.12 Clinical Impression: 52yo white female with significant trauma history and psychiatric hospitalizations. Patient presented to ED after appointment with outpatient provider, due to SI and aborted attempt. Her mother in October and she is grieving this loss. She has medical comorbidities that are impacting QOL. Patient merits hospitalization for immediate safety and stabilization. Plan - Plan Treatment Plan: Name: SANDY JAIMES Birthdate: 1965 [id number] continue acute intensive psychiatric treatment. add lorazepam prn and lidocaine patch. continue other medications. discharge planning to include outpatient providers. Continued Medication Management: Different Medication Medications: Current Medications Acetaminophen (Tylenol Tab*) 650 mg PO Q6H PRN PRN Reason: PAIN Last Admin: 02/06/18 13:06 Dose: 650 mg Al Hydrox/Mg Hydrox/Simethicone (Maalox Plus*) 30 ml PO Q4H PRN PRN Reason: INDIGESTION Cetirizine HCl (Zyrtec*) 10 mg PO DAILY [facility]; Protocol Last Admin: 02/06/18 09:52 Dose: 10 mg Cyclosporine (Restasis 0.05% Ophth) 1 drop BOTH EYES DAILY [facility]; Protocol Last Admin: 02/06/18 09:49 Dose: 1 drop Docusate Sodium (Colace Cap*) 100 mg PO BID PRN PRN Reason: CONSTIPATION Last Admin: 02/05/18 11:39 Dose: 100 mg Fluticasone Propionate (Flonase Nasal [place] 50mcg*) 2 spray BOTH NARES DAILY [facility] Last Admin: 02/06/18 09:48 Dose: 2 spray Lamotrigine (Lamictal Tab(*)) 200 mg PO DAILY [facility] Last Admin: 02/06/18 09:52 Dose: 200 mg Lidocaine (Lidoderm 5% Patch*) 1 patch TRANSDERM DAILY [facility] Last Admin: 02/06/18 14:10 Dose: 1 patch Lorazepam (Ativan Tab(*)) 1 mg PO Q6H PRN PRN Reason: ANXIETY Last Admin: 02/06/18 14:10 Dose: 1 mg Meloxicam (Mobic(Nf)) 15 mg PO DAILY [facility] Last Admin: 02/06/18 09:49 Dose: 15 mg Mometasone Furoate (Asmanex 220 Mcg Mdi *) 2 puff INH QPM [facility] Last Admin: 02/05/18 17:46 Dose: 2 puff Multi-Ingredient Liniment/Rub (Shravan Victor*) 1 applic TOPICAL TID PRN PRN Reason: PAIN Multivitamins (Theragran Tab*) 1 tab PO DAILY [facility] Last Admin: 02/06/18 09:54 Dose: 1 tab Naltrexone HCl (Naltrexone Tab*) 50 mg PO DAILY [facility]; Protocol Last Admin: 02/06/18 09:52 Dose: 50 mg Omeprazole (Prilosec Cap*) 20 mg PO DAILY@0730 [facility] Last Admin: 02/06/18 09:53 Dose: 20 mg Pharmacy Profile Note (Lidocaine Patch Remove*) 1 note N/A 2100 [facility] Prazosin HCl (Minipress Cap*) 6 mg PO BEDTIME [facility] Last Admin: 02/05/18 22:00 Dose: 6 mg Quetiapine Fumarate (Seroquel Tab*) 150 mg PO BEDTIME [facility] Last Admin: 02/05/18 22:05 Dose: 150 mg Silver Sulfadiazine (Silvadine 1%*) 1 applic TOPICAL BID [facility] Last Admin: 02/06/18 09:49 Dose: 1 applic Vortioxetine (Trintellix (Nf)) 10 mg PO DAILY [facility] Last Admin: 02/06/18 09:49 Dose: 10 mg Zolpidem Tartrate (Ambien Tab*) 10 mg PO BEDTIME [facility] Last Admin: 02/05/18 22:01 Dose: 10 mg - Discharge Plan Discharge Plan: Outpatient Follow Up Outpatient Program: [facility]
[2018-02-06] MEDS: Mometasone 220 MCG MDI INH SCH (18:02)
[2018-02-06] MEDS: Prazosin CAP* 1 MG PO SCH (20:43)
[2018-02-06] MEDS: Zolpidem TAB* 10 MG PO SCH (20:44)
[2018-02-06] MEDS: QUEtiapine TAB* 100 MG PO SCH (20:45)
[2018-02-06] MEDS: Lidocaine Patch REMOVE* 1 NOTE MISC SCH (20:53)
[2018-02-07] MEDS: LORazepam TAB(*) 1 MG PO PRN ×3 (01:05→18:26)
[2018-02-07] MEDS: Omeprazole CAP* 20 MG PO SCH (08:29)
[2018-02-07] MEDS: Vitamin THERAPEUTIC TAB PO SCH (08:29)
[2018-02-07] MEDS: Cetirizine* 10 MG TAB PO SCH (08:29)
[2018-02-07] MEDS: CMCS: Meloxicam(NF) 7.5 MG TAB PO SCH (08:30)
[2018-02-07] MEDS: lamoTRIgine TAB(*) 100 MG PO SCH (08:30)
[2018-02-07] MEDS: Naltrexone TAB* 50 MG TAB PO SCH (08:30)
[2018-02-07] MEDS: CMCS: Cyclosporine 0.05% OPHTH (NF) 0.4 ML VIAL BOTH EYES SCH (08:31)
[2018-02-07] MEDS: CMCS: Vortioxetine (NF) 10 MG TAB (FORMERLY Brintellix) PO SCH (08:31)
[2018-02-07] MEDS: Fluticasone NASAL SPRAY 50MCG* 16 gm SPRAY BTL BOTH NARES SCH (08:31)
[2018-02-07] MEDS: Lidocaine PATCH 5%* 1 PATCH TRANSDERM SCH (08:32)
[2018-02-07] MEDS: Silver Sulfadiazine 1%* 20 GM TOPICAL SCH ×2 (08:33→21:26)
[2018-02-07] MEDS: Acetaminophen TAB* 325 MG PO PRN ×2 (09:20→21:24)
--- NOTE | 2018-02-07 14:04 | PN ---
Subjective - Subjective Date of Service: 02/07/18 Service Type: 27453 Hosp care 25 min moderate complexity Subjective: patient lying in bed, pleasant and sits up upon approach. She identifies continued urges to harm self. We engage in superficial conversation and she is increasing interactive. She endorses grief of her mother's that is "finally hitting home." Patient is receptive to therapeutic suggestions, including researching grief counseling options. Patient reports increased intake, with the exception of breakfast. She agrees to nutrition consult due to desire to eat small amounts initially. She reports somewhat restful sleep last night. Objective - Appearance Appearance: Well Developed/Nourished Dysmorphic Features: Yes Hygiene: Dirty Grooming: Disheveled - Behavior Psychomotor Activities: Abnormal-Increased - lip-smacking, eye blinking, rhythmic foot movements - Attitude and Relatedness Attitude and Relatedness: Withdrawn Eye Contact: Fair - Speech Quality: Unpressured Latencies: Normal Quantity: Appropriate - Mood Patient's Decription of Mood: "Sad" - Affect Observed Affect: Depressed Affect Consistent with: Dysphoria - Thought Process Patient's Thought Process: Circumstantial, Impoverished Thought Content: Yes Passive Wish, Yes Suicidal Planning, No Homicidal Ideation, No Paranoid Ideation - Sensorium Experiencing Hallucinations: No, Sensorium is Clear Type of Hallucinations: Visual: No, Auditory: No, Command: No - Level of Consciousness Level of Consciousness: Alert Orientation: Yes Intact, Yes Orientated to Time, Yes Orientated to Place, Yes Orientated to Person - Impulse Control Impulse Control: Tenuous - Insight and Judgement Insight and Judgement: Impaired - Group Participation Particating in Group Activities: No - Medication Management Medication Management Adherence: Yes Assessment - Assessment Merits Inpatient Hospitalization: For Immediate Safety, For Stabilization Inpatient DSM-V Dx: F43.12 Clinical Impression: 52yo white female with significant trauma history and psychiatric hospitalizations. Patient presented to ED after appointment with outpatient provider, due to SI and aborted attempt. Her mother in October and she is grieving this loss. She has medical comorbidities that are impacting QOL. Patient merits hospitalization for immediate safety and stabilization. Plan - Plan Treatment Plan: Name: SANDY JAIMES Birthdate: 1965 [id number] continue acute intensive psychiatric treatment. continue medications. nutritional consult due to recent poor intake. discharge planning to include outpatient providers. Continued Medication Management: Continue Outpt Medication Medications: Current Medications Acetaminophen (Tylenol Tab*) 650 mg PO Q6H PRN PRN Reason: PAIN Last Admin: 02/07/18 09:20 Dose: 650 mg Al Hydrox/Mg Hydrox/Simethicone (Maalox Plus*) 30 ml PO Q4H PRN PRN Reason: INDIGESTION Cetirizine HCl (Zyrtec*) 10 mg PO DAILY [facility]; Protocol Last Admin: 02/07/18 08:29 Dose: 10 mg Cyclosporine (Restasis 0.05% Ophth) 1 drop BOTH EYES DAILY [facility]; Protocol Last Admin: 02/07/18 08:31 Dose: 1 drop Docusate Sodium (Colace Cap*) 100 mg PO BID PRN PRN Reason: CONSTIPATION Last Admin: 02/05/18 11:39 Dose: 100 mg Fluticasone Propionate (Flonase Nasal [place] 50mcg*) 2 spray BOTH NARES DAILY [facility] Last Admin: 02/07/18 08:31 Dose: 2 spray Lamotrigine (Lamictal Tab(*)) 200 mg PO DAILY [facility] Last Admin: 02/07/18 08:30 Dose: 200 mg Lidocaine (Lidoderm 5% Patch*) 1 patch TRANSDERM DAILY [facility] Last Admin: 02/07/18 08:32 Dose: 1 patch Lorazepam (Ativan Tab(*)) 1 mg PO Q6H PRN PRN Reason: ANXIETY Last Admin: 02/07/18 11:12 Dose: 1 mg Meloxicam (Mobic(Nf)) 15 mg PO DAILY [facility] Last Admin: 02/07/18 08:30 Dose: 15 mg Mometasone Furoate (Asmanex 220 Mcg Mdi *) 2 puff INH QPM [facility] Last Admin: 02/06/18 18:02 Dose: 2 puff Multi-Ingredient Liniment/Rub (Shravan Victor*) 1 applic TOPICAL TID PRN PRN Reason: PAIN Multivitamins (Theragran Tab*) 1 tab PO DAILY [facility] Last Admin: 02/07/18 08:29 Dose: 1 tab Naltrexone HCl (Naltrexone Tab*) 50 mg PO DAILY [facility]; Protocol Last Admin: 02/07/18 08:30 Dose: 50 mg Omeprazole (Prilosec Cap*) 20 mg PO DAILY@0730 [facility] Last Admin: 02/07/18 08:29 Dose: 20 mg Pharmacy Profile Note (Lidocaine Patch Remove*) 1 note N/A 2100 [facility] Last Admin: 02/06/18 20:53 Dose: 1 note Prazosin HCl (Minipress Cap*) 6 mg PO BEDTIME [facility] Last Admin: 02/06/18 20:43 Dose: 6 mg Quetiapine Fumarate (Seroquel Tab*) 150 mg PO BEDTIME [facility] Last Admin: 02/06/18 20:45 Dose: 150 mg Silver Sulfadiazine (Silvadine 1%*) 1 applic TOPICAL BID [facility] Last Admin: 02/07/18 08:33 Dose: 1 applic Vortioxetine (Trintellix (Nf)) 10 mg PO DAILY [facility] Last Admin: 02/07/18 08:31 Dose: 10 mg Zolpidem Tartrate (Ambien Tab*) 10 mg PO BEDTIME [facility] Last Admin: 02/06/18 20:44 Dose: 10 mg - Discharge Plan Discharge Plan: Outpatient Follow Up Outpatient Program: [facility]
[2018-02-07] MEDS: Mometasone 220 MCG MDI INH SCH (18:29)
[2018-02-07] MEDS: Prazosin CAP* 1 MG PO SCH (21:18)
[2018-02-07] MEDS: Zolpidem TAB* 10 MG PO SCH (21:19)
[2018-02-07] MEDS: QUEtiapine TAB* 100 MG PO SCH (21:19)
[2018-02-07] MEDS: Lidocaine Patch REMOVE* 1 NOTE MISC SCH (21:27)
[2018-02-08] MEDS: LORazepam TAB(*) 1 MG PO PRN ×2 (01:52→19:56)
[2018-02-08] MEDS: Naltrexone TAB* 50 MG TAB PO SCH (10:00)
[2018-02-08] MEDS: CMCS: Meloxicam(NF) 7.5 MG TAB PO SCH (10:00)
[2018-02-08] MEDS: Vitamin THERAPEUTIC TAB PO SCH (10:00)
[2018-02-08] MEDS: Omeprazole CAP* 20 MG PO SCH (10:00)
[2018-02-08] MEDS: Cetirizine* 10 MG TAB PO SCH (10:00)
[2018-02-08] MEDS: lamoTRIgine TAB(*) 100 MG PO SCH (10:01)
[2018-02-08] MEDS: Lidocaine PATCH 5%* 1 PATCH TRANSDERM SCH (10:04)
[2018-02-08] MEDS: Fluticasone NASAL SPRAY 50MCG* 16 gm SPRAY BTL BOTH NARES SCH (10:07)
[2018-02-08] MEDS: CMCS: Vortioxetine (NF) 10 MG TAB (FORMERLY Brintellix) PO SCH (10:08)
[2018-02-08] MEDS: CMCS: Cyclosporine 0.05% OPHTH (NF) 0.4 ML VIAL BOTH EYES SCH (10:08)
[2018-02-08] MEDS: Silver Sulfadiazine 1%* 20 GM TOPICAL SCH ×2 (10:10→20:50)
--- NOTE | 2018-02-08 10:59 | PN ---
Subjective - Subjective Date of Service: 02/08/18 Service Type: 94707 Hosp care 15 min low complexity Subjective: Patient awoke at 0145 with c/o nightmare. She utilized lorazepam with good effect. Today, she endorses depressed mood and denies urges for self harm. She states she is not yet ready for 30 minute observation, comfort room or staff pass. She has yet to perform ADLs. Objective - Appearance Appearance: Well Developed/Nourished Dysmorphic Features: Yes Hygiene: Dirty Grooming: Disheveled - Behavior Psychomotor Activities: Abnormal-Increased - eye blinking, rhythmic foot movements - Attitude and Relatedness Attitude and Relatedness: Withdrawn Eye Contact: Poor - Speech Quality: Unpressured Latencies: Short Quantity: Terse - Mood Patient's Decription of Mood: "Sad" - Affect Observed Affect: Depressed Affect Consistent with: Dysphoria - Thought Process Patient's Thought Process: Impoverished Thought Content: Yes Passive Wish, No Suicidal Planning, No Homicidal Ideation, No Paranoid Ideation - Sensorium Experiencing Hallucinations: No, Sensorium is Clear Type of Hallucinations: Visual: No, Auditory: No, Command: No - Level of Consciousness Level of Consciousness: Alert Orientation: Yes Intact, Yes Orientated to Time, Yes Orientated to Place, Yes Orientated to Person - Impulse Control Impulse Control: Tenuous - Insight and Judgement Insight and Judgement: Poor - Group Participation Particating in Group Activities: No - Medication Management Medication Management Adherence: Yes Assessment - Assessment Merits Inpatient Hospitalization: For Immediate Safety, For Stabilization Inpatient DSM-V Dx: F43.12 Clinical Impression: 52yo white female with significant trauma history and psychiatric hospitalizations. Patient presented to ED after appointment with outpatient provider, due to SI and aborted attempt. Her mother in October and she is grieving this loss. She has medical comorbidities that are impacting QOL. Patient merits hospitalization for immediate safety and stabilization. Plan - Plan Treatment Plan: Name: SANDY JAIMES Birthdate: 1965 [id number] continue acute intensive psychiatric treatment. continue medications. discharge planning to include outpatient providers. Continued Medication Management: Different Medication Medications: Current Medications Acetaminophen (Tylenol Tab*) 650 mg PO Q6H PRN PRN Reason: PAIN Last Admin: 02/07/18 21:24 Dose: 650 mg Al Hydrox/Mg Hydrox/Simethicone (Maalox Plus*) 30 ml PO Q4H PRN PRN Reason: INDIGESTION Cetirizine HCl (Zyrtec*) 10 mg PO DAILY [facility]; Protocol Last Admin: 02/08/18 10:00 Dose: 10 mg Cyclosporine (Restasis 0.05% Ophth) 1 drop BOTH EYES DAILY [facility]; Protocol Last Admin: 02/08/18 10:08 Dose: 1 drop Docusate Sodium (Colace Cap*) 100 mg PO BID PRN PRN Reason: CONSTIPATION Last Admin: 02/05/18 11:39 Dose: 100 mg Fluticasone Propionate (Flonase Nasal [place] 50mcg*) 2 spray BOTH NARES DAILY [facility] Last Admin: 02/08/18 10:07 Dose: 2 spray Lamotrigine (Lamictal Tab(*)) 200 mg PO DAILY [facility] Last Admin: 02/08/18 10:01 Dose: 200 mg Lidocaine (Lidoderm 5% Patch*) 1 patch TRANSDERM DAILY [facility] Last Admin: 02/08/18 10:04 Dose: 1 patch Lorazepam (Ativan Tab(*)) 1 mg PO Q6H PRN PRN Reason: ANXIETY Last Admin: 02/08/18 01:52 Dose: 1 mg Meloxicam (Mobic(Nf)) 15 mg PO DAILY [facility] Last Admin: 02/08/18 10:00 Dose: 15 mg Mometasone Furoate (Asmanex 220 Mcg Mdi *) 2 puff INH QPM [facility] Last Admin: 02/07/18 18:29 Dose: 2 puff Multi-Ingredient Liniment/Rub (Shravan Victor*) 1 applic TOPICAL TID PRN PRN Reason: PAIN Multivitamins (Theragran Tab*) 1 tab PO DAILY [facility] Last Admin: 02/08/18 10:00 Dose: 1 tab Naltrexone HCl (Naltrexone Tab*) 50 mg PO DAILY [facility]; Protocol Last Admin: 02/08/18 10:00 Dose: 50 mg Omeprazole (Prilosec Cap*) 20 mg PO DAILY@0730 [facility] Last Admin: 02/08/18 10:00 Dose: 20 mg Pharmacy Profile Note (Lidocaine Patch Remove*) 1 note N/A 2100 [facility] Last Admin: 02/07/18 21:27 Dose: 1 note Prazosin HCl (Minipress Cap*) 6 mg PO BEDTIME [facility] Last Admin: 02/07/18 21:18 Dose: 6 mg Quetiapine Fumarate (Seroquel Tab*) 150 mg PO BEDTIME [facility] Last Admin: 02/07/18 21:19 Dose: 150 mg Silver Sulfadiazine (Silvadine 1%*) 1 applic TOPICAL BID [facility] Last Admin: 02/08/18 10:10 Dose: 1 applic Vortioxetine (Trintellix (Nf)) 10 mg PO DAILY [facility] Last Admin: 02/08/18 10:08 Dose: 10 mg Zolpidem Tartrate (Ambien Tab*) 10 mg PO BEDTIME [facility] Last Admin: 02/07/18 21:19 Dose: 10 mg - Discharge Plan Discharge Plan: Outpatient Follow Up Outpatient Program: [facility]
[2018-02-08] MEDS: Acetaminophen TAB* 325 MG PO PRN ×2 (13:32→19:34)
[2018-02-08] MEDS: Mometasone 220 MCG MDI INH SCH (20:49)
[2018-02-08] MEDS: Zolpidem TAB* 10 MG PO SCH (20:50)
[2018-02-08] MEDS: Prazosin CAP* 1 MG PO SCH (20:50)
[2018-02-08] MEDS: Lidocaine Patch REMOVE* 1 NOTE MISC SCH (20:55)
[2018-02-08] MEDS: QUEtiapine TAB* 100 MG PO SCH (20:55)
[2018-02-09] MEDS: Naltrexone TAB* 50 MG TAB PO SCH (10:06)
[2018-02-09] MEDS: lamoTRIgine TAB(*) 100 MG PO SCH (10:06)
[2018-02-09] MEDS: Omeprazole CAP* 20 MG PO SCH (10:06)
[2018-02-09] MEDS: Cetirizine* 10 MG TAB PO SCH (10:07)
[2018-02-09] MEDS: Vitamin THERAPEUTIC TAB PO SCH (10:07)
[2018-02-09] MEDS: Fluticasone NASAL SPRAY 50MCG* 16 gm SPRAY BTL BOTH NARES SCH (10:07)
[2018-02-09] MEDS: CMCS: Meloxicam(NF) 7.5 MG TAB PO SCH (10:08)
[2018-02-09] MEDS: CMCS: Vortioxetine (NF) 10 MG TAB (FORMERLY Brintellix) PO SCH (10:09)
[2018-02-09] MEDS: CMCS: Cyclosporine 0.05% OPHTH (NF) 0.4 ML VIAL BOTH EYES SCH (10:10)
[2018-02-09] MEDS: Lidocaine PATCH 5%* 1 PATCH TRANSDERM SCH (10:38)
[2018-02-09] MEDS: Silver Sulfadiazine 1%* 20 GM TOPICAL SCH ×2 (10:41→21:17)
[2018-02-09] MEDS: Acetaminophen TAB* 325 MG PO PRN (15:41)
[2018-02-09] MEDS: LORazepam TAB(*) 1 MG PO PRN (17:51)
[2018-02-09] MEDS: Mometasone 220 MCG MDI INH SCH (18:17)
--- NOTE | 2018-02-09 19:08 | PN ---
Subjective - Subjective Date of Service: 02/09/18 Service Type: 87297 Hosp care 15 min low complexity Subjective: Not much different for Sandy who is mostly aloof and either in her room or in the day area coloring. Shrugs her shoulder with any question and says she doesn' t want to eat. Not sure what really she wants to say. Objective - Appearance Appearance: Healthy Appearing Dysmorphic Features: No Hygiene: Normal Grooming: Fairly Well Kept - Behavior Psychomotor Activities: Normal Exhibits Abnormal Movement: No - Attitude and Relatedness Attitude and Relatedness: Superficially Cooperative Eye Contact: Poor - Speech Quality: Unpressured Latencies: Long Quantity: Terse - Mood Patient's Decription of Mood: "Okay" - Affect Observed Affect: Non-labile Affect Consistent with: Dysphoria - Thought Process Patient's Thought Process: Coherent, Circumstantial, Impoverished Thought Content: No Passive Wish, No Suicidal Planning, No Homicidal Ideation, No Paranoid Ideation - Sensorium Experiencing Hallucinations: No, Sensorium is Clear Type of Hallucinations: Visual: No, Auditory: No, Command: No - Level of Consciousness Level of Consciousness: Alert Orientation: Yes Intact, Yes Orientated to Time, Yes Orientated to Place, Yes Orientated to Person - Impulse Control Impulse Control: Tenuous - Insight and Judgement Insight and Judgement: Poor - Group Participation Particating in Group Activities: No - Medication Management Medication Management Adherence: Yes Assessment - Assessment Merits Inpatient Hospitalization: For Ongoing Evaluation, For Discharge Planning Inpatient DSM-V Dx: F43.12 Clinical Impression: Psychiatrically at base line and may be discharged. Plan - Plan Treatment Plan: Name: SANDY JAIMES Birthdate: 1965 [id number] Continued Medication Management: Continue Outpt Medication Medications: Current Medications Acetaminophen (Tylenol Tab*) 650 mg PO Q6H PRN PRN Reason: PAIN Last Admin: 02/09/18 15:41 Dose: 650 mg Al Hydrox/Mg Hydrox/Simethicone (Maalox Plus*) 30 ml PO Q4H PRN PRN Reason: INDIGESTION Cetirizine HCl (Zyrtec*) 10 mg PO DAILY [facility]; Protocol Last Admin: 02/09/18 10:07 Dose: 10 mg Cyclosporine (Restasis 0.05% Oph) 1 drop BOTH EYES DAILY [facility]; Protocol Last Admin: 02/09/18 10:10 Dose: 1 drop Docusate Sodium (Colace Cap*) 100 mg PO BID PRN PRN Reason: CONSTIPATION Last Admin: 02/05/18 11:39 Dose: 100 mg Fluticasone Propionate (Flonase Nasal [place] 50mcg*) 2 spray BOTH NARES DAILY [facility] Last Admin: 02/09/18 10:07 Dose: 2 spray Lamotrigine (Lamictal Tab(*)) 200 mg PO DAILY [facility] Last Admin: 02/09/18 10:06 Dose: 200 mg Lidocaine (Lidoderm 5% Patch*) 1 patch TRANSDERM DAILY [facility] Last Admin: 02/09/18 10:38 Dose: 1 patch Lorazepam (Ativan Tab(*)) 1 mg PO Q6H PRN PRN Reason: ANXIETY Last Admin: 02/09/18 17:51 Dose: 1 mg Meloxicam (Mobic(Nf)) 15 mg PO DAILY [facility] Last Admin: 02/09/18 10:08 Dose: 15 mg Mometasone Furoate (Asmanex 220 Mcg Mdi *) 2 puff INH QPM [facility] Last Admin: 02/09/18 18:17 Dose: 2 puff Multi-Ingredient Liniment/Rub (Shravan Victor*) 1 applic TOPICAL TID PRN PRN Reason: PAIN Multivitamins (Theragran Tab*) 1 tab PO DAILY [facility] Last Admin: 02/09/18 10:07 Dose: 1 tab Naltrexone HCl (Naltrexone Tab*) 50 mg PO DAILY [facility]; Protocol Last Admin: 02/09/18 10:06 Dose: 50 mg Omeprazole (Prilosec Cap*) 20 mg PO DAILY@0730 [facility] Last Admin: 02/09/18 10:06 Dose: 20 mg Pharmacy Profile Note (Lidocaine Patch Remove*) 1 note N/A 2100 [facility] Last Admin: 02/08/18 20:55 Dose: 1 note Prazosin HCl (Minipress Cap*) 6 mg PO BEDTIME [facility] Last Admin: 02/08/18 20:50 Dose: 6 mg Quetiapine Fumarate (Seroquel Tab*) 150 mg PO BEDTIME [facility] Last Admin: 02/08/18 20:55 Dose: 150 mg Silver Sulfadiazine (Silvadine 1%*) 1 applic TOPICAL BID [facility] Last Admin: 02/09/18 10:41 Dose: 1 applic Vortioxetine (Trintellix (Nf)) 10 mg PO DAILY [facility] Last Admin: 02/09/18 10:09 Dose: 10 mg Zolpidem Tartrate (Ambien Tab*) 10 mg PO BEDTIME [facility] Last Admin: 02/08/18 20:50 Dose: 10 mg - Discharge Plan Discharge Plan: Outpatient Follow Up Outpatient Program: [facility]
[2018-02-09] MEDS: Prazosin CAP* 1 MG PO SCH (21:15)
[2018-02-09] MEDS: Zolpidem TAB* 10 MG PO SCH (21:15)
[2018-02-09] MEDS: Lidocaine Patch REMOVE* 1 NOTE MISC SCH (21:15)
[2018-02-09] MEDS: QUEtiapine TAB* 100 MG PO SCH (21:15)
[2018-02-10] MEDS: LORazepam TAB(*) 1 MG PO PRN (02:19)
[2018-02-10] MEDS: lamoTRIgine TAB(*) 100 MG PO SCH (10:16)
[2018-02-10] MEDS: Cetirizine* 10 MG TAB PO SCH (10:17)
[2018-02-10] MEDS: Omeprazole CAP* 20 MG PO SCH (10:17)
[2018-02-10] MEDS: Vitamin THERAPEUTIC TAB PO SCH (10:18)
[2018-02-10] MEDS: Naltrexone TAB* 50 MG TAB PO SCH (10:18)
[2018-02-10] MEDS: Fluticasone NASAL SPRAY 50MCG* 16 gm SPRAY BTL BOTH NARES SCH (10:19)
[2018-02-10] MEDS: CMCS: Vortioxetine (NF) 10 MG TAB (FORMERLY Brintellix) PO SCH (10:19)
[2018-02-10] MEDS: Silver Sulfadiazine 1%* 20 GM TOPICAL SCH ×2 (10:20→20:29)
[2018-02-10] MEDS: CMCS: Cyclosporine 0.05% OPHTH (NF) 0.4 ML VIAL BOTH EYES SCH (10:20)
[2018-02-10] MEDS: Lidocaine PATCH 5%* 1 PATCH TRANSDERM SCH ×2 (10:20→11:29)
[2018-02-10] MEDS: CMCS: Meloxicam(NF) 7.5 MG TAB PO SCH (10:21)
[2018-02-10] MEDS: Lidocaine Patch REMOVE* 1 NOTE MISC SCH ×2 (11:10→20:30)
[2018-02-10] MEDS: Acetaminophen TAB* 325 MG PO PRN ×2 (12:32→18:04)
[2018-02-10] MEDS: Mometasone 220 MCG MDI INH SCH (18:09)
[2018-02-10] MEDS: QUEtiapine TAB* 100 MG PO SCH (20:26)
[2018-02-10] MEDS: Prazosin CAP* 1 MG PO SCH (20:26)
[2018-02-10] MEDS: Zolpidem TAB* 10 MG PO SCH (20:31)
[2018-02-11] MEDS: LORazepam TAB(*) 1 MG PO PRN ×3 (01:01→23:41)
[2018-02-11] MEDS: Omeprazole CAP* 20 MG PO SCH (10:26)
[2018-02-11] MEDS: Cetirizine* 10 MG TAB PO SCH (10:26)
[2018-02-11] MEDS: CMCS: Cyclosporine 0.05% OPHTH (NF) 0.4 ML VIAL BOTH EYES SCH (10:27)
[2018-02-11] MEDS: lamoTRIgine TAB(*) 100 MG PO SCH (10:27)
[2018-02-11] MEDS: Fluticasone NASAL SPRAY 50MCG* 16 gm SPRAY BTL BOTH NARES SCH (10:27)
[2018-02-11] MEDS: Lidocaine PATCH 5%* 1 PATCH TRANSDERM SCH (10:28)
[2018-02-11] MEDS: CMCS: Meloxicam(NF) 7.5 MG TAB PO SCH (10:28)
[2018-02-11] MEDS: Silver Sulfadiazine 1%* 20 GM TOPICAL SCH ×2 (10:29→21:26)
[2018-02-11] MEDS: CMCS: Vortioxetine (NF) 10 MG TAB (FORMERLY Brintellix) PO SCH (10:29)
[2018-02-11] MEDS: Vitamin THERAPEUTIC TAB PO SCH (10:29)
[2018-02-11] MEDS: Naltrexone TAB* 50 MG TAB PO SCH (10:29)
[2018-02-11] MEDS: Acetaminophen TAB* 325 MG PO PRN (15:10)
--- NOTE | 2018-02-11 18:44 | PN ---
Subjective - Subjective Date of Service: 02/11/18 Service Type: [id number] Hosp care 15 min low complexity Subjective: Sandy is the same as before. Mostly to self, coloring or in her room. Says she had a rough night due to flashbacks. Better today. Ate well today. Says heard voices earlier during the day. Denies SI or HI. Objective - Appearance Appearance: Healthy Appearing Dysmorphic Features: No Hygiene: Normal Grooming: Fairly Well Kept - Behavior Psychomotor Activities: Normal Exhibits Abnormal Movement: No - Attitude and Relatedness Attitude and Relatedness: Appropriate Eye Contact: Good - Speech Quality: Unpressured Latencies: Normal Quantity: Appropriate - Mood Patient's Decription of Mood: "Okay" - Affect Observed Affect: Non-labile Affect Consistent with: Euthymia - Thought Process Patient's Thought Process: Coherent, Goal Directed Thought Content: No Passive Wish, No Suicidal Planning, No Homicidal Ideation, No Paranoid Ideation - Sensorium Experiencing Hallucinations: Yes Type of Hallucinations: Visual: No, Auditory: Yes, Command: No - Level of Consciousness Level of Consciousness: Alert Orientation: Yes Intact, Yes Orientated to Time, Yes Orientated to Place, Yes Orientated to Person - Impulse Control Impulse Control: Tenuous - Insight and Judgement Insight and Judgement: Poor - Group Participation Particating in Group Activities: No - Medication Management Medication Management Adherence: Yes Assessment - Assessment Merits Inpatient Hospitalization: For Immediate Safety, For Stabilization, Pending Safe DC Plan Inpatient DSM-V Dx: F43.12 Clinical Impression: Psychiatrically at base line and may be discharged. Plan - Plan Treatment Plan: Name: SANDY JAIMES Birthdate: 1965 [id number] Continued Medication Management: Continue Outpt Medication Medications: Current Medications Acetaminophen (Tylenol Tab*) 650 mg PO Q6H PRN PRN Reason: PAIN Last Admin: 02/11/18 15:10 Dose: 650 mg Al Hydrox/Mg Hydrox/Simethicone (Maalox Plus*) 30 ml PO Q4H PRN PRN Reason: INDIGESTION Cetirizine HCl (Zyrtec*) 10 mg PO DAILY [facility]; Protocol Last Admin: 02/11/18 10:26 Dose: 10 mg Cyclosporine (Restasis 0.05% Oph) 1 drop BOTH EYES DAILY [facility]; Protocol Last Admin: 02/11/18 10:27 Dose: 1 drop Docusate Sodium (Colace Cap*) 100 mg PO BID PRN PRN Reason: CONSTIPATION Last Admin: 02/05/18 11:39 Dose: 100 mg Fluticasone Propionate (Flonase Nasal [place] 50mcg*) 2 spray BOTH NARES DAILY [facility] Last Admin: 02/11/18 10:27 Dose: 2 spray Lamotrigine (Lamictal Tab(*)) 200 mg PO DAILY [facility] Last Admin: 02/11/18 10:27 Dose: 200 mg Lidocaine (Lidoderm 5% Patch*) 1 patch TRANSDERM DAILY [facility] Last Admin: 02/11/18 10:28 Dose: 1 patch Lorazepam (Ativan Tab(*)) 1 mg PO Q6H PRN PRN Reason: ANXIETY Last Admin: 02/11/18 07:59 Dose: 1 mg Meloxicam (Mobic(Nf)) 15 mg PO DAILY [facility] Last Admin: 02/11/18 10:28 Dose: 15 mg Mometasone Furoate (Asmanex 220 Mcg Mdi *) 2 puff INH QPM [facility] Last Admin: 02/10/18 18:09 Dose: 2 puff Multi-Ingredient Liniment/Rub (Shravan Victor*) 1 applic TOPICAL TID PRN PRN Reason: PAIN Multivitamins (Theragran Tab*) 1 tab PO DAILY [facility] Last Admin: 02/11/18 10:29 Dose: 1 tab Naltrexone HCl (Naltrexone Tab*) 50 mg PO DAILY [facility]; Protocol Last Admin: 02/11/18 10:29 Dose: 50 mg Omeprazole (Prilosec Cap*) 20 mg PO DAILY@0730 [facility] Last Admin: 02/11/18 10:26 Dose: 20 mg Pharmacy Profile Note (Lidocaine Patch Remove*) 1 note N/A 2100 [facility] Last Admin: 02/10/18 20:30 Dose: 1 note Prazosin HCl (Minipress Cap*) 6 mg PO BEDTIME [facility] Last Admin: 02/10/18 20:26 Dose: 6 mg Quetiapine Fumarate (Seroquel Tab*) 150 mg PO BEDTIME [facility] Last Admin: 02/10/18 20:26 Dose: 150 mg Silver Sulfadiazine (Silvadine 1%*) 1 applic TOPICAL BID [facility] Last Admin: 02/11/18 10:29 Dose: 1 applic Vortioxetine (Trintellix (Nf)) 10 mg PO DAILY [facility] Last Admin: 02/11/18 10:29 Dose: 10 mg Zolpidem Tartrate (Ambien Tab*) 10 mg PO BEDTIME [facility] Last Admin: 02/10/18 20:31 Dose: 10 mg - Discharge Plan Discharge Plan: Outpatient Follow Up Outpatient Program: [facility]
[2018-02-11] MEDS: Prazosin CAP* 1 MG PO SCH (21:21)
[2018-02-11] MEDS: QUEtiapine TAB* 100 MG PO SCH (21:22)
[2018-02-11] MEDS: Zolpidem TAB* 10 MG PO SCH (21:23)
[2018-02-11] MEDS: Lidocaine Patch REMOVE* 1 NOTE MISC SCH (21:23)
[2018-02-11] MEDS: Mometasone 220 MCG MDI INH SCH (21:24)
[2018-02-12] MEDS: Naltrexone TAB* 50 MG TAB PO SCH (10:33)
[2018-02-12] MEDS: Cetirizine* 10 MG TAB PO SCH (10:33)
[2018-02-12] MEDS: lamoTRIgine TAB(*) 100 MG PO SCH (10:34)
[2018-02-12] MEDS: Vitamin THERAPEUTIC TAB PO SCH (10:34)
[2018-02-12] MEDS: Omeprazole CAP* 20 MG PO SCH (10:34)
[2018-02-12] MEDS: CMCS: Meloxicam(NF) 7.5 MG TAB PO SCH (10:35)
[2018-02-12] MEDS: Fluticasone NASAL SPRAY 50MCG* 16 gm SPRAY BTL BOTH NARES SCH (10:38)
[2018-02-12] MEDS: CMCS: Cyclosporine 0.05% OPHTH (NF) 0.4 ML VIAL BOTH EYES SCH (10:38)
[2018-02-12] MEDS: Silver Sulfadiazine 1%* 20 GM TOPICAL SCH ×2 (10:40→21:02)
[2018-02-12] MEDS: Lidocaine PATCH 5%* 1 PATCH TRANSDERM SCH (10:42)
[2018-02-12] MEDS: CMCS: Vortioxetine (NF) 10 MG TAB (FORMERLY Brintellix) PO SCH (11:27)
[2018-02-12 11:49] VITALS: BP 125/55
[2018-02-12] MEDS: Acetaminophen TAB* 325 MG PO PRN ×2 (12:24→18:31)
--- NOTE | 2018-02-12 15:17 | PN ---
Subjective - Subjective Date of Service: 02/12/18 Service Type: [id number] Hosp care 15 min low complexity Subjective: Patient presents as euthymic with bright affect. She reports much improvement in mood and denies SI or self-harm urges. She is able to identify progress made and gives example of relinquishing items she could hurt herself. Patient reports desire to "not feel like this" in regards to presentation at admission. She endorses goals and future orientation. Patient is receptive to praise. Objective - Appearance Appearance: Well Developed/Nourished Dysmorphic Features: No Hygiene: Normal Grooming: Well Kept - Behavior Psychomotor Activities: Abnormal-Increased - eye-blinking Exhibits Abnormal Movement: Yes - Attitude and Relatedness Attitude and Relatedness: Cooperative Eye Contact: Good - Speech Quality: Unpressured Latencies: Normal Quantity: Appropriate - Mood Patient's Decription of Mood: "Good" - Affect Observed Affect: Good Affect Consistent with: Euthymia - Thought Process Patient's Thought Process: Coherent, Goal Directed Thought Content: No Passive Wish, No Suicidal Planning, No Homicidal Ideation, No Paranoid Ideation - Sensorium Experiencing Hallucinations: No, Sensorium is Clear Type of Hallucinations: Visual: No, Auditory: No, Command: No - Level of Consciousness Level of Consciousness: Alert Orientation: Yes Intact, Yes Orientated to Time, Yes Orientated to Place, Yes Orientated to Person - Impulse Control Impulse Control: Intact - Insight and Judgement Insight and Judgement: Fair - Group Participation Particating in Group Activities: Yes - Medication Management Medication Management Adherence: Yes Assessment - Assessment Merits Inpatient Hospitalization: For Immediate Safety, For Discharge Planning Inpatient DSM-V Dx: F43.12 Clinical Impression: 52yo white female with significant trauma history and psychiatric hospitalizations. Patient presented to ED after appointment with outpatient provider, due to SI and aborted attempt. Her mother in October and she is grieving this loss. She has medical comorbidities that are impacting QOL. Plan - Plan Treatment Plan: Name: SANDY JAIMES Birthdate: 1965 [id number] continue acute intensive psychiatric treatment. continue medications. discharge planning to include outpatient providers. Continued Medication Management: Continue Outpt Medication Medications: Current Medications Acetaminophen (Tylenol Tab*) 650 mg PO Q6H PRN PRN Reason: PAIN Last Admin: 02/12/18 12:24 Dose: 650 mg Al Hydrox/Mg Hydrox/Simethicone (Maalox Plus*) 30 ml PO Q4H PRN PRN Reason: INDIGESTION Cetirizine HCl (Zyrtec*) 10 mg PO DAILY [facility]; Protocol Last Admin: 02/12/18 10:33 Dose: 10 mg Cyclosporine (Restasis 0.05% Ophth) 1 drop BOTH EYES DAILY [facility]; Protocol Last Admin: 02/12/18 10:38 Dose: 1 drop Docusate Sodium (Colace Cap*) 100 mg PO BID PRN PRN Reason: CONSTIPATION Last Admin: 02/05/18 11:39 Dose: 100 mg Fluticasone Propionate (Flonase Nasal [place] 50mcg*) 2 spray BOTH NARES DAILY [facility] Last Admin: 02/12/18 10:38 Dose: 2 spray Lamotrigine (Lamictal Tab(*)) 200 mg PO DAILY [facility] Last Admin: 02/12/18 10:34 Dose: 200 mg Lidocaine (Lidoderm 5% Patch*) 1 patch TRANSDERM DAILY [facility] Last Admin: 02/12/18 10:42 Dose: 1 patch Lorazepam (Ativan Tab(*)) 1 mg PO Q6H PRN PRN Reason: ANXIETY Last Admin: 02/11/18 23:41 Dose: 1 mg Meloxicam (Mobic(Nf)) 15 mg PO DAILY [facility] Last Admin: 02/12/18 10:35 Dose: 15 mg Mometasone Furoate (Asmanex 220 Mcg Mdi *) 2 puff INH QPM [facility] Last Admin: 02/11/18 21:24 Dose: 2 puff Multi-Ingredient Liniment/Rub (Shravan Victor*) 1 applic TOPICAL TID PRN PRN Reason: PAIN Multivitamins (Theragran Tab*) 1 tab PO DAILY [facility] Last Admin: 02/12/18 10:34 Dose: 1 tab Naltrexone HCl (Naltrexone Tab*) 50 mg PO DAILY [facility]; Protocol Last Admin: 02/12/18 10:33 Dose: 50 mg Omeprazole (Prilosec Cap*) 20 mg PO DAILY@0730 [facility] Last Admin: 02/12/18 10:34 Dose: 20 mg Pharmacy Profile Note (Lidocaine Patch Remove*) 1 note N/A 2100 [facility] Last Admin: 02/11/18 21:23 Dose: 1 note Prazosin HCl (Minipress Cap*) 6 mg PO BEDTIME [facility] Last Admin: 02/11/18 21:21 Dose: 6 mg Quetiapine Fumarate (Seroquel Tab*) 150 mg PO BEDTIME [facility] Last Admin: 02/11/18 21:22 Dose: 150 mg Silver Sulfadiazine (Silvadine 1%*) 1 applic TOPICAL BID [facility] Last Admin: 02/12/18 10:40 Dose: 1 applic Vortioxetine (Trintellix (Nf)) 10 mg PO DAILY [facility] Last Admin: 02/12/18 11:27 Dose: 10 mg Zolpidem Tartrate (Ambien Tab*) 10 mg PO BEDTIME [facility] Last Admin: 02/11/18 21:23 Dose: 10 mg - Discharge Plan Discharge Plan: Outpatient Follow Up Outpatient Program: [facility]
[2018-02-12] MEDS: Mometasone 220 MCG MDI INH SCH (18:31)
[2018-02-12] MEDS: Prazosin CAP* 1 MG PO SCH (20:57)
[2018-02-12] MEDS: QUEtiapine TAB* 100 MG PO SCH (20:57)
[2018-02-12] MEDS: Zolpidem TAB* 10 MG PO SCH (20:59)
[2018-02-12] MEDS: Lidocaine Patch REMOVE* 1 NOTE MISC SCH (21:01)
[2018-02-13] MEDS: LORazepam TAB(*) 1 MG PO PRN (01:31)
[2018-02-13] MEDS: Fluticasone NASAL SPRAY 50MCG* 16 gm SPRAY BTL BOTH NARES SCH (09:07)
[2018-02-13] MEDS: CMCS: Cyclosporine 0.05% OPHTH (NF) 0.4 ML VIAL BOTH EYES SCH (09:08)
[2018-02-13] MEDS: Vitamin THERAPEUTIC TAB PO SCH (09:08)
[2018-02-13] MEDS: CMCS: Vortioxetine (NF) 10 MG TAB (FORMERLY Brintellix) PO SCH (09:08)
[2018-02-13] MEDS: Naltrexone TAB* 50 MG TAB PO SCH (09:09)
[2018-02-13] MEDS: CMCS: Meloxicam(NF) 7.5 MG TAB PO SCH (09:09)
[2018-02-13] MEDS: lamoTRIgine TAB(*) 100 MG PO SCH (09:10)
[2018-02-13] MEDS: Cetirizine* 10 MG TAB PO SCH (09:10)
[2018-02-13] MEDS: Omeprazole CAP* 20 MG PO SCH (09:10)
[2018-02-13] MEDS: Silver Sulfadiazine 1%* 20 GM TOPICAL SCH (09:13)
[2018-02-13] MEDS: Lidocaine PATCH 5%* 1 PATCH TRANSDERM SCH (09:13)
--- NOTE | 2018-02-13 23:49 | DS ---
CC: [facility]; Dr. Jesika Redman * DISCHARGE SUMMARY: DATE OF ADMISSION: 02/04/18. DATE OF DISCHARGE: 02/13/18. SUPERVISING PSYCHIATRIST: Dr. Magdi Menjivar.* (DICTATED BY MARI FRANCISCO NP) DISCHARGE DIAGNOSES: 1. Posttraumatic stress disorder. 2. Borderline personality disorder. 3. Bereavement. CONDITION AT THE TIME OF DISCHARGE: Improved. Emelyn reports feeling safe and ready for discharge. She is euthymic with bright affect. She has coordinated with visiting nurse services to help her set up her medications upon returning to home. She reports improvement in pain with lidocaine patch. The patient states that she has noted that she is taking less NSAIDs as well. The patient denies suicidal ideations. She denies auditory hallucinations. She denies urges for self-harm. She has been safe and in behavioral control. The patient has had an improvement in ADLs and nutrition. She is jovial at times and generally pleasant to be around. MENTAL STATUS EXAM: Emelyn is a 52-year-old white female, who appears stated age. She is wearing her own clothing and is waiting about the unit. The patient is alert and oriented x3. Eye contact is good. Speech is soft and articulate. Mood is euthymic with congruent affect. Only psychomotor admirable activity noted is eye blinking, which is consistent with the patient' s presentation. Thought process is logical, goal directed. Thought content is negative for passive wish, suicidal ideation or urges for self-harm. The patient denies current AH or VH. Insight and judgment are fair. Fund of knowledge is adequate. INSTRUCTIONS GIVEN TO THE PATIENT: A. Medications: The only medication change was the addition of lidocaine patch. This was electronically sent to [facility] on [facility] in [place]. She will continue: 1. QVAR 80 mcg MDI 2 puffs b.i.d. 2. Cyclosporine 0.05% ophthalmic drops 1 drop both eyes daily. 3. Docusate 100 mg p.o. b.i.d. p.r.n. for constipation. 4. Lia-D 1 p.o. daily. 5. Flonase 2 sprays both nares daily. 6. Famotidine 200 mg daily. 7. Meloxicam 50 mg p.o. daily. 8. Naltrexone 50 mg p.o. daily. 9. Protonix 40 mg p.o. q.a.m. 10. Prazosin 6 mg p.o. nightly. 11. Quetiapine 50 mg p.o. b.i.d. p.r.n. anxiety and 100 mg p.o. nightly. 12. Silver sulfadiazine topical b.i.d. 13. Triamcinolone 1 topical nightly. 14. Trintellix 10 mg daily. 15. Zolpidem 10 mg p.o. nightly. B. Diet is regular. C. Activity: Ambulation as tolerated. Tobacco cessation is not applicable. There are no labs or diagnostic studies pending. D. Followup care: The patient will follow up with [facility] and has an appointment on , 02/14/[address] Portillo; on Sunday , 02/19/18 with therapist, Lizzie Sanon. The patient will follow up with Dr. Redman, for primary care within 30 days of discharge. E. Substance use followup: Not applicable. The patient is only on 1 antipsychotic medication. HOSPITAL COURSE - PART A: Reason for admission: The patient presented to the emergency department with reports of depressed mood, suicidal ideations, and a recent aborted suicide attempt. The patient is well known to this unit and has been hospitalized numerous times at [facility] and [facility]. She is an active client of [facility] and a patient of Dr. Mee Portillo for outpatient psychiatry. The patient's mother in October and she is grieving this loss. She reports this as a primary stressor as she does not have her mother to reach out to. HOSPITAL COURSE - PART B: Psychiatric treatment rendered. The patient was admitted on status to the Adult Behavioral Services Unit. She was placed on 15- minute checks for her safety. We resumed outpatient medications with some minor changes while in the hospital. She was offered lorazepam as needed for current psychiatric crisis. The patient agreed to discontinue prior to discharge. She benefited from this in lieu of p.r.n. quetiapine during the day. She was given quetiapine 150 mg p.o. nightly. She reported some nightmares throughout the stay, but otherwise improved sleep. The patient was encouraged to participate in supportive milieu and attend psychoeducational group. Per her usual presentation, the patient was seclusive to her room. She remained in hospital scrubs for her safety. The patient was noted to relinquish items that she started to harm herself with, before she broke the skin entirely. She preferred to stay in her room and avoid contact with other patients. The patient cited current medical problem of bursitis as impacting her quality of life. She reported disappointment that she was given medical leave from current position through [employer]. She states that she likes the scheduled activity and interactions with coworkers. The patient reports being in the midst of physical therapy twice a week. She agreed to PT consultation and was seen by PT at least twice while here. The patient also accepted offer of lidocaine patch for hip pain and she reported efficacy with this as stated above. She noted that she required less p.r.n. NSAIDs. Throughout the course of her stay, the patient was increasingly interactive. She had not been eating or drinking prior to arrival for the first day or two, we monitored her intake and encouraged fluids with a bedside sitter. The patient had increasingly increased appetite and met with the account clerk. The patient remained in the hospital over weekend as she stated she was not ready for discharge prior to the long weekend. Upon Sunday, , the patient reported readiness to be discharged "almost." The patient declined offer of decreasing to 30-minute observation or allowed staff pass. She states she preferred to remain inside due to physical limitation. She denied need to use comfort room. As stated before, the patient reported readiness for discharge. On day of discharge, she coordinated with visiting nurse services to help set up her medications at home. She stated understanding of the current medication regimen that had no change with the exception of the addition of the lidocaine patch. The patient was given written discharge instructions. She endorses future orientation. She denied suicidal ideations or urges for self-harm. The patient reported desire to "not feel like this in regard to her presentation on admission." She is able to identify progress she has made during this hospitalization. We hope that Emelyn does well and utilizes emergency services when needed. MARI FRANCISCO, ANGELIA [id number]/[facility] #: [id number] STONEY
== END 2018-02-13 12:20 | disposition home or self-care (01) | DRG 755 ==
LOC: ED 12:36 → BSU 16:38
PROVIDERS: ADMIT Psychiatry & Neurology Psychiatry; ATTEND Psychiatry & Neurology Psychiatry
DX: F43.12 Post-traumatic stress disorder, chronic (principal); R45.851 Suicidal ideations; F60.3 Borderline personality disorder; Z63.4 Disappearance and death of family member; G40.909 Epilepsy, unspecified, not intractable, without status epilepticus; K21.9 Gastro-esophageal reflux disease without esophagitis; J45.909 Unspecified asthma, uncomplicated; E78.5 Hyperlipidemia, unspecified; M71.9 Bursopathy, unspecified; F10.21 Alcohol dependence, in remission; F11.11 Opioid abuse, in remission; Z79.899 Other long term (current) drug therapy; Z88.5 Allergy status to narcotic agent; Z88.8 Allergy status to other drugs, medicaments and biological substances; Z91.041 Radiographic dye allergy status; Z81.8 Family history of other mental and behavioral disorders; Z81.1 Family history of alcohol abuse and dependence
CPT/HCPCS: 36415; 80053; 80061; 80320; 80329; 83036; 84443; 85025; 99222; 99231; 99232; 99238; 99284; A9270-GY; G0480

== ENCOUNTER 2018-05-28 10:54 | Day surgery (SDC) | payer OTHER ==
[~2018-05-28 10:54] MED LIST changes: +Acetaminophen TAB* 325 MG PO PRN; +Buffered Lidocaine 0.9% SYRIN* 5 ML/SYR SYRINGE INTRADERM ONE; -LORazepam TAB(*) 1 MG ONE; -QUEtiapine TAB* 100 MG ONE
[2018-05-28] MEDS ORDERED: fentaNYL* 50 MCG/ML 2 ML VIAL (100 MCG VIAL) ONE (12:15)
[2018-05-28] MEDS ORDERED: Midazolam* 1 MG/ML 2 ML VIAL (2 MG) ONE (12:15)
[2018-05-28] MEDS ORDERED: Ondansetron INJ* 2 MG/ML VIAL ONE (13:01)
[2018-05-28 13:43] VITALS: BP 133/49
[2018-05-28] MEDS ORDERED: Tropicamide 1% OPTH.SOL* BTL ONE (15:03)
[2018-05-28] MEDS ORDERED: Phenylephr/Ketorolac 1%/0.3% OPH DROP BTL ONE (15:03)
[2018-05-28] MEDS ORDERED: Neomycin/Polymy/Dex OPHTH.OIN* 3.5 GM ONE (15:03)
[2018-05-28] MEDS ORDERED: Lidocaine 1%* 5 ML VIAL ONE (15:03)
[2018-05-28] MEDS ORDERED: Tetracaine 0.5% OPTH.SOL 4 ML* 1 DROP BTL ONE (15:03)
[2018-05-28] MEDS ORDERED: Phenylephrine 2.5% OPTH.SOL* 2 ML BTL ONE (15:03)
[2018-05-28] MEDS ORDERED: Ketorolac 0.5% OPHTH (NF) 0.5 % 5 ML BTL ONE (15:03)
[2018-05-28] MEDS ORDERED: Cyclopentolate 1% OPTH.SOL* 2 ML BTL ONE (15:03)
--- NOTE | 2018-05-28 15:34 | OP ---
DATE OF OPERATION/DATE OF DICTATION: 05/28/2018 - [facility] DATE OF : 1965. SURGEON: Dr. Ever Flor. OCEAN FISHING GUIDE: None. ANESTHESIA: Topical with intravenous sedation. PRE-OP DIAGNOSIS: Cataract, left eye. POST-OP DIAGNOSIS: Cataract, left eye. OPERATIVE PROCEDURE: Phacoemulsification and cataract extraction with posterior chamber intraocular lens implant, left eye. COMPLICATIONS: None. BLOOD LOSS: None. DESCRIPTION OF PROCEDURE: The patient was brought to the operating room and received a small amount of intravenous sedation. A drop of Tetracaine was placed in her left eye. She was prepped and draped in the usual sterile fashion for ophthalmic surgery and attention was directed to the left eye where a speculum was placed. A paracentesis was created at the 5 o'clock position and 0.1 cc of 1 percent preservative-free Lidocaine was injected into the anterior chamber followed by DisCoVisc. The eye was digitally stabilized while a 2.75 mm keratome was used to create a triplanar clear corneal incision at the 3 o'clock position. A continuous curvilinear capsulorrhexis was created with a cystotome and Utrata forceps. BSS on a cannula was used to hydrodissect the lens from the capsule. Phacoemulsification was performed in a divide-and- conquer technique to create four fragments which were removed. Residual cortical material was removed with irrigation and aspiration. DisCoVisc was used to inflate the capsular bag and an AUOOTO 19.0 diopter lens was folded and inserted into the capsular bag. DisCoVisc was removed using irrigation and aspiration. BSS on a cannula was used to hydrate the corneal stroma and seal the wound. At the end of the case the pupil was round and the lens was centered. The eye was of normal pressure and the wound was water tight. The speculum was removed and topical Maxitrol ointment was placed on the surface of the eye. The eye was closed, patched and shielded and the patient was sent to the recovery room in stable condition with post operative instructions and follow-up appointment given. [id number]/[facility] #: [id number] MTDD
== END 2018-05-28 14:00 | disposition home or self-care (01) ==
LOC: OREAST 10:54
PROVIDERS: ATTEND Ophthalmology
DX: H25.12 Age-related nuclear cataract, left eye (principal); F31.9 Bipolar disorder, unspecified; J45.909 Unspecified asthma, uncomplicated; K21.9 Gastro-esophageal reflux disease without esophagitis; K58.9 Irritable bowel syndrome, unspecified; M19.90 Unspecified osteoarthritis, unspecified site; F41.8 Other specified anxiety disorders; F43.10 Post-traumatic stress disorder, unspecified
CPT/HCPCS: A9270-GY; C9447; J2250; J2405; J3010; V2632

== ENCOUNTER 2018-06-28 14:56 | Inpatient (IN) | payer OTHER ==
[2018-06-28] MEDS ORDERED: Nicotine Inhaler* 10 MG AMP INH PRN (15:07)
[2018-06-28 16:01] LABS: ABS Basophils 0.1 10^3/ul (0-0.2); ABS Eosinophils 0.1 10^3/ul (0-0.6); ABS Monocytes 0.8 10^3/ul (0-0.8); ABS Neutrophils 5.6 10^3/ul (1.5-7.7); ABS Nucleated RBC 0 10^3/ul; Eosinophil % 0.6 %; Hematocrit 43 % (35-47); Lymphocyte % 23.6 %; Mean Corpuscular HGB Conc 35 g/dl (31-36); Mean Corpuscular Hemoglobin 32 pg (27-31); Mean Corpuscular Volume 92 fL (80-97); Mean Platelet Volume 8.4 fL (7.4-10.4); Nucleated Red Blood Cells % 0; Platelet Count 342 10^3/ul (150-450); Red Blood Count 4.68 10^6/ul (4.00-5.40); Red Cell Distribution Width 13 % (10.5-15); White Blood Count 8.5 10^3/ul (3.5-10.8)
--- OUTSIDE RECORDS SUMMARY | 2018-06-28 16:20 | XMS REPORT | Continuity of Care Document ---
:1965 External Reference #:[id number] Author Name Brad Tristan, OD Address [address] [place] [address] Care Team Providers Name Role Phone Jesika Redman MD Care Team Information Fishing Hand Unavailable Jesika Redman MD Primary Care Physician Unavailable Payers Type Date Identification Numbers Payment Provider Subscriber Policy Number: [id number] [facility] Emelyn Swenson PayID: [id number] [address] [address] [place] [address] Advance Directives Description No Information Available Problems Date Description Provider Status Onset: 08/11/2016 [...] grandparent General Cancer grandparent Father High BP Father due to Unknown Causes () Mother Cataract Mother due to Heart Disease () Mother High BP Social History Type Date Description Comments Sex Unknown ETOH Use Denies alcohol use Tobacco Use Start: Unknown Patient has never smoked Smoking Status Reviewed: 06/05/18 Patient has never smoked Allergies, Adverse Reactions, Alerts Date Description Reaction Status Severity Comments 08/20/2013 Contrast Dye Active 08/20/2013 Codeine Active 08/20/2013 Cortisone Active 08/20/2013 Cephalexin Active 08/20/2013 Adhesives Active 08/20/2013 Iodine Active Medications Medication Date Status Form Strength Qnty SIG Indications Ordering Provider Ketorolac 05/20/ Active Solution 0.5% 5ml 1 drops Evre Tromethamine 2018 left eye Flor, twice a M.D. day Pred Forte 05/20/ Active Suspension 1% 10ml 1 drops Peter 2018 left eye Flor, four times M.D. a day Restasis 05/30/ Active Emulsion 0.05% 180un one drop 2016 its twice per , both OD eyes Lamictal / Active Tablets 150mg 1 by mouth Unknown 0000 every night Ambien / Active Tablets 5mg Unknown 0000 Protonix / Active Tablets DR 20mg Unknown 0000 Advair HFA / Active Aerosol Unknown 0000 Quetiapine / Active Tablets 50mg Unknown Fumarate 0000 Qvar Redihaler / Active Aerosol 80mcg/Act Inhale Two Unknown 0000 Puffs By Mouth Twice A Day Prazosin HCL / Active Capsules 2mg Unknown 0000 Fexofenadine HCL / Active Tablets 180mg Юлия 0000 Jesika BANKS Lisinopril / Active Tablets 5mg Юлия 0000 Jesika BANKS Meloxicam / Active Tablets 15mg Unknown 0000 Trintellix / Active Tablets 10mg Unknown 0000 Ciprofloxacin 05/24/ Hx Solution 0.3% 10ml 1 drop Peter HCL 2018 - four times Flor, 06/05/ a day M.D. 2018 start the morning of surgery in the scheduled eye Ciprofloxacin 05/20/ Hx Solution 0.3% 5ml 1 drop Peter HCL 2018 - left eye Flor, 05/24/ four times M.D. 2018 a day start the morning of surgery Prednisolone 01/17/ Hx Suspension 1% 5ml 1 drop bid Brad Acetate 2018 - OD x 1 Tristan, 04/09/ week, then OD 2018 qd x 1 week, then d/c Prednisolone 12/27/ Hx Suspension 1% 10ml 1 drop Brad Alfaro 2017 - right eye Kun, 01/17/ four times OD 2018 a day x 1 week, then taper as directed Restasis 08/11/ Hx Emulsion 0.05% 180vi 1 drops H16.223 Ever 2016 - als both eyes Flor, 12/20/ twice a M.D. 2016 day Minipress // Hx Capsules 2mg Unknown - 2017 Neurontin // Hx Capsules 400mg Unknown - 2017 Lia-D 12 / Hx Tablets ER Unknown Hour Allergy & 0000 - 12HR Congestion 2017 Chlorpromazine / Hx Tablets 25mg Unknown HCL - 2017 Naltrexone HCL / Hx Tablets 50mg Unknown - 2017 Immunizations Description No Information Available Vital Signs Date Vital Result Comment 06/05/2018 11:20am Intraocular Pressure Left Eye 18 mmHg 05/29/2018 10:45am Intraocular Pressure Left Eye 21 mmHg 05/15/2018 1:54pm Intraocular Pressure Right Eye 15 mmHg Intraocular Pressure Left Eye 15 mmHg 02/26/2018 3:23pm Intraocular Pressure Right Eye 15 mmHg Intraocular Pressure Left Eye 15 mmHg 01/17/2018 9:16am Intraocular Pressure Right Eye 14 mmHg Intraocular Pressure Left Eye 14 mmHg 01/03/2018 2:46pm Intraocular Pressure Right Eye 15 mmHg Intraocular Pressure Left Eye 14 mmHg 10/08/2017 9:53am Intraocular Pressure Right Eye 14 mmHg Intraocular Pressure Left Eye 14 mmHg 08/11/2016 10:01am Intraocular Pressure Right Eye 14 mmHg Intraocular Pressure Left Eye 14 mmHg 08/10/2015 9:55am Intraocular Pressure Right Eye 14 mmHg Intraocular Pressure Left Eye 14 mmHg 05/05/2014 4:17pm Intraocular Pressure Right Eye 15 mmHg Intraocular Pressure Left Eye 16 mmHg 03/13/2014 10:33am Intraocular Pressure Right Eye 12 mmHg Intraocular Pressure Left Eye 12 mmHg Results Description No Information Available Procedures Date Code Description Status 05/15/2018 68949 Ophthalmic Biometry By Partial Coherence Interferometry Completed W/Intra 05/15/2018 37295 Eye Exam Est Intermediate Completed 04/09/2018 20489 Oct Retina Completed 10/08/2017 44679 Refraction Completed 10/08/2017 75514 Eye Exam Est Intermediate Completed 04/09/2017 95034 Oct Retina Completed 04/09/2017 19947 Eye Exam Est Intermediate Completed 08/11/2016 41423 Fundus Photography W/Interpretation & Report Completed 08/11/2016 52205 Refraction Completed 08/11/2016 98070 Eye Exam Est Comprehensive Completed 08/10/2015 56150 Eye Exam Est Comprehensive Completed 08/10/2015 92073 Refraction Completed 08/10/2015 43090 Ophthalmoscopy Subsequent Completed 04/23/2014 61190 Remove Secondary Cataract, Laser (Yag) Completed 04/02/2014 37991 Oct Retina Completed 04/02/2014 07190 Eye Exam Est Intermediate Completed 03/13/2014 17482 Ophthalmoscopy Subsequent Completed 03/13/2014 70892 Eye Exam Est Comprehensive Completed 05/23/2011 24900 Fundus Photography W/Interpretation & Report Completed 05/23/2011 86720 Ophthalmoscopy Initial Completed 05/23/2011 90114 Refraction Completed 05/23/2011 95836 Eye Exam New Comprehensive Completed Encounters Type Date Location Provider Dx Diagnosis Office Visit 04/09/2018 Main Office Brad Tristan, OD Z96.1 Presence of 10:45a intraocular lens H35.373 Puckering of macula, bilateral H25.12 Age-related nuclear cataract, left eye H16.223 Keratoconjunct sicca, not specified as Sjogren's, bilateral Office Visit 02/26/2018 3:30p Main Office Brad Tristan, H16.223 Keratoconjunct sicca, OD not specified as Sjogren's, bilateral 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, right eye H35.373 Puckering of macula, bilateral Office Visit 01/17/2018 9:15a Main Office Brad Tristan, H20.011 Primary OD iridocyclitis, right eye H16.223 Keratoconjunct sicca, not specified as Sjogren's, bilateral Office Visit 01/03/2018 3:15p Main Office Brad Tristan H20.011 Primary OD iridocyclitis, right eye H16.223 Keratoconjunct sicca, not specified as Sjogren's, bilateral Office Visit 12/27/2017 9:15a Main Office Brad Tristan, H16.223 Keratoconjunct sicca, OD not specified as Sjogren's, bilateral 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
[2018-06-28 16:26] LABS: ALT 12 U/L (7-52); AST 13 U/L (13-39); Albumin 4.2 g/dL (3.2-5.2); Albumin/Globulin Ratio 1.6 (1-3); Alkaline Phosphatase 46 U/L (34-104); Anion Gap 7 mmol/L (2-11); BUN/Creatinine Ratio 11.6 (8-20); Blood Urea Nitrogen 8 mg/dL (6-24); CO2 Carbon Dioxide 24 mmol/L (22-32); Calcium 9.4 mg/dL (8.6-10.3); Chloride 109 mmol/L (101-111); EGFR African American 107.7 (>60); Globulin 2.6 g/dL (2-4); Glucose 98 mg/dL (70-100); Potassium 3.8 mmol/L (3.5-5.0); Sodium 140 mmol/L (135-145); Total Protein 6.8 g/dL (6.4-8.9)
[2018-06-28 16:27] LABS: Acetaminophen < 15 mcg/mL; Alcohol < 10 mg/dL (<10); Salicylate < 2.50 mg/dL (<30)
[2018-06-28 16:39] LABS: TSH (Thyroid Stimulating Horm) 0.43 mcIU/mL (0.34-5.60)
[2018-06-28] MEDS ORDERED: Haloperidol INJ IV/IM* 5 MG/ML AMP IM ONE (17:57)
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
[2018-06-28] MEDS ORDERED: Haloperidol TAB* 5 MG ONE (18:17)
--- NOTE | 2018-06-28 19:04 | ED ---
Progress - Progress Note Progress Note: Patient was signed out from Dr. Pérez to Dr. العراقي upon provider shift change pending mental health evaluation. Course/Dx - Course Course Of Treatment: Patient was signed out from Dr. Pérez to Dr. العراقي upon provider shift change pending mental health evaluation. We discussed patient care with Dr. García, psychiatrist, and they agreed to admit the patient to [facility] [place]. Dx depressive disorder. The patient is agreeable with this plan. - Diagnoses Provider Diagnoses: Depressive disorder - Provider Notifications Discussed Care Of Patient With: Jennifer García Time Discussed With Above Provider: 21:02 Instructed by Provider To: Admit As Inpatient Discharge - Sign-Out/Discharge Documenting (check all that apply): Patient Departure - admit, Receiving Sign- Out Receiving patient FROM: Chiara Pérez - Discharge Plan Condition: Stable Disposition: PSYCHIATRIC FACILITY-[facility] [place] [facility] Referrals: Jesika Redman MD [Primary Care Provider] - - Attestation Statements Document Initiated by Scribe: Yes Documenting Scribe: Kelly Jaramillo Provider For Whom Scribe is Documenting (Include Credential): vEa العراقي MD Scribe Attestation: Kelly Norwood, scribed for Eva العراقي MD on 06/28/18 at 2102. Status of Scribe Document: Ready
[2018-06-29] MEDS ORDERED: QUEtiapine TAB* 100 MG ONE (00:17)
[2018-06-29] MEDS ORDERED: Prazosin CAP* 1 MG ONE (00:17)
[2018-06-29] MEDS ORDERED: Zolpidem TAB* 10 MG ONE (00:17)
[2018-06-29] MEDS: Prazosin CAP* 5 MG PO SCH ×2 (00:20→20:44)
[2018-06-29] MEDS: Prazosin CAP* 1 MG PO SCH ×2 (00:20→20:44)
[2018-06-29] MEDS: Zolpidem TAB* 10 MG PO SCH ×2 (00:20→20:44)
[2018-06-29] MEDS: QUEtiapine TAB* 100 MG PO SCH ×2 (00:20→20:44)
[2018-06-29] MEDS ORDERED: Mouth Piece, Nicotine* 1 EACH CARTRIDGE INH PRN (01:08)
[2018-06-29] MEDS ORDERED: Al Hydrox/Mg Hydrox/Simet LIQ* 30 ML UDC PO PRN (01:19)
[2018-06-29] MEDS: Fluticasone NASAL SPRAY 50MCG* 16 gm SPRAY BTL INTRANASAL SCH (10:06)
[2018-06-29] MEDS: Lisinopril TAB* 5 MG PO SCH (10:06)
[2018-06-29] MEDS: lamoTRIgine TAB(*) 100 MG PO SCH (10:07)
[2018-06-29] MEDS: QUEtiapine TAB* 25 MG PO SCH (10:07)
[2018-06-29] MEDS: Pantoprazole TAB * 40 MG TAB PO SCH (10:08)
[2018-06-29] MEDS: Multivitamins/Minerals TAB PO SCH (10:08)
[2018-06-29] MEDS ORDERED: LORazepam TAB(*) 1 MG PO ONE (11:30)
[2018-06-29] MEDS ORDERED: risperiDONE-M * 1 MG TAB.ORADIS PO ONE (11:30)
[2018-06-29] MEDS ORDERED: risperiDONE-M * 1 MG TAB.ORADIS ONE (11:36)
[2018-06-29] MEDS ORDERED: LORazepam TAB(*) 1 MG ONE (11:36)
[2018-06-29] MEDS: LORazepam TAB(*) 0.5 MG PO PRN (16:40)
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
[2018-06-29 19:21] LABS: Urine Appearance Clear; Urine Color Yellow
[2018-06-29 19:22] LABS: Urine Ketones 1+ (Negative); Urine Protein 1+(30 mg/dL) (Negative); Urine Urobilinogen Negative (Negative)
[2018-06-29 19:23] LABS: Urine Blood Negative (Negative)
[2018-06-29 19:24] LABS: Urine Bilirubin Negative (Negative); Urine Glucose Negative (Negative); Urine Nitrite Negative (Negative)
[2018-06-29 19:30] LABS: Urine Bacteria Absent (Absent); Urine Red Blood Cell Trace(0-2/hpf) (Absent); Urine Squamous Epithelial Cell Present (Absent); Urine White Blood Cell Trace(0-5/hpf) (Absent)
[2018-06-29 19:33] LABS: Barbiturates Urine Screen None Detected (None Detect); Benzodiazepine Urine Screen None Detected (None Detect); Urine Cannabinoids Screen None Detected (None Detect)
[2018-06-29] MEDS: Mometasone 220 MCG MDI INH SCH (20:43)
[2018-06-29] MEDS: risperiDONE TAB* 1 MG PO SCH (20:44)
[2018-06-30] MEDS: LORazepam TAB(*) 0.5 MG PO PRN ×4 (02:30→15:27)
[2018-06-30 07:40] LABS: HDL Cholesterol 32.4 mg/dL
[2018-06-30] MEDS: Multivitamins/Minerals TAB PO SCH (08:33)
[2018-06-30] MEDS: lamoTRIgine TAB(*) 100 MG PO SCH (08:33)
[2018-06-30] MEDS: Lisinopril TAB* 5 MG PO SCH (08:33)
[2018-06-30] MEDS: QUEtiapine TAB* 25 MG PO SCH (08:33)
[2018-06-30] MEDS: Pantoprazole TAB * 40 MG TAB PO SCH (08:33)
[2018-06-30] MEDS: Fluticasone NASAL SPRAY 50MCG* 16 gm SPRAY BTL INTRANASAL SCH (09:08)
[2018-06-30] MEDS ORDERED: LORazepam TAB(*) 1 MG PO ONE (10:00)
[2018-06-30] MEDS ORDERED: Haloperidol TAB* 5 MG PO ONE (10:00)
[2018-06-30] MEDS ORDERED: Haloperidol TAB* 5 MG ONE (10:01)
[2018-06-30] MEDS ORDERED: LORazepam TAB(*) 1 MG ONE (10:02)
[2018-06-30] MEDS: Prazosin CAP* 5 MG PO SCH (19:21)
[2018-06-30] MEDS: Prazosin CAP* 1 MG PO SCH (19:22)
[2018-06-30] MEDS: Zolpidem TAB* 10 MG PO SCH (19:22)
[2018-06-30] MEDS: risperiDONE TAB* 1 MG PO SCH (19:22)
[2018-06-30] MEDS: QUEtiapine TAB* 100 MG PO SCH (19:22)
[2018-06-30] MEDS: Mometasone 220 MCG MDI INH SCH (19:35)
[2018-07-01] MEDS: LORazepam TAB(*) 0.5 MG PO PRN ×2 (04:25→07:08)
[2018-07-01] MEDS: QUEtiapine TAB* 25 MG PO SCH (09:36)
[2018-07-01] MEDS: lamoTRIgine TAB(*) 100 MG PO SCH (09:36)
[2018-07-01] MEDS: Pantoprazole TAB * 40 MG TAB PO SCH (09:36)
[2018-07-01] MEDS: Multivitamins/Minerals TAB PO SCH (09:36)
[2018-07-01] MEDS: Lisinopril TAB* 5 MG PO SCH (09:37)
[2018-07-01] MEDS: Fluticasone NASAL SPRAY 50MCG* 16 gm SPRAY BTL INTRANASAL SCH (09:39)
[2018-07-01] MEDS ORDERED: LORazepam TAB(*) 1 MG ONE (10:19)
[2018-07-01] MEDS: LORazepam TAB(*) 1 MG PO PRN ×3 (10:25→18:48)
[2018-07-01] MEDS ORDERED: risperiDONE TAB* 1 MG PO PRN (11:01)
--- NOTE | 2018-07-01 14:04 | PN ---
Subjective - Subjective Date of Service: 07/01/18 Service Type: 84052 Hosp care 15 min low complexity Subjective: Sandy is found curled up in bed with only a blanket and no sheets on the bed. Sandy appeared groggy, disheveled, and distressed. Sandy's bedding was taken from her following her attempting to strangle herself with them. Orders were entered to medicate her with Ativan 2 mg and Risperdal 2 mg as needed for anxiety and agitation. While Sandy responded well to me early in the day, she decompensated later in the day and began banging her head against the wall. Objective - Appearance Appearance: Other Dysmorphic Features: No Hygiene: Dirty Grooming: Disheveled - Behavior Psychomotor Activities: Abnormal-Decreased Exhibits Abnormal Movement: Yes - Attitude and Relatedness Attitude and Relatedness: Regressed Eye Contact: Poor - Speech Quality: Unpressured Latencies: Short Quantity: Terse - Mood Patient's Decription of Mood: "Terrible" - Affect Observed Affect: Depressed Affect Consistent with: Dysphoria - Thought Process Patient's Thought Process: Impoverished Thought Content: Yes Passive Wish, Yes Suicidal Planning, No Homicidal Ideation, No Paranoid Ideation - Sensorium Type of Hallucinations: Auditory: Yes - Sandy has a history of and shows signs of - Level of Consciousness Level of Consciousness: Lethargic Orientation: Yes Intact, Yes Orientated to Time, Yes Orientated to Place, Yes Orientated to Person - Impulse Control Impulse Control: Poor - Insight and Judgement Insight and Judgement: Impaired - Group Participation Particating in Group Activities: No - Medication Management Medication Management Adherence: Yes Assessment - Assessment Merits Inpatient Hospitalization: For Immediate Safety, For Ongoing Evaluation Inpatient DSM-V Dx: F43.11 Clinical Impression: Sandy is a 52 year old woman with a history of PTSD and Borderline Personality Disorder. She was admitted for SI because her flashbacks became more frightening. Sandy requires 9.39 status. Plan - Plan Treatment Plan: Name: SANDY JAIMES Birthdate: 1965 [id number] Continued Medication Management: Different Medication Medications: Current Medications Acetaminophen (Tylenol Tab*) 650 mg PO Q4H PRN PRN Reason: PAIN; OR TEMP >101 Al Hydrox/Mg Hydrox/Simethicone (Maalox Plus*) 30 ml PO Q4H PRN PRN Reason: INDIGESTION Fluticasone Propionate (Flonase Nasal [place] 50mcg*) 1 spray INTRANASAL DAILY [facility] Last Admin: 07/01/18 09:39 Dose: Not Given Lamotrigine (Lamictal Tab(*)) 200 mg PO DAILY [facility] Last Admin: 07/01/18 09:36 Dose: 200 mg Lisinopril (Prinivil Tab*) 5 mg PO DAILY [facility] Last Admin: 07/01/18 09:37 Dose: 5 mg Lorazepam (Ativan Tab(*)) 2 mg PO Q4H PRN PRN Reason: ANXIETY Last Admin: 07/01/18 10:25 Dose: 2 mg Mometasone Furoate (Asmanex 220 Mcg Mdi *) 2 puff INH QPM [facility] Last Admin: 06/30/18 19:35 Dose: Not Given Multivitamins/Minerals (Theragran/Minerals Tab*) 1 tab PO DAILY [facility] Last Admin: 07/01/18 09:36 Dose: 1 tab Pantoprazole Sodium (Protonix Tab (Nf)) 40 mg PO DAILY [facility] Last Admin: 07/01/18 09:36 Dose: 40 mg Prazosin HCl (Minipress Cap*) 5 mg PO BEDTIME [facility] Last Admin: 06/30/18 19:21 Dose: 5 mg Prazosin HCl (Minipress Cap*) 1 mg PO BEDTIME [facility] Last Admin: 06/30/18 19:22 Dose: 1 mg Quetiapine Fumarate (Seroquel Tab*) 50 mg PO QAM [facility] Last Admin: 07/01/18 09:36 Dose: 50 mg Quetiapine Fumarate (Seroquel Tab*) 100 mg PO BEDTIME [facility] Last Admin: 06/30/18 19:22 Dose: 100 mg Risperidone (Risperdal*) 2 mg PO Q4H PRN PRN Reason: AGITATION Zolpidem Tartrate (Ambien Tab*) 10 mg PO BEDTIME [facility] Last Admin: 06/30/18 19:22 Dose: 10 mg - Discharge Plan Discharge Plan: Outpatient Follow Up Outpatient Program: [facility] - Sandy is receiving increased PRN medication to reduce agitated behavior.
[2018-07-01] MEDS: risperiDONE TAB* 1 MG PO PRN (16:51)
[2018-07-01] MEDS: Mometasone 220 MCG MDI INH SCH (17:37)
[2018-07-01] MEDS: QUEtiapine TAB* 100 MG PO SCH (20:14)
[2018-07-01] MEDS: Zolpidem TAB* 10 MG PO SCH (20:14)
[2018-07-01] MEDS: Prazosin CAP* 1 MG PO SCH (20:14)
[2018-07-01] MEDS: Prazosin CAP* 5 MG PO SCH (20:14)
[2018-07-02] MEDS: LORazepam TAB(*) 1 MG PO PRN ×3 (04:04→16:30)
[2018-07-02] MEDS: risperiDONE TAB* 1 MG PO PRN ×2 (08:58→19:15)
[2018-07-02] MEDS: Lisinopril TAB* 5 MG PO SCH (08:58)
[2018-07-02] MEDS: QUEtiapine TAB* 25 MG PO SCH (08:58)
[2018-07-02] MEDS: Pantoprazole TAB * 40 MG TAB PO SCH (08:58)
[2018-07-02] MEDS: Multivitamins/Minerals TAB PO SCH (08:58)
[2018-07-02] MEDS: lamoTRIgine TAB(*) 100 MG PO SCH (08:58)
--- NOTE | 2018-07-02 11:24 | PN ---
Subjective - Subjective Date of Service: 07/02/18 Service Type: 17797 Hosp care 25 min moderate complexity Subjective: Patient tearful, hypervigilant and tremulous upon approach. She received prn lorazepam just prior to casualty underwriter entering room. She requests to "have my sheets back." Patient notified of need to remain free from self-injury/attempts for 24 hours prior to discontinuation of current treatment plan. Patient receptive to prompts to engage in grounding. Patient remains on constant observation due to attempts to self injure. Objective - Appearance Appearance: Well Developed/Nourished Dysmorphic Features: Yes Hygiene: Dirty Grooming: Disheveled - Behavior Psychomotor Activities: Normal Exhibits Abnormal Movement: No - Attitude and Relatedness Attitude and Relatedness: Regressed Eye Contact: Poor - Speech Quality: Unpressured Latencies: Long Quantity: Terse - Mood Patient's Decription of Mood: no answer - Affect Observed Affect: Depressed Affect Consistent with: Dysphoria - Thought Process Patient's Thought Process: Impoverished Thought Content: Yes Passive Wish, Yes Suicidal Planning, No Homicidal Ideation, No Paranoid Ideation - Sensorium Experiencing Hallucinations: Yes Type of Hallucinations: Visual: Yes, Auditory: Yes, Command: No - Level of Consciousness Level of Consciousness: Alert Orientation: Yes Intact, Yes Orientated to Time, Yes Orientated to Place, Yes Orientated to Person - Impulse Control Impulse Control: Impaired - Insight and Judgement Insight and Judgement: Impaired - Group Participation Particating in Group Activities: No - Medication Management Medication Management Adherence: Yes Assessment - Assessment Merits Inpatient Hospitalization: For Immediate Safety, For Stabilization Inpatient DSM-V Dx: F43.11 Clinical Impression: Sandy is a 52 year old woman with a history of PTSD and Borderline Personality Disorder. She was admitted involuntarily due to suicidal ideation. She merits continued hospitalization due to attempts to harm self. Plan - Plan Treatment Plan: Name: SANDY JAIMES Birthdate: 1965 [id number] continue acute intensive psychiatric treatment. remain on constant observation. start behavior modification plan continue current medications. Continued Medication Management: Continue Outpt Medication Medications: Current Medications Acetaminophen (Tylenol Tab*) 650 mg PO Q4H PRN PRN Reason: PAIN; OR TEMP >101 Al Hydrox/Mg Hydrox/Simethicone (Maalox Plus*) 30 ml PO Q4H PRN PRN Reason: INDIGESTION Fluticasone Propionate (Flonase Nasal [place] 50mcg*) 1 spray INTRANASAL DAILY [facility] Last Admin: 07/01/18 09:39 Dose: Not Given Lamotrigine (Lamictal Tab(*)) 200 mg PO DAILY [facility] Last Admin: 07/02/18 08:58 Dose: 200 mg Lisinopril (Prinivil Tab*) 5 mg PO DAILY [facility] Last Admin: 07/02/18 08:58 Dose: 5 mg Lorazepam (Ativan Tab(*)) 2 mg PO Q4H PRN PRN Reason: ANXIETY Last Admin: 07/02/18 04:04 Dose: 2 mg Mometasone Furoate (Asmanex 220 Mcg Mdi *) 2 puff INH QPM [facility] Last Admin: 07/01/18 17:37 Dose: 2 puff Multivitamins/Minerals (Theragran/Minerals Tab*) 1 tab PO DAILY [facility] Last Admin: 07/02/18 08:58 Dose: 1 tab Pantoprazole Sodium (Protonix Tab (Nf)) 40 mg PO DAILY [facility] Last Admin: 07/02/18 08:58 Dose: 40 mg Prazosin HCl (Minipress Cap*) 5 mg PO BEDTIME [facility] Last Admin: 07/01/18 20:14 Dose: 5 mg Prazosin HCl (Minipress Cap*) 1 mg PO BEDTIME [facility] Last Admin: 07/01/18 20:14 Dose: 1 mg Quetiapine Fumarate (Seroquel Tab*) 50 mg PO QAM [facility] Last Admin: 07/02/18 08:58 Dose: 50 mg Quetiapine Fumarate (Seroquel Tab*) 100 mg PO BEDTIME [facility] Last Admin: 07/01/18 20:14 Dose: 100 mg Risperidone (Risperdal*) 2 mg PO Q4H PRN PRN Reason: AGITATION Last Admin: 07/02/18 08:58 Dose: 2 mg Zolpidem Tartrate (Ambien Tab*) 10 mg PO BEDTIME [facility] Last Admin: 07/01/18 20:14 Dose: 10 mg - Discharge Plan Discharge Plan: Inpatient Hospitalization
[2018-07-02] MEDS: Fluticasone NASAL SPRAY 50MCG* 16 gm SPRAY BTL INTRANASAL SCH (11:25)
[2018-07-02] MEDS: Mometasone 220 MCG MDI INH SCH (18:41)
[2018-07-02] MEDS: Prazosin CAP* 1 MG PO SCH (20:00)
[2018-07-02] MEDS: Prazosin CAP* 5 MG PO SCH (20:01)
[2018-07-02] MEDS: Zolpidem TAB* 10 MG PO SCH (20:01)
[2018-07-02] MEDS: QUEtiapine TAB* 100 MG PO SCH (20:01)
[2018-07-02] MEDS: PTO: Diclofenac 1% GEL (NF) 100 GM TUBE TOPICAL PRN (21:00)
[2018-07-03] MEDS: Lisinopril TAB* 5 MG PO SCH (08:59)
[2018-07-03] MEDS: QUEtiapine TAB* 25 MG PO SCH (08:59)
[2018-07-03] MEDS: Multivitamins/Minerals TAB PO SCH (08:59)
[2018-07-03] MEDS: lamoTRIgine TAB(*) 100 MG PO SCH (08:59)
[2018-07-03] MEDS: Pantoprazole TAB * 40 MG TAB PO SCH (08:59)
[2018-07-03] MEDS: Fluticasone NASAL SPRAY 50MCG* 16 gm SPRAY BTL INTRANASAL SCH (09:00)
[2018-07-03] MEDS: LORazepam TAB(*) 1 MG PO PRN (11:35)
--- NOTE | 2018-07-03 14:05 | PN ---
Subjective - Subjective Service Type: 02204 Hosp care 15 min low complexity Subjective: patient continues to attempt self-injurious behavior during panic attacks and flashbacks. she reports desire for constant observation to discontinue. We discuss criteria for this, including remaining free from self harm. Patient is given materials for distraction and encouraged to utilize staff for grounding techniques during dissociative episodes. Objective - Appearance Appearance: Well Developed/Nourished Dysmorphic Features: Yes Hygiene: Dirty Grooming: Disheveled - Behavior Psychomotor Activities: Normal Exhibits Abnormal Movement: No - Attitude and Relatedness Attitude and Relatedness: Regressed Eye Contact: Poor - Speech Quality: Unpressured Latencies: Long Quantity: Terse - Mood Patient's Decription of Mood: no answer - Affect Observed Affect: Depressed Affect Consistent with: Dysphoria - Thought Process Patient's Thought Process: Circumstantial Thought Content: Yes Passive Wish, No Suicidal Planning, No Homicidal Ideation, No Paranoid Ideation - Sensorium Experiencing Hallucinations: No, Sensorium is Clear Type of Hallucinations: Visual: No, Auditory: No, Command: No - Level of Consciousness Level of Consciousness: Alert Orientation: Yes Intact, Yes Orientated to Time, Yes Orientated to Place, Yes Orientated to Person - Impulse Control Impulse Control: Impaired - Insight and Judgement Insight and Judgement: Impaired - Group Participation Particating in Group Activities: No - Medication Management Medication Management Adherence: Yes Assessment - Assessment Merits Inpatient Hospitalization: For Immediate Safety, For Stabilization Inpatient DSM-V Dx: F43.11 Clinical Impression: Sandy is a 52 year old woman with a history of PTSD and Borderline Personality Disorder. She was admitted involuntarily due to suicidal ideation. She merits continued hospitalization due to attempts to harm self. Plan - Plan Treatment Plan: Name: SANDY JAIMES Birthdate: 1965 [id number] continue acute intensive psychiatric treatment. remain on constant observation. continue behavior modification plan continue current medications. Continued Medication Management: Continue Outpt Medication Medications: Current Medications Acetaminophen (Tylenol Tab*) 650 mg PO Q4H PRN PRN Reason: PAIN; OR TEMP >101 Al Hydrox/Mg Hydrox/Simethicone (Maalox Plus*) 30 ml PO Q4H PRN PRN Reason: INDIGESTION Diclofenac Sodium (Voltaren 1% Gel (Nf)) 1 applic TOPICAL TID PRN PRN Reason: PAIN AND INFLAMMATION Last Admin: 07/02/18 21:00 Dose: 1 applic Fluticasone Propionate (Flonase Nasal [place] 50mcg*) 1 spray INTRANASAL DAILY [facility] Last Admin: 07/03/18 09:00 Dose: 1 spray Lamotrigine (Lamictal Tab(*)) 200 mg PO DAILY [facility] Last Admin: 07/03/18 08:59 Dose: 200 mg Lisinopril (Prinivil Tab*) 5 mg PO DAILY [facility] Last Admin: 07/03/18 08:59 Dose: 5 mg Lorazepam (Ativan Tab(*)) 2 mg PO Q4H PRN PRN Reason: ANXIETY Last Admin: 07/03/18 11:35 Dose: 2 mg Mometasone Furoate (Asmanex 220 Mcg Mdi *) 2 puff INH QPM [facility] Last Admin: 07/02/18 18:41 Dose: 2 puff Multivitamins/Minerals (Theragran/Minerals Tab*) 1 tab PO DAILY [facility] Last Admin: 07/03/18 08:59 Dose: 1 tab Pantoprazole Sodium (Protonix Tab (Nf)) 40 mg PO DAILY [facility] Last Admin: 07/03/18 08:59 Dose: 40 mg Prazosin HCl (Minipress Cap*) 5 mg PO BEDTIME [facility] Last Admin: 07/02/18 20:01 Dose: 5 mg Prazosin HCl (Minipress Cap*) 1 mg PO BEDTIME [facility] Last Admin: 07/02/18 20:00 Dose: 1 mg Quetiapine Fumarate (Seroquel Tab*) 50 mg PO QAM [facility] Last Admin: 07/03/18 08:59 Dose: 50 mg Quetiapine Fumarate (Seroquel Tab*) 100 mg PO BEDTIME [facility] Last Admin: 07/02/18 20:01 Dose: 100 mg Risperidone (Risperdal*) 2 mg PO Q4H PRN PRN Reason: AGITATION Last Admin: 07/02/18 19:15 Dose: 2 mg Zolpidem Tartrate (Ambien Tab*) 10 mg PO BEDTIME [facility] Last Admin: 07/02/18 20:01 Dose: 10 mg - Discharge Plan Discharge Plan: Inpatient Hospitalization
--- NOTE | 2018-07-03 16:28 | PN ---
[facility]: Group Therapy Note - Service Type Service Type: [id number] Group Psychotherapy - Medication Education Group: Patient attended group and presented with flat affect that did not vary with discussion. Although responsive to direct prompts to respond to questions, patient did not engage in spontaneous conversation.
[2018-07-03] MEDS: Mometasone 220 MCG MDI INH SCH (18:05)
[2018-07-03] MEDS: Prazosin CAP* 1 MG PO SCH (19:55)
[2018-07-03] MEDS: QUEtiapine TAB* 100 MG PO SCH (19:56)
[2018-07-03] MEDS: Zolpidem TAB* 10 MG PO SCH (19:56)
[2018-07-03] MEDS: Prazosin CAP* 5 MG PO SCH (19:56)
[2018-07-04] MEDS: LORazepam TAB(*) 1 MG PO PRN (01:45)
[2018-07-04] MEDS: risperiDONE TAB* 1 MG PO PRN ×2 (01:45→22:09)
[2018-07-04] MEDS: QUEtiapine TAB* 25 MG PO SCH (11:50)
[2018-07-04] MEDS: Acetaminophen TAB* 325 MG PO PRN ×2 (11:50→18:59)
[2018-07-04] MEDS: lamoTRIgine TAB(*) 100 MG PO SCH (11:51)
[2018-07-04] MEDS: Lisinopril TAB* 5 MG PO SCH (11:51)
[2018-07-04] MEDS: Pantoprazole TAB * 40 MG TAB PO SCH (11:51)
[2018-07-04] MEDS: Fluticasone NASAL SPRAY 50MCG* 16 gm SPRAY BTL INTRANASAL SCH (11:51)
[2018-07-04] MEDS: Multivitamins/Minerals TAB PO SCH (11:51)
[2018-07-04] MEDS: LORazepam TAB(*) 0.5 MG PO PRN ×2 (13:19→19:00)
--- NOTE | 2018-07-04 14:13 | PN ---
Subjective - Subjective Date of Service: 07/04/18 Service Type: 64951 Hosp care 25 min moderate complexity Subjective: Patient is intermittently present in milieu or seclusive to room. She has refrained from self injury since yesterday. She reports readiness to no longer need constant observation to prevent self injury. She inquires about beh-mod plan and need to attend groups. Wash Test Checker instructed continued plan and to re- evaluate during treatment team tomorrow. She continues to have flashbacks and is accepting prn medications. Objective - Appearance Appearance: Well Developed/Nourished Dysmorphic Features: Yes Hygiene: Normal Grooming: Fairly Well Kept - Behavior Psychomotor Activities: Normal Exhibits Abnormal Movement: No - Attitude and Relatedness Attitude and Relatedness: Regressed Eye Contact: Poor - Speech Quality: Unpressured Latencies: Long Quantity: Terse - Mood Patient's Decription of Mood: no answer - Affect Observed Affect: Tense Affect Consistent with: Dysphoria - Thought Process Patient's Thought Process: Impoverished Thought Content: No Passive Wish, No Suicidal Planning, No Homicidal Ideation, No Paranoid Ideation - Sensorium Experiencing Hallucinations: No, Sensorium is Clear Type of Hallucinations: Visual: No, Auditory: No, Command: No - Level of Consciousness Level of Consciousness: Alert Orientation: Yes Intact, Yes Orientated to Time, Yes Orientated to Place, Yes Orientated to Person - Impulse Control Impulse Control: Impaired - Insight and Judgement Insight and Judgement: Impaired - Group Participation Particating in Group Activities: Yes - Medication Management Medication Management Adherence: Yes Assessment - Assessment Merits Inpatient Hospitalization: For Immediate Safety, For Stabilization Inpatient DSM-V Dx: F43.11 Clinical Impression: Sandy is a 52 year old woman with a history of PTSD and Borderline Personality Disorder. She was admitted involuntarily due to suicidal ideation. She merits continued hospitalization due to attempts to harm self. Plan - Plan Treatment Plan: Name: SANDY JAIMES Birthdate: 1965 [id number] continue acute intensive psychiatric treatment. may decrease to q15min. continue behavior modification plan continue current medications. Continued Medication Management: Continue Outpt Medication Medications: Current Medications Acetaminophen (Tylenol Tab*) 650 mg PO Q4H PRN PRN Reason: PAIN; OR TEMP >101 Last Admin: 07/04/18 11:50 Dose: 650 mg Al Hydrox/Mg Hydrox/Simethicone (Maalox Plus*) 30 ml PO Q4H PRN PRN Reason: INDIGESTION Last Admin: 07/04/18 12:35 Dose: 30 ml Diclofenac Sodium (Voltaren 1% Gel (Nf)) 1 applic TOPICAL TID PRN PRN Reason: PAIN AND INFLAMMATION Last Admin: 07/02/18 21:00 Dose: 1 applic Fluticasone Propionate (Flonase Nasal [place] 50mcg*) 1 spray INTRANASAL DAILY [facility] Last Admin: 07/04/18 11:51 Dose: 1 spray Lamotrigine (Lamictal Tab(*)) 200 mg PO DAILY [facility] Last Admin: 07/04/18 11:51 Dose: 200 mg Lisinopril (Prinivil Tab*) 5 mg PO DAILY [facility] Last Admin: 07/04/18 11:51 Dose: 5 mg Lorazepam (Ativan Tab(*)) 2 mg PO Q4H PRN PRN Reason: ANXIETY Last Admin: 07/04/18 13:19 Dose: 2 mg Mometasone Furoate (Asmanex 220 Mcg Mdi *) 2 puff INH QPM [facility] Last Admin: 07/03/18 18:05 Dose: 2 puff Multivitamins/Minerals (Theragran/Minerals Tab*) 1 tab PO DAILY [facility] Last Admin: 07/04/18 11:51 Dose: 1 tab Pantoprazole Sodium (Protonix Tab (Nf)) 40 mg PO DAILY [facility] Last Admin: 07/04/18 11:51 Dose: 40 mg Prazosin HCl (Minipress Cap*) 5 mg PO BEDTIME [facility] Last Admin: 07/03/18 19:56 Dose: 5 mg Prazosin HCl (Minipress Cap*) 1 mg PO BEDTIME [facility] Last Admin: 07/03/18 19:55 Dose: 1 mg Quetiapine Fumarate (Seroquel Tab*) 50 mg PO QAM [facility] Last Admin: 07/04/18 11:50 Dose: 50 mg Quetiapine Fumarate (Seroquel Tab*) 100 mg PO BEDTIME [facility] Last Admin: 07/03/18 19:56 Dose: 100 mg Risperidone (Risperdal*) 2 mg PO Q4H PRN PRN Reason: AGITATION Last Admin: 07/04/18 01:45 Dose: 2 mg Zolpidem Tartrate (Ambien Tab*) 10 mg PO BEDTIME [facility] Last Admin: 07/03/18 19:56 Dose: 10 mg - Discharge Plan Discharge Plan: Inpatient Hospitalization
[2018-07-04] MEDS: Mometasone 220 MCG MDI INH SCH (17:20)
[2018-07-04] MEDS: Prazosin CAP* 5 MG PO SCH (19:49)
[2018-07-04] MEDS: QUEtiapine TAB* 100 MG PO SCH (19:49)
[2018-07-04] MEDS: Prazosin CAP* 1 MG PO SCH (19:49)
[2018-07-04] MEDS: Zolpidem TAB* 10 MG PO SCH (19:49)
[2018-07-04] MEDS: Amoxicillin/Clavulanate TAB* 875 MG PO SCH (19:50)
[2018-07-04] MEDS ORDERED: Amoxicillin PO (*) 500 MG CAP PO SCH (21:00)
[2018-07-05] MEDS: LORazepam TAB(*) 0.5 MG PO PRN ×2 (05:15→18:29)
[2018-07-05] MEDS: risperiDONE TAB* 1 MG PO PRN ×2 (05:15→20:50)
[2018-07-05] MEDS: Acetaminophen TAB* 325 MG PO PRN ×3 (05:25→14:44)
[2018-07-05] MEDS: QUEtiapine TAB* 25 MG PO SCH (09:58)
[2018-07-05] MEDS: Lisinopril TAB* 5 MG PO SCH (09:59)
[2018-07-05] MEDS: lamoTRIgine TAB(*) 100 MG PO SCH (09:59)
[2018-07-05] MEDS: Pantoprazole TAB * 40 MG TAB PO SCH (09:59)
[2018-07-05] MEDS: Amoxicillin/Clavulanate TAB* 875 MG PO SCH ×2 (10:00→20:50)
[2018-07-05] MEDS: Multivitamins/Minerals TAB PO SCH (10:01)
[2018-07-05] MEDS: Fluticasone NASAL SPRAY 50MCG* 16 gm SPRAY BTL INTRANASAL SCH (10:02)
--- NOTE | 2018-07-05 14:07 | PN ---
Subjective - Subjective Date of Service: 07/05/18 Service Type: 29626 Hosp care 15 min low complexity Subjective: Patient remains on 15min observation with no self injury. She presents as irritable today and attributes this to a particular peer. She denies readiness for discharge today due to continued flashbacks and urges for self-harm. Objective - Appearance Appearance: Well Developed/Nourished Dysmorphic Features: Yes Hygiene: Normal Grooming: Well Kept - Behavior Psychomotor Activities: Normal Exhibits Abnormal Movement: No - Attitude and Relatedness Attitude and Relatedness: Irritable Eye Contact: Fair - Speech Quality: Unpressured Latencies: Normal Quantity: Terse - Mood Patient's Decription of Mood: "pissed off" - Affect Observed Affect: Depressed Affect Consistent with: Dysphoria - Thought Process Patient's Thought Process: Circumstantial Thought Content: Yes Passive Wish, No Suicidal Planning, No Homicidal Ideation, No Paranoid Ideation - Sensorium Experiencing Hallucinations: Yes Type of Hallucinations: Visual: Yes, Auditory: Yes, Command: No - Level of Consciousness Level of Consciousness: Alert Orientation: Yes Intact, Yes Orientated to Time, Yes Orientated to Place, Yes Orientated to Person - Impulse Control Impulse Control: Poor - Insight and Judgement Insight and Judgement: Poor - Group Participation Particating in Group Activities: Yes - Medication Management Medication Management Adherence: Yes Assessment - Assessment Merits Inpatient Hospitalization: For Immediate Safety, For Stabilization Inpatient DSM-V Dx: F43.11 Clinical Impression: Sandy is a 52 year old woman with a history of PTSD and Borderline Personality Disorder. She was admitted involuntarily due to suicidal ideation. She merits continued hospitalization due to attempts to harm self. Plan - Plan Treatment Plan: Name: SANDY JAIMES Birthdate: 1965 [id number] continue acute intensive psychiatric treatment. continue q15min obs. continue behavior modification plan continue current medications discharge tentative 07/08/18. Continued Medication Management: Continue Outpt Medication Medications: Current Medications Acetaminophen (Tylenol Tab*) 650 mg PO Q4H PRN PRN Reason: PAIN; OR TEMP >101 Last Admin: 07/05/18 09:57 Dose: 650 mg Al Hydrox/Mg Hydrox/Simethicone (Maalox Plus*) 30 ml PO Q4H PRN PRN Reason: INDIGESTION Last Admin: 07/04/18 12:35 Dose: 30 ml Amoxicillin/Clavulanate Potassium (Augmentin Tab*) 875 mg PO BID [facility] Stop: 07/11/18 09:01 Last Admin: 07/05/18 10:00 Dose: 875 mg Diclofenac Sodium (Voltaren 1% Gel (Nf)) 1 applic TOPICAL TID PRN PRN Reason: PAIN AND INFLAMMATION Last Admin: 07/02/18 21:00 Dose: 1 applic Fluticasone Propionate (Flonase Nasal [place] 50mcg*) 1 spray INTRANASAL DAILY [facility] Last Admin: 07/05/18 10:02 Dose: 1 spray Lamotrigine (Lamictal Tab(*)) 200 mg PO DAILY [facility] Last Admin: 07/05/18 09:59 Dose: 200 mg Lisinopril (Prinivil Tab*) 5 mg PO DAILY [facility] Last Admin: 07/05/18 09:59 Dose: 5 mg Lorazepam (Ativan Tab(*)) 2 mg PO Q4H PRN PRN Reason: ANXIETY Last Admin: 07/05/18 05:15 Dose: 2 mg Mometasone Furoate (Asmanex 220 Mcg Mdi *) 2 puff INH QPM [facility] Last Admin: 07/04/18 17:20 Dose: 2 puff Multivitamins/Minerals (Theragran/Minerals Tab*) 1 tab PO DAILY [facility] Last Admin: 07/05/18 10:01 Dose: 1 tab Pantoprazole Sodium (Protonix Tab (Nf)) 40 mg PO DAILY [facility] Last Admin: 07/05/18 09:59 Dose: 40 mg Prazosin HCl (Minipress Cap*) 5 mg PO BEDTIME [facility] Last Admin: 07/04/18 19:49 Dose: 5 mg Prazosin HCl (Minipress Cap*) 1 mg PO BEDTIME [facility] Last Admin: 07/04/18 19:49 Dose: 1 mg Quetiapine Fumarate (Seroquel Tab*) 50 mg PO QAM [facility] Last Admin: 07/05/18 09:58 Dose: 50 mg Quetiapine Fumarate (Seroquel Tab*) 100 mg PO BEDTIME [facility] Last Admin: 07/04/18 19:49 Dose: 100 mg Risperidone (Risperdal*) 2 mg PO Q4H PRN PRN Reason: AGITATION Last Admin: 07/05/18 05:15 Dose: 2 mg Zolpidem Tartrate (Ambien Tab*) 10 mg PO BEDTIME [facility] Last Admin: 07/04/18 19:49 Dose: 10 mg - Discharge Plan Discharge Plan: Inpatient Hospitalization Outpatient Program: [facility]
[2018-07-05] MEDS: PTO: Diclofenac 1% GEL (NF) 100 GM TUBE TOPICAL PRN (15:33)
[2018-07-05] MEDS: Mometasone 220 MCG MDI INH SCH (18:29)
[2018-07-05] MEDS: Prazosin CAP* 1 MG PO SCH (20:49)
[2018-07-05] MEDS: Prazosin CAP* 5 MG PO SCH (20:49)
[2018-07-05] MEDS: QUEtiapine TAB* 100 MG PO SCH (20:50)
[2018-07-05] MEDS: Zolpidem TAB* 10 MG PO SCH (20:50)
[2018-07-06] MEDS: QUEtiapine TAB* 25 MG PO SCH (10:13)
[2018-07-06] MEDS: Lisinopril TAB* 5 MG PO SCH (10:13)
[2018-07-06] MEDS: Amoxicillin/Clavulanate TAB* 875 MG PO SCH ×2 (10:13→20:35)
[2018-07-06] MEDS: lamoTRIgine TAB(*) 100 MG PO SCH (10:13)
[2018-07-06] MEDS: Pantoprazole TAB * 40 MG TAB PO SCH (10:13)
[2018-07-06] MEDS: Multivitamins/Minerals TAB PO SCH (10:13)
[2018-07-06] MEDS: Acetaminophen TAB* 325 MG PO PRN (10:15)
[2018-07-06] MEDS: Fluticasone NASAL SPRAY 50MCG* 16 gm SPRAY BTL INTRANASAL SCH (10:17)
[2018-07-06] MEDS: PTO: Diclofenac 1% GEL (NF) 100 GM TUBE TOPICAL PRN (10:28)
[2018-07-06] MEDS: LORazepam TAB(*) 0.5 MG PO PRN ×2 (15:55→23:54)
[2018-07-06] MEDS: Mometasone 220 MCG MDI INH SCH (17:20)
[2018-07-06] MEDS: QUEtiapine TAB* 100 MG PO SCH (20:35)
[2018-07-06] MEDS: Prazosin CAP* 5 MG PO SCH (20:35)
[2018-07-06] MEDS: Zolpidem TAB* 10 MG PO SCH (20:35)
[2018-07-06] MEDS: Prazosin CAP* 1 MG PO SCH (20:35)
[2018-07-07] MEDS: LORazepam TAB(*) 0.5 MG PO PRN ×3 (04:47→17:35)
[2018-07-07] MEDS: lamoTRIgine TAB(*) 100 MG PO SCH (11:09)
[2018-07-07] MEDS: Amoxicillin/Clavulanate TAB* 875 MG PO SCH ×2 (11:09→20:53)
[2018-07-07] MEDS: QUEtiapine TAB* 25 MG PO SCH (11:09)
[2018-07-07] MEDS: Fluticasone NASAL SPRAY 50MCG* 16 gm SPRAY BTL INTRANASAL SCH (11:10)
[2018-07-07] MEDS: Multivitamins/Minerals TAB PO SCH (11:10)
[2018-07-07] MEDS: Lisinopril TAB* 5 MG PO SCH (11:10)
[2018-07-07] MEDS: Pantoprazole TAB * 40 MG TAB PO SCH (11:10)
[2018-07-07] MEDS: PTO: Diclofenac 1% GEL (NF) 100 GM TUBE TOPICAL PRN (13:24)
[2018-07-07] MEDS: Mometasone 220 MCG MDI INH SCH (17:21)
[2018-07-07] MEDS: Prazosin CAP* 1 MG PO SCH (20:53)
[2018-07-07] MEDS: QUEtiapine TAB* 100 MG PO SCH (20:53)
[2018-07-07] MEDS: Prazosin CAP* 5 MG PO SCH (20:53)
[2018-07-07] MEDS: Zolpidem TAB* 10 MG PO SCH (20:53)
[2018-07-08] MEDS: LORazepam TAB(*) 0.5 MG PO PRN (01:08)
[2018-07-08] MEDS: Fluticasone NASAL SPRAY 50MCG* 16 gm SPRAY BTL INTRANASAL SCH (09:45)
[2018-07-08] MEDS: Lisinopril TAB* 5 MG PO SCH (09:45)
[2018-07-08] MEDS: Multivitamins/Minerals TAB PO SCH (09:46)
[2018-07-08] MEDS: lamoTRIgine TAB(*) 100 MG PO SCH (09:46)
[2018-07-08] MEDS: QUEtiapine TAB* 25 MG PO SCH (09:46)
[2018-07-08] MEDS: Pantoprazole TAB * 40 MG TAB PO SCH (09:47)
[2018-07-08] MEDS: Amoxicillin/Clavulanate TAB* 875 MG PO SCH (09:47)
[2018-07-08 09:53] VITALS: BP 129/73
[2018-07-08] MEDS: risperiDONE TAB* 1 MG PO PRN (11:25)
[2018-07-08] MEDS: PTO: Diclofenac 1% GEL (NF) 100 GM TUBE TOPICAL PRN (12:30)
--- NOTE | 2018-07-10 01:11 | DS ---
CC: Dr. Jesika Redman; [facility]; Visiting Nurse Services DISCHARGE SUMMARY: DATE OF ADMISSION: 06/29/18 DATE OF DISCHARGE: 07/08/18 SUPERVISING PSYCHIATRIST: Dr. Magdi Menjivar. DIAGNOSES: 1. Posttraumatic stress disorder. 2. Borderline personality disorder. CONDITION AT THE TIME OF DISCHARGE: Improved. The patient is no longer endorsing suicidal ideation, passive wish, or urges for self-harm. She reports readiness for discharge. She is euthymic w ith bright affect. She has benefited from acute stabilization. She reports improvement in PTSD symp toms. MENTAL STATUS EXAM: The patient is a 52-year-old white female, who appears stated age. She is well groomed and dressed in her own clothing. She is alert and oriented x3. Eye contact is good. Speech is articulate and soft. Mood is euthymic with bright affect. No abnormal psychomotor activity note d. Thought process is logical, goal directed, and coherent. Thought content is negative SI, HI, or passive wish. She denies auditory or visual hallucinations. She reports improvement in flashb acks. Insight and judgment are good. Fund of knowledge is excellent. INSTRUCTIONS GIVEN TO PATIENT: A. Home medications on discharge: 1. The only change was adding Augmentin for urinary tract infection 875 mg p.o. b.i.d. x2 more days. 2. Beclomethasone 2 puffs inhaled b.i.d. 3. Lia 100 mg daily. 4. Flonase 2 sprays both nares q.a.m. 5. Lamotrigine p.o. q.a.m. 6. Lisinopril p.o. q.a.m. 7. Meloxicam 15 mg p.o. q.a.m. 8. Multivitamin 1 tab daily. 9. Pantoprazole 40 mg p.o. q.a.m. 10. Prazosin 6 mg p.o. q.h.s. 11. Quetiapine 100 mg p.o. bedtime and 50 mg p.o. b.i.d. 12. Trintellix 10 mg p.o. q.a.m. 13. Zolpidem 10 mg p.o. q.h.s. B. Diet: Regular. C. Activity: Ambulation as tolerated. Tobacco cessation is not applicable. There are no pending la bs or diagnostic studies. D. Followup care: The patient will follow up with [facility] with Lizzie bond and Dr. Portillo. She will follow up with therapist, Carlee Munoz, on 07/10/18. She can follow up with her primary care provider, Dr. Jesika Redman, as needed and visiting nurse services will contin ue as well. E. Substance use followup: Not applicable. HOSPITAL COURSE: Part A: Reason for admission: Emelyn presented to the emergency department due to PTSD exacerbation causing suicidal ideation. She was admitted. She was evaluated in the emergency ro om and deemed appropriate for psychiatric hospitalization. Part B: Psychiatric treatment rendered: The patient was admitted to adult behavioral services unit. Code status is full. She was placed on involuntary status. Admitting psychiatrist added risperido ne and lorazepam as needed for anxiety and psychotic symptoms. The patient received these fairly con sistently for the majority of the admission. When not engaged in conversations with staff, she was s eclusive and spent time in her room during episodes of flashbacks. She was increasingly interactive. After 4 or 5 days of the above behavior, treatment team initiated behavior modification plan which included parameters for patient to stay out of her room when self-injuring and to attend at least 1 g roup per shift. The patient complied with the above behavior modification plan. She reported readin ess for discharge on 07/08/18. She was encouraged to call with any questions or concerns aft er discharge. She is notified that she has positive urinalysis for urinary tract infection and agree d to be treated with Augmentin. The patient remains at chronic risk due to severe PTSD and borderlin e personality disorder pathology. At this time, risk is lessened and the patient reports readiness t o be discharged. She denies suicidal ideation or urges for self-harm. She has demonstrated improved coping skills while hospitalized. MARI FRANCISCO, ANGELIA [id number]/[facility] #: [id number]
== END 2018-07-08 15:53 | disposition home or self-care (01) | DRG 755 ==
LOC: ED 14:56 → BSU 06-29 00:28
PROVIDERS: ADMIT Psychiatry & Neurology Psychiatry; ATTEND Psychiatry & Neurology Psychiatry
DX: F43.11 Post-traumatic stress disorder, acute (principal); R45.851 Suicidal ideations; F60.3 Borderline personality disorder; Z62.810 Personal history of physical and sexual abuse in childhood; G40.909 Epilepsy, unspecified, not intractable, without status epilepticus; K21.9 Gastro-esophageal reflux disease without esophagitis; J45.909 Unspecified asthma, uncomplicated; E78.5 Hyperlipidemia, unspecified; F44.81 Dissociative identity disorder; M16.10 Unilateral primary osteoarthritis, unspecified hip; M17.10 Unilateral primary osteoarthritis, unspecified knee; Z79.899 Other long term (current) drug therapy; Z91.041 Radiographic dye allergy status; Z88.5 Allergy status to narcotic agent; Z88.8 Allergy status to other drugs, medicaments and biological substances; Z91.048 Other nonmedicinal substance allergy status; Z81.8 Family history of other mental and behavioral disorders; Z81.1 Family history of alcohol abuse and dependence
CPT/HCPCS: 36415; 80053; 80061; 80307; 80320; 80329; 81003; 81015; 83036; 84443; 85025; 87077; 87086; 87186; 90853; 99222; 99231; 99232; 99238; 99285; A9270-GY; G0480; J1630

== ENCOUNTER 2018-11-14 14:59 | Inpatient (IN) | payer OTHER ==
[2018-11-14] MEDS ORDERED: KETAMINE HCL* 50 MG/ML 10 ML VIAL IV ONE (15:09)
--- NOTE | 2018-11-14 15:14 | ED ---
Psychiatric Complaint - HPI Summary HPI Summary: Patient is a 52 y/o F presenting to ED under 945 for SI. It is reported from [facility] that the patient had cut herself some time in the past few days, which was noted by the patient's visiting nurse. EOS was sent out to find patient yesterday but patient was not home. Patient called [facility] today for an appointment. At appointment, patient had reported increasing nightmares and difficulty sleeping. She had talked about this being the anniversary of her mother's and that a friend had recently passed. The patient had reportedly said, "I'm not going to be around tomorrow". She had attempted to run away from the office twice. In room, patient is thrashing about and uncooperative with evaluation. She is repeatedly saying, "It's my choice to kill myself". Level 5 caveat, patient is uncooperative with evaluation, patient placed in physical and chemical restraints. - History Of Current Complaint Hx Obtained From: EMS, Other: - [facility] Hx From Patient Unobtainable Due To: Other - Level 5 caveat, patient is uncooperative with evaluation Hx Last Menstrual Period: Doesnt have periods, Uterine was stripped per pt Onset/Duration: Still Present Timing: Constant Severity Currently: None Character: Depressed Aggravating Factor(s): Nothing Alleviating Factor(s): Nothing Associated Signs And Symptoms: Positive: Sleep Disturbance Has Suicidal: Reports: Thoughts - Allergies/Home Medications Allergies/Adverse Reactions: Allergies Allergy/AdvReac Type Severity Reaction Status Date / Time cephalexin Allergy Intermediate Rash Verified 11/14/18 15:12 cortisone Allergy Intermediate Hives Verified 11/14/18 15:12 Adhesive Tape Allergy Mild Rash Verified 11/14/18 15:12 codeine Allergy Mild Rash Verified 11/14/18 15:12 Iodinated Contrast- Oral and Allergy Unknown Hives Verified 11/14/18 15:12 IV Dye iodine Allergy Unknown Unknown Verified 11/14/18 15:12 Reaction Details Home Medications: Home Medications Albuterol HFA INHALER* [Ventolin HFA Inhaler*] 1 puff INH Q6H PRN 11/14/18 [ History Confirmed 11/14/18] Cetirizine* [ZyrTEC 10 MG TAB*] 10 mg PO BEDTIME PRN 11/14/18 [History Confirmed 11/14/18] Diclofenac 1% GEL (NF) [Voltaren 1% GEL (NF)] 1 applic TOPICAL BID PRN 11/14/18 [History Confirmed 11/14/18] Pseudoephedrine HCl [Sudogest] 120 mg PO DAILY 11/14/18 [History Confirmed 11/14] Triamcinolone NASAL SPRAY* [Nasacort AQ Nasal [place]*] 1 spray BOTH NARES DAILY 11/14/18 [History Confirmed 11/14/18] PMH/Surg Hx/FS Hx/Imm Hx Endocrine/Hematology History: Denies: Hx Diabetes, Hx Thyroid Disease Cardiovascular History: Reports: Hx Hypercholesterolemia, Hx Rheumatic Fever Denies: Hx Hypertension Respiratory History: Reports: Hx Asthma Denies: Hx Chronic Obstructive Pulmonary Disease (COPD) GI History: Reports: Hx Gastroesophageal Reflux Disease, Hx Irritable Bowel, Other GI Disorders - Hyperlipidemia Denies: Hx Ulcer Musculoskeletal History: Reports: Hx Arthritis - Right Knee, left hand, Hx Osteoporosis, Hx Tendonitis - hx of left hip, Other Musculoskeletal History - Right Hand PLATE AND PIN IN RIGHT KNEE Sensory History: Reports: Hx Cataracts - left, Hx Contacts or Glasses - glasses , Hx Vision Problem Denies: Hx Hearing Aid Opthamlomology History: Reports: Hx Cataracts - left, Hx Contacts or Glasses - glasses, Hx Vision Problem Neurological History: Reports: Hx Seizures - epiplepsy, no seizures for 11yrs Psychiatric History: Reports: Hx Anxiety, Hx Depression, Hx Post Traumatic Stress Disorder, Hx Inpatient Treatment, Hx Community Mental Health Tx, Hx Bipolar Disorder, Hx Suicide Attempt, Hx of Violent Episodes Against Others, Hx Substance Abuse, Other Psychiatric Issues/Disorders - BORDERLINE PERS D/O Denies: Hx Attention Deficit Hyperactivity Disorder, Hx Eating Disorder, Hx Panic Disorder, Hx Schizophrenia - Cancer History Hx Chemotherapy: No Hx Radiation Therapy: No - Surgical History Surgery Procedure, Year, and Place: d&c choley. RIGHT knee surgery 2007 and 4times more. RIGHT cataract [id number]. ORIF RIGHT HAND 2013. SEPTOPLASTY ? TUBAL LIGATION 1999 [facility]. RIGHT NECK LYMP NODE BX OR [facility]. UNSURE Hx Anesthesia Reactions: Yes - very very sick, hard to wake up - Immunization History Date of Tetanus Vaccine: < 10 YEARS Date of Influenza Vaccine: PT STATES UNSURE Infectious Disease History: Reports: Hx of Known/Suspected MRSA Denies: Hx Clostridium Difficile, Hx Hepatitis, Hx Human Immunodeficiency Virus (HIV), History Other Infectious Disease - Family History Known Family History: Positive: Unknown - Level 5 caveat, patient is uncooperative with evaluation, Other - When asked this, the patient does not respond. - Social History Alcohol Use: None Alcohol Amount: last use yesterday AM - has gone through rehab in the past Hx Substance Use: Yes Substance Use Type: Reports: None Substance Use Comment - Amount & Last Used: OPIATES NOT SINCE APR 2014 PER PT Hx Tobacco Use: No Smoking Status (MU): Never Smoked Tobacco Amount Used/How Often: never smoked. Has not smoked in the last 30 days Have You Smoked in the Last Year: No Review of Systems - ROS Summary Review of Systems Summary: Level 5 caveat, patient is uncooperative with evaluation Positive: Fever - TEMP IS 100.5 F ON VITALS Psychological: Other - POSITIVE - SI All Other Systems Reviewed And Are Negative: No - Comments Additional Review of Systems Comments: Level 5 caveat, patient is uncooperative with evaluation Physical Exam - Summary Physical Exam Summary: General: Well appearing, Cardiovascular: Skin is well perfused; flushed face, diaphoretic Pulmonary: No respiratory distress, no tachypnea Abdomen: Non-distended Skin: Warm, pink, dry; laceration to left arm Neuro: A&Ox3 Triage Information Reviewed: Yes Vital Signs On Initial Exam: Initial Vitals Temp Pulse Resp BP Pulse Ox 100.5 F 104 20 153/86 97 11/14/18 15:12 11/14/18 15:12 11/14/18 15:12 11/14/18 15:12 11/14/18 15:12 Vital Signs Reviewed: Yes Diagnostics - Laboratory Result Diagrams: 11/14/18 15:33 11/14/18 15:33 Lab Statement: Any lab studies that have been ordered have been reviewed, and results considered in the medical decision making process. Re-Evaluation - Re-Evaluation First Eval Re-Evaluation Time: 15:18 Comment: Patient is calm and dissociated. 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 Third Eval Re-Evaluation Time: 19:56 Comment: E worker at bedside to evaluate. Course/Dx - Course Course Of Treatment: Patient is a 52 y/o F presenting to ED under 945 for SI. It is reported from [facility] that the patient had cut herself some time in the past few days, which was noted by the patient's visiting nurse. EOS was sent out to find patient yesterday but patient was not home. Patient called [facility] today for an appointment. At appointment, patient had reported increasing nightmares and difficulty sleeping. She had talked about this being the anniversary of her mother's and that a friend had recently passed. The patient had reportedly said, "I'm not going to be around tomorrow". She had attempted to run away from the office twice. In room, patient is thrashing about and uncooperative with evaluation. She is repeatedly saying, "It's my choice to kill myself". Level 5 caveat, patient is uncooperative with evaluation , patient placed in physical and chemical restraints. Patient was given ketamine , 150 mg IV. On physical exam, patient is noted to be diaphoretic with flushed face, laceration on left arm. 1633 - Patient is disoriented, Patient was given Ativan 2 mg PO and Haldol 5 mg PO. 2024 - Patient was given Ativan 2 mg PO and Haldol 5 mg PO once more. 2037 - [facility] worker reports that patient will be admitted under 939 status to [facility] psych by Dr. Franz, Dr. Stafford is agreeable with this. - Differential Dx/Clinical Impression Provider Diagnosis: Major depression - Physician Notifications Discussed Care Of Patient With: Darwin Franz Time Discussed With Above Provider: 20:38 Instructed by Provider To: Other - 2037 - E worker reports that patient will be admitted under 939 status to [facility] psych by Dr. Franz, Dr. Stafford is agreeable with this. Discharge - Sign-Out/Discharge Documenting (check all that apply): Patient Departure - admit Patient Received Moderate/Deep Sedation with Procedure: No - Discharge Plan Condition: Good Disposition: PSYCHIATRIC FACILITY-[facility] Referrals: Jesika Redman MD [Primary Care Provider] - - Attestation Statements Document Initiated by Scribe: Yes Documenting Scribe: GARRISON PORTILLO Provider For Whom Scribe is Documenting (Include Credential): MARY GRACE STAFFORD MD Scribe Attestation: I, GARRISON PORTILLO, scribed for MARY GRACE STAFFORD MD on 11/14/18 at 2132. Status of Scribe Document: Ready - Assessment for Patient Restraint Evaluation of the Patient's Immediate Situation: Patient brought in attempting to flee [facility] with SI. Patient is combative, agitated. Medication reviewed from mental health, she is on lamictal. Patient's Reaction to Intervention: Patient is still thrashing in physical restraints. Patient's Medication and Behavioral Condition: Hx of anxiety and depression, suicide attempt, recent cutting behavior. Evaluate Need for Continued Restraint: Continue
--- OUTSIDE RECORDS SUMMARY | 2018-11-14 15:20 | XMS REPORT | Continuity of Care Document ---
:1965 External Reference #:[id number] Author Name Brad Tristan, OD Address [address] [place] [address] Care Team Providers Name Role Phone Jesika Redman MD Care Team Information Sales Engagement Manager Unavailable Jesika Redman MD Primary Care Physician Unavailable Payers Date Identification Numbers Payment Provider Subscriber Policy Number: [id number] [facility] Emelyn Swenson PayID: [id number] [address] [address] [place] [address] Advance Directives Description No Information Available Problems Active Problems Provider Date Keratoconjunctivitis sicca (excluding Sjogren Brad Tristan, OD Onset: 2018 syndrome) Keratoconjunctivitis sicca, not specified as Ever Flor M.D. Onset: 08/2016 Sjogren's Myopia Ever Flor M.D. Onset: 08/11/2016 Postsurgical chorioretinal scar Ever Flor M.D. Onset: 08/11/2016 Nuclear senile cataract Brad Beatty O.D. Onset: 08/10/2015 Vitreous degeneration Brad Beatty O.D. Onset: 08/10/2015 Postsurgical chorioretinal scar Brad Beatty O.D. Onset: 08/10/2015 Status Post Surgery Brad Beatty O.D. Onset: 05/05/2014 Lens Replaced By Other Means Brad Beatty O.D. 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 Onset: 03/13/2014 After-cataract with vision obscured Brad Beatty O.D. Onset: 03/13/2014 Epiretinal membrane Brad Beatty O.D. Onset: 03/13/2014 Family History Date Family Member(s) Observation Comments General Glaucoma aunt General Heart Disease grandparent General Cancer grandparent Father High BP Father due to Unknown Causes () Mother Cataract Mother due to Heart Disease () Mother High BP Social History Type Date Description Comments Sex Unknown ETOH Use Denies alcohol use Tobacco Use Start: Unknown Patient has never smoked Smoking Status Reviewed: 10/17/18 Patient has never smoked Allergies, Adverse Reactions, Alerts Active Allergies Reaction Severity Comments Date Contrast Dye 08/20/2013 Codeine 08/20/2013 Cortisone 08/20/2013 Cephalexin 08/20/2013 Adhesives 08/20/2013 Iodine 08/20/2013 Medications Active Medications SIG Qnty Indications Ordering Date Provider Restasis Multidose 1 drop both 16.5units Brad Tristan, 07/19/2018 eyes twice a OD 0.05% Emulsion day Lamictal 1 by mouth Unknown 150mg Tablets every night Ambien Unknown 5mg Tablets Protonix Unknown 20mg Tablets DR Miles HFA Unknown Aerosol Quetiapine Fumarate Unknown 50mg Tablets Qvar Redihaler Inhale Two Unknown Puffs By Mouth 80mcg/Act Aerosol Twice A Day Prazosin HCL Unknown 2mg Capsules Fexofenadine HCL Юлия BANKS, [facility] 180mg Tablets Lisinopril Юлия BANKS, [facility] 5mg Tablets Meloxicam Unknown 15mg Tablets Trintellix Unknown 10mg Tablets Quetiapine Fumarate Unknown 300mg Tablets History Medications Ciprofloxacin HCL 1 drop four 10ml Ever Flor, 05/24/2018 - 0.3% times a day M.D. 06/05/2018 Solution start the morning of surgery in the scheduled eye Ciprofloxacin HCL 1 drop left eye 5ml Ever Flor, 05/20/2018 - 0.3% four times a day M.D. 05/24/2018 Solution start the morning of surgery Ketorolac 1 drops left eye 5ml Ever Flor, 05/20/2018 - Tromethamine twice a day M.D. 07/05/2018 0.5% Solution Pred Forte 1 drops left eye 10ml Ever Flor, 05/20/2018 - 1% four times a day M.D. 07/05/2018 Suspension Prednisolone Acetate 1 drop bid OD x 5ml Brad Tristan, 01/17/2018 - 1% 1 week, then qd OD 04/09/2018 Suspension x 1 week, then d/c Prednisolone Acetate 1 drop right eye 10ml Brad Tristan, 12/27/2017 - 1% four times a day OD 01/17/2018 Suspension x 1 week, then taper as directed Restasis one drop twice 180units Brad Tristan, 05/30/2017 - 0.05% Emulsion per day both OD 07/19/2018 eyes Restasis 1 drops both 180vials H16.223 Ever Flor, 08/11/2016 - 0.05% Emulsion eyes twice a day M.D. 05/30/2017 Minipress Unknown - 2mg Capsules 05/15/2018 Neurontin Unknown - 400mg 05/15/2018 Capsules Lia-D 12 Hour Unknown - Allergy & Congestion 05/15/2018 Tablets ER 12HR Chlorpromazine HCL Unknown - 25mg 05/15/2018 Tablets Naltrexone HCL Unknown - 50mg 04/09/2018 Tablets Immunizations Description No Information Available Vital Signs Date Vital Result Comment 07/19/2018 12:19pm Intraocular Pressure Right Eye 16 mmHg Intraocular Pressure Left Eye 16 mmHg 06/05/2018 11:20am Intraocular Pressure Left Eye 18 [...] Information Available Procedures Date Code Description Status 05/28/2018 20317 Extracapsular Cataract Extraction W/Intraocular Lens Completed 05/15/2018 24584 Ophthalmic Biometry By Partial Coherence Interferometry Completed W/Intra 05/15/2018 82993 Eye Exam Est Intermediate Completed 04/09/2018 09682 Oct Retina Completed 10/08/2017 34162 Refraction Completed 10/08/2017 08398 Eye Exam Est Intermediate Completed 04/09/2017 21606 Oct Retina Completed 04/09/2017 38220 Eye Exam Est Intermediate Completed 08/11/2016 45299 Fundus Photography W/Interpretation & Report Completed 08/11/2016 04651 Refraction Completed 08/11/2016 12272 Eye Exam Est Comprehensive Completed 08/10/2015 99531 Eye Exam Est Comprehensive Completed 08/10/2015 34136 Refraction Completed 08/10/2015 99251 Ophthalmoscopy Subsequent Completed 04/23/2014 17331 Remove Secondary Cataract, Laser (Yag) Completed 04/02/2014 46488 Oct Retina Completed 04/02/2014 55023 Eye Exam Est Intermediate Completed 03/13/2014 07089 Ophthalmoscopy Subsequent Completed 03/13/2014 54753 Eye Exam Est Comprehensive Completed 05/23/2011 38559 Fundus Photography W/Interpretation & Report Completed 05/23/2011 70261 Ophthalmoscopy Initial Completed 05/23/2011 34383 Refraction Completed 05/23/2011 11144 Eye Exam New Comprehensive Completed Encounters Type [...] Visit 01/03/2018 3:15p Main Office Brad Tristan, H20.011 Primary OD iridocyclitis, right eye H16.223 Keratoconjunct sicca, not specified as Sjogren's, bilateral Office Visit 12/27/2017 9:15a Main Office Brad Tristan, H16.223 Keratoconjunct sicca, OD not specified as Sjogren's, bilateral 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
[2018-11-14 15:38] LABS: ABS Basophils 0.1 10^3/ul (0-0.2); ABS Eosinophils 0.1 10^3/ul (0-0.6); ABS Lymphocytes 1.5 10^3/ul (1.0-4.8); ABS Monocytes 0.5 10^3/ul (0-0.8); ABS Neutrophils 4.2 10^3/ul (1.5-7.7); Hematocrit 42 % (35-47); Hemoglobin 14.6 g/dL (12.0-16.0); Lymphocyte % 23.7 %; Mean Corpuscular HGB Conc 35 g/dL (31-36); Mean Corpuscular Hemoglobin 32 pg (27-31); Mean Corpuscular Volume 93 fL (80-97); Nucleated Red Blood Cells % 0.1; Platelet Count 297 10^3/uL (150-450); Red Blood Count 4.52 10^6 /uL (3.70-4.87); Red Cell Distribution Width 13 % (10-15); White Blood Count 6.3 10^3/uL (3.5-10.8)
[2018-11-14 15:55] LABS: Anion Gap 10 mmol/L (2-11); CO2 Carbon Dioxide 22 mmol/L (22-32); Calcium 9.6 mg/dL (8.6-10.3); Chloride 106 mmol/L (101-111); Potassium 3.6 mmol/L (3.5-5.0); Sodium 138 mmol/L (135-145)
[2018-11-14 16:01] LABS: ALT 11 U/L (7-52); AST 12 U/L (13-39); Albumin/Globulin Ratio 1.6 (1-3); Alkaline Phosphatase 34 U/L (34-104); BUN/Creatinine Ratio 15.6 (8-20); Blood Urea Nitrogen 10 mg/dL (6-24); EGFR African American 117.5 (>60); EGFR Non-African American 97.1 (>60); Globulin 2.5 g/dL (2-4); Glucose 91 mg/dL (70-100); Total Protein 6.5 g/dL (6.4-8.9)
[2018-11-14] MEDS ORDERED: Haloperidol TAB* 5 MG PO ONE ×2 (16:26→20:14)
[2018-11-14] MEDS ORDERED: LORazepam TAB(*) 1 MG PO ONE ×2 (16:26→20:14)
[2018-11-14 17:59] LABS: Urine Appearance Clear; Urine Bacteria Absent (Absent); Urine Bilirubin Negative (Negative); Urine Blood 2+ (Negative); Urine Color Straw; Urine Glucose Negative (Negative); Urine Ketones Trace (Negative); Urine Nitrite Negative (Negative); Urine Protein Negative (Negative); Urine Red Blood Cell Trace(0-2/hpf) (Absent); Urine Specific Gravity 1.004 (1.010-1.030); Urine Urobilinogen Negative (Negative); Urine White Blood Cell Trace(0-5/hpf) (Absent)
[2018-11-14 18:00] LABS: Acetaminophen < 15 mcg/mL; Alcohol < 10 mg/dL (<10); Salicylate < 2.50 mg/dL (<30)
[2018-11-14 18:22] LABS: Urine Benzodiazepine Screen None Detected (None Detect); Urine Opiates Screen None Detected (None Detect)
[2018-11-14] MEDS ORDERED: Cetirizine* 10 MG TAB PO PRN (23:08)
[2018-11-14] MEDS ORDERED: Albuterol HFA INHALER* 8 gm MDI INH PRN (23:08)
[2018-11-14] MEDS ORDERED: Al Hydrox/Mg Hydrox/Simet LIQ* 30 ML UDC PO PRN (23:17)
[2018-11-14] MEDS ORDERED: NFT: Diclofenac 1% GEL (NF) 100 GM TUBE TOPICAL PRN (23:21)
[2018-11-15] MEDS: Prazosin CAP* 5 MG PO SCH ×2 (04:20→21:10)
[2018-11-15] MEDS: Prazosin CAP* 1 MG PO SCH ×2 (04:21→21:10)
[2018-11-15] MEDS: Zolpidem TAB* 10 MG PO SCH ×2 (04:21→21:30)
[2018-11-15] MEDS: QUEtiapine TAB* 100 MG PO SCH ×2 (04:21→21:10)
[2018-11-15] MEDS: CMCS: Meloxicam(NF) 7.5 MG TAB PO SCH (11:25)
[2018-11-15] MEDS: Fluticasone NASAL SPRAY 50MCG* 16 gm SPRAY BTL BOTH NARES SCH (11:25)
[2018-11-15] MEDS: Pantoprazole TAB * 40 MG TAB PO SCH (11:26)
[2018-11-15] MEDS: Lisinopril TAB* 5 MG PO SCH (11:26)
[2018-11-15] MEDS: Multivitamins/Minerals TAB PO SCH (11:26)
[2018-11-15] MEDS: QUEtiapine TAB* 25 MG PO SCH ×2 (11:26→21:10)
[2018-11-15] MEDS: BECLOMETHASONE INH SCH ×2 (11:28→21:11)
[2018-11-15] MEDS ORDERED: chlorproMAZINE TAB* 50 MG ONE (15:15)
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
[2018-11-16] MEDS: chlorproMAZINE TAB* 50 MG PO PRN ×2 (01:11→10:00)
[2018-11-16] MEDS: Pantoprazole TAB * 40 MG TAB PO SCH (08:53)
[2018-11-16] MEDS: QUEtiapine TAB* 25 MG PO SCH ×2 (08:53→21:09)
[2018-11-16] MEDS: Lisinopril TAB* 5 MG PO SCH (08:53)
[2018-11-16] MEDS: Multivitamins/Minerals TAB PO SCH (08:53)
[2018-11-16] MEDS: Fluticasone NASAL SPRAY 50MCG* 16 gm SPRAY BTL BOTH NARES SCH (08:53)
[2018-11-16] MEDS: CMCS: Meloxicam(NF) 7.5 MG TAB PO SCH (08:54)
[2018-11-16] MEDS: BECLOMETHASONE INH SCH ×2 (09:26→21:18)
[2018-11-16] MEDS: Acetaminophen TAB* 325 MG PO PRN (11:48)
[2018-11-16] MEDS ORDERED: risperiDONE-M * 1 MG TAB.ORADIS PO PRN (13:15)
--- NOTE | 2018-11-16 13:21 | PN ---
Subjective - Subjective Date of Service: 11/16/18 Service Type: 00974 Hosp care 15 min low complexity Subjective: Emelyn is seen in weekend coverage for NPP, Anita Linn. The patient remains on 1:1 status due to self-harm and has been quite agitated today. To prevent self-mutilation we have removed any sharp or edged items from her room and given her newspapers and magazines to rend with her hands, which she finds soothing. I understand from staff that 50mg or oral chlorpromazine, administered earlier today, was not efficacious. Staff recalls that dissolvable risperidone has been helpful in the past. Emelyn does not engage with observer, saying only "I don't know you." She is actively experiencing SI and impulses to self-mutilate. Objective - General Observations Appearance: Disheveled Appears Stated Age: No Stature: Short Posture: Slumped Eye Contact: Avoidant Behavior/Activity: Agitated - Interaction Observations Attitude Towards Examiner: Mistrustful Stated Mood: Dysphoric Affect: Labile Speech Pattern/Tone: Delayed Thought Process: Coherent Perception: Reexperiencing Thought Content: Preoccupation/Ruminations Thought Process: Lethality: Suicidal Planning Hallucination Type: None Delusion Type: None - Cognitive Function Orientation: A&O x 4 Level of Consciousness: Awake Cognition: WNL Estimated Intelligence: Normal Insight: WNL Judgment Within Normal Limits: No Ability to Make Reasonable Decisions: Serverely Impaired - Medication Compliance Cooperative with Inpatient Medication Regimen: Yes - Group Participation Participates in Group Activities: No Assessment - Assessment Merits Inpatient Hospitalization: For Immediate Safety, For Stabilization Inpatient DSM-V Dx: F43.10 Clinical Impression: 52 y.o. single, white female with a history of PTSD, early life trauma, affective problems and borderline personality pathology arrives involuntarily on 9.45 legal status from the [facility], complaining of SI and demonstrating active self-harm. BSU: Problem List - Patient Problems (1) PTSD (post-traumatic stress disorder) Current Visit: Yes Status: Acute Code(s): F43.10 - POST-TRAUMATIC STRESS DISORDER, UNSPECIFIED SNOMED Code(s): 16580641 Plan - Plan Treatment Plan: Name: EMELYN JAIMES Birthdate: 1965 [id number] The patient has been resumed on medications, including quetiapine, prazosin and zolpidem. We will replace chlorpromazine with risperidone M-Tab 2mg PO BID prn for agitation per staff recollections. Continue to treat in the inpatient setting. Continued Medication Management: Continue Outpt Medication Medications: Current Medications Acetaminophen (Tylenol Tab*) 650 mg PO Q4H PRN PRN Reason: PAIN; OR TEMP >101 Last Admin: 11/16/18 11:48 Dose: 650 mg Al Hydrox/Mg Hydrox/Simethicone (Maalox Plus*) 30 ml PO Q4H PRN PRN Reason: INDIGESTION Albuterol (Ventolin Hfa Inhaler*) 1 puff INH Q6H PRN PRN Reason: SHORTNESS OF BREATH Beclomethasone Dipropionate (Qvar 80 Mcg Mdi(Nf)) 2 puff INH BID [facility] Last Admin: 11/16/18 09:26 Dose: Not Given Cetirizine HCl (Zyrtec*) 10 mg PO BEDTIME PRN PRN Reason: ALLERGY SYMPTOMS Diclofenac Sodium (Voltaren 1% Gel (Nf)) 1 applic TOPICAL BID PRN PRN Reason: PAIN Fluticasone Propionate (Flonase Nasal [place] 50mcg*) 1 spray BOTH NARES DAILY [facility] Last Admin: 11/16/18 08:53 Dose: 1 spray Lisinopril (Prinivil Tab*) 5 mg PO DAILY SHAYLA Last Admin: 11/16/18 08:53 Dose: 5 mg Meloxicam (Mobic(Nf)) 15 mg PO DAILY SHAYLA Last Admin: 11/16/18 08:54 Dose: 15 mg Multivitamins/Minerals (Theragran/Minerals Tab*) 1 tab PO DAILY SHAYLA Last Admin: 11/16/18 08:53 Dose: 1 tab Pantoprazole Sodium (Protonix Tab*) 40 mg PO DAILY SHAYLA Last Admin: 11/16/18 08:53 Dose: 40 mg Prazosin HCl (Minipress Cap*) 5 mg PO BEDTIME SHAYLA Last Admin: 11/15/18 21:10 Dose: 5 mg Prazosin HCl (Minipress Cap*) 1 mg PO BEDTIME SHAYLA Last Admin: 11/15/18 21:10 Dose: 1 mg Quetiapine Fumarate (Seroquel Tab*) 100 mg PO BEDTIME SHAYLA Last Admin: 11/15/18 21:10 Dose: 100 mg Quetiapine Fumarate (Seroquel Tab*) 50 mg PO BID [facility] Last Admin: 11/16/18 08:53 Dose: 50 mg Risperidone (Risperdal-M Tab *) 1 mg PO BID PRN; Protocol PRN Reason: AGITATION Zolpidem Tartrate (Ambien Tab*) 10 mg PO BEDTIME [facility] Last Admin: 11/15/18 21:30 Dose: 10 mg - Discharge Plan Discharge Plan: Inpatient Hospitalization Lab Results - Lab Results Lab Results: 11/14/18 11/14/18 11/14/18 15:33 15:33 17:46 WBC 6.3 RBC 4.52 Hgb 14.6 Hct 42 MCV 93 MCH 32 H MCHC 35 RDW 13 Plt Count 297 MPV 8.0 Neut % (Auto) 66.1 Lymph % (Auto) 23.7 Hopkins % (Auto) 8.2 Eos % (Auto) 1.0 Baso % (Auto) 1.0 Absolute Neuts (auto) 4.2 Absolute Lymphs (auto) 1.5 Absolute Monos (auto) 0.5 Absolute Eos (auto) 0.1 Absolute Basos (auto) 0.1 Absolute Nucleated RBC 0.0 Nucleated RBC % 0.1 Sodium 138 Potassium 3.6 Chloride 106 Carbon Dioxide 22 Anion Gap 10 BUN 10 Creatinine 0.64 Est GFR ( Amer) 117.5 Est GFR (Non-Af Amer) 97.1 BUN/Creatinine Ratio 15.6 Glucose 91 Calcium 9.6 Total Bilirubin 0.40 AST 12 L ALT 11 Alkaline Phosphatase 34 Total Protein 6.5 Albumin 4.0 Globulin 2.5 Albumin/Globulin Ratio 1.6 TSH 0.50 Urine Color Straw Urine Appearance Clear Urine pH 8.0 Ur Specific [place] 1.004 L Urine Protein Negative Urine Ketones Trace A Urine Blood 2+ A Urine Nitrate Negative Urine Bilirubin Negative Urine Urobilinogen Negative Ur Leukocyte Esterase Negative Urine WBC (Auto) Trace(0-5/hpf) Urine RBC (Auto) Trace(0-2/hpf) Urine Bacteria Absent Urine Glucose Negative Salicylates < 2.50 Urine Opiates Screen Acetaminophen < 15 Ur Barbiturates Screen Ur Phencyclidine Scrn Ur Amphetamines Screen U Benzodiazepines Scrn Urine Cocaine Screen U Cannabinoids Screen Serum Alcohol < 10 11/14/18 17:46 WBC RBC Hgb Hct MCV MCH MCHC RDW Plt Count MPV Neut % (Auto) Lymph % (Auto) Hopkins % (Auto) Eos % (Auto) Baso % (Auto) Absolute Neuts (auto) Absolute Lymphs (auto) Absolute Monos (auto) Absolute Eos (auto) Absolute Basos (auto) Absolute Nucleated RBC Nucleated RBC % Sodium Potassium Chloride Carbon Dioxide Anion Gap BUN Creatinine Est GFR ( Amer) Est GFR (Non-Af Amer) BUN/Creatinine Ratio Glucose Calcium Total Bilirubin AST ALT Alkaline Phosphatase Total Protein Albumin Globulin Albumin/Globulin Ratio TSH Urine Color Urine Appearance Urine pH Ur Specific [place] Urine Protein Urine Ketones Urine Blood Urine Nitrate Urine Bilirubin Urine Urobilinogen Ur Leukocyte Esterase Urine WBC (Auto) Urine RBC (Auto) Urine Bacteria Urine Glucose Salicylates Urine Opiates Screen None detected Acetaminophen Ur Barbiturates Screen None detected Ur Phencyclidine Scrn None detected Ur Amphetamines Screen None detected U Benzodiazepines Scrn None detected Urine Cocaine Screen None detected U Cannabinoids Screen None detected Serum Alcohol
[2018-11-16] MEDS: risperiDONE-M * 1 MG TAB.ORADIS PO PRN (13:53)
[2018-11-16] MEDS ORDERED: Haloperidol INJ IV/IM* 5 MG/ML AMP IM ONE (14:45)
[2018-11-16] MEDS ORDERED: diPHENhydraMINE IV* 50 MG/ML 1 ml VIAL (BENADRYL) IM ONE (14:45)
[2018-11-16] MEDS ORDERED: LORazepam INJ* 2 MG/ML 1 ML VIAL IM ONE (14:45)
[2018-11-16] MEDS ORDERED: diPHENhydraMINE IV* 50 MG/ML 1 ml VIAL (BENADRYL) ONE (14:48)
[2018-11-16] MEDS ORDERED: Haloperidol INJ IV/IM* 5 MG/ML AMP ONE (14:48)
[2018-11-16] MEDS ORDERED: LORazepam INJ* 2 MG/ML 1 ML VIAL ONE (14:49)
[2018-11-16] MEDS ORDERED: Lorazepam PYXIS KEY PRN (15:40)
[2018-11-16] MEDS: Prazosin CAP* 5 MG PO SCH (21:08)
[2018-11-16] MEDS: Prazosin CAP* 1 MG PO SCH (21:08)
[2018-11-16] MEDS: QUEtiapine TAB* 100 MG PO SCH (21:09)
[2018-11-16] MEDS: Zolpidem TAB* 10 MG PO SCH (21:09)
[2018-11-17] MEDS: Lisinopril TAB* 5 MG PO SCH (09:20)
[2018-11-17] MEDS: Pantoprazole TAB * 40 MG TAB PO SCH (09:25)
[2018-11-17] MEDS: Multivitamins/Minerals TAB PO SCH (09:25)
[2018-11-17] MEDS: QUEtiapine TAB* 25 MG PO SCH ×2 (09:27→21:32)
[2018-11-17] MEDS: Fluticasone NASAL SPRAY 50MCG* 16 gm SPRAY BTL BOTH NARES SCH (09:27)
[2018-11-17] MEDS: CMCS: Meloxicam(NF) 7.5 MG TAB PO SCH (09:27)
[2018-11-17] MEDS: BECLOMETHASONE INH SCH ×2 (09:30→21:33)
[2018-11-17] MEDS: risperiDONE-M * 1 MG TAB.ORADIS PO PRN (09:49)
[2018-11-17] MEDS ORDERED: LORazepam TAB(*) 1 MG PO ONE (10:50)
[2018-11-17] MEDS ORDERED: Haloperidol TAB* 5 MG PO ONE (10:50)
[2018-11-17] MEDS ORDERED: Haloperidol TAB* 5 MG ONE (11:23)
[2018-11-17] MEDS ORDERED: LORazepam TAB(*) 1 MG ONE (11:23)
[2018-11-17] MEDS: Acetaminophen TAB* 325 MG PO PRN (11:50)
[2018-11-17] MEDS: Zolpidem TAB* 10 MG PO SCH (21:33)
[2018-11-17] MEDS: Prazosin CAP* 1 MG PO SCH (21:33)
[2018-11-17] MEDS: QUEtiapine TAB* 100 MG PO SCH (21:33)
[2018-11-17] MEDS: Prazosin CAP* 5 MG PO SCH (21:33)
[2018-11-18] MEDS: BECLOMETHASONE INH SCH ×2 (08:59→21:35)
[2018-11-18] MEDS: Lisinopril TAB* 5 MG PO SCH (09:57)
[2018-11-18] MEDS: Fluticasone NASAL SPRAY 50MCG* 16 gm SPRAY BTL BOTH NARES SCH (09:57)
[2018-11-18] MEDS: QUEtiapine TAB* 25 MG PO SCH ×2 (09:57→22:05)
[2018-11-18] MEDS: Pantoprazole TAB * 40 MG TAB PO SCH (09:57)
[2018-11-18] MEDS: CMCS: Meloxicam(NF) 7.5 MG TAB PO SCH (09:57)
[2018-11-18] MEDS: Multivitamins/Minerals TAB PO SCH (09:57)
[2018-11-18] MEDS: risperiDONE-M * 1 MG TAB.ORADIS PO PRN (10:31)
[2018-11-18] MEDS: Acetaminophen TAB* 325 MG PO PRN ×2 (13:59→17:59)
--- NOTE | 2018-11-18 15:38 | PN ---
Subjective - Subjective Date of Service: 11/18/18 Service Type: [id number] Hosp care 25 min moderate complexity Subjective: Patient remains on 1:1 due to urges for self-harm and suicidal ideation. During interview, pt is tearful and reports desire to speak with her mother. She states she is confused about being hospitalized. We discuss recent stressors she mentioned during initial interview- recent of friend, anniversary of mother's and upcoming birthday. Patient is receptive to therapeutic suggestions. She is encouraged that she is historically able to communicate when she is safe. Objective - General Observations Appearance: Disheveled Appears Stated Age: Yes Stature: WNL Posture: Slumped Eye Contact: Avoidant Behavior/Activity: Impulsive, Agitated - Interaction Observations Attitude Towards Examiner: Cooperative, Anxious Stated Mood: Anxious Affect: Restricted Speech Pattern/Tone: Delayed, Quiet Volume Thought Process: Coherent, Impoverished Perception: WNL Thought Content: Preoccupation/Ruminations, Self-Deprecatory Thought Process: Lethality: Passive Wish, Suicidal Planning Hallucination Type: Denies Delusion Type: Denies - Cognitive Function Orientation: A&O x 4 Level of Consciousness: Alert Cognition: WNL Estimated Intelligence: Normal Insight: Difficulty Acknowledging Presence of Psyciatric Problems Judgment Within Normal Limits: No Ability to Make Reasonable Decisions: Serverely Impaired - Medication Compliance Cooperative with Inpatient Medication Regimen: Yes - Group Participation Participates in Group Activities: No Assessment - Assessment Merits Inpatient Hospitalization: For Immediate Safety, For Stabilization Inpatient DSM-V Dx: F43.10 Clinical Impression: 52 y.o. single, white female with a history of PTSD, early life trauma, affective problems and borderline personality pathology arrives involuntarily on 45 legal status from the [facility], complaining of SI and demonstrating active self-harm. Plan - Plan Treatment Plan: Name: SANDY JAIMES Birthdate: 1965 [id number] The patient has been resumed on medications, including quetiapine, prazosin and zolpidem. We will replace chlorpromazine with risperidone M-Tab 2mg PO BID prn for agitation per staff recollections. Continue to treat in the inpatient setting. Continued Medication Management: Continue Outpt Medication Medications: Current Medications Acetaminophen (Tylenol Tab*) 650 mg PO Q4H PRN PRN Reason: PAIN; OR TEMP >101 Last Admin: 11/18/18 13:59 Dose: 650 mg Al Hydrox/Mg Hydrox/Simethicone (Maalox Plus*) 30 ml PO Q4H PRN PRN Reason: INDIGESTION Albuterol (Ventolin Hfa Inhaler*) 1 puff INH Q6H PRN PRN Reason: SHORTNESS OF BREATH Last Admin: 11/17/18 09:29 Dose: 1 inh Beclomethasone Dipropionate (Qvar 80 Mcg Mdi(Nf)) 2 puff INH BID [facility] Last Admin: 11/18/18 08:59 Dose: Not Given Cetirizine HCl (Zyrtec*) 10 mg PO BEDTIME PRN PRN Reason: ALLERGY SYMPTOMS Diclofenac Sodium (Voltaren 1% Gel (Nf)) 1 applic TOPICAL BID PRN PRN Reason: PAIN Fluticasone Propionate (Flonase Nasal [place] 50mcg*) 1 spray BOTH NARES DAILY [facility] Last Admin: 11/18/18 09:57 Dose: 1 spray Lisinopril (Prinivil Tab*) 5 mg PO DAILY [facility] Last Admin: 11/18/18 09:57 Dose: 5 mg Meloxicam (Mobic(Nf)) 15 mg PO DAILY [facility] Last Admin: 11/18/18 09:57 Dose: 15 mg Miscellaneous (Ativan Pyxis Holguin) 1 ea N/A .PYXIS HOLGUIN PRN PRN Reason: PER PROTOCOL Multivitamins/Minerals (Theragran/Minerals Tab*) 1 tab PO DAILY [facility] Last Admin: 11/18/18 09:57 Dose: 1 tab Pantoprazole Sodium (Protonix Tab*) 40 mg PO DAILY [facility] Last Admin: 11/18/18 09:57 Dose: 40 mg Prazosin HCl (Minipress Cap*) 5 mg PO BEDTIME SHAYLA Last Admin: 11/17/18 21:33 Dose: 5 mg Prazosin HCl (Minipress Cap*) 1 mg PO BEDTIME SHAYLA Last Admin: 11/17/18 21:33 Dose: 1 mg Quetiapine Fumarate (Seroquel Tab*) 100 mg PO BEDTIME SHAYLA Last Admin: 11/17/18 21:33 Dose: 100 mg Quetiapine Fumarate (Seroquel Tab*) 50 mg PO BID [facility] Last Admin: 11/18/18 09:57 Dose: 50 mg Risperidone (Risperdal-M Tab *) 2 mg PO BID PRN; Protocol PRN Reason: AGITATION Last Admin: 11/18/18 10:31 Dose: 2 mg Zolpidem Tartrate (Ambien Tab*) 10 mg PO BEDTIME SHAYLA Last Admin: 11/17/18 21:33 Dose: 10 mg - Discharge Plan Discharge Plan: Inpatient Hospitalization
[2018-11-18] MEDS: Prazosin CAP* 1 MG PO SCH (22:04)
[2018-11-18] MEDS: QUEtiapine TAB* 100 MG PO SCH (22:06)
[2018-11-18] MEDS: Zolpidem TAB* 10 MG PO SCH (22:07)
[2018-11-18] MEDS: Prazosin CAP* 5 MG PO SCH (22:07)
[2018-11-19 06:42] LABS: HDL Cholesterol 25.2 mg/dL
[2018-11-19] MEDS: Acetaminophen TAB* 325 MG PO PRN ×4 (06:54→20:09)
[2018-11-19] MEDS: CMCS: Meloxicam(NF) 7.5 MG TAB PO SCH (08:10)
[2018-11-19] MEDS: QUEtiapine TAB* 25 MG PO SCH ×2 (08:11→22:47)
[2018-11-19] MEDS: Pantoprazole TAB * 40 MG TAB PO SCH (08:11)
[2018-11-19] MEDS: Multivitamins/Minerals TAB PO SCH (08:12)
[2018-11-19] MEDS: Lisinopril TAB* 5 MG PO SCH (08:12)
[2018-11-19] MEDS: Fluticasone NASAL SPRAY 50MCG* 16 gm SPRAY BTL BOTH NARES SCH (08:13)
--- NOTE | 2018-11-19 10:36 | PN ---
Subjective - Subjective Date of Service: 11/19/18 Service Type: [id number] Hosp care 25 min moderate complexity Subjective: Patient is visible walking about unit, beginning to smile and interact with others. She denies urges for self harm and states preference to not be under 1: 1 observation. She inquires about bruising on her wrists; does not recall being transported via police or attempting to elope from [facility] and ED. Patient states she is hoping to be discharged by the of this month due to a Section 8 inspection. Objective - General Observations Appearance: Malodorous Stature: WNL Posture: WNL Eye Contact: Average Behavior/Activity: WNL - Interaction Observations Attitude Towards Examiner: Cooperative Stated Mood: Euthymic, Anxious Affect: Full Speech Pattern/Tone: Clear, Appropriate, Normal Volume Thought Process: Coherent, Goal Directed Perception: WNL Thought Content: Preoccupation/Ruminations, Depressive Thought Process: Lethality: Passive Wish Hallucination Type: Denies Delusion Type: Denies - Cognitive Function Orientation: A&O x 4 Level of Consciousness: Alert Cognition: WNL Estimated Intelligence: Normal Insight: WNL Judgment Within Normal Limits: No Ability to Make Reasonable Decisions: Moderately Impaired - Medication Compliance Cooperative with Inpatient Medication Regimen: Yes - Group Participation Participates in Group Activities: Partial Assessment - Assessment Merits Inpatient Hospitalization: For Immediate Safety, For Stabilization Inpatient DSM-V Dx: F43.10 Clinical Impression: 52 y.o. single, white female with a history of PTSD, early life trauma, affective problems and borderline personality pathology arrives involuntarily on 9.45 legal status from the [facility], complaining of SI and demonstrating active self-harm. Plan - Plan Treatment Plan: Name: SANDY JAIMES Birthdate: 1965 [id number] The patient has been resumed on medications, including quetiapine, prazosin and zolpidem. We will replace chlorpromazine with risperidone M-Tab 2mg PO BID prn for agitation per staff recollections. Continue to treat in the inpatient setting. DC 1:1 observation; decrease to q15min observation. start ciprodex otic both ears for otitis externa. Continued Medication Management: Start Medication Medications: Current Medications Acetaminophen (Tylenol Tab*) 650 mg PO Q4H PRN PRN Reason: PAIN; OR TEMP >101 Last Admin: 11/19/18 06:54 Dose: 650 mg Al Hydrox/Mg Hydrox/Simethicone (Maalox Plus*) 30 ml PO Q4H PRN PRN Reason: INDIGESTION Albuterol (Ventolin Hfa Inhaler*) 1 puff INH Q6H PRN PRN Reason: SHORTNESS OF BREATH Last Admin: 11/17/18 09:29 Dose: 1 inh Cetirizine HCl (Zyrtec*) 10 mg PO BEDTIME PRN PRN Reason: ALLERGY SYMPTOMS Diclofenac Sodium (Voltaren 1% Gel (Nf)) 1 applic TOPICAL BID PRN PRN Reason: PAIN Fluticasone Propionate (Flonase Nasal [place] 50mcg*) 1 spray BOTH NARES DAILY [facility] Last Admin: 11/19/18 08:13 Dose: 1 spray Lisinopril (Prinivil Tab*) 5 mg PO DAILY [facility] Last Admin: 11/19/18 08:12 Dose: 5 mg Meloxicam (Mobic(Nf)) 15 mg PO DAILY [facility] Last Admin: 11/19/18 08:10 Dose: 15 mg Miscellaneous (Ativan Pyxis Holguin) 1 ea N/A .PYXIS HOLGUIN PRN PRN Reason: PER PROTOCOL Mometasone Furoate (Asmanex 220 Mcg Mdi *) 2 puff INH QPM SHAYLA Multivitamins/Minerals (Theragran/Minerals Tab*) 1 tab PO DAILY [facility] Last Admin: 11/19/18 08:12 Dose: 1 tab Pantoprazole Sodium (Protonix Tab*) 40 mg PO DAILY SHAYLA Last Admin: 11/19/18 08:11 Dose: 40 mg Prazosin HCl (Minipress Cap*) 5 mg PO BEDTIME SHAYLA Last Admin: 11/18/18 22:07 Dose: 5 mg Prazosin HCl (Minipress Cap*) 1 mg PO BEDTIME SHAYLA Last Admin: 11/18/18 22:04 Dose: 1 mg Quetiapine Fumarate (Seroquel Tab*) 100 mg PO BEDTIME SHAYLA Last Admin: 11/18/18 22:06 Dose: 100 mg Quetiapine Fumarate (Seroquel Tab*) 50 mg PO BID [facility] Last Admin: 11/19/18 08:11 Dose: 50 mg Risperidone (Risperdal-M Tab *) 2 mg PO BID PRN; Protocol PRN Reason: AGITATION Last Admin: 11/18/18 10:31 Dose: 2 mg Zolpidem Tartrate (Ambien Tab*) 10 mg PO BEDTIME SHAYLA Last Admin: 11/18/18 22:07 Dose: 10 mg - Discharge Plan Discharge Plan: Inpatient Hospitalization
[2018-11-19] MEDS: Ciproflox/Dexameth OTIC.SUSP* 7.5 ML BTL BOTH EARS SCH ×2 (11:15→20:19)
[2018-11-19] MEDS: risperiDONE-M * 1 MG TAB.ORADIS PO PRN (12:48)
[2018-11-19] MEDS: Mometasone 220 MCG MDI INH SCH (17:02)
[2018-11-19] MEDS: Prazosin CAP* 1 MG PO SCH (22:46)
[2018-11-19] MEDS: Prazosin CAP* 5 MG PO SCH (22:46)
[2018-11-19] MEDS: QUEtiapine TAB* 100 MG PO SCH (22:46)
[2018-11-19] MEDS: Zolpidem TAB* 10 MG PO SCH (22:48)
[2018-11-19] MEDS: Ibuprofen TAB* 600 MG PO PRN (22:49)
[2018-11-20] MEDS: Ibuprofen TAB* 600 MG PO PRN ×4 (07:46→21:44)
[2018-11-20] MEDS: Fluticasone NASAL SPRAY 50MCG* 16 gm SPRAY BTL BOTH NARES SCH (09:27)
[2018-11-20] MEDS: Pantoprazole TAB * 40 MG TAB PO SCH (09:28)
[2018-11-20] MEDS: Multivitamins/Minerals TAB PO SCH (09:28)
[2018-11-20] MEDS: QUEtiapine TAB* 25 MG PO SCH ×2 (09:28→20:38)
[2018-11-20] MEDS: Lisinopril TAB* 5 MG PO SCH (09:29)
[2018-11-20] MEDS: Ciproflox/Dexameth OTIC.SUSP* 7.5 ML BTL BOTH EARS SCH ×2 (09:55→21:45)
[2018-11-20] MEDS: CMCS: Meloxicam(NF) 7.5 MG TAB PO SCH (09:56)
[2018-11-20] MEDS: Acetaminophen TAB* 325 MG PO PRN ×3 (09:58→20:37)
[2018-11-20] MEDS ORDERED: traMADol TAB* 50 MG PO PRN (10:37)
[2018-11-20] MEDS ORDERED: diPHENhydraMINE PO* 25 MG PO PRN (10:38)
--- NOTE | 2018-11-20 14:07 | PN ---
Subjective - Subjective Date of Service: 11/20/18 Service Type: [id number] Hosp care 25 min moderate complexity Subjective: Patient reports desire to be discharged and to return home. She denies SI or urges for self harm. She endorses ear pain and desire "to be in my own bed." Oil Inspector spoke with Leila at [facility] regarding discharge planning. S does not have availability to prepare medications for Sandy until tomorrow. Patient notified of above and need to set up safe plan that includes plan for her to be successful and safe at discharge. She repeats a few times "You're making me stay." Oil Inspector reiterated team's intention to provide successful transition to home from hospital. Objective - General Observations Appearance: Unkempt Stature: WNL Posture: Slumped Eye Contact: Average Behavior/Activity: WNL - Interaction Observations Attitude Towards Examiner: Cooperative, Manipulative Stated Mood: Euthymic Affect: Full Speech Pattern/Tone: Clear, Appropriate, Normal Volume Thought Process: Coherent, Goal Directed Perception: WNL Thought Content: WNL Hallucination Type: Denies Delusion Type: Denies - Cognitive Function Orientation: A&O x 4 Level of Consciousness: Alert Cognition: WNL Estimated Intelligence: Normal Insight: WNL Judgment Within Normal Limits: Yes Ability to Make Reasonable Decisions: Mildly Impaired - Medication Compliance Cooperative with Inpatient Medication Regimen: Yes - Group Participation Participates in Group Activities: Yes Assessment - Assessment Merits Inpatient Hospitalization: For Immediate Safety, For Stabilization Inpatient DSM-V Dx: F43.10 Clinical Impression: 52 y.o. single, white female with a history of PTSD, early life trauma, affective problems and borderline personality pathology arrives involuntarily on 9.45 legal status from the [facility], complaining of SI and demonstrating active self-harm. She has stabilized in this setting and denies SI or self harm urges. She is appropriate to be discharged, pending in home nurse services. Plan - Plan Treatment Plan: Name: SANDY JAIMES Birthdate: 1965 [id number] The patient has been resumed on medications, including quetiapine, prazosin and zolpidem. Continue to treat in the inpatient setting. continue q15min observation and medications, as ordered. discharge AM of 11/21/18 Continued Medication Management: Continue Outpt Medication Medications: Current Medications Acetaminophen (Tylenol Tab*) 650 mg PO Q4H PRN PRN Reason: PAIN; OR TEMP >101 Last Admin: 11/20/18 09:58 Dose: 650 mg Al Hydrox/Mg Hydrox/Simethicone (Maalox Plus*) 30 ml PO Q4H PRN PRN Reason: INDIGESTION Albuterol (Ventolin Hfa Inhaler*) 1 puff INH Q6H PRN PRN Reason: SHORTNESS OF BREATH Last Admin: 11/17/18 09:29 Dose: 1 inh Cetirizine HCl (Zyrtec*) 10 mg PO BEDTIME PRN PRN Reason: ALLERGY SYMPTOMS Ciprofloxacin/Dexamethasone (Ciprodex Otic.Susp*) 4 drop BOTH EARS BID [facility] Stop: 11/26/18 10:29 Last Admin: 11/20/18 09:55 Dose: 4 drp Diclofenac Sodium (Voltaren 1% Gel (Nf)) 1 applic TOPICAL BID PRN PRN Reason: PAIN Diphenhydramine HCl (Benadryl Po*) 25 mg PO Q4H PRN PRN Reason: ITCHING Last Admin: 11/20/18 10:53 Dose: 25 mg Fluticasone Propionate (Flonase Nasal [place] 50mcg*) 1 spray BOTH NARES DAILY [facility] Last Admin: 11/20/18 09:27 Dose: 1 spray Ibuprofen (Motrin Tab*) 600 mg PO Q4H PRN PRN Reason: PAIN Last Admin: 11/20/18 12:03 Dose: 600 mg Lisinopril (Prinivil Tab*) 5 mg PO DAILY [facility] Last Admin: 11/20/18 09:29 Dose: 5 mg Meloxicam (Mobic(Nf)) 15 mg PO DAILY [facility] Last Admin: 11/20/18 09:56 Dose: 15 mg Miscellaneous (Ativan Pyxis Holguin) 1 ea N/A .PYXIS HOLGUIN PRN PRN Reason: PER PROTOCOL Mometasone Furoate (Asmanex 220 Mcg Mdi *) 2 puff INH QPM [facility] Last Admin: 11/19/18 17:02 Dose: 2 puff Multivitamins/Minerals (Theragran/Minerals Tab*) 1 tab PO DAILY [facility] Last Admin: 11/20/18 09:28 Dose: 1 tab Pantoprazole Sodium (Protonix Tab*) 40 mg PO DAILY [facility] Last Admin: 11/20/18 09:28 Dose: 40 mg Prazosin HCl (Minipress Cap*) 5 mg PO BEDTIME SHAYLA Last Admin: 11/19/18 22:46 Dose: 5 mg Prazosin HCl (Minipress Cap*) 1 mg PO BEDTIME SHAYLA Last Admin: 11/19/18 22:46 Dose: 1 mg Quetiapine Fumarate (Seroquel Tab*) 100 mg PO BEDTIME SHAYLA Last Admin: 11/19/18 22:46 Dose: 100 mg Quetiapine Fumarate (Seroquel Tab*) 50 mg PO BID [facility] Last Admin: 11/20/18 09:28 Dose: 50 mg Risperidone (Risperdal-M Tab *) 2 mg PO BID PRN; Protocol PRN Reason: AGITATION Last Admin: 11/19/18 12:48 Dose: 2 mg Tramadol HCl (Ultram*) 50 mg PO Q6H PRN PRN Reason: PAIN Last Admin: 11/20/18 10:53 Dose: 50 mg Zolpidem Tartrate (Ambien Tab*) 10 mg PO BEDTIME SHAYLA Last Admin: 11/19/18 22:48 Dose: 10 mg - Discharge Plan Discharge Plan: Inpatient Hospitalization Outpatient Program: [facility]
[2018-11-20] MEDS: Mometasone 220 MCG MDI INH SCH (18:06)
[2018-11-20] MEDS: Prazosin CAP* 1 MG PO SCH (20:34)
[2018-11-20] MEDS: Zolpidem TAB* 10 MG PO SCH (20:35)
[2018-11-20] MEDS: QUEtiapine TAB* 100 MG PO SCH (20:37)
[2018-11-20] MEDS: Prazosin CAP* 5 MG PO SCH (21:44)
[2018-11-21] MEDS: Acetaminophen TAB* 325 MG PO PRN (03:03)
[2018-11-21] MEDS: Ibuprofen TAB* 600 MG PO PRN (06:17)
[2018-11-21 08:53] VITALS: BP 118/71
--- NOTE | 2018-11-21 16:35 | DS ---
CC: [facility]; Dr. Jesika Redman * DISCHARGE SUMMARY: DATE OF ADMISSION: 11/14/18 DATE OF DISCHARGE: 11/21/18 SUPERVISING PSYCHIATRIST: Dr. Magdi Menjivar.* (DICTATED BY MARI FRANCISCO NP) DISCHARGE DIAGNOSES: 1. Posttraumatic stress disorder. 2. Borderline personality disorder. 3. Otitis externa. CONDITION AT TIME OF DISCHARGE: Improved. The patient is no longer endorsing suicidal ideation, passive wish or urges for self-arm. She requests to be discharged. She is euthymic with bright affect, interactive with staff. She has stabilized in this setting and reports improvement in PTSD symptoms. The patient is discharged to home. MENTAL STATUS EXAM: The patient is a 52-year-old white female, who appears stated age. She is adequately groomed and dressed in her own clothing. The patient is alert and oriented x3. Eye contact is good. Speech is soft and articulate, spontaneous. Concentration is good. Memory is 3/3. Mood is euthymic with bright affect. No abnormal psychomotor activity noted. Thought process is logical, goal directed and coherent. Thought content is negative for SI, HI, , or passive wish. She denies auditory or visual hallucinations. She denies flashbacks and has not exhibited dissociative episodes. Insight and judgment are good. Fund of knowledge is excellent. INSTRUCTIONS GIVEN TO PATIENT: A. Medications: The only changes I made to her medications were a treatment of Ciprodex Otic Drops for otitis externa that will continue to be 4 drops both ears b.i.d. until 11/26/18. The patient may use ibuprofen OTC and Tylenol OTC as directed for pain. Following medications will be resumed by her outpatient providers: 1. Beclomethasone 2 puffs inhaled b.i.d. 2. Cetirizine 10 mg p.o. q.h.s. 3. Diclofenac 1% gel topical. 4. Flonase 2 sprays both nares q.a.m. 5. Lisinopril 5 mg p.o. daily. 6. Lamotrigine 200 mg p.o. daily. 7. Meloxicam 15 mg p.o. daily. 8. Multivitamin 1 tab daily. 9. Pantoprazole 40 mg p.o. q.a.m. 10. Quetiapine 100 mg p.o. at bedtime and 50 mg p.o. b.i.d. 11. Trintellix 10 mg p.o. q.a.m. 12. Zolpidem 10 mg p.o. q.h.s. B. Diet: Regular. C. Activity: Ambulation as tolerated. Tobacco cessation is not applicable. There are no pending labs or diagnostic studies. D. Followup care: The patient will follow up with [facility] as scheduled by Social Work. She was also scheduled for a followup visit with her primary care provider, Dr. Jesika Redman on 11/25/18. E. Substance use followup is not applicable. HOSPITAL COURSE: Part A: Reason for admission: The patient presented to the emergency department via 9.45 from [facility]. She was sent to the emergency department due to a suicidal ideation, cutting herself , and eloping from the mental health building. The patient was admitted to adult behavioral services unit on involuntary status and placed on one-to-one observation as well. In the emergency department, she wrapped a sheet around her neck due to intent to "choke herself." She denied this was a suicide attempt. Part B: Psychiatric treatment rendered: As stated above, the patient was admitted on involuntary status and placed on one-to-one observation. She remained on one-to- one observation the first 5 days of her admission. During that time, she continued to need assistance, refraining from picking out wounds and also needed frequent assistance with grounding techniques during dissociative episodes. The patient was given p.r.n. medications for anxiety and agitation and tolerated these well. On day 4 or 5 of admission, the patient presented with improved eye contact and affect. She denied uncontrollable urges to harm herself and reported desire to no longer be on intensive monitoring. The patient was decreased to q.15-minute observation. We initiated a behavior modification plan to help patient identify safe behaviors. The patient reported severe ear pain. Upon inspection, the patient was noted to have symptoms of otitis externa. She started Ciprodex drops and tolerated these well. She utilized ibuprofen and Tylenol alternating for pain. She reported at one point pain was so intense that those were not helpful. The patient was given dose of tramadol, which caused severe nausea and vomiting, so the patient opted to remain on NSAIDs and acetaminophen. The patient reported a desire to be discharged home due to wanting to "sleep in my own bed." Car Salesman contacted visiting nurse services to verify discharge availability. They were not available that day. The patient agreed to remain until the following morning for her safety and smoother transition of care. MARI FRANCISCO NP [id number]/CPS #: [id number] STONE[place]
== END 2018-11-21 08:00 | disposition home or self-care (01) | DRG 755 ==
LOC: ED 14:59 → BSU 21:11
PROVIDERS: ADMIT Psychiatry & Neurology Psychiatry; ATTEND Psychiatry & Neurology Psychiatry
DX: F43.10 Post-traumatic stress disorder, unspecified (principal); R45.851 Suicidal ideations; E78.00 Pure hypercholesterolemia, unspecified; J45.909 Unspecified asthma, uncomplicated; K21.9 Gastro-esophageal reflux disease without esophagitis; K58.9 Irritable bowel syndrome, unspecified; E78.5 Hyperlipidemia, unspecified; M81.0 Age-related osteoporosis without current pathological fracture; G40.909 Epilepsy, unspecified, not intractable, without status epilepticus; F41.9 Anxiety disorder, unspecified; F31.9 Bipolar disorder, unspecified; F60.3 Borderline personality disorder; H26.9 Unspecified cataract; M19.042 Primary osteoarthritis, left hand; M17.11 Unilateral primary osteoarthritis, right knee; F50.9 Eating disorder, unspecified; H60.90 Unspecified otitis externa, unspecified ear; F44.81 Dissociative identity disorder; Z62.810 Personal history of physical and sexual abuse in childhood; Z90.49 Acquired absence of other specified parts of digestive tract; Z98.51 Tubal ligation status; Z98.41 Cataract extraction status, right eye; Z68.28 Body mass index [BMI] 28.0-28.9, adult; Z88.5 Allergy status to narcotic agent; Z88.8 Allergy status to other drugs, medicaments and biological substances; Z88.1 Allergy status to other antibiotic agents; Z91.041 Radiographic dye allergy status; Z91.040 Latex allergy status; Z81.8 Family history of other mental and behavioral disorders; Z81.1 Family history of alcohol abuse and dependence; R11.2 Nausea with vomiting, unspecified; T40.4X5A Adverse effect of other synthetic narcotics, initial encounter; Y92.239 Unspecified place in hospital as the place of occurrence of the external cause
CPT/HCPCS: 36415; 80053; 80061; 80307; 80320; 80329; 81003; 81015; 83036; 84443; 85025; 87086; 99222; 99231; 99232; 99238; 99284; A9270-GY; G0480; J1200; J1630; J2060

== ENCOUNTER 2019-02-16 09:43 | Emergency (ER) | payer OTHER ==
[2019-02-16 09:56] VITALS: BP 150/63
--- NOTE | 2019-02-16 10:02 | UC ---
Shortness of Breath HPI - HPI Summary HPI Summary: Patient is a 53 year old woman , who present today to the urgent care with shortness of breath for past 3 days. She has a history of inhaler and has been wheezing last night, rescue inhaler ineffective. Cough is productive intermittently with yellowish sputum No sick contacts . Denies any fever, chills, chest pain or shortness of breath . No diaphoresis. Denies any abdominal pain , nausea or vomiting , diarrhea or constipation. She reports that she has many allergies and had some allergic reaction to a cortisone shot into her right knee but she has had prednisone in the past without any difficulty. - History of Current Complaint Chief Complaint: UCRespiratory Stated Complaint: SOB/COUGH/ASTHMA Time Seen by Provider: 02/16/19 09:50 Hx Obtained From: Patient Hx Last Menstrual Period: 12/09/18 ?: No - tubal ligation - Allergy/Home Medications Allergies/Adverse Reactions: Allergies Allergy/AdvReac Type Severity Reaction Status Date / Time cephalexin Allergy Intermediate Rash Verified 02/16/19 09:57 cortisone Allergy Intermediate Hives Verified 02/16/19 09:57 Adhesive Tape Allergy Mild Rash Verified 02/16/19 09:57 codeine Allergy Mild Rash Verified 02/16/19 09:57 Iodinated Contrast Media Allergy Unknown Hives Verified 02/16/19 09:57 [Iodinated Contrast- Oral and IV Dye] iodine Allergy Unknown Unknown Verified 02/16/19 09:57 Reaction Details Home Medications: Home Medications Acamprosate DR (NF) [Campral (NF)] 333 mg PO 02/16/19 [History] PMH/Surg Hx/FS Hx/Imm Hx - Additional Past Medical History Additional PMH: Past Medical History : Asthma, PTSD, hyperlipidemia, suicidal ideations, self injury Past Surgical History: d&c choley RIGHT knee surgery 2007 and 4times more RIGHT cataract [id number] ORIF RIGHT HAND 2013 SEPTOPLASTY ? Family History : non contributory Social History : Occasional alcohol, non smoker, opiate last was in 2013 . Previously Healthy: Yes - Surgical History Surgical History: Yes Surgery Procedure, Year, and Place: d&c choley. RIGHT knee surgery 2007 and 4times more. RIGHT cataract [id number]. ORIF RIGHT HAND 2013. SEPTOPLASTY ? TUBAL LIGATION 1999 [facility]. RIGHT NECK LYMP NODE BX OR [facility]. UNSURE - Family History Known Family History: Positive: Unknown - Level 5 caveat, patient is uncooperative with evaluation, Other - When asked this, the patient does not respond. , Non-Contributory - Social History Alcohol Use: None Alcohol Amount: last use yesterday AM - has gone through rehab in the past Substance Use Type: None Substance Use Comment - Amount & Last Used: OPIATES NOT SINCE APR 2014 PER PT Smoking Status (MU): Never Smoked Tobacco Amount Used/How Often: never smoked. Has not smoked in the last 30 days Have You Smoked in the Last Year: No - Immunization History Most Recent Influenza Vaccination: March 2015 Most Recent Tetanus Shot: Unsure Most Recent Pneumonia Vaccination: reports received this year Review of Systems All Other Systems Reviewed And Are Negative: Yes Constitutional: Positive: Negative Skin: Positive: Negative Eyes: Positive: Negative ENT: Negative: Sore Throat Respiratory: Positive: Shortness Of Breath, Cough, Other - Wheezing Cardiovascular: Positive: Negative Gastrointestinal: Positive: Negative Genitourinary: Positive: Negative Motor: Positive: Negative Neurovascular: Positive: Negative Musculoskeletal: Positive: Negative Neurological: Positive: Negative Psychological: Positive: Negative Is Patient Immunocompromised?: No Physical Exam - Summary Physical Exam Summary: Physical Exam: Const: Appears well. No signs of apparent distress present. Alert and oriented x 3. Musculo: Walks with a normal gait. Head/Face: Atraumatic, normocephalic on inspection. Eyes: EOMI and PERRLA in both eyes. Conjunctivae clear. No discharge noted ENT: Hearing normal, TM normal appearing bilaterally, non bulging , non erythematous . No tenderness on palpation / manipulation of Tragus. No mastoid tenderness. No tenderness to palpation on maxillary and frontal sinus. No pharyngeal erythema or exudates . Uvula is midline. No cervical or submandibular lymphadenopathy noted. Respiratory: Constant coughing, air entry decreased in lower lobes noted bilaterally , poor expiration . No loud wheezing or rhonchi noted no crackles CVS: Regular rate and Rhythm, S1S2 normal , no murmurs identified. Extremities: Peripheral circulation is grossly normal. Pulses 2+ Abdomen : Soft non tender , nondistended , Bowel sounds present . No guarding , rebound tenderness or rigidity noted. Skin: No lesions or rash located on the upper extremities or on the lower extremities. Neuro: Cranial nerves II to XII intact, motor and sensory intact. DTR Intact bilaterally. Mood is normal. Affect is normal. Triage Information Reviewed: Yes Vital Signs: Initial Vital Signs Temp 97.7 F 02/16/19 09:50 Pulse 92 02/16/19 09:50 Resp 24 02/16/19 09:50 BP 150/63 02/16/19 09:50 Pulse Ox 98 02/16/19 09:50 Vital Signs Reviewed: Yes Diagnostics - Radiology No standard instances Radiology Interpretation Completed By: Radiologist - Chest Xray: IMPRESSION: No radiographic evidence of acute cardiopulmonary disease. Shortness of Breath Dx - Course Course Of Treatment: During the visit today, we obtained chest x-ray: IMPRESSION: No radiographic evidence of acute cardiopulmonary disease. She was given 1 dose of prednisone 60 mg. One nebulizer treatment with DuoNeb given and Re eval: she feels better after nebulizer treatment . Air movement better on exam We discussed the findings and further plan. I will prescribe the medication to the pharmacy . She will follow up with her PMD tomorrow. Patient expressed understanding . - Differential Dx/Diagnosis Provider Diagnosis: Asthma exacerbation Discharge ED - Sign-Out/Discharge Documenting (check all that apply): Patient Departure All imaging exams completed and their final reports reviewed: Yes - Discharge Plan Condition: Stable Disposition: HOME Prescriptions: Azithromyxin CHACE (NF) [Z-Chace (Zithromax) 250 mg tabs #6] 2 tab PO .TODAY, THEN 1 DAILY #6 tab predniSONE [Prednisone 20 MG TAB] 60 mg PO DAILY 4 Days #12 tablet Patient Education Materials: Asthma (ED), Wheezing (ED) Referrals: Jesika Redman MD [Primary Care Provider] - 1 Day Additional Instructions: Please start taking the medication as prescribed to the pharmacy . Continue your daily inhaler . Use your rescure inhaler 2 puffs every 4 hours as needed. Follow up with your primary care doctor tomorrow Patients blood pressure slightly high in Urgent care today , plan follow up with PCP for better control Return to Urgent care / ER if symptoms get worse. - Billing Disposition and Condition Condition: STABLE Disposition: Home
[2019-02-16] MEDS ORDERED: Albuterol/Ipratropium NEB.SOL* Albuterol 2.5 MG/Ipratropium 0.5 MG 3 ML INH ONE (10:07)
[2019-02-16] MEDS ORDERED: predniSONE TAB* 20 MG PO ONE (10:07)
== END 2019-02-16 11:20 | disposition home or self-care (01) ==
LOC: UCEAST 09:43
DX: J45.901 Unspecified asthma with (acute) exacerbation (principal); E78.5 Hyperlipidemia, unspecified; Z88.5 Allergy status to narcotic agent
CPT/HCPCS: 71046; 99213; A9270-GY; G0463; J7512

== ENCOUNTER 2019-03-26 13:59 | Inpatient (IN) | payer OTHER ==
[2019-03-26] MEDS ORDERED: LORazepam TAB(*) 1 MG PO ONE ×2 (14:33→15:34)
[2019-03-26 14:58] LABS: ABS Basophils 0.1 10^3/ul (0-0.2); ABS Eosinophils 0.1 10^3/ul (0-0.6); ABS Lymphocytes 2.2 10^3/ul (1.0-4.8); ABS Monocytes 0.8 10^3/ul (0-0.8); ABS Neutrophils 4.4 10^3/ul (1.5-7.7); Eosinophil % 1.4 %; Hematocrit 46 % (35-47); Hemoglobin 15.9 g/dL (12.0-16.0); Lymphocyte % 28.8 %; Mean Corpuscular HGB Conc 35 g/dL (31-36); Mean Corpuscular Hemoglobin 32 pg (27-31); Mean Corpuscular Volume 94 fL (80-97); Mean Platelet Volume 8.9 fL (7.4-10.4); Nucleated Red Blood Cells % 0.1; Platelet Count 312 10^3/uL (150-450); Red Blood Count 4.91 10^6 /uL (3.70-4.87); Red Cell Distribution Width 13 % (10-15); White Blood Count 7.6 10^3/uL (3.5-10.8)
[2019-03-26 15:01] LABS: Urine Appearance Cloudy; Urine Bilirubin Negative (Negative); Urine Blood Negative (Negative); Urine Color Yellow; Urine Glucose Negative (Negative); Urine Ketones 2+ (Negative); Urine Nitrite Negative (Negative); Urine Protein Negative (Negative); Urine Urobilinogen Negative (Negative)
[2019-03-26 15:22] LABS: ALT 15 U/L (7-52); AST 16 U/L (13-39); Albumin 4.5 g/dL (3.2-5.2); Albumin/Globulin Ratio 1.8 (1-3); Alkaline Phosphatase 39 U/L (34-104); Anion Gap 10 mmol/L (2-11); BUN/Creatinine Ratio 22.4 (8-20); Blood Urea Nitrogen 17 mg/dL (6-24); CO2 Carbon Dioxide 24 mmol/L (22-32); Calcium 10.3 mg/dL (8.6-10.3); Chloride 103 mmol/L (101-111); EGFR Non-African American 79.3 (>60); Globulin 2.5 g/dL (2-4); Glucose 86 mg/dL (70-100); Potassium 4.7 mmol/L (3.5-5.0); Sodium 137 mmol/L (135-145)
[2019-03-26 15:25] LABS: Urine Benzodiazepine Screen None Detected (None Detect); Urine Opiates Screen None Detected (None Detect)
[2019-03-26 15:25] LABS: TSH (Thyroid Stimulating Horm) 0.86 mcIU/mL (0.34-5.60)
[2019-03-26 15:28] LABS: Acetaminophen < 15 mcg/mL; Alcohol < 10 mg/dL (<10); Salicylate < 2.50 mg/dL (<30)
[2019-03-26] MEDS ORDERED: Al Hydrox/Mg Hydrox/Simet LIQ* 30 ML UDC PO PRN (15:48)
[2019-03-26] MEDS ORDERED: Haloperidol TAB* 5 MG PO ONE (15:49)
[2019-03-26] MEDS ORDERED: Albuterol HFA INHALER* 8 gm MDI INH PRN (15:49)
[2019-03-26] MEDS ORDERED: Haloperidol INJ IV/IM* 5 MG/ML AMP IM ONE (15:57)
[2019-03-26] MEDS ORDERED: Haloperidol INJ IV/IM* 5 MG/ML AMP ONE (15:58)
--- NOTE | 2019-03-26 17:27 | ED ---
Psychiatric Complaint - HPI Summary HPI Summary: Pt presents to the ED with PTSD symptoms, extreme anxiety and suicidal ideation with attempts. She states she has given up and no longer wants to be here. States she does not want to be here, wants to self-harm, states she is helpless. She reports nightmares. She states she is upset that she no longer has her therapist. Continues to endorse suicidal thoughts and looks around the room for objects to self harm. - History Of Current Complaint Chief Complaint: EDMentalHealth Time Seen by Provider: 03/26/19 14:09 Hx Obtained From: Patient Hx Last Menstrual Period: 12/09/18 ?: No Onset/Duration: Sudden Onset Timing: Constant Severity Initially: Moderate Severity Currently: Moderate Character: Anxious Aggravating Factor(s): Nothing Alleviating Factor(s): Nothing Associated Signs And Symptoms: Positive: Negative Has Suicidal: Reports: Thoughts, Demonstrates Gesture, Has Prior Attempt(s) - Risk Factor(s) Completed Suicide Risk Factors: Negative - Allergies/Home Medications Allergies/Adverse Reactions: Allergies Allergy/AdvReac Type Severity Reaction Status Date / Time cephalexin Allergy Intermediate Rash Verified 03/29/19 11:46 cortisone Allergy Intermediate Hives Verified 03/29/19 11:46 Adhesive Tape Allergy Mild Rash Verified 03/29/19 11:46 codeine Allergy Mild Rash Verified 03/29/19 11:46 Iodinated Contrast Media Allergy Unknown Hives Verified 03/29/19 11:46 [Iodinated Contrast- Oral and IV Dye] iodine Allergy Unknown Unknown Verified 03/29/19 11:46 Reaction Details Home Medications: Home Medications Acamprosate DR (NF) [Campral (NF)] 333 mg PO TID 03/26/19 [History Confirmed ] Cerovite Senior 1 tab PO DAILY 03/26/19 [History Confirmed 03/26/19] Cyclobenzaprine TAB* [Flexeril 10 MG TAB*] 10 mg PO BID PRN 03/26/19 [History Confirmed 03/26/19] Cyclosporine 0.05% OPHTH (NF) [Restasis 0.05% OPHTH] 1 drop BOTH EYES BID [History Confirmed 03/26/19] Naltrexone TAB* 50 mg PO DAILY 03/26/19 [History Confirmed 03/26/19] Prazosin CAP* [Minipress CAP*] 6 mg PO BEDTIME 03/26/19 [History Confirmed 03/27] Quetiapine Fumarate [Seroquel 50 mg tab] 50 mg PO BID 03/26/19 [History Confirmed 03/26/19] Vortioxetine (NF) [Trintellix (NF)] 10 mg PO DAILY 03/26/19 [History Confirmed 03/26/19] Zolpidem TAB* [Ambien TAB*] 10 mg PO BEDTIME PRN 03/26/19 [History Confirmed ] lamoTRIgine TAB(*) [LaMICtal TAB(*)] 200 mg PO DAILY 03/26/19 [History Confirmed 03/26/19] PMH/Surg Hx/FS Hx/Imm Hx Previously Healthy: Yes Endocrine/Hematology History: Denies: Hx Diabetes, Hx Thyroid Disease Cardiovascular History: Reports: Hx Hypercholesterolemia, Hx Rheumatic Fever Denies: Hx Hypertension Respiratory History: Reports: Hx Asthma Denies: Hx Chronic Obstructive Pulmonary Disease (COPD) GI History: Reports: Hx Gastroesophageal Reflux Disease, Hx Irritable Bowel, Other GI Disorders - Hyperlipidemia Denies: Hx Ulcer Musculoskeletal History: Reports: Hx Arthritis - Right Knee, left hand, Hx Osteoporosis, Hx Tendonitis - hx of left hip, Other Musculoskeletal History - Right Hand PLATE AND PIN IN RIGHT KNEE Sensory History: Reports: Hx Cataracts - left, Hx Contacts or Glasses - glasses , Hx Vision Problem Denies: Hx Hearing Aid Opthamlomology History: Reports: Hx Cataracts - left, Hx Contacts or Glasses - glasses, Hx Vision Problem Neurological History: Reports: Hx Seizures - epiplepsy, no seizures for 11yrs Psychiatric History: Reports: Hx Anxiety, Hx Depression, Hx Post Traumatic Stress Disorder, Hx Inpatient Treatment - [facility] [place] multi admits, Hx Community Mental Health Tx - [facility], Hx Bipolar Disorder, Hx Suicide Attempt, Hx of Violent Episodes Against Others, Hx Substance Abuse, Other Psychiatric Issues/Disorders - BORDERLINE PERS D/O Denies: Hx Attention Deficit Hyperactivity Disorder, Hx Eating Disorder, Hx Panic Disorder, Hx Schizophrenia - Cancer History Hx Chemotherapy: No Hx Radiation Therapy: No - Surgical History Surgery Procedure, Year, and Place: d&c choley. RIGHT knee surgery 2007 and 4times more. RIGHT cataract [id number]. ORIF RIGHT HAND 2013. SEPTOPLASTY ? TUBAL LIGATION 1999 [facility] [place]. RIGHT NECK LYMP NODE BX OR [facility]. UNSURE Hx Anesthesia Reactions: Yes - very very sick, hard to wake up - Immunization History Date of Tetanus Vaccine: < 10 YEARS Date of Influenza Vaccine: PT STATES UNSURE Hx Pertussis Vaccination: No Immunizations Up to Date: Yes Infectious Disease History: No Infectious Disease History: Reports: Hx of Known/Suspected MRSA Denies: Hx Clostridium Difficile, Hx Hepatitis, Hx Human Immunodeficiency Virus (HIV), History Other Infectious Disease, Traveled Outside the [place] in Last 30 Days - Family History Known Family History: Positive: Unknown - Level 5 caveat, patient is uncooperative with evaluation, Other - When asked this, the patient does not respond. , Non-Contributory - Social History Occupation: Unemployed Lives: With Family Alcohol Use: None Alcohol Amount: last use yesterday AM - has gone through rehab in the past Hx Substance Use: Yes Substance Use Type: Reports: None Substance Use Comment - Amount & Last Used: OPIATES NOT SINCE APR 2014 PER PT Hx Tobacco Use: No Smoking Status (MU): Never Smoked Tobacco Amount Used/How Often: never smoked. Has not smoked in the last 30 days Have You Smoked in the Last Year: No Review of Systems Negative: Fever, Chills, Fatigue Negative: Palpitations, Chest Pain Negative: Shortness Of Breath, Cough Genitourinary: Negative Positive: no symptoms reported, see HPI Negative: Arthralgia, Myalgia Positive: Anxious, Depressed All Other Systems Reviewed And Are Negative: Yes Physical Exam Triage Information Reviewed: Yes Vital Signs On Initial Exam: Initial Vitals Temp Pulse Resp BP Pulse Ox 98.5 F 101 18 120/85 98 03/26/19 14:04 03/26/19 14:04 03/26/19 14:04 03/26/19 14:04 03/26/19 14:04 Vital Signs Reviewed: Yes Appearance: Positive: Well-Nourished, Pain Distress Skin: Positive: Warm Head/Face: Positive: Normal Head/Face Inspection Eyes: Positive: EOMI, Conjunctiva Clear Neck: Positive: Supple, No Lymphadenopathy Respiratory/Lung Sounds: Positive: Clear to Auscultation Cardiovascular: Positive: RRR Musculoskeletal: Positive: Normal, Strength/ROM Intact Neurological: Positive: Speech Normal Psychiatric: Positive: Anxious, Other, Patient Uncooperative for Exam AVPU Assessment: Alert Procedures - Sedation Patient Received Moderate/Deep Sedation with Procedure: No Diagnostics - Vital Signs Vital Signs Temp Pulse Resp BP Pulse Ox 10/16/19 17:08 98.7 F 90 16 105/49 96 03/26/19 16:56 98.8 F 104 20 126/68 96 03/26/19 16:20 98.8 F 104 20 126/68 96 03/26/19 15:39 16 03/26/19 14:38 16 03/26/19 14:04 98.5 F 101 18 120/85 98 - Laboratory Lab Results: Lab Results 03/26/19 03/26/19 03/26/19 Range/Units 14:21 14:21 14:37 WBC 7.6 (3.5-10.8) 10^3/uL RBC 4.91 H (3.70-4.87) 10^6 /uL Hgb 15.9 (12.0-16.0) g/dL Hct 46 (35-47) % MCV 94 (80-97) fL MCH 32 H (27-31) pg MCHC 35 (31-36) g/dL RDW 13 (10-15) % Plt Count 312 (150-450) 10^3/uL MPV 8.9 (7.4-10.4) fL Neut % (Auto) 58.3 % Lymph % (Auto) 28.8 % Galax % (Auto) 10.5 % Eos % (Auto) 1.4 % Baso % (Auto) 1.0 % Absolute Neuts (auto) 4.4 (1.5-7.7) 10^3/ul Absolute Lymphs (auto) 2.2 (1.0-4.8) 10^3/ul Absolute Monos (auto) 0.8 (0-0.8) 10^3/ul Absolute Eos (auto) 0.1 (0-0.6) 10^3/ul Absolute Basos (auto) 0.1 (0-0.2) 10^3/ul Absolute Nucleated RBC 0.0 10^3/ul Nucleated RBC % 0.1 Sodium (135-145) mmol/L Potassium (3.5-5.0) mmol/L Chloride (101-111) mmol/L Carbon Dioxide (22-32) mmol/L Anion Gap (2-11) mmol/L BUN (6-24) mg/dL Creatinine (0.51-0.95) mg/dL Est GFR ( Amer) (>60) Est GFR (Non-Af Amer) (>60) BUN/Creatinine Ratio (8-20) Glucose (70-100) mg/dL Calcium (8.6-10.3) mg/dL Total Bilirubin (0.2-1.0) mg/dL AST (13-39) U/L ALT (7-52) U/L Alkaline Phosphatase (34-104) U/L Total Protein (6.4-8.9) g/dL Albumin (3.2-5.2) g/dL Globulin (2-4) g/dL Albumin/Globulin Ratio (1-3) TSH (0.34-5.60) mcIU/mL Urine Color Yellow Urine Appearance Cloudy Urine pH 6.0 (5-9) Ur Specific Fowler 1.020 (1.010-1.030) Urine Protein Negative (Negative) Urine Ketones 2+ A (Negative) Urine Blood Negative (Negative) Urine Nitrate Negative (Negative) Urine Bilirubin Negative (Negative) Urine Urobilinogen Negative (Negative) Ur Leukocyte Esterase Negative (Negative) Urine Glucose Negative (Negative) Urine Ascorbic Acid * A (Negative) Salicylates (<30) mg/dL Urine Opiates Screen None detected (None Detect) Acetaminophen mcg/mL Ur Barbiturates Screen None detected (None Detect) Ur Phencyclidine Scrn None detected (None Detect) Ur Amphetamines Screen None detected (None Detect) U Benzodiazepines Scrn None detected (None Detect) Urine Cocaine Screen None detected (None Detect) U Cannabinoids Screen None detected (None Detect) Serum Alcohol (<10) mg/dL 03/26/19 Range/Units 14:37 WBC (3.5-10.8) 10^3/uL RBC (3.70-4.87) 10^6 /uL Hgb (12.0-16.0) g/dL Hct (35-47) % MCV (80-97) fL MCH (27-31) pg MCHC (31-36) g/dL RDW (10-15) % Plt Count (150-450) 10^3/uL MPV (7.4-10.4) fL Neut % (Auto) % Lymph % (Auto) % Galax % (Auto) % Eos % (Auto) % Baso % (Auto) % Absolute Neuts (auto) (1.5-7.7) 10^3/ul Absolute Lymphs (auto) (1.0-4.8) 10^3/ul Absolute Monos (auto) (0-0.8) 10^3/ul Absolute Eos (auto) (0-0.6) 10^3/ul Absolute Basos (auto) (0-0.2) 10^3/ul Absolute Nucleated RBC 10^3/ul Nucleated RBC % Sodium 137 (135-145) mmol/L Potassium 4.7 (3.5-5.0) mmol/L Chloride 103 (101-111) mmol/L Carbon Dioxide 24 (22-32) mmol/L Anion Gap 10 (2-11) mmol/L BUN 17 (6-24) mg/dL Creatinine 0.76 (0.51-0.95) mg/dL Est GFR ( Amer) 96.0 (>60) Est GFR (Non-Af Amer) 79.3 (>60) BUN/Creatinine Ratio 22.4 H (8-20) Glucose 86 (70-100) mg/dL Calcium 10.3 (8.6-10.3) mg/dL Total Bilirubin 0.70 (0.2-1.0) mg/dL AST 16 (13-39) U/L ALT 15 (7-52) U/L Alkaline Phosphatase 39 (34-104) U/L Total Protein 7.0 (6.4-8.9) g/dL Albumin 4.5 (3.2-5.2) g/dL Globulin 2.5 (2-4) g/dL Albumin/Globulin Ratio 1.8 (1-3) TSH 0.86 (0.34-5.60) mcIU/mL Urine Color Urine Appearance Urine pH (5-9) Ur Specific Fowler (1.010-1.030) Urine Protein (Negative) Urine Ketones (Negative) Urine Blood (Negative) Urine Nitrate (Negative) Urine Bilirubin (Negative) Urine Urobilinogen (Negative) Ur Leukocyte Esterase (Negative) Urine Glucose (Negative) Urine Ascorbic Acid (Negative) Salicylates < 2.50 (<30) mg/dL Urine Opiates Screen (None Detect) Acetaminophen < 15 mcg/mL Ur Barbiturates Screen (None Detect) Ur Phencyclidine Scrn (None Detect) Ur Amphetamines Screen (None Detect) U Benzodiazepines Scrn (None Detect) Urine Cocaine Screen (None Detect) U Cannabinoids Screen (None Detect) Serum Alcohol < 10 (<10) mg/dL Result Diagrams: 03/26/19 14:37 03/26/19 14:37 Lab Statement: Any lab studies that have been ordered have been reviewed, and results considered in the medical decision making process. Course/Dx - Course Course Of Treatment: Pt reports suicidal thoughts and tries to harm herself while in the ED. she continues to state she would like to go home and tries to continue to harm her self while in the emergency room. She was given Ativan, Haldol for her symptoms. She continues on constant observation for her self- harm. She is given mental health evaluation and admitted per Dr. Menjivar. - Differential Dx/Clinical Impression Differential Diagnosis/HQI/PQRI: Positive: Anxiety, Depression, Suicidal Ideation, Suicidal Gesture Provider Diagnosis: Suicidal ideation, Depression Discharge ED - Sign-Out/Discharge Documenting (check all that apply): Patient Departure All imaging exams completed and their final reports reviewed: No - Discharge Plan Condition: Fair Disposition: ADMITTED TO [facility] - Billing Disposition and Condition Condition: FAIR Disposition: Admitted to [facility] - Attestation Statements Provider Attestation: I was available for consult. This patient was seen by the JUAN JOSÉ. The patient was not presented to, seen by, or examined by me. Ze Victor MD
[2019-03-26] MEDS: Mometasone 220 MCG MDI INH SCH (19:52)
[2019-03-26] MEDS: QUEtiapine TAB* 25 MG PO SCH (21:20)
[2019-03-26] MEDS: CMCS:Cyclosporine 0.05% OPHTH (NF) 0.4 ML VIAL BOTH EYES SCH (21:20)
[2019-03-27] MEDS: chlorproMAZINE TAB* 100 MG PO PRN ×2 (00:45→10:53)
[2019-03-27] MEDS: QUEtiapine TAB* 25 MG PO SCH ×3 (00:45→20:35)
[2019-03-27] MEDS ORDERED: Prazosin CAP* 1 MG PO SCH (09:00)
[2019-03-27] MEDS ORDERED: Prazosin CAP* 5 MG PO SCH (09:00)
[2019-03-27] MEDS: Pantoprazole TAB * 40 MG TAB PO SCH (10:53)
[2019-03-27] MEDS: Naltrexone TAB* 50 MG TAB PO SCH (10:53)
[2019-03-27] MEDS: Lisinopril TAB* 5 MG PO SCH (10:53)
[2019-03-27] MEDS: lamoTRIgine TAB(*) 100 MG PO SCH (10:53)
[2019-03-27] MEDS: CMCS - Meloxicam(NF) 7.5 MG TAB PO SCH (10:54)
[2019-03-27] MEDS: Vortioxetine (NF) 10 MG TAB (FORMERLY Brintellix) PO SCH (11:08)
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
[2019-03-27] MEDS: Mometasone 220 MCG MDI INH SCH (17:50)
[2019-03-27] MEDS: CMCS:Cyclosporine 0.05% OPHTH (NF) 0.4 ML VIAL BOTH EYES SCH ×2 (20:28→20:41)
[2019-03-27] MEDS: Cetirizine* 10 MG TAB PO PRN (21:13)
[2019-03-27] MEDS: Prazosin CAP* 1 MG PO SCH (22:02)
[2019-03-27] MEDS: Cyclobenzaprine TAB* 10 MG PO PRN (22:03)
[2019-03-27] MEDS: Prazosin CAP* 5 MG PO SCH (22:03)
[2019-03-27] MEDS: Zolpidem TAB* 10 MG PO PRN (23:45)
[2019-03-28] MEDS: lamoTRIgine TAB(*) 100 MG PO SCH (10:23)
[2019-03-28] MEDS: CMCS - Meloxicam(NF) 7.5 MG TAB PO SCH (10:24)
[2019-03-28] MEDS: Pantoprazole TAB * 40 MG TAB PO SCH (10:25)
[2019-03-28] MEDS: Naltrexone TAB* 50 MG TAB PO SCH (10:25)
[2019-03-28] MEDS: QUEtiapine TAB* 25 MG PO SCH ×2 (10:26→20:15)
[2019-03-28] MEDS: CMCS:Cyclosporine 0.05% OPHTH (NF) 0.4 ML VIAL BOTH EYES SCH ×2 (10:27→20:15)
[2019-03-28] MEDS: Vortioxetine (NF) 10 MG TAB (FORMERLY Brintellix) PO SCH (10:31)
[2019-03-28] MEDS: Lisinopril TAB* 5 MG PO SCH (10:31)
--- NOTE | 2019-03-28 14:23 | PN ---
Subjective - Subjective Date of Service: 03/28/19 Service Type: 15246 Hosp care 25 min moderate complexity Subjective: Patient presents as irritable and agitated. She states Ensure is causing diarrhea and is encouraged to increase food intake. She continues to endorse flashbacks and urges for self harm. She has not completed ADLs and remains seclusive to her mattress with the exception of ambulating with walker to bathroom. She is receptive to suggestion to engage in grounding and other calming techniques. Objective - General Observations Appearance: Malodorous, Unkempt Appears Stated Age: Yes Stature: Thin Posture: Slumped Eye Contact: Avoidant Behavior/Activity: Impulsive, Agitated - Interaction Observations Attitude Towards Examiner: Cooperative, Anxious Stated Mood: Irritable Affect: Restricted Speech Pattern/Tone: Delayed, Quiet Volume Thought Process: Circumstantial Perception: Depersonalization, Reexperiencing Thought Content: Depressive, Self-Deprecatory Thought Process: Lethality: Suicidal Planning Hallucination Type: Denies Delusion Type: Denies - Cognitive Function Orientation: A&O x 4 Level of Consciousness: Alert Cognition: Impaired Attention/Concentration Estimated Intelligence: Normal Insight: Difficulty Acknowledging Presence of Psyciatric Problems Judgment Within Normal Limits: No Ability to Make Reasonable Decisions: Serverely Impaired - Medication Compliance Cooperative with Inpatient Medication Regimen: Yes - Group Participation Participates in Group Activities: No Assessment - Assessment Merits Inpatient Hospitalization: For Immediate Safety, For Stabilization Inpatient DSM-V Dx: F43.12 Clinical Impression: 53yo wf with history of PTSD and borderline personality d/o who presented to ED via 945 due to harming herself and suicidal ideation. She has had multiple stressors this month. She remains on constant observations due to attempts to harm herself while on the unit. She is receptive to engage in grounding and calming techniques with staff member who is sitting with her. She has prn medications and has been receiving them without difficulty. She merits hospitalization for immediate safety and stabilization. Plan - Plan Treatment Plan: Name: SANDY JAIMES Birthdate: 1965 [id number] continue acute intensive psychiatric treatment. continue constant observation due self harm. utilize fluoxetine in place of non-formulary trintellix. continue prn medications and calming techniques. Continued Medication Management: Continue Outpt Medication Medications: Current Medications Acetaminophen (Tylenol Tab*) 650 mg PO Q4H PRN PRN Reason: for pain; or Temp >101 F Al Hydrox/Mg Hydrox/Simethicone (Maalox Plus*) 30 ml PO Q4H PRN PRN Reason: INDIGESTION Albuterol (Ventolin Hfa Inhaler*) 1 puff INH Q6H PRN PRN Reason: SHORTNESS OF BREATH Cetirizine HCl (Zyrtec*) 10 mg PO BEDTIME PRN PRN Reason: ALLERGY SYMPTOMS Last Admin: 03/27/19 21:13 Dose: 10 mg Chlorpromazine HCl (Thorazine Tab*) 100 mg PO Q6H PRN PRN Reason: AGITATION Last Admin: 03/27/19 10:53 Dose: 100 mg Cyclobenzaprine HCl (Flexeril Tab*) 10 mg PO BID PRN PRN Reason: SPASMS - MUSCLE Last Admin: 03/27/19 22:03 Dose: 10 mg Cyclosporine (Restasis 0.05% Ophth) 1 drop BOTH EYES BID [facility]; Protocol Last Admin: 03/28/19 10:27 Dose: 1 drop Lamotrigine (Lamictal Tab(*)) 200 mg PO DAILY [facility] Last Admin: 03/28/19 10:23 Dose: 200 mg Lisinopril (Prinivil Tab*) 5 mg PO QAM SHAYLA Last Admin: 03/28/19 10:31 Dose: Not Given Lorazepam (Ativan Tab(*)) 2 mg PO Q6H PRN PRN Reason: ANXIETY Meloxicam (Mobic(Nf)) 15 mg PO DAILY SHAYLA Last Admin: 03/28/19 10:24 Dose: 15 mg Mometasone Furoate (Asmanex 220 Mcg Mdi *) 2 puff INH QPM SHAYLA Last Admin: 03/27/19 17:50 Dose: 2 puff Naltrexone HCl (Naltrexone Tab*) 50 mg PO DAILY [facility]; Protocol Last Admin: 03/28/19 10:25 Dose: 50 mg Pantoprazole Sodium (Protonix Tab*) 40 mg PO DAILY SHAYLA Last Admin: 03/28/19 10:25 Dose: 40 mg Prazosin HCl (Minipress Cap*) 5 mg PO BEDTIME SHAYLA Last Admin: 03/27/19 22:03 Dose: 5 mg Prazosin HCl (Minipress Cap*) 1 mg PO BEDTIME SHAYLA Last Admin: 03/27/19 22:02 Dose: 1 mg Quetiapine Fumarate (Seroquel Tab*) 50 mg PO BID [facility] Last Admin: 03/28/19 10:26 Dose: 50 mg Vortioxetine (Trintellix (Nf)) 10 mg PO DAILY [facility] Last Admin: 03/28/19 10:31 Dose: Not Given Zolpidem Tartrate (Ambien Tab*) 10 mg PO BEDTIME PRN PRN Reason: SLEEP Last Admin: 03/27/19 23:45 Dose: 10 mg - Discharge Plan Discharge Plan: Inpatient Hospitalization
[2019-03-28] MEDS: Mometasone 220 MCG MDI INH SCH (18:20)
[2019-03-28] MEDS: Prazosin CAP* 5 MG PO SCH (20:14)
[2019-03-28] MEDS: Prazosin CAP* 1 MG PO SCH (20:15)
[2019-03-28] MEDS: Cetirizine* 10 MG TAB PO PRN (20:22)
[2019-03-28] MEDS: Zolpidem TAB* 10 MG PO PRN (23:15)
[2019-03-28] MEDS: chlorproMAZINE TAB* 100 MG PO PRN (23:37)
[2019-03-29] MEDS: chlorproMAZINE TAB* 100 MG PO PRN (09:42)
[2019-03-29] MEDS: Lisinopril TAB* 5 MG PO SCH (09:43)
[2019-03-29] MEDS: lamoTRIgine TAB(*) 100 MG PO SCH (09:43)
[2019-03-29] MEDS: CMCS - Meloxicam(NF) 7.5 MG TAB PO SCH (09:43)
[2019-03-29] MEDS: Pantoprazole TAB * 40 MG TAB PO SCH (09:43)
[2019-03-29] MEDS: QUEtiapine TAB* 25 MG PO SCH ×2 (09:43→21:43)
[2019-03-29] MEDS: FLUoxetine CAP* 20 MG PO SCH (09:43)
[2019-03-29] MEDS: Naltrexone TAB* 50 MG TAB PO SCH (09:43)
[2019-03-29] MEDS: CMCS:Cyclosporine 0.05% OPHTH (NF) 0.4 ML VIAL BOTH EYES SCH (11:38)
[2019-03-29] MEDS: Prazosin CAP* 1 MG PO SCH (21:43)
[2019-03-29] MEDS: Prazosin CAP* 5 MG PO SCH (21:43)
[2019-03-30] MEDS: CMCS:Cyclosporine 0.05% OPHTH (NF) 0.4 ML VIAL BOTH EYES SCH (02:13)
[2019-03-30] MEDS: Mometasone 220 MCG MDI INH SCH (02:13)
[2019-03-30] MEDS: FLUoxetine CAP* 20 MG PO SCH (09:52)
[2019-03-30] MEDS: Pantoprazole TAB * 40 MG TAB PO SCH (09:53)
[2019-03-30] MEDS: Lisinopril TAB* 5 MG PO SCH (09:53)
[2019-03-30] MEDS: Acetaminophen TAB* 325 MG PO PRN (09:53)
[2019-03-30] MEDS: Naltrexone TAB* 50 MG TAB PO SCH (09:53)
[2019-03-30] MEDS: CMCS - Meloxicam(NF) 7.5 MG TAB PO SCH (09:53)
[2019-03-30] MEDS: lamoTRIgine TAB(*) 100 MG PO SCH (09:54)
[2019-03-30] MEDS: LORazepam TAB(*) 1 MG PO PRN (09:54)
[2019-03-30] MEDS: QUEtiapine TAB* 25 MG PO SCH ×2 (09:54→20:12)
[2019-03-30] MEDS: Cyclobenzaprine TAB* 10 MG PO PRN (09:54)
--- NOTE | 2019-03-30 13:32 | PN ---
Subjective - Subjective Date of Service: 03/30/19 Service Type: 05273 Hosp care 25 min moderate complexity Subjective: Surprisingly Sandy is in good mood today laying on her bed on the floor. Says she feels better and she wants to go home on Sun. Nursing has been keeping a very close eye on her due to impulsive behaviors which she hasn't exhibited today. Objective - General Observations Appearance: Disheveled Stature: Thin, Short Posture: Slumped Eye Contact: Avoidant Behavior/Activity: Stereotyped, Impulsive - Interaction Observations Attitude Towards Examiner: Evasive Stated Mood: Dysphoric Affect: Blunted Speech Pattern/Tone: Clear, Normal Volume Thought Process: Circumstantial, Withams Thought Content: WNL Thought Process: Lethality: Passive Wish Hallucination Type: Denies Delusion Type: Denies - Cognitive Function Orientation: Person, Place, Situation Level of Consciousness: Awake, Alert Cognition: Impaired Cognition Estimated Intelligence: MR Range Insight: Mostly Blames Others for Problems Judgment Within Normal Limits: No Ability to Make Reasonable Decisions: Serverely Impaired - Medication Compliance Cooperative with Inpatient Medication Regimen: Yes Assessment - Assessment Merits Inpatient Hospitalization: For Immediate Safety, For Stabilization, Pending Safe DC Plan Inpatient DSM-V Dx: F43.12 Clinical Impression: 53yo wf with history of PTSD and borderline personality d/o who presented to ED via 945 due to harming herself and suicidal ideation. She has had multiple stressors this month. She remains on constant observations due to attempts to harm herself while on the unit. She is receptive to engage in grounding and calming techniques with staff member who is sitting with her. She has prn medications and has been receiving them without difficulty. She merits hospitalization for immediate safety and stabilization. Plan - Plan Treatment Plan: Name: SANDY JAIMES Birthdate: 1965 [id number] continue acute intensive psychiatric treatment. continue constant observation due self harm. utilize fluoxetine in place of non-formulary trintellix. continue prn medications and calming techniques. Continued Medication Management: Continue Outpt Medication Medications: Current Medications Acetaminophen (Tylenol Tab*) 650 mg PO Q4H PRN PRN Reason: for pain; or Temp >101 F Last Admin: 03/30/19 09:53 Dose: 650 mg Al Hydrox/Mg Hydrox/Simethicone (Maalox Plus*) 30 ml PO Q4H PRN PRN Reason: INDIGESTION Albuterol (Ventolin Hfa Inhaler*) 1 puff INH Q6H PRN PRN Reason: SHORTNESS OF BREATH Cetirizine HCl (Zyrtec*) 10 mg PO BEDTIME PRN PRN Reason: ALLERGY SYMPTOMS Last Admin: 03/28/19 20:22 Dose: 10 mg Chlorpromazine HCl (Thorazine Tab*) 100 mg PO Q6H PRN PRN Reason: AGITATION Last Admin: 03/29/19 09:42 Dose: 100 mg Cyclobenzaprine HCl (Flexeril Tab*) 10 mg PO BID PRN PRN Reason: SPASMS - MUSCLE Last Admin: 03/30/19 09:54 Dose: 10 mg Cyclosporine (Restasis 0.05% Oph) 1 drop BOTH EYES BID [facility]; Protocol Last Admin: 03/30/19 02:13 Dose: Not Given Fluoxetine HCl (Prozac Cap*) 40 mg PO DAILY [facility] Last Admin: 03/30/19 09:52 Dose: 40 mg Lamotrigine (Lamictal Tab(*)) 200 mg PO DAILY [facility] Last Admin: 03/30/19 09:54 Dose: 200 mg Lisinopril (Prinivil Tab*) 5 mg PO QAM SHAYLA Last Admin: 03/30/19 09:53 Dose: 5 mg Lorazepam (Ativan Tab(*)) 2 mg PO Q6H PRN PRN Reason: ANXIETY Last Admin: 03/30/19 09:54 Dose: 2 mg Meloxicam (Mobic(Nf)) 15 mg PO DAILY [facility] Last Admin: 03/30/19 09:53 Dose: 15 mg Mometasone Furoate (Asmanex 220 Mcg Mdi *) 2 puff INH QPM SHAYLA Last Admin: 03/30/19 02:13 Dose: Not Given Naltrexone HCl (Naltrexone Tab*) 50 mg PO DAILY [facility]; Protocol Last Admin: 03/30/19 09:53 Dose: 50 mg Pantoprazole Sodium (Protonix Tab*) 40 mg PO DAILY [facility] Last Admin: 03/30/19 09:53 Dose: 40 mg Prazosin HCl (Minipress Cap*) 5 mg PO BEDTIME [facility]AY[facility] Last Admin: 03/29/19 21:43 Dose: 5 mg Prazosin HCl (Minipress Cap*) 1 mg PO BEDTIME SHAYLA Last Admin: 10/19/19 21:43 Dose: 1 mg Quetiapine Fumarate (Seroquel Tab*) 50 mg PO BID [facility] Last Admin: 03/30/19 09:54 Dose: 50 mg Zolpidem Tartrate (Ambien Tab*) 10 mg PO BEDTIME PRN PRN Reason: SLEEP Last Admin: 03/28/19 23:15 Dose: 10 mg - Discharge Plan Discharge Plan: Outpatient Follow Up Outpatient Program: [facility]
[2019-03-30] MEDS: Prazosin CAP* 1 MG PO SCH (20:11)
[2019-03-30] MEDS: Prazosin CAP* 5 MG PO SCH (20:12)
[2019-03-30] MEDS: Zolpidem TAB* 10 MG PO PRN (20:12)
[2019-03-31] MEDS: Acetaminophen TAB* 325 MG PO PRN (07:17)
[2019-03-31] MEDS: CMCS:Cyclosporine 0.05% OPHTH (NF) 0.4 ML VIAL BOTH EYES SCH ×3 (07:49→20:12)
[2019-03-31] MEDS: Mometasone 220 MCG MDI INH SCH ×2 (07:50→20:15)
[2019-03-31] MEDS: CMCS - Meloxicam(NF) 7.5 MG TAB PO SCH (08:41)
[2019-03-31] MEDS: FLUoxetine CAP* 20 MG PO SCH (08:41)
[2019-03-31] MEDS: Naltrexone TAB* 50 MG TAB PO SCH (08:41)
[2019-03-31] MEDS: lamoTRIgine TAB(*) 100 MG PO SCH (08:41)
[2019-03-31] MEDS: Cyclobenzaprine TAB* 10 MG PO PRN (08:41)
[2019-03-31] MEDS: QUEtiapine TAB* 25 MG PO SCH ×2 (08:42→20:13)
[2019-03-31] MEDS: Lisinopril TAB* 5 MG PO SCH (08:42)
[2019-03-31] MEDS: Pantoprazole TAB * 40 MG TAB PO SCH (08:42)
[2019-03-31] MEDS: LORazepam TAB(*) 1 MG PO PRN (10:41)
[2019-03-31] MEDS: chlorproMAZINE TAB* 100 MG PO PRN (13:11)
[2019-03-31] MEDS ORDERED: Ibuprofen TAB* 600 MG PO PRN (14:01)
[2019-03-31] MEDS ORDERED: Acetaminophen TAB* 325 MG PO PRN (16:09)
--- NOTE | 2019-03-31 16:21 | PN ---
Subjective - Subjective Date of Service: 03/31/19 Service Type: 24130 Hosp care 25 min moderate complexity Subjective: Patient reports improvement in self harm urges and denies flashbacks or nightmares. She endorses anxiety without seeming to have a specific precursor. She states she is hopeful to return home but is not ready to do so today. She expresses concern about having to complete a large packet for SSD review. She denies having case management to assist but is receptive to the idea. Objective - General Observations Appearance: Well Groomed Stature: WNL Posture: WNL Eye Contact: Average Behavior/Activity: WNL - Interaction Observations Attitude Towards Examiner: Cooperative, Anxious Stated Mood: Anxious Affect: Full Speech Pattern/Tone: Clear, Appropriate, Normal Volume Thought Process: Coherent, Goal Directed Perception: WNL Thought Content: Preoccupation/Ruminations, Self-Deprecatory Hallucination Type: Denies Delusion Type: Denies - Cognitive Function Orientation: A&O x 4 Level of Consciousness: Alert Cognition: WNL Estimated Intelligence: Normal Insight: WNL Judgment Within Normal Limits: No Ability to Make Reasonable Decisions: Moderately Impaired - Medication Compliance Cooperative with Inpatient Medication Regimen: Yes - Group Participation Participates in Group Activities: Partial Assessment - Assessment Merits Inpatient Hospitalization: For Immediate Safety, For Stabilization, For Discharge Planning Inpatient DSM-V Dx: F43.12 Clinical Impression: 53yo wf with history of PTSD and borderline personality d/o who presented to ED via 945 due to harming herself and suicidal ideation. She has had multiple stressors this month. She merits hospitalization for immediate safety and stabilization. Plan - Plan Treatment Plan: Name: SANDY JAIMES Birthdate: 1965 [id number] continue acute intensive psychiatric treatment. continue q15min observation. utilize fluoxetine in place of non-formulary trintellix; continue prn medications and calming techniques. patient declines blood draw for hgba1c and lipid panel. these were done within 6 months and WNL (11/19/18). discharge to include outpatient providers. Continued Medication Management: Continue Outpt Medication Medications: Current Medications Acetaminophen (Tylenol Tab*) 975 mg PO Q6H PRN PRN Reason: for pain; or Temp >101 F Al Hydrox/Mg Hydrox/Simethicone (Maalox Plus*) 30 ml PO Q4H PRN PRN Reason: INDIGESTION Albuterol (Ventolin Hfa Inhaler*) 1 puff INH Q6H PRN PRN Reason: SHORTNESS OF BREATH Cetirizine HCl (Zyrtec*) 10 mg PO BEDTIME PRN PRN Reason: ALLERGY SYMPTOMS Last Admin: 03/28/19 20:22 Dose: 10 mg Chlorpromazine HCl (Thorazine Tab*) 100 mg PO Q6H PRN PRN Reason: AGITATION Last Admin: 03/31/19 13:11 Dose: 100 mg Cyclobenzaprine HCl (Flexeril Tab*) 10 mg PO BID PRN PRN Reason: SPASMS - MUSCLE Last Admin: 03/31/19 08:41 Dose: 10 mg Cyclosporine (Restasis 0.05% Oph) 1 drop BOTH EYES BID [facility]; Protocol Last Admin: 03/31/19 08:43 Dose: Not Given Fluoxetine HCl (Prozac Cap*) 40 mg PO DAILY [facility] Last Admin: 03/31/19 08:41 Dose: 40 mg Lamotrigine (Lamictal Tab(*)) 200 mg PO DAILY [facility] Last Admin: 03/31/19 08:41 Dose: 200 mg Lisinopril (Prinivil Tab*) 5 mg PO QAM SHAYLA Last Admin: 03/31/19 08:42 Dose: 5 mg Lorazepam (Ativan Tab(*)) 2 mg PO Q6H PRN PRN Reason: ANXIETY Last Admin: 03/31/19 10:41 Dose: 2 mg Meloxicam (Mobic(Nf)) 15 mg PO DAILY [facility] Last Admin: 03/31/19 08:41 Dose: 15 mg Mometasone Furoate (Asmanex 220 Mcg Mdi *) 2 puff INH QPM SHAYLA Last Admin: 03/31/19 07:50 Dose: Not Given Naltrexone HCl (Naltrexone Tab*) 50 mg PO DAILY [facility]; Protocol Last Admin: 03/31/19 08:41 Dose: 50 mg Pantoprazole Sodium (Protonix Tab*) 40 mg PO DAILY [facility] Last Admin: 03/31/19 08:42 Dose: 40 mg Prazosin HCl (Minipress Cap*) 5 mg PO BEDTIME SHAYLA Last Admin: 03/30/19 20:12 Dose: 5 mg Prazosin HCl (Minipress Cap*) 1 mg PO BEDTIME SHAYLA Last Admin: 03/30/19 20:11 Dose: 1 mg Quetiapine Fumarate (Seroquel Tab*) 50 mg PO BID [facility] Last Admin: 03/31/19 08:42 Dose: 50 mg Zolpidem Tartrate (Ambien Tab*) 10 mg PO BEDTIME PRN PRN Reason: SLEEP Last Admin: 03/30/19 20:12 Dose: 10 mg - Discharge Plan Discharge Plan: Inpatient Hospitalization Outpatient Program: [facility]
[2019-03-31] MEDS: Prazosin CAP* 5 MG PO SCH (20:13)
[2019-03-31] MEDS: Prazosin CAP* 1 MG PO SCH (20:13)
[2019-03-31] MEDS: Zolpidem TAB* 10 MG PO PRN (20:19)
[2019-04-01] MEDS: LORazepam TAB(*) 1 MG PO PRN ×2 (05:19→15:50)
[2019-04-01] MEDS ORDERED: Docusate CAP* 100 MG PO PRN (08:59)
[2019-04-01] MEDS: CMCS:Cyclosporine 0.05% OPHTH (NF) 0.4 ML VIAL BOTH EYES SCH ×2 (10:23→22:19)
[2019-04-01] MEDS: Naltrexone TAB* 50 MG TAB PO SCH (10:25)
[2019-04-01] MEDS: lamoTRIgine TAB(*) 100 MG PO SCH (10:26)
[2019-04-01] MEDS: CMCS - Meloxicam(NF) 7.5 MG TAB PO SCH (10:27)
[2019-04-01] MEDS: QUEtiapine TAB* 25 MG PO SCH ×2 (10:27→20:26)
[2019-04-01] MEDS: FLUoxetine CAP* 20 MG PO SCH (10:27)
[2019-04-01] MEDS: Pantoprazole TAB * 40 MG TAB PO SCH (10:28)
[2019-04-01] MEDS: Lisinopril TAB* 5 MG PO SCH (10:28)
[2019-04-01] MEDS: Fluticasone NASAL SPRAY 50MCG* 16 gm SPRAY BTL BOTH NARES SCH (10:35)
[2019-04-01] MEDS ORDERED: Diclofenac 1% GEL (NF) 100 GM TUBE TOPICAL PRN (11:00)
[2019-04-01] MEDS ORDERED: Albuterol/Ipratropium NEB.SOL* Albuterol 2.5 MG/Ipratropium 0.5 MG 3 ML INH PRN (11:00)
--- NOTE | 2019-04-01 13:39 | PN ---
Subjective - Subjective Date of Service: 04/01/19 Service Type: 62012 Hosp care 15 min low complexity Subjective: Sandy reports feeling "in a funk" today and prefers to rest. She denies SI or urges for self harm. She is interactive in conversation and jovial, at times. We review medication list from [facility]. She states preference for ambien to be scheduled, not prn. She states she generally takes 1/2 tab of quetiapine 300mg at bedtime and if she is still asleep around midnight, takes the other half. She reports anxiety and need for assistance in completing SSD review paperwork. Objective - General Observations Appearance: Well Groomed Stature: WNL Posture: WNL Eye Contact: Average Behavior/Activity: WNL - Interaction Observations Attitude Towards Examiner: Cooperative Stated Mood: Dysphoric, Anxious Affect: Full Speech Pattern/Tone: Clear, Appropriate, Normal Volume Thought Process: Coherent, Goal Directed Perception: WNL Thought Content: WNL Hallucination Type: Denies Delusion Type: Denies - Cognitive Function Orientation: A&O x 4 Level of Consciousness: Alert Cognition: WNL Estimated Intelligence: Normal Insight: WNL Judgment Within Normal Limits: Yes - Medication Compliance Cooperative with Inpatient Medication Regimen: Yes - Group Participation Participates in Group Activities: No Assessment - Assessment Merits Inpatient Hospitalization: For Immediate Safety, For Stabilization, For Discharge Planning, Pending Safe DC Plan Inpatient DSM-V Dx: F43.12 Clinical Impression: 53yo wf with history of PTSD and borderline personality d/o who presented to ED via 945 due to harming herself and suicidal ideation. She has had multiple stressors this month. She is stabilizing in this structured setting. Plan - Plan Treatment Plan: Name: SANDY JAIMES Birthdate: 1965 [id number] continue acute intensive psychiatric treatment. continue q15min observation. utilize fluoxetine in place of non-formulary trintellix; continue prn medications and calming techniques. patient declines blood draw for hgba1c and lipid panel. these were done within 6 months and WNL (11/19/18). discharge to include outpatient providers. Medications: Current Medications Acetaminophen (Tylenol Tab*) 975 mg PO Q6H PRN PRN Reason: for pain; or Temp >101 F Al Hydrox/Mg Hydrox/Simethicone (Maalox Plus*) 30 ml PO Q4H PRN PRN Reason: INDIGESTION Albuterol (Ventolin Hfa Inhaler*) 1 puff INH Q6H PRN PRN Reason: SHORTNESS OF BREATH Albuterol/Ipratropium (Duoneb (Albuterol 2.5 Mg/Ipratropium 0.5 Mg)) 1 neb INH Q4H PRN PRN Reason: SOB/WHEEZING Cetirizine HCl (Zyrtec*) 10 mg PO BEDTIME PRN PRN Reason: ALLERGY SYMPTOMS Last Admin: 03/28/19 20:22 Dose: 10 mg Chlorpromazine HCl (Thorazine Tab*) 100 mg PO Q6H PRN PRN Reason: AGITATION Last Admin: 03/31/19 13:11 Dose: 100 mg Cyclobenzaprine HCl (Flexeril Tab*) 10 mg PO BID PRN PRN Reason: SPASMS - MUSCLE Last Admin: 03/31/19 08:41 Dose: 10 mg Cyclosporine (Restasis 0.05% Oph) 1 drop BOTH EYES BID [facility]; Protocol Last Admin: 04/01/19 10:23 Dose: 1 drop Diclofenac Sodium (Voltaren 1% Gel (Nf)) 1 applic TOPICAL BID PRN; Protocol PRN Reason: PAIN - MODERATE Docusate Sodium (Colace Cap*) 100 mg PO BID PRN PRN Reason: CONSTIPATION Fluoxetine HCl (Prozac Cap*) 40 mg PO DAILY [facility] Last Admin: 04/01/19 10:27 Dose: 40 mg Fluticasone Propionate (Flonase Nasal [place] 50mcg*) 2 spray BOTH NARES DAILY [facility] Last Admin: 04/01/19 10:35 Dose: 2 spray Lamotrigine (Lamictal Tab(*)) 200 mg PO DAILY [facility] Last Admin: 04/01/19 10:26 Dose: 200 mg Lisinopril (Prinivil Tab*) 5 mg PO QAM [facility] Last Admin: 04/01/19 10:28 Dose: 5 mg Lorazepam (Ativan Tab(*)) 2 mg PO Q6H PRN PRN Reason: ANXIETY Last Admin: 04/01/19 05:19 Dose: 2 mg Meloxicam (Mobic(Nf)) 15 mg PO DAILY [facility] Last Admin: 04/01/19 10:27 Dose: 15 mg Mometasone Furoate (Asmanex 220 Mcg Mdi *) 2 puff INH QPM [facility] Last Admin: 03/31/19 20:15 Dose: 2 puff Naltrexone HCl (Naltrexone Tab*) 50 mg PO DAILY [facility]; Protocol Last Admin: 04/01/19 10:25 Dose: 50 mg Pantoprazole Sodium (Protonix Tab*) 40 mg PO DAILY [facility] Last Admin: 04/01/19 10:28 Dose: 40 mg Prazosin HCl (Minipress Cap*) 5 mg PO BEDTIME [facility] Last Admin: 03/31/19 20:13 Dose: 5 mg Prazosin HCl (Minipress Cap*) 1 mg PO BEDTIME [facility] Last Admin: 03/31/19 20:13 Dose: 1 mg Quetiapine Fumarate (Seroquel Tab*) 50 mg PO BID [facility] Last Admin: 04/01/19 10:27 Dose: 50 mg Zolpidem Tartrate (Ambien Tab*) 10 mg PO BEDTIME PRN PRN Reason: SLEEP Last Admin: 03/31/19 20:19 Dose: 10 mg - Discharge Plan Discharge Plan: Inpatient Hospitalization Outpatient Program: [facility]
[2019-04-01] MEDS: Mometasone 220 MCG MDI INH SCH (15:50)
[2019-04-01] MEDS: Prazosin CAP* 1 MG PO SCH (20:25)
[2019-04-01] MEDS: Zolpidem TAB* 10 MG PO PRN (20:25)
[2019-04-01] MEDS: Prazosin CAP* 5 MG PO SCH (20:25)
[2019-04-02] MEDS: LORazepam TAB(*) 1 MG PO PRN (01:35)
[2019-04-02 08:59] VITALS: BP 107/61
[2019-04-02] MEDS: Naltrexone TAB* 50 MG TAB PO SCH (10:08)
[2019-04-02] MEDS: QUEtiapine TAB* 25 MG PO SCH (10:08)
[2019-04-02] MEDS: FLUoxetine CAP* 20 MG PO SCH (10:08)
[2019-04-02] MEDS: CMCS - Meloxicam(NF) 7.5 MG TAB PO SCH (10:09)
[2019-04-02] MEDS: lamoTRIgine TAB(*) 100 MG PO SCH (10:09)
[2019-04-02] MEDS: Lisinopril TAB* 5 MG PO SCH (10:09)
[2019-04-02] MEDS: Pantoprazole TAB * 40 MG TAB PO SCH (10:09)
--- NOTE | 2019-04-02 10:21 | DCNOTE ---
Subjective - Subjective Service Types: 62936 Hosp DC Day Mgmt simple under 30 min Discharge Date: 04/02/19 Subjective: Patient reports readiness for discharge and exhibits future orientation. She states she is looking forward to meeting with [facility] and returning home. She denies SI or urges for self harm. She is well related and A+Ox4. Nursing Support Worker phoned [facility] at patient's request to inquire about setting up her medications today. [facility] reports Iris will reach out to Emelyn this afternoon. Objective - General Observations Appearance: Well Groomed Stature: WNL Posture: WNL Eye Contact: Average Behavior/Activity: WNL - Interaction Observations Attitude Towards Examiner: Cooperative Stated Mood: Euthymic Affect: Full Speech Pattern/Tone: Clear, Appropriate, Normal Volume Thought Process: Coherent, Goal Directed Perception: WNL Thought Content: WNL Hallucination Type: Denies Delusion Type: Denies - Cognitive Function Orientation: A&O x 4 Level of Consciousness: Alert Cognition: WNL Estimated Intelligence: Normal Insight: WNL Judgment Within Normal Limits: Yes - Medication Compliance Cooperative with Inpatient Medication Regimen: Yes - Group Participation Participates in Group Activities: No DC Assessment - Assessment Clinical Impression: 53yo wf with history of PTSD and borderline personality d/o who presented to ED via 945 due to harming herself and suicidal ideation. She has had multiple stressors this month. She is stabilizing in this structured setting. Merits Inpatient Hospitalization: No Clear for Discharge: Adequate Clinical Respons, Acceptable Safety Profile Inpatient DSM-V Dx: F43.12 Discharge Planning - Discharge Planning Discharge Plan: Outpatient Follow Up Outpatient Program: [facility] Recommendations for Continuing Care: Medication Management, Psychotherapy, Primary Care Followup Medications: Current Medications Acetaminophen (Tylenol Tab*) 975 mg PO Q6H PRN PRN Reason: for pain; or Temp >101 F Last Admin: 04/01/19 16:23 Dose: 975 mg Al Hydrox/Mg Hydrox/Simethicone (Maalox Plus*) 30 ml PO Q4H PRN PRN Reason: INDIGESTION Albuterol (Ventolin Hfa Inhaler*) 1 puff INH Q6H PRN PRN Reason: SHORTNESS OF BREATH Albuterol/Ipratropium (Duoneb (Albuterol 2.5 Mg/Ipratropium 0.5 Mg)) 1 neb INH Q4H PRN PRN Reason: SOB/WHEEZING Cetirizine HCl (Zyrtec*) 10 mg PO BEDTIME PRN PRN Reason: ALLERGY SYMPTOMS Last Admin: 03/28/19 20:22 Dose: 10 mg Chlorpromazine HCl (Thorazine Tab*) 100 mg PO Q6H PRN PRN Reason: AGITATION Last Admin: 03/31/19 13:11 Dose: 100 mg Cyclobenzaprine HCl (Flexeril Tab*) 10 mg PO BID PRN PRN Reason: SPASMS - MUSCLE Last Admin: 03/31/19 08:41 Dose: 10 mg Cyclosporine (Restasis 0.05% Oph) 1 drop BOTH EYES BID [facility]; Protocol Last Admin: 04/01/19 22:19 Dose: Not Given Diclofenac Sodium (Voltaren 1% Gel (Nf)) 1 applic TOPICAL BID PRN; Protocol PRN Reason: PAIN - MODERATE Docusate Sodium (Colace Cap*) 100 mg PO BID PRN PRN Reason: CONSTIPATION Fluticasone Propionate (Flonase Nasal [place] 50mcg*) 2 spray BOTH NARES DAILY [facility] Last Admin: 04/01/19 10:35 Dose: 2 spray Lamotrigine (Lamictal Tab(*)) 200 mg PO DAILY [facility] Last Admin: 04/02/19 10:09 Dose: 200 mg Lisinopril (Prinivil Tab*) 5 mg PO QAM [facility] Last Admin: 04/02/19 10:09 Dose: 5 mg Lorazepam (Ativan Tab(*)) 2 mg PO Q6H PRN PRN Reason: ANXIETY Last Admin: 04/02/19 01:35 Dose: 2 mg Meloxicam (Mobic(Nf)) 15 mg PO DAILY [facility] Last Admin: 04/02/19 10:09 Dose: 15 mg Mometasone Furoate (Asmanex 220 Mcg Mdi *) 2 puff INH QPM [facility] Last Admin: 04/01/19 15:50 Dose: 2 puff Naltrexone HCl (Naltrexone Tab*) 50 mg PO DAILY [facility]; Protocol Last Admin: 04/02/19 10:08 Dose: 50 mg Pantoprazole Sodium (Protonix Tab*) 40 mg PO DAILY [facility] Last Admin: 04/02/19 10:09 Dose: 40 mg Prazosin HCl (Minipress Cap*) 5 mg PO BEDTIME [facility] Last Admin: 04/01/19 20:25 Dose: 5 mg Prazosin HCl (Minipress Cap*) 1 mg PO BEDTIME [facility] Last Admin: 04/01/19 20:25 Dose: 1 mg Quetiapine Fumarate (Seroquel Tab*) 50 mg PO BID [facility] Last Admin: 04/02/19 10:08 Dose: 50 mg Quetiapine 300mg QHS Zolpidem Tartrate (Ambien Tab*) 10 mg PO BEDTIME PRN PRN Reason: SLEEP Last Admin: 04/01/19 20:25 Dose: 10 mg Trintellix 10mg po daily Discharge Planning: Prescriptions provided for discharge [] Yes [x] No Follow up care details as per social work arrangements: [facility] Primary Care- Dr Traci PIZANO Patient response to discharge plan: [x] eager for discharge [x] agreeable with discharge plan [] ambivalent about discharge [] disagrees with discharge today
[2019-04-02] MEDS: Fluticasone NASAL SPRAY 50MCG* 16 gm SPRAY BTL BOTH NARES SCH ×2 (11:01→11:14)
[2019-04-02] MEDS: CMCS:Cyclosporine 0.05% OPHTH (NF) 0.4 ML VIAL BOTH EYES SCH ×2 (11:01→11:15)
--- NOTE | 2019-04-02 23:20 | DS ---
CC: [facility]; [facility], Dr. Aviles * DISCHARGE SUMMARY: DATE OF ADMISSION: 03/26/19 DATE OF DISCHARGE: 04/02/19. SUPERVISING PSYCHIATRIST: Darwin Franz MD * (DICTATED BY MARI FRANCISCO NP) DISCHARGE DIAGNOSES: 1. Posttraumatic stress disorder. 2. Borderline personality disorder. CONDITION AT THE TIME OF DISCHARGE: Improved. The patient no longer endorses suicidal ideation, passive wish or urges for self harm. She is euthymic with bright affect. She has been interactive with select staff. She is stabilized in this setting and reports improvement in PTSD symptoms. She requested to be discharged. She endorses future orientation. She states that she would like to leave directly from here to see her advocate at the advocacy center. MENTAL STATUS EXAM: The patient is a 53-year-old white female who appears stated age. She is adequately groomed and dressed in her own clothing. She is alert and oriented x3. Eye contact is good. Speech is soft, articulate, and spontaneous. Concentration is good. Memory 3/3. Mood is euthymic with bright affect. No abnormal psychomotor activity noted. Thought process is logical, goal directed, and coherent. Thought content is negative for SI, HI, , or passive wish. She denies auditory or visual hallucinations. She denies flashbacks and has not exhibited dissociative episodes in the past 2 to 3 days. Insight and judgment are good. Fund of knowledge is excellent. INSTRUCTIONS GIVEN TO PATIENT: A. Medications: There were no medication changes made during this hospitalization. We did not have Trintellix, so we utilized fluoxetine only during hospitalization. She will resume on the followin. Albuterol 1 puff inhaled q.6 hours p.r.n. SOB. 2. Albuterol DuoNeb nebulizer, 1 nebulizer inhaled q.4 hours p.r.n. SOB wheezing. 3. Cetirizine 10 mg p.o. q.h.s. 4. Cyclobenzaprine 10 mg p.o. b.i.d. p.r.n. 5. Cyclosporin ophthalmic 1 drop both eyes b.i.d. 6. Diclofenac 1% gel topical b.i.d. p.r.n. pain. 7. Docusate 100 mg p.o. b.i.d. p.r.n. constipation. 8. Flonase nasal spray 2 sprays both nares daily. 9. Lamotrigine 200 mg p.o. daily. 10. Lisinopril 5 mg p.o. q.a.m. 11. Meloxicam 15 mg p.o. daily. 12. Asmanex 220 mcg MDI 2 puffs inhaled q.p.m. 13. Naltrexone 50 mg p.o. daily. 14. Pantoprazole 40 mg p.o. daily. 15. Prazosin 6 mg p.o. q.h.s. 16. Quetiapine fumarate 50 mg p.o. b.i.d. 17. Quetiapine 300 mg p.o. q.h.s. 18. Ambien 10 mg p.o. q.h.s. p.r.n. sleep. 19. Trintellix 10 mg p.o. daily. B. Diet: Regular. C. Activity: Ambulation as tolerated. Tobacco cessation is not applicable. There are no pending labs or diagnostic studies. D. Laboratory data in the hospital: RBC of 4.91, MCH 32. Chemistry generally unremarkable. BUN and creatinine ratio 22.4. TSH normal at 0.86. Urinalysis 2 + ketones. Toxicology negative. Urine drug screen negative. The patient refused blood draw for hemoglobin A1c and lipid panel. These were last done on 11/19/18, therefore they are not indicated at this time. Followup Care: The patient will follow up with [facility], primary care provider Dr. Aviles at [facility], and [facility]. E. Substance use followup not applicable. HOSPITAL COURSE: Part A: Reason for admission: The patient presented to the ED with suicidal ideation and a plan to overdose on medications by breaking into her locked medication box. Chief complaint: "I'm sick of fighting. I'm not doing it anymore. I wish I could fall asleep and not wake up." HPI: Emelyn is a 53-year-old, never , childless female with known history of PTSD and numerous psychiatric hospitalizations here and in area hospitals including [facility] psychiatric hospitals. She is typically hospitalized when experiencing severe PTSD symptoms. Today, she presents with suicidal ideation, urges for self harm, hopelessness, helplessness. She is feeling a sense of abandonment in that her GP is retiring and her most recent therapist took a job elsewhere. The patient reports she also had to move at the beginning of this month as her doctor had directed her to find housing that did not have stairs related to her limited mobility and knee pain. She moved to the new apartment complex and all of this is very destabilizing for her. She states she also received a letter from [facility] denoting that she is up for review, so she is worried that will be discontinued. She states on top of it all the other day she was waiting for the public bus and the business continuity global director was less than compassionate about her need for using the lift. The patient is cooperative with interview. She is lying in bed with covers up to her chin. She is often moving her legs back and forth. She states yesterday felt alright and is feeling defeated because she feels terrible today. She also endorses frustration that she cannot be as active as she was prior to having limited mobility. Collateral information obtained in the emergency department. [facility] director of education, Genoveva Gil, reported that the patient has had a series of losses and that she had a friend who this year, had to move to a new apartment, primary doctor retiring and therapist leaving the clinic. Genoveva reported that the patient started to have problems sleeping due to nightmares and also the patient had recently met with someone from the advocacy center. They were concerned as the patient was not able to identify safety planning or supports. While in the emergency room, the patient reported desire to go home, telling staff they should just let her . She was given IM and p.o. Ativan without problem. Later she was increasingly anxious and agitated, trying to harm herself in the emergency room and was given IM haloperidol. While on the unit, she has been receiving and accepting oral medications including Thorazine for agitation and lorazepam for anxiety. She was on constant observation at the time of admission due to her impulsivity and self harm. While being observed, she used a blanket to wrap around her neck that was removed without incident and the patient accepted medication. Historically, the patient remains on constant observation for the beginning of the hospitalization. She tends to benefit from constant observation and then when she is irritated by being watched all the time, she has insight and is able to remain safe. Today, she is consistently endorsing wanting to and not feeling that she wants to deal with her life. Part B: Psychiatric treatment rendered: The patient was admitted to the Adult Behavioral Services Unit on voluntary status. Code status is full. She was initially on constant observation and this was decreased to q.15 minute observation over the course of the first few days. She was primarily seclusive except for meals. She reported feeling tired and preferred to remain in bed. She denied urges for self harm. She denied dissociative symptoms and she did not recall the days prior when she was experiencing flashbacks and nightmares. As it is typical for Emelyn, she reported readiness for discharge at about day 5 of admission. She requested to stay one more day in order to transition from the hospital directly to meeting with advocacy center. She was goal oriented and that she was looking forward to meeting with JERICA and Dr. Portillo this week. At the time of discharge, the patient reported readiness. She was agreeable to discharge plan and left the unit without incident. MARI FRANCISCO NP [id number]/[facility] #: [id number] [place]
--- NOTE | 2019-04-11 21:14 | DS ---
DISCHARGE SUMMARY: ADDENDUM: The patient was discharged to home. MARI FRANCISCO, ANGELIA [id number]/[facility] #: [id number] [facility]ITALFlor
== END 2019-04-02 11:30 | disposition home or self-care (01) | DRG 755 ==
LOC: ED 13:59 → BSU 16:49
PROVIDERS: ADMIT Psychiatry & Neurology Psychiatry; ATTEND Psychiatry & Neurology Psychiatry
DX: F43.12 Post-traumatic stress disorder, chronic (principal); R45.851 Suicidal ideations; F60.3 Borderline personality disorder; F44.81 Dissociative identity disorder; F50.9 Eating disorder, unspecified; Z62.810 Personal history of physical and sexual abuse in childhood; G40.909 Epilepsy, unspecified, not intractable, without status epilepticus; K21.9 Gastro-esophageal reflux disease without esophagitis; J45.909 Unspecified asthma, uncomplicated; E78.5 Hyperlipidemia, unspecified; M17.0 Bilateral primary osteoarthritis of knee; I10 Essential (primary) hypertension; I89.0 Lymphedema, not elsewhere classified; Z79.899 Other long term (current) drug therapy; Z68.30 Body mass index [BMI] 30.0-30.9, adult; Z91.410 Personal history of adult physical and sexual abuse; Z91.041 Radiographic dye allergy status; Z88.5 Allergy status to narcotic agent; Z88.8 Allergy status to other drugs, medicaments and biological substances; Z91.048 Other nonmedicinal substance allergy status; Z81.8 Family history of other mental and behavioral disorders; Z81.1 Family history of alcohol abuse and dependence
CPT/HCPCS: 36415; 80053; 80307; 80320; 80329; 81003; 84443; 85025; 96372; 99222; 99231; 99232; 99238; 99284; A9270-GY; G0480; J1630

== ENCOUNTER 2019-05-01 11:49 | Inpatient (IN) | payer OTHER ==
[2019-05-01] MEDS ORDERED: LORazepam INJ* 2 MG/ML 1 ML VIAL ONE (11:51)
[2019-05-01] MEDS ORDERED: Haloperidol INJ IV/IM* 5 MG/ML AMP ONE (11:51)
[2019-05-01] MEDS ORDERED: diPHENhydraMINE IV* 50 MG/ML 1 ml VIAL (BENADRYL) ONE (11:51)
[2019-05-01] MEDS ORDERED: LORazepam INJ* 2 MG/ML 1 ML VIAL IM ONE (11:55)
--- NOTE | 2019-05-01 11:58 | ED ---
Psychiatric Complaint - HPI Summary HPI Summary: This pt is a 53 y/o female presenting to [facility] accompanied by police officers via EMS for a mental health evaluation. associate loan officer reports a psychiatrist from [facility] ([facility]) was supposed to meet up with the patient today but was unable to reach the patient. The psychiatrist then called the police to request a welfare check visit on the patient. associate loan officer went over to the patient's home, the pt opened the door but slammed the door on their faces. Pt answered the door again and finally let the police officers in. When the police communications operator asked the pt about suicidal ideation the pt did not answer because pt was concerned about coming to the hospital. Police officers called the [facility] and went over to the patient's home to talk to her about SI. Per police communications operator, pt did have thoughts of suicidal ideation and a plan but did not want to talk about them. After [address] [facility] staff talking to the patient, they signed the 945 form. EMS reports pt has been uncooperative and combative since their arrival on scene. Pt has hx of prior suicide attempts. HPI IS LIMITED DUE TO LEVEL 5 CAVEAT - pt is uncooperative, agitated, and combative. - History Of Current Complaint Hx Obtained From: EMS, Other: - police communications operator Hx From Patient Unobtainable Due To: Other - LEVEL 5 CAVEAT - pt is uncooperative, agitated, combative Hx Last Menstrual Period: 12/09/18 Onset/Duration: Still Present Timing: Constant Severity Currently: Severe Character: Depressed Aggravating Factor(s): Other - unknown Alleviating Factor(s): Other - unknown Related History: Positive For: Prior Psychiatric Issues Has Suicidal: Reports: Thoughts, With A Plan, Has Prior Attempt(s) - Allergies/Home Medications Allergies/Adverse Reactions: Allergies Allergy/AdvReac Type Severity Reaction Status Date / Time cephalexin Allergy Intermediate Rash Verified 03/29/19 11:46 cortisone Allergy Intermediate Hives Verified 03/29/19 11:46 Adhesive Tape Allergy Mild Rash Verified 03/29/19 11:46 codeine Allergy Mild Rash Verified 03/29/19 11:46 Iodinated Contrast Media Allergy Unknown Hives Verified 03/29/19 11:46 [Iodinated Contrast- Oral and IV Dye] iodine Allergy Unknown Unknown Verified 03/29/19 11:46 Reaction Details Home Medications: Home Medications Albuterol 2.5MG/3ML (0.083%)* [Ventolin 2.5 MG/3 ML NEB.ZITA*] 2.5 mg INH Q4H PRN 05/01/19 [History Confirmed 05/01/19] Cetirizine* [ZyrTEC 10 MG TAB*] 10 mg PO BEDTIME 05/01/19 [History Confirmed ] Multivitamins/Minerals TAB* [Theragran/minerals TAB*] 1 tab PO DAILY 05/01/19 [ History Confirmed 05/01/19] QUEtiapine TAB* [Seroquel 100 MG *] 100 mg PO BEDTIME 05/01/19 [History Confirmed 05/01/19] lamoTRIgine TAB(*) [LaMICtal TAB(*)] 200 mg PO DAILY 05/01/19 [History Confirmed 05/01/19] PMH/Surg Hx/FS Hx/Imm Hx Endocrine/Hematology History: Denies: Hx Diabetes, Hx Thyroid Disease Cardiovascular History: Reports: Hx Hypercholesterolemia, Hx Rheumatic Fever Denies: Hx Hypertension Respiratory History: Reports: Hx Asthma Denies: Hx Chronic Obstructive Pulmonary Disease (COPD) GI History: Reports: Hx Gastroesophageal Reflux Disease, Hx Irritable Bowel, Other GI Disorders - Hyperlipidemia Denies: Hx Ulcer Musculoskeletal History: Reports: Hx Arthritis - Right Knee, left hand, Hx Osteoporosis, Hx Tendonitis - hx of left hip, Other Musculoskeletal History - Right Hand PLATE AND PIN IN RIGHT KNEE Sensory History: Reports: Hx Cataracts - left, Hx Contacts or Glasses - glasses , Hx Vision Problem Denies: Hx Hearing Aid Opthamlomology History: Reports: Hx Cataracts - left, Hx Contacts or Glasses - glasses, Hx Vision Problem Neurological History: Reports: Hx Seizures - epiplepsy, no seizures for 11yrs Psychiatric History: Reports: Hx Anxiety, Hx Depression, Hx Post Traumatic Stress Disorder, Hx Inpatient [place] [facility] [place], Hx Community Mental Health Tx - [facility], Hx Bipolar Disorder, Hx Suicide Attempt, Hx of Violent Episodes Against Others, Hx Substance Abuse, Other Psychiatric Issues/Disorders - BORDERLINE PERS D/O Denies: Hx Attention Deficit Hyperactivity Disorder, Hx Eating Disorder, Hx Panic Disorder, Hx Schizophrenia - Cancer History Hx Chemotherapy: No Hx Radiation Therapy: No - Surgical History Surgical History: Yes Surgery Procedure, Year, and Place: d&c choley. RIGHT knee surgery 2007 and 4times more. RIGHT cataract [id number]. ORIF RIGHT HAND 2013. SEPTOPLASTY ? TUBAL LIGATION 1999 [facility] [place]. RIGHT NECK LYMP NODE BX OR [facility] PT. UNSURE Hx Anesthesia Reactions: Yes - very very sick, hard to wake up - Immunization History Date of Tetanus Vaccine: < 10 YEARS Date of Influenza Vaccine: PT STATES UNSURE Infectious Disease History: Reports: Hx of Known/Suspected MRSA Denies: Hx Clostridium Difficile, Hx Hepatitis, Hx Human Immunodeficiency Virus (HIV), History Other Infectious Disease - Family History Known Family History: Positive: Unknown - Level 5 caveat, patient is uncooperative with evaluation, Other - When asked this, the patient does not respond. - Social History Alcohol Use: None Alcohol Amount: last use yesterday AM - has gone through rehab in the past Hx Substance Use: Yes Substance Use Type: Reports: None Substance Use Comment - Amount & Last Used: OPIATES NOT SINCE APR 2014 PER PT Hx Tobacco Use: No Smoking Status (MU): Never Smoked Tobacco Amount Used/How Often: never smoked. Has not smoked in the last 30 days Have You Smoked in the Last Year: No Review of Systems - ROS Summary Review of Systems Summary: ROS IS LIMITED DUE TO LEVEL 5 - Pt is uncooperative, agitated, combative. Negative: Fever Psychological: Other - POSITIVE: SI All Other Systems Reviewed And Are Negative: No Physical Exam - Summary Physical Exam Summary: VITAL SIGNS: Reviewed. GENERAL: Patient is a well-developed and overweight female who is agitated and combative with police officers and security. HEAD AND FACE: No signs of trauma. No ecchymosis, hematomas or skull depressions. No sinus tenderness. EYES: PERRLA, EOMI x 2, No injected conjunctiva, no nystagmus. EARS: Hearing grossly intact. Ear canals and tympanic membranes are within normal limits. MOUTH: Oropharynx within normal limits. Oral mucosa is dry. NECK: Supple, trachea is midline, no adenopathy, no JVD, no carotid bruit, no c- spine tenderness, neck with full ROM. CHEST: Symmetric, no tenderness at palpation LUNGS: Clear to auscultation bilaterally. No wheezing or crackles. CVS: Mild tachycardic rate and regular rhythm, S1 and S2 present, no murmurs or gallops appreciated. ABDOMEN: Soft, non-tender. No signs of distention. No rebound no guarding, and no masses palpated. Bowel sounds are normal. EXTREMITIES: FROM in all major joints, no edema, no cyanosis or clubbing. NEURO: Alert and oriented x 3. No acute neurological deficits. Speech is normal and follows commands. SKIN: Dry and warm PSYCH: pt is agitated. Triage Information Reviewed: Yes Vital Signs Reviewed: Yes Completion Of Physical Exam Limited Due To: Level 5 - pt uncooperative, agitated , combative Procedures - Sedation Patient Received Moderate/Deep Sedation with Procedure: No Diagnostics - Laboratory Result Diagrams: 05/01/19 12:42 05/01/19 12:42 Lab Statement: Any lab studies that have been ordered have been reviewed, and results considered in the medical decision making process. Re-Evaluation - Re-Evaluation First Eval Re-Evaluation Time: 11:48 Comment: Restraints were initiated. Pt is a danger to herself and others. Second Eval Re-Evaluation Time: 11:49 Comment: Medications (Haldol, Ativan, and Benadryl) were administered to the patient. Third Eval Re-Evaluation Time: 12:06 Comment: Pt is becoming more agitated and continuous to be a danger to herself. She is hitting her head against the back of the bed, so we placed a pillow and seizure pads. Pt continues to have restraints. Therefore pt was given Ketamine. Dr. Menjivar, psychiatrist, came to pt's bedside and agrees with current management. Course/Dx - Course Assessment/Plan: This patient is a 53-year-old female who presents to the emergency department via EMS and with an escort of multiple police officers secondary to agitation, aggressiveness and harm to herself and others. Patient is unable to give any history the patient is very agitated and aggressive. Initially because of the patient being a harm to herself or others she was given Haldol, Ativan and Benadryl. We waited approximately half an hour and the patient continued to be very aggressive and agitated. The patient was not only placed in chemical restraints but also in physical restraints at the wrists and ankles. We examined her multiple times in the restraints at the wrists and ankles. Patient to be appropriate to this point. The patient was given ketamine 150 mg IM because the patient was still very aggressive and agitated. After the ketamine the patient right now is resting comfortably. The patient was placed on the passenger tire builder. The patient is hemodynamically stable at this time. Blood work without any significant abnormality except for carbon dioxide of 21, anion gap is 12 and glucose 116. Urinalysis is negative for UTI, urine toxicology also negative. At this point I discussed my physical exam and findings with Dr. Menjivar who agrees with the current management. After blood test results will be admit the patient to his services for further workup and management. - Differential Dx/Clinical Impression Differential Diagnosis/HQI/PQRI: Positive: Acute Psychosis, Anxiety, Bipolar Disorder, Depression, Homicidal Ideation, Suicidal Ideation Provider Diagnosis: Psychosis Discharge ED - Sign-Out/Discharge Documenting (check all that apply): Patient Departure - Admit to [facility] [place] [facility] - Discharge Plan Condition: Stable Disposition: [facility]YCHIATRIC FACILITY[place] [place] Billing Disposition and Condition Condition: STABLE Disposition: Psychiatric Facility [facility] [place] - Attestation Statements Document Initiated by Scribe: Yes Documenting Scribe: Estelita Romano Provider For Whom Rupaliibe is Documenting (Include Credential): Julio Cesar Goodman MD Scribe Attestation: Estelita Norwood, scribed for Julio Cesar Goodman MD on 05/01/19 at 2118. Scribe Documentation Reviewed: Yes Provider Attestation: The documentation as recorded by the Estelita rojas accurately reflects the service I personally performed and the decisions made by me, Julio Cesar Goodman MD Status of Scribe Document: Viewed
[2019-05-01] MEDS ORDERED: Lorazepam PYXIS KEY ONE (12:04)
[2019-05-01] MEDS ORDERED: KETAMINE HCL* 50 MG/ML 10 ML VIAL ONE (12:17)
[2019-05-01] MEDS ORDERED: Al Hydrox/Mg Hydrox/Simet LIQ* 30 ML UDC PO PRN (12:26)
[2019-05-01] MEDS ORDERED: Zolpidem TAB* 10 MG PO PRN (12:27)
[2019-05-01] MEDS ORDERED: Cetirizine* 10 MG TAB PO PRN (12:27)
[2019-05-01] MEDS ORDERED: Docusate CAP* 100 MG PO PRN (12:27)
[2019-05-01] MEDS ORDERED: Albuterol HFA INHALER* 8 gm MDI INH PRN (12:27)
[2019-05-01] MEDS ORDERED: Albuterol/Ipratropium NEB.SOL* Albuterol 2.5 MG/Ipratropium 0.5 MG 3 ML INH PRN (12:27)
[2019-05-01] MEDS ORDERED: chlorproMAZINE TAB* 100 MG PO PRN (12:30)
[2019-05-01] MEDS ORDERED: NS 0.9% 1000 ML** 1,000 ML IV ONE (12:46)
[2019-05-01 12:52] LABS: ABS Basophils 0.1 10^3/ul (0-0.2); ABS Eosinophils 0.2 10^3/ul (0-0.6); ABS Lymphocytes 1.4 10^3/ul (1.0-4.8); ABS Monocytes 0.5 10^3/ul (0-0.8); ABS Neutrophils 5.4 10^3/ul (1.5-7.7); Eosinophil % 2.7 %; Hematocrit 45 % (35-47); Hemoglobin 15.4 g/dL (12.0-16.0); Lymphocyte % 18.2 %; Mean Corpuscular HGB Conc 34 g/dL (31-36); Mean Corpuscular Hemoglobin 32 pg (27-31); Mean Corpuscular Volume 95 fL (80-97); Mean Platelet Volume 8.4 fL (7.4-10.4); Platelet Count 325 10^3/uL (150-450); Red Blood Count 4.78 10^6 /uL (3.70-4.87); Red Cell Distribution Width 13 % (10-15); White Blood Count 7.6 10^3/uL (3.5-10.8)
--- OUTSIDE RECORDS SUMMARY | 2019-05-01 12:56 | XMS REPORT | Continuity of Care Document ---
:1965 External Reference #:[id number] Author Name CATHY Wisdom Address [address] [place] [address] Problems Active Problems Provider Date Adult health examination Onset: 06/14/2018 Essential hypertension Onset: 09/03/2017 Osteoarthritis of left foot Onset: 07/15/2017 Osteoarthritis of joint of left wrist Onset: 07/15/2017 Carpal tunnel syndrome Onset: 04/11/2016 Disorder of patellofemoral joint Onset: 12/05/2015 Inactive Problems Irregular periods Onset: 12/06/2018 Inactive: 12/06/2018 Uterine leiomyoma Onset: 12/06/2018 Inactive: 12/06/2018 Multiple joint pain Onset: 12/06/2018 Inactive: 12/06/2018 Atrophic vaginitis Onset: 12/06/2018 Inactive: 12/06/2018 Cough Onset: 11/25/2018 Inactive: 11/25/2018 Otalgia Onset: 11/25/2018 Inactive: 11/25/2018 Laceration of upper limb Onset: 11/13/2018 Inactive: 11/13/2018 Allergic rhinitis Onset: 11/08/2018 Inactive: 11/08/2018 Social History Type Date Description Comments Sex Female Allergies, Adverse Reactions, Alerts Active Allergies Reaction Severity Comments Date Codeine syncope 02/14/2019 Adhesive Tape No Reaction Indicated 02/14/2019 Contrast Dye No Reaction Indicated 02/14/2019 Cortisone No Reaction Indicated 02/14/2019 Keflex No Reaction Indicated 02/14/2019 Medications Active Medications SIG Qnty Indications Ordering Date Provider Naltrexone HCL 1 by mouth every day 30tabs CATHY Wisdom 50mg 9 Tablets Nebulizer Use as directed 1units [place] MD Kit/Tubing/Mouthpie 9 ce Kit Nebulizer System q 4 hours prn cough 1units [place] MD ALL-In-One and wheezing 9 Misc Albuterol Sulfate 1 unit by mouth 75ml Los Vaca MD every 4 hours as 9 (2.5mg/3ML) 0.083% needed Nebulizer Neomycin-Polymyxin- 4 gtte four times 10units Unknown HC each day Otic; 4 9 3.5-65696-2 gtte to left ear qid Suspension x 5 days. Cetirizine HCL 1 at bedtime prn 30tabs Unknown 10mg Oral; use as needed 9 Tablets for environemental allergies. Diclofenac Sodium Transdermal; Apply 100units Unknown To Affected Area(S) 9 1% Gel Two Times A Day Triamcinolone 2 sprays once daily 16.5units Unknown Acetonide each nostril Nasal 9 55mcg/Act Aerosol Cerovite Senior Oral; Take One 90tabs Unknown Tablet By Mouth 8 Tablets Every Day Pantoprazole Sodium oral; take one 30tabs Lyndsey tablet by mouth Karnow, DO [address] everyday Ventolin HFA 2 four times each 1units Unknown day Inhalation 8 108(90Base) mcg/Act Aerosol Meloxicam Oral; Take One 30tabs Unknown 15mg Tablet By Mouth 8 Tablets Every Day Qvar Redihaler Inhalation; Inhale 10.6units Unknown Two Puffs By Mouth 8 80mcg/Act Aerosol Twice A Day Lisinopril Oral; Take One 30tabs Unknown 5mg Tablet By Mouth 8 Tablets Every Day Seroquel 1 twice daily Oral Unknown 50mg 8 Tablets Seroquel 1 at bed-time Oral; Unknown 100mg with 100mg prn 8 Tablets Lamotrigine 1 daily Oral Unknown 200mg 7 Tablets Prazosin HCL 3 at bedtime prn 90caps Unknown 2mg Oral 6 Capsules Zolpidem Tartrate 1 at bedtime Oral Unknown 5 10mg Tablets History Medications Sudogest 12 Hour 1 twice daily prn Oral 60tabs Unknown 02/07/2019 - 120mg 03/25/2019 Tablets ER 12HR Sudogest 12 Hour prn Oral; Take One 30tabs Unknown 01/22/2019 - 120mg Tablet By Mouth Every Day 02/07/2019 Tablets ER 12HR as Needed. Cetirizine HCL 1 at bedtime prn Oral; 30tabs Unknown 11/08/2018 - 10mg use as needed for 11/20/2018 Tablets environemental allergies. Sudogest 12 Hour Oral; Take One Tablet By 30tabs Unknown 10/30/2018 - 120mg Mouth Every Day 01/22/2019 Tablets ER 12HR Medications Administered in Office Medication SIG Qnty Indications Ordering Provider Date TB Intradermal Test Unknown 07/18/2017 Injection TB Intradermal Test Unknown 12/31/2015 Injection TB Intradermal Test Unknown 12/24/2015 Injection Injection Medroxyprogesterone Unknown 01/05/2010 Acetate For Contraceptive Use Injection Immunizations CPT Code Status Date Vaccine Lot # [id number] Given 02/17/2019 Flu < 65 years 70339 Given 02/17/2019 Influenza Virus Vaccine, Split Virus, Preservative [id number] Free Im 0.5ML 34445 Given 02/18/2018 Shingrix - Shingles vaccine, Herpes Zoster 20157 Given 02/18/2018 Influenza Virus Vaccine, Quadrivalent, Split Virus, Im Use 0.5ML 98272 Given 02/18/2018 Flu < 65 years 95690 Given 02/18/2018 Influenza Virus Vaccine, Quadrivalent, Split, Preservative Free 70153 Given 02/18/2018 Flumist 01931 Given 02/18/2018 Flu High Dose 04573 Given 02/18/2018 Influenza Virus Vaccine, Split, Preserv Free, Intradermal Use 64215 Given 11/19/2017 Shingrix - Shingles vaccine, Herpes Zoster 24228 Given 02/27/2017 Influenza Virus Vaccine, Split, Preserv Free, Intradermal Use 39085 Given 02/27/2017 Flu High Dose 89987 Given 02/27/2017 Flumist 86942 Given 02/27/2017 Influenza Virus Vaccine, Quadrivalent, Split, Preservative Free 29738 Given 02/27/2017 Flu < 65 years 13143 Given 02/27/2017 Influenza Virus Vaccine, Quadrivalent, Split Virus, Im Use 0.5ML 00801 Given 07/06/2016 Tdap - Boostrix/Adacel 42128 Given 03/08/2016 Influenza Virus Vaccine, Quadrivalent, Split Virus, Im Use 0.5ML 82268 Given 03/08/2016 Flu < 65 years 31796 Given 03/08/2016 Influenza Virus Vaccine, Quadrivalent, Split, Preservative Free 06775 Given 03/08/2016 Flumist 78435 Given 03/08/2016 Flu High Dose 55439 Given 03/08/2016 Influenza Virus Vaccine, Split, Preserv Free, Intradermal Use 73812 Given 03/23/2015 Flu High Dose 84685 Given 03/23/2015 Flumist 36161 Given 03/23/2015 Influenza Virus Vaccine, Quadrivalent, Split, Preservative Free 71698 Given 03/23/2015 Flu < 65 years 70218 Given 03/23/2015 Influenza Virus Vaccine, Quadrivalent, Split Virus, Im Use 0.5ML 44478 Given 03/17/2014 Influenza Virus Vaccine, Quadrivalent, Split Virus, Im Use 0.5ML 15570 Given 03/17/2014 Flu < 65 years 82206 Given 03/17/2014 Influenza Virus Vaccine, Quadrivalent, Split, Preservative Free 65911 Given 03/17/2014 Flumist 45702 Given 03/17/2014 Flu High Dose 58871 Given 03/07/2013 Influenza Virus Vaccine Split Virus Intramuscular Use 0.5ML 41658 Given 03/07/2013 Flu High Dose 53297 Given 03/07/2013 Flumist 56245 Given 03/07/2013 Influenza Virus Vaccine, Quadrivalent, Split, Preservative Free 87744 Given 03/07/2013 Flu < 65 years 43083 Given 03/07/2013 Influenza Virus Vaccine, Quadrivalent, Split, Im Use 0.25ML 62611 Given 03/07/2013 Influenza Virus Vaccine, Quadrivalent, Split, Im Use 0.25ML 09580 Given 03/07/2013 Influenza Virus Vaccine, Quadrivalent, Split, Im Use 0.25ML 58715 Given 03/07/2013 Influenza Virus Vaccine, Quadrivalent, Split, Im Use 0.25ML 84600 Given 01/29/2012 Influenza Virus Vaccine Split Virus Intramuscular Use 0.5ML 84310 Given 01/29/2012 Flu High Dose 12053 Given 01/29/2012 Flumist 68675 Given 01/29/2012 Influenza Virus Vaccine, Quadrivalent, Split, Preservative Free 63299 Given 01/29/2012 Flu < 65 years 85572 Given 01/29/2012 Influenza Virus Vaccine, Quadrivalent, Split, Im Use 0.25ML 09212 Given 01/29/2012 Influenza Virus Vaccine, Quadrivalent, Split, Im Use 0.25ML 42882 Given 01/29/2012 Influenza Virus Vaccine, Quadrivalent, Split, Im Use 0.25ML 35628 Given 01/29/2012 Pneumovax - for >=2years - PPSV23 77381 Given 02/14/2011 Influenza Virus Vaccine, Quadrivalent, Split, Im Use 0.25ML 85294 Given 02/14/2011 Influenza Virus Vaccine, Quadrivalent, Split, Im Use 0.25ML 41146 Given 02/14/2011 Influenza Virus Vaccine Split Virus Intramuscular Use 0.5ML 42528 Given 08/12/2010 Tdap - Boostrix/Adacel Vital Signs Date Vital Result Comment 04/30/2019 3:30pm BP Systolic 126 mmHg BP Diastolic 72 mmHg Heart Rate 82 /min Body Temperature 98.4 F O2 % BldC Oximetry 98 % 04/18/2019 2:10pm BP Systolic 124 mmHg BP Diastolic 68 mmHg Heart Rate 84 /min Body Temperature 98.4 F O2 % BldC Oximetry 97 % Results Test Acquired Facility Test Result H/L Range Note Date Laboratory 02/24/2019 [facility] FSH (Follicle 18.0 mIU/mL 1 test finding [address] Stim Hormone) [place] [address] [phone] Order 02/17/2019 [facility] Nebulizer patient Treatment tolterated l Leuk Est-Ua 11/14/2018 N2N/CCD Import Leuk Est-Ua Negative Negative Lymph# 11/14/2018 N2N/CCD Import Lymph# 1.5 10_3/ul 1.0-4.8 10 3/ul Lymph% 11/14/2018 N2N/CCD Import Lymph% 23.7 % 20 - 45 % MCH 11/14/2018 N2N/CCD Import MCH 32 pg High 27-31 pg MCHC 11/14/2018 N2N/CCD Import MCHC 35 g/dL 31-36 g/dL MCV 11/14/2018 N2N/CCD Import MCV 93 fL 80-97 fL [place]# 11/14/2018 N2N/CCD Import [place]# 0.5 10_3/ul 0-0.8 10 3/ul [place]% 11/14/2018 N2N/CCD Import [place]% 8.2 % 0 - 10 % MPV 11/14/2018 N2N/CCD Import MPV 8.0 fL 7.4-10.4 fL Neut# 11/14/2018 N2N/CCD Import Neut# 4.2 10_3/ul 1.5-7.7 10 3/ul Neut% 11/14/2018 N2N/CCD Import Neut% 66.1 % 45 - 70 % Nitrite-Ua 11/14/2018 N2N/CCD Import Nitrite-Ua Negative Negative NRBC# 11/14/2018 N2N/CCD Import NRBC# 0.0 10_3/ul NRBC% 11/14/2018 N2N/CCD Import NRBC% 0.1 _ PH-Ua 11/14/2018 N2N/CCD Import PH-Ua 8.0 _ 5-9 Platelets 11/14/2018 N2N/CCD Import Platelets 297 10_3/uL 150-450 10 3/uL Potassium 11/14/2018 N2N/CCD Import Potassium 3.6 mmol/L 3.5-5.0 mmol/L Protein, 11/14/2018 N2N/CCD Import Protein, 6.5 g/dL 6.4-8.9 Total Total g/dL Protein-Ua 11/14/2018 N2N/CCD Import Protein-Ua Negative Negative RBC 11/14/2018 N2N/CCD Import RBC 4.52 10_6_/uL 3.70-4.87 10 6 /uL RBC-Ua 11/14/2018 N2N/CCD Import RBC-Ua Trace(0-2/hpf Absent ) RDW 11/14/2018 N2N/CCD Import RDW 13 % 10-15 % Salicylate 11/14/2018 N2N/CCD Import Salicylate < 2.50 <30 mg/dL Sodium 11/14/2018 N2N/CCD Import Sodium 138 mmol/L 135-145 mmol/L SP Grav-Ua 11/14/2018 N2N/CCD Import SP Grav-Ua 1.004 _ Low 1.010-1.03 0 TSH 11/14/2018 N2N/CCD Import TSH 0.50 mcIU/mL 0.34-5.60 mcIU/mL Urobilinogen- 11/14/2018 N2N/CCD Import Urobilinogen- Negative Negative Ua Ua WBC 11/14/2018 N2N/CCD Import WBC 6.3 10_3/uL 3.5-10.8 10 3/uL WBC-Ua 11/14/2018 N2N/CCD Import WBC-Ua Trace(0-5/hpf Absent ) A/G Ratio 11/14/2018 N2N/CCD Import A/G Ratio 1.6 _ 1-3 Albumin 11/14/2018 N2N/CCD Import Albumin 4.0 g/dL 3.2-5.2 g/dL Alcohol 11/14/2018 N2N/CCD Import Alcohol < 10 <10 mg/dL Alk Phos 11/14/2018 N2N/CCD Import Alk Phos 34 U/L 34-104 U/L Alt 11/14/2018 N2N/CCD Import Alt 11 U/L 7-52 U/L Anion Gap 11/14/2018 N2N/CCD Import Anion Gap 10 mmol/L 2-11 mmol/L Appear-Ua 11/14/2018 N2N/CCD Import Appear-Ua Clear Ast 11/14/2018 N2N/CCD Import Ast 12 U/L Low 13-39 U/L Bacteria-Ua 11/14/2018 N2N/CCD Import Bacteria-Ua Absent Absent Baso# 11/14/2018 N2N/CCD Import Baso# 0.1 10_3/ul 0-0.2 10 3/ul Baso% 11/14/2018 N2N/CCD Import Baso% 1.0 % 0 - 2 % Bilirubin 11/14/2018 N2N/CCD Import Bilirubin 0.40 mg/dL 0.2-1.0 Total Total mg/dL Bilirubin-Ua 11/14/2018 N2N/CCD Import Bilirubin-Ua Negative Negative Blood-Ua 11/14/2018 N2N/CCD Import Blood-Ua 2+ Abnormal Negative BUN 11/14/2018 N2N/CCD Import BUN 10 mg/dL 6-24 mg/dL BUN/Creat 11/14/2018 N2N/CCD Import BUN/Creat 15.6 _ 8-20 Ratio Ratio Calcium 11/14/2018 N2N/CCD Import Calcium 9.6 mg/dL 8.6-10.3 mg/dL Chloride 11/14/2018 N2N/CCD Import Chloride 106 mmol/L 101-111 mmol/L Co2 11/14/2018 N2N/CCD Import Co2 22 mmol/L 22-32 mmol/L Color-Ua 11/14/2018 N2N/CCD Import Color-Ua Straw Creatinine 11/14/2018 N2N/CCD Import Creatinine 0.64 mg/dL 0.51-0.95 mg/dL Eosin# 11/14/2018 N2N/CCD Import Eosin# 0.1 10_3/ul 0-0.6 10 3/ul Eosin% 11/14/2018 N2N/CCD Import Eosin% 1.0 % 0 - 5 % GFR Afr Amer 11/14/2018 N2N/CCD Import GFR Afr Amer 117.5 _ >60 GFR Non Afr 11/14/2018 N2N/CCD Import GFR Non Afr 97.1 _ >60 Amer Amer Globulin 11/14/2018 N2N/CCD Import Globulin 2.5 g/dL 2-4 g/dL Glucose 11/14/2018 N2N/CCD Import Glucose 91 mg/dL 70-100 mg/dL Glucose-Ua 11/14/2018 N2N/CCD Import Glucose-Ua Negative Negative Hematocrit 11/14/2018 N2N/CCD Import Hematocrit 42 % 35-47 % Hemoglobin 11/14/2018 N2N/CCD Import Hemoglobin 14.6 g/dL 12.0-16.0 g/dL Ketones-Ua 11/14/2018 N2N/CCD Import Ketones-Ua Trace Abnormal Negative 1 Normally menstruating females - Follicular phase 3 - 9 - Mid-cycle peak 4 - 23 - Luteal phase 1 - 6 Postmenopausal females 16 - 114 Procedures Date Code Description Status 02/17/2019 54502 Pressurized/Non-Pressurized Inhalation Treatment,Acute Completed Obstructio Medical Devices Description No Information Available Encounters Type Date Location Provider Dx Diagnosis Office Visit 04/30/2019 [facility] CATHY Wisdom S41.111A Laceration w/o foreign 4:00p body of right upper arm, init encntr X78.9xxA Intentional self-harm by unsp sharp object, init encntr Office Visit 04/18/2019 2:15p [facility] Lucy Bernard MD R10.30 Lower abdominal pain, unspecified Office Visit 04/14/2019 11:45a [facility] Lyndsey Luciennow, D25.9 Leiomyoma of uterus, DO unspecified R10.30 Lower abdominal pain, unspecified F43.12 Post-traumatic stress disorder, chronic X78.1xxS Intentional self-harm by knife, sequela Office Visit 03/25/2019 1:45p [facility] Lyndsey Luciennow, R10.30 Lower abdominal DO pain, unspecified D25.9 Leiomyoma of uterus, unspecified J30.9 Allergic rhinitis, unspecified Office Visit 02/24/2019 11:30a [facility] Los Vaca MD J06.9 Acute upper respiratory infection, unspecified R05 Cough Office Visit 02/17/2019 1:45p [facility] Los Vaca MD J45.21 Mild intermittent asthma with (acute) exacerbation Z23 Encounter for immunization Assessments Date Code Description Provider 04/30/2019 S41.111A Laceration without foreign body 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, initial encounter 04/30/2019 X78.9xxA Intentional self-harm by unspecified sharp CATHY Wisdom object, initial encounter 04/18/2019 R10.30 Lower abdominal pain, unspecified Lucy Bernard MD 04/14/2019 D25.9 Leiomyoma of uterus, unspecified Lyndsey Karnow, DO 04/14/2019 R10.30 Lower abdominal pain, unspecified Lyndsey Karnow, DO 04/14/2019 F43.12 Post-traumatic stress disorder, chronic Lyndsey Karnow, DO 04/14/2019 X78.1xxS Intentional self-harm by knife, sequela Lyndsey Karnow , DO 03/25/2019 R10.30 Lower abdominal pain, unspecified Lyndsey Karnow, DO 03/25/2019 D25.9 Leiomyoma of uterus, unspecified Lyndsey Karnow, DO 03/25/2019 J30.9 Allergic rhinitis, unspecified Lyndsey Karnow, DO 02/24/2019 J06.9 Acute upper respiratory infection, [place] MD unspecified 02/24/2019 R05 Cough [place] MD 02/17/2019 J45.21 Mild intermittent asthma with (acute) [place] MD exacerbation 02/17/2019 Z23 Encounter for immunization Los Vaca MD Plan of Treatment Future Appointment(s):07/01/2019 1:15 pm - Lyndsey Aviles, DO at [facility] Main - Sheryl Barnard, FNPS41.111A Laceration without foreign body of right upper arm, initial encounterComments:discussed that laceration is healing without signs and symptoms of infection wound covered with bactiracin and bandage monitor for signs and symptoms of [id number] Intentional self- harm by unspecified sharp object, initial encounterComments:discussed cutting behaviorimportance that she takes her naltrexone and avoids alcohol as it impairs her judgement no active or passive ideation for self harm at this time safety plan tonight: advocate will take ETOH out of her room and call her before bedtime- tomorrow [facility] call her in the morning at 9AM- if doesn't respond will call [facility] to check on her advocacy center will contact her tomorrow afternoon counseling this Sundaydiscussed emergency numbers suicide prevention, [facility] air quality consultant and EDAllNew Medication:Naltrexone HCL 50 mg - 1 by mouth every day Functional Status Description No Information Available Mental Status Description No Information Available Referrals Description No Information Available
--- OUTSIDE RECORDS SUMMARY | 2019-05-01 12:56 | XMS REPORT | Continuity of Care Document ---
:1965 External Reference #:[id number] Author Name Jigna Steiner M.D. (transmitted by agent of provider Varsha Perkins) Address [address] [place] [address] [place] [address] Care Team Providers Name Role Phone Jesika Redman MD - Family Care Team Information [employer]iano [employer]inisher Medicine Problems Active Problems Provider Date Localized, primary osteoarthritis Jigna Steiner M.D. Onset: 07/22/2018 Localized, primary osteoarthritis of the Jigna Steiner M.D. Onset: 01/14/2018 pelvic region and thigh Right side sciatica Trip Bradley M.D. Onset: 11/04/2015 Social History Type Date Description Comments Sex Unknown ETOH Use Currently consumes alcohol Tobacco Use Start: Unknown Patient has never smoked Smoking Status Reviewed: 04/28/19 Patient has never smoked Exercise Type/Frequency Exercises regularly Allergies, Adverse Reactions, Alerts Active Allergies Reaction Severity Comments Date Codeine passes out 05/14/2008 Cephalexin 01/26/2014 Iodine 05/14/2008 Cortisone 05/14/2008 nonsteroidal antiinf 05/14/2008 Adhesive Tape 01/26/2014 Medications Active Medications SIG Qnty Indications Ordering Date Provider Toilet Seat Elevator use at all times 1units M25.561 Jigna Steiner, 2018 dx - r knee M.D. severe oa ht - 63 inches, weight 162lb Cyclobenzaprine HCL take 1 tab by 45tabs Dwaine Deal, 07/24/2018 10mg mouth 2 times a MD Tablets day as needed Rolling Walker ht: 63.5, wt: M17.0 Jigna Steiner, 07/22/2018 159lbs M.D. Meloxicam Take One Tablet 30tabs M70.62 Jigna Steiner, 01/14/2018 15mg Tablets By Mouth Every M.D. Day Maximum Daily Dose = 1 Qvar daily Unknown Ventolin HFA 2 puffs by mouth Unknown 108(90Base) four times a day mcg/Act Aerosol as needed Colace 1 tab by mouth Unknown 100mg Capsules 2-3 times a day as needed Lamictal 1 by mouth daily Unknown 200mg Tablets Trintellix 1 by mouth every Unknown 10mg Tablets day Protonix 1 by mouth every Unknown 40mg Tablets DR day Seroquel take 1 tablet by Unknown 50mg Tablets mouth bid Seroquel one at bedtime Unknown 100mg Tablets Fluticasone Propionate 2 sprays each Unknown nostril daily as 50mcg/Act Suspension needed Lia-D 24 Hour 1 by mouth daily Unknown Allergy & Congestion as needed for allergy symptoms 180-240mg Tablets ER 24HR Acamprosate Calcium take 1 tab tid Unknown 333mg Tablets DR Naltrexone HCL one tab daily in Unknown 50mg Tablets pm Prazosin HCL once daily Unknown 2mg Capsules Zolpidem Tartrate 1/2 to 1 tab by Unknown 10mg mouth every Tablets night at bedtime as needed Immunizations Description No Information Available Vital Signs Date Vital Result Comment 04/28/2019 10:51am Height 63.5 inches 5'3.50" Heart Rate 95 /min BP Systolic 138 mmHg BP Diastolic 74 mmHg Body Temperature 97.8 F Pain Level 5 07/22/2018 2:27pm Height 63.5 inches 5'3.50" Heart Rate 52 /min BP Systolic 142 mmHg BP Diastolic 78 mmHg Respiratory Rate 18 /min Pain Level 6 Results Description No Information Available Procedures Date Code Description Status 09/04/2008 [id number] Mammogram Completed Medical Devices Description No Information Available Encounters Description No Information Available Assessments Date Code Description Provider 04/28/2019 M25.561 Pain in right knee Jigna Steiner M.D. 04/28/2019 M25.562 Pain in left knee Jigna Steiner M.D. 04/28/2019 M25.462 Effusion, left knee Jigna Steiner M.D. 04/28/2019 M25.461 Effusion, right knee Jigna Steiner M.D. 04/28/2019 M17.0 Bilateral primary osteoarthritis of knee Jigna Steiner M.D. 04/28/2019 M16.12 Unilateral primary osteoarthritis, left hip Jigna Steiner M.D. 04/28/2019 M70.62 Trochanteric bursitis, left hip Jigna Steiner M.D. 04/28/2019 M25.552 Pain in left hip Jigna Steiner M.D. 04/28/2019 M54.32 Sciatica, left side Jigna Steiner M.D. Plan of Treatment 04/28/2019 - Jigna Steiner M.D.M25.561 Pain in right kneeNew Medication:Toilet Seat Elevator - use at all times dx - r knee severe oa ht - 63 inches, weight 329cvU75.562 Pain in left kneeM25.462 Effusion, left kneeM25.461 Effusion, right kneeM17.0 Bilateral primary osteoarthritis of kneeM16.12 Unilateral primary osteoarthritis, left hipM70.62 Trochanteric bursitis, left hipM25.552 Pain in left hipM54.32 Sciatica, left sideFollow up:Follow up: As needed Functional Status Description No Information Available Mental Status Description No Information Available Referrals Description No Information Available
--- OUTSIDE RECORDS SUMMARY | 2019-05-01 12:56 | XMS REPORT ---
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, disorder, [id number] recurrent, recurrent, unspecified unspecified Post-trauma Post-trauma Diagnosis Active Iris tic stress tic stress 11-30 Ingrahm disorder, disorder, [id number] unspecified unspecified 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 [id number] G40.909 G40.909 Diagnosis Active Iris 11-30 Ingrahm [id number] Pain frequent Pain Mgmt Resolve 2018-12-18 Prabha pain d 12-02 09:35:00 Geoff 14:30: [id number] 00 Pain knowledge/s Pain Mgmt Resolve 2015-12-09 Prabha kill d 12-02 10:15:00 Tellez deficit: pt 14:30: [id number] 00 Integument skin Integument Resolve 2015-12-17 Prabha integrity d 12-02 11:00:00 Tellez risk 14:30: [id number] 00 Elimination urinary Eliminatio Resolve 2015-12-09 Prabha incontinenc n d 12-02 10:15:00 Tellez e 14:30: [id number] 00 Neuro confusion Neuro/Emot Resolve 2015-12-09 Prabha present ion d 12-02 10:15:00 Geoff 14:30: [id number] 00 Neuro anxiety Neuro/Emot Resolve 2015-12-21 Prabha present ion d 12-02 14:15:00 Tellez 14:30: [id number] 00 Neuro depressive Neuro/Emot Resolve 2015-12-21 Prabha feelings ion d 12-02 14:15:00 Tellez present 14:30: [id number] 00 Neuro impaired Neuro/Emot Resolve 2015-12-09 Prabha decision-ma ion d 12-02 10:15:00 Geoff anika 14:30: [id number] 00 Activity ADL Activity Unknown Prabha assistance 12-02 Tellez required 14:30: [id number] 00 Safety fall risk Safety Resolve 2015-12-09 Prabha factor d 12-02 10:15:00 Tellez present 14:30: [id number] 00 Medication oral med Meds Resolve 2017-05-25 Prabha assistance d 12-02 11:19:00 Tellez required 14:30: [id number] 00 Neuro knowledge/s Neuro/Emot Resolve 2015-12-09 Cherrise kill ion d 12-08 10:15:00 Isauro deficit: pt 10:15: [id number] 00 Safety risk for Safety Resolve 2015-12-09 Cherrise hospitaliza d 12-08 10:15:00 [place] tion 10:15: [id number] 00 Medication knowledge/s Meds Resolve 2015-12-09 Katiarise kill d 12-08 10:15:00 Isauro deficit: pt 10:15: [id number] 00 Musculoskel requires Musculoske Resolve 2016-03-17 Cherrise etal human letal d 12-08 09:30:00 [place] assist to 10:15: [id number] leave home 00 Pain knowledge/s Pain Mgmt Resolve 2015-12-17 Halle kill d 12-16 11:00:00 Blank deficit: pt 11:00: [id number] 00 Neuro confusion Neuro/Emot Resolve 2016-02-25 Halle present ion d 12-16 11:30:00 Blank 11:00: [id number] 00 Neuro impaired Neuro/Emot Resolve 2016-02-25 Halle decision-ma ion d 12-16 11:30:00 Blank anika 11:00: [id number] 00 Medication oral med Meds Unknown Halle assistance 12-16 Blank required 11:00: [id number] 00 Medication knowledge/s Meds Resolve 2015-12-17 Halle kill d 12-16 11:00:00 Blank deficit: pt 11:00: [id number] 00 Pain frequent Pain Mgmt Unknown Iris pain 12-16 Ingrahm 20:00: [id number] 00 Elimination urinary Eliminatio Resolve 2015-12-17 Iris incontinenc n d 12-16 11:00:00 Ingrahm e 20:00: [id number] 00 Neuro knowledge/s Neuro/Emot Resolve 2016-01-07 Cherrise kill ion d 01-06 09:30:00 Isauro deficit: pt 09:30: [id number] 00 Safety fall risk Safety Resolve 2016-03-17 Cherrise factor d 01-06 09:30:00 Isauro present 09:30: [id number] 00 Safety risk for Safety Resolve 2016-03-17 Cherrise hospitaliza d 01-06 09:30:00 Isauro tion 09:30: [id number] 00 Neuro anxiety Neuro/Emot Resolve 2016-02-25 Iris present ion d 01-27 11:30:00 Ingrahm 10:30: [id number] 00 Activity ADL Activity Resolve 2016-03-17 Iris assistance d 01-27 09:30:00 Ingrahm required 10:30: [id number] 00 Integument skin Integument Resolve 2016-03-17 Cherrise integrity d 02-03 09:30:00 [place] risk 10:45: [id number] 00 Integument other wound Integument Resolve 2016-03-17 Cherrise present d 02-03 09:30:00 Isauro 10:45: [id number] 00 Integument knowledge/s Integument Resolve 2016-02-04 Cherrise kill d 02-03 10:45:00 Isauro deficit: pt 10:45: [id number] 00 Respiratory dyspnea Respirator Resolve 2017-02-26 Prabha present y d 9-08 17:45:00 Tellez 09:30: [id number] 00 Elimination urinary Eliminatio Resolve 2016-03-17 Prabha incontinenc n d 02-16 09:30:00 Tellez e 09:30: [id number] 00 Elimination bowel Eliminatio Resolve 2016-03-17 Prabha incontinenc n d 02-16 09:30:00 Tellez e 09:30: [id number] 00 Neuro depressive Neuro/Emot Resolve 2016-02-25 Prabha feelings ion d 02-16 11:30:00 Tellez present 09:30: [id number] 00 Medication oral med Meds Unknown Prabha assistance 02-16 Tellez required 09:30: [id number] 00 Medication potential Meds Resolve 2016-03-17 Prabha clinically d 02-16 09:30:00 Tellez significant 09:30: [id number] medication 00 issue Neuro impaired Neuro/Emot Resolve 2016-02-25 Maria Luisae decision-ma ion d 02-24 11:30:00 [place] anika 11:30: [id number] 00 Pain frequent Pain Mgmt Unknown 2015-06 Penelope pain 0-14 Isauro 09:20: [id number] 00 Safety risk for Safety Resolve 2015-062016-03-24 Maria Luisae hospitaliza d 0-14 09:20:00 Isauro tion 09:20: [id number] 00 Musculoskel requires Musculoske Resolve 2015-062018-10-16 Penelope etal human letal d 014 09:45:00 Isauro assist to 09:20: [id number] leave home 00 Safety risk for Safety Resolve 2015-062016-04-21 Katiarise hospitaliza d 0-17 09:25:00 Isauro tion 11:15: [id number] 00 Integument other wound Integument Resolve 2015-062016-07-17 Iris present d 0 15:54:00 Ingrahm 09:31: [id number] 00 Elimination urinary Eliminatio Resolve 2015-062016-06-16 Iris incontinenc n d 09:40:00 Ingrahm e 09:31: [id number] 00 Elimination bowel Eliminatio Resolve 2015-062016-06-16 Iris incontinenc n d 0-21 09:40:00 Ingrahm e 09:31: [id number] 00 Neuro confusion Neuro/Emot Resolve 2015-062016-04-07 Iris present ion d 0-21 09:20:00 Ingrahm 09:31: [id number] 00 Neuro anxiety Neuro/Emot Resolve 2015-062016-04-07 Iris present ion d 0 09:20:00 Ingrahm 09:31: [id number] 00 Neuro impaired Neuro/Emot Resolve 2015-062016-04-07 Iris decision-ma ion d 0 09:20:00 Ingrahm anika 09:31: [id number] 00 Activity ADL Activity Unknown 2015-06 Iris assistance Ingrahm required 09:31: [id number] 00 Safety fall risk Safety Resolve 2015-062016-04-21 Iris factor d 0 09:25:00 Ingrahm present 09:31: [id number] 00 Medication injectable Meds Resolve 2015-062017-05-25 Iris med d 11:19:00 Ingrahm assistance 09:31: [id number] required 00 Neuro depressive Neuro/Emot Resolve 2015-062016-04-07 Cherrise feelings ion d 09:20:00 Isauro present 09:20: [id number] 00 Neuro depressive Neuro/Emot Resolve 2015-062016-12-22 Cherrise feelings ion d 06-21 10:00:00 Isauro present 09:25: [id number] 00 Neuro impaired Neuro/Emot Resolve 2015-062016-04-21 Cherrise decision-ma ion d 06-21 09:25:00 Isauro anika 09:25: [id number] 00 Integument surgical Integument Resolve 2015-062016-07-17 Iris wound d 07-02 15:54:00 Ingrahm present 15:30: [id number] 00 Neuro anxiety Neuro/Emot Resolve 2015-062016-06-09 Iris present ion d 07-02 09:30:00 Ingrahm 15:30: [id number] 00 Safety risk for Safety Resolve 2015-062016-05-10 Iris hospitaliza d 07-02 10:55:00 Ingrahm tion 15:30: [id number] 00 Safety drug Safety Resolve 2015-062016-07-17 Iris dependency d - 15:54:00 Ingrahm reported 15:30: [id number] 00 Safety fall risk Safety Resolve 2015-062016-05-10 Iris factor d - 10:55:00 Ingrahm present 15:30: [id number] 00 Medication oral med Meds Unknown 2015-06 Iris assistance 07-02 Ingrahm required 15:30: [id number] 00 Neuro impaired Neuro/Emot Resolve 2015-062016-05-19 Maria Luisakrys decision-ma ion d 1- 09:40:00 [place] anika 10:55: [id number] 00 Safety risk for Safety Resolve 2015-062016-05-19 Cherrise hospitaliza d 07-20 09:40:00 [place] tion 09:40: [id number] 00 Safety fall risk Safety Resolve 2015-062016-06-09 Cherrise factor d 2- 09:30:00 Isauro present 08:30: [id number] 00 Safety risk for Safety Resolve 2015-062016-06-09 Cherrise hospitaliza d 2- 09:30:00 Isauro tion 08:30: [id number] 00 Pain frequent Pain Mgmt Unknown 2015-06 Iris pain 2-20 Ingrahm 09:24: [id number] 00 Neuro impaired Neuro/Emot Resolve 2015-062016-12-22 Maria Luisakrys decision-ma ion d 10:00:00 [place] anika 09:30: [id number] 00 Safety risk for Safety Resolve 2016-06-16 Cherrise hospitaliza d 06-16 09:40:00 [place] tion 09:40: [id number] 00 Safety fall risk Safety Resolve 2016-06-16 Cherrise factor d 06-16 09:40:00 [place] present 09:40: [id number] 00 Safety risk for Safety Resolve 2016-06-23 Cherrise hospitaliza d 06-23 09:30:00 Isauro tion 09:30: [id number] 00 Safety risk for Safety Resolve 2016-07-07 Iris hospitaliza d 1-20 09:50:00 Ingrahm tion 09:29: [id number] 00 Safety risk for Safety Resolve 2016-07-17 Cherrise hospitaliza d 1-28 15:54:00 Isauro tion 08:55: [id number] 00 Nutrition nutritional Nutrition Resolve 2016-07-17 Cherrise restriction d 2-03 15:54:00 [place] s 10:10: [id number] 00 Elimination urinary Eliminatio Resolve 2016-07-17 Cherrise incontinenc n d 2- 15:54:00 Isauro e 10:10: [id number] 00 Elimination constipatio Eliminatio Resolve 2016-07-17 Cherrise n n d 2- 15:54:00 [place] 10:10: [id number] 00 Safety fall risk Safety Resolve 2016-07-17 Cherrise factor d 2- 15:54:00 Isauro present 10:10: [id number] 00 Elimination urinary Eliminatio Resolve 2016-07-17 Genoveva urgency n d 2- 15:54:00 Funes 15:54: [id number] 00 Neuro anxiety Neuro/Emot Resolve 2016-12-22 Cherrise present ion d 2-10 10:00:00 Isauro 09:30: [id number] 00 Neuro memory Neuro/Emot Resolve 2017-02-26 Cherrise deficit ion d 2-10 17:45:00 [place] needing 09:30: [id number] supervision 00 Safety risk for Safety Resolve 2016-07-28 Cherrise hospitaliza d 2-10 10:00:00 [place] tion 09:30: [id number] 00 Pain frequent Pain Mgmt Unknown Annette pain 07-28 Regeczi 10:00: [id number] 00 Integument other wound Integument Resolve 2017-05-25 Annette present d 2-17 11:19:00 Regeczi 10:00: [id number] 00 Elimination urinary Eliminatio Resolve 2016-07-28 Annette incontinenc n d 2- 10:00:00 Regeczi e 10:00: [id number] 00 Safety fall risk Safety Resolve 2016-07-28 Annette factor d 2-17 10:00:00 Regeczi present 10:00: [id number] 00 Safety fall risk Safety Resolve 2017-02-26 Cherlaurie factor d 2-24 17:45:00 [place] present 09:45: [id number] 00 Safety risk for Safety Unknown Katiarise hospitaliza 2 Isauro tion 09:45: [id number] 00 Musculoskel requires Musculoske Unknown Cherrise etal human letal 08-11 Isauro assist to 11:45: [id number] leave home 00 Elimination urinary Eliminatio Resolve 2017-02-26 Cherrise incontinenc n d 3-10 17:45:00 [place] e 09:40: [id number] 00 Elimination constipatio Eliminatio Resolve 2017-02-26 Cherrise n n d 3-10 17:45:00 Isauro 09:40: [id number] 00 Safety can be left Safety Resolve 2017-02-26 Anita alone for d 4-14 17:45:00 Small only short 09:20: [id number] periods 00 Neuro depressive Neuro/Emot Unknown Penelope feelings ion 11-03 Isauro present 10:00: [id number] 00 Cardio edema Cardiovasc Resolve 2017-02-26 Penelope ular d 6 17:45:00 [place] 09:30: [id number] 00 Pain knowledge/s Pain Mgmt Resolve 2016-12-22 Iris kill d 12-15 10:00:00 Ingrahm deficit: cg 09:56: [id number] 00 Respiratory knowledge/s Respirator Resolve 2016-12-22 Iris kill y d 12-15 10:00:00 Ingrahm deficit: cg 09:56: [id number] 00 Integument knowledge/s Integument Resolve 2016-12-22 Iris kill d 12-15 10:00:00 Ingrahm deficit: cg 09:56: [id number] 00 Elimination knowledge/s Eliminatio Resolve 2017-02-26 Iris kill n d 12-15 17:45:00 Ingrahm deficit: cg 09:56: [id number] 00 Neuro knowledge/s Neuro/Emot Resolve 2016-12-22 Iris kill ion d 12-15 10:00:00 Ingrahm deficit: cg 09:56: [id number] 00 Safety knowledge/s Safety Resolve 2016-12-22 Iris kill d 12-15 10:00:00 Ingrahm deficit: cg 09:56: [id number] 00 Neuro anxiety Neuro/Emot Unknown Cherrise present ion 12-22 [place] 10:00: [id number] 00 Neuro impaired Neuro/Emot Unknown Cherrise decision-ma ion 12-22 Isauro anika 10:00: [id number] 00 Neuro impaired Neuro/Emot Resolve 2017-02-26 Cherrise decision-ma ion d 01-05 17:45:00 Isauro anika 10:00: [id number] 00 Respiratory knowledge/s Respirator Resolve 2017-02-26 Iris kill y d 01-12 17:45:00 Ingrahm deficit: cg 09:13: [id number] 00 Integument knowledge/s Integument Resolve 2017-05-25 Iris kill d 01-12 11:19:00 Ingrahm deficit: cg 09:13: [id number] 00 Neuro knowledge/s Neuro/Emot Resolve 2017-02-26 Iris kill ion d 01-12 17:45:00 Ingrahm deficit: cg 09:13: [id number] 00 Safety knowledge/s Safety Resolve 2017-02-26 Iris kill d 01-12 17:45:00 Ingrahm deficit: cg 09:13: [id number] 00 Neuro anxiety Neuro/Emot Resolve 2017-02-26 Iris present ion d 01-26 17:45:00 Ingrahm 09:11: [id number] 00 Neuro depressive Neuro/Emot Resolve 2017-02-26 Cherrise feelings ion d 02-02 17:45:00 [place] present 08:45: [id number] 00 Elimination urinary Eliminatio Resolve 2017-02-26 Cherrise urgency n d 02-09 17:45:00 [place] 09:40: [id number] 00 Pain severe pain Pain Mgmt Resolve 2018-12-18 Annette d 02-26 09:35:00 Regeczi 17:45: [id number] 00 Elimination urinary Eliminatio Resolve 2017-02-26 Annette incontinenc n d 02-26 17:45:00 Regeczi e 17:45: [id number] 00 Elimination constipatio Eliminatio Unknown Annette n n 02-26 Regeczi 17:45: [id number] 00 Neuro confusion Neuro/Emot Resolve 2017-02-26 Annette present ion d 02-26 17:45:00 Regeczi 17:45: [id number] 00 Neuro impaired Neuro/Emot Resolve 2017-02-26 Annette decision-ma ion d 02-26 17:45:00 Regeczi anika 17:45: [id number] 00 Safety structural Safety Resolve 2017-02-26 Annette barriers d 02-26 17:45:00 Regeczi present 17:45: [id number] 00 Safety safety Safety Resolve 2017-02-26 Annette hazards d 02-26 17:45:00 Regeczi present 17:45: [id number] 00 Safety knowledge/s Safety Resolve 2017-02-26 Annette kill d 02-26 17:45:00 Regeczi deficit: cg 17:45: [id number] 00 Safety risk for Safety Resolve 2017-02-26 Annette hospitaliza d 02-26 17:45:00 Regeczi tion 17:45: [id number] 00 Safety fall risk Safety Resolve 2017-02-26 Annette factor d 02-26 17:45:00 Regeczi present 17:45: [id number] 00 Medication potential Meds Resolve 2017-05-25 Annette clinically d 02-26 11:19:00 Regeczi significant 17:45: [id number] medication 00 issue Medication oral med Meds Unknown Annette assistance 02-26 Regeczi required 17:45: [id number] 00 Medication oral med Meds Unknown Annette assistance 02-26 Regeczi required 17:45: [id number] 00 Neuro impaired Neuro/Emot Resolve 2018-10-16 Cherlaurie decision-ma ion d 03-01 09:45:00 [place] anika 18:15: [id number] 00 Safety knowledge/s Safety Active Cherrise kill 03-01 [place] deficit: cg 18:15: [id number] 00 Safety fall risk Safety Resolve 2017-05-25 Cherrise factor d 03-01 11:19:00 [place] present 18:15: [id number] 00 Safety risk for Safety Resolve 2017-05-25 Cherlaurie hospitaliza d 03-01 11:19:00 Isauro tion 18:15: [id number] 00 Nutrition knowledge/s Nutrition Resolve 2017-05-25 Cherrise kill d 03-05 11:19:00 [place] deficit: pt 10:45: [id number] 00 Elimination urinary Eliminatio Resolve 2017-05-25 Cherrise urgency n d 03-05 11:19:00 Isauro 10:45: [id number] 00 Elimination constipatio Eliminatio Resolve 2017-05-25 Cherrise n n d 03-05 11:19:00 [place] 10:45: [id number] 00 Neuro seizures Neuro/Emot Resolve 2016-062018-10-16 Katiarise ion d 09:45:00 Isauro 09:30: [id number] 00 Elimination urinary Eliminatio Resolve 2016-062017-05-25 Mariposa incontinenc n d 0- 11:19:00 Aide marcano 17:00: [id number] 00 Neuro anxiety Neuro/Emot Resolve 2016-062018-10-16 Mariposa present ion d 0- 09:45:00 Aide 17:00: [id number] 00 Safety risk for Safety Resolve 2016-062017-12-19 Iris hospitaliza d 09:45:00 Ingrahm tion 09:15: [id number] 00 Nutrition knowledge/s Nutrition Resolve 2017-09-19 Cherrise kill d 1 09:45:00 [place] deficit: pt 09:20: [id number] 00 Elimination urinary Eliminatio Resolve 2018-10-16 Cherrise urgency n d 1- 09:45:00 [place] 09:20: [id number] 00 Safety fall risk Safety Resolve 2017-12-19 Cherrise factor d 1-12 09:45:00 [place] present 09:45: [id number] 00 Pain frequent Pain Mgmt Unknown Iris pain - Ingrahm 09:30: [id number] 00 Integument other wound Integument Resolve 2018-10-16 Iris present d 2 09:45:00 Ingrahm 09:30: [id number] 00 Elimination urinary Eliminatio Resolve 2018-10-16 Iris incontinenc n d 07-19 09:45:00 Ingrahm e 09:30: [id number] 00 Respiratory dyspnea Respirator Resolve 2018-12-18 Cherrise present y d 08-01 09:35:00 Isauro 15:10: [id number] 00 Integument skin Integument Resolve 2018-10-16 Cherrise integrity d 08-08 09:45:00 Isauro risk 09:30: [id number] 00 Neuro depressive Neuro/Emot Resolve 2018-10-16 Cherrise feelings ion d 08-08 09:45:00 Isauro present 09:30: [id number] 00 Cardio edema Cardiovasc Active Cherrise ular 08-22 [place] 09:45: [id number] 00 Cardio hypertensio Cardiovasc Resolve 2018-12-18 Cherrise n ular d 08-22 09:35:00 Isauro 09:45: [id number] 00 Musculoskel requires Musculoske Unknown Cherrise etal human letal 18 [place] assist to 09:45: [id number] leave home 00 Respiratory lung sounds Respirator Resolve 2018-10-30 Cherrise deficit y d 10-31 10:00:00 Isauro 09:30: [id number] 00 Safety structural Safety Resolve 2018-10-16 Cherrise barriers d -18 09:45:00 [place] present 09:50: [id number] 00 Safety risk for Safety Resolve 2018-10-16 Cherrise hospitaliza d 7-18 09:45:00 [place] tion 09:50: [id number] 00 Safety fall risk Safety Resolve 2018-10-16 Cherrise factor d 8- 09:45:00 Isauro present 10:00: [id number] 00 Nutrition knowledge/s Nutrition Active Kelly kill 01-16 Michael deficit: pt 10:10: [id number] 00 Nutrition nutritional Nutrition Resolve 2018-10-16 Kelly restriction d 01-16 09:45:00 Michael s 10:10: [id number] 00 Elimination UTI within Eliminatio Resolve 2018-10-16 Zeina past 14 n d 07-09 09:45:00 (Melinda) days 10:18: Chavez 00 [id number] Neuro confusion Neuro/Emot Resolve 2018-10-16 Zeina present ion d 07-09 09:45:00 (Melinda) 10:18: Chavez 00 [id number] Pain knowledge/s Pain Mgmt Resolve 2018-12-18 Zeina kill d 2-08 09:35:00 Guidelli deficit: pt 09:00: [id number] 00 Pain knowledge/s Pain Mgmt Resolve 2018-12-18 Zeina kill d 2-08 09:35:00 Guidelli deficit: cg 09:00: [id number] 00 Safety risk for Safety Active Cherrise hospitaliza 5-11 Isauro tion 09:40: [id number] 00 Elimination urinary Eliminatio Resolve 2018-12-18 Cherrise urgency n d 5-15 09:35:00 Isauro 09:15: [id number] 00 Neuro impaired Neuro/Emot Active Cherrise decision-ma ion 5-15 [place] anika 09:15: [id number] 00 Safety structural Safety Active Cherrise barriers 5-15 Isauro present 09:15: [id number] 00 Safety fall risk Safety Active Cherrise factor 5-15 [place] present 09:15: [id number] 00 Musculoskel requires Musculoske Resolve 2018-10-30 Cherrise etal human letal d 5-15 10:00:00 Isauro assist to 09:15: [id number] leave home 00 Neuro depressive Neuro/Emot Active Cherrise feelings ion 5-29 Isauro present 09:15: [id number] 00 Musculoskel requires Musculoske Resolve 2019-04-02 Cherrise etal human letal d 5-29 15:30:00 [place] assist to 09:15: [id number] leave home 00 Integument other wound Integument Resolve 2018-12-18 Iris present d 6 09:35:00 Ingrahm 09:37: [id number] 00 Elimination urinary Eliminatio Resolve 2018-12-18 Iris incontinenc n d 6 09:35:00 Ingrahm e 09:37: [id number] 00 Neuro confusion Neuro/Emot Active Iris present ion 6-13 Ingrahm 10:18: [id number] 00 Neuro anxiety Neuro/Emot Active Iris present ion 6-13 Ingrahm 10:18: [id number] 00 Elimination urinary Eliminatio Resolve 2019-01-15 Cherrise urgency n d 7-17 10:00:00 Isauro 09:30: [id number] 00 Pain frequent Pain Mgmt Resolve 2019-02-12 Iris pain d 8 09:57:00 Ingrahm 10:00: [id number] 00 Integument other wound Integument Resolve 2019-04-02 Iris present d 8 15:30:00 Ingrahm 10:00: [id number] 00 Elimination urinary Eliminatio Resolve 2019-02-12 Cherrise urgency n d 8 09:57:00 [place] 10:10: [id number] 00 Cardio hypertensio Cardiovasc Resolve 2019-02-12 Cherrise n ular d 02-05 09:57:00 [place] 10:05: [id number] 00 Respiratory lung sounds Respirator Resolve 2019-04-02 Cherrise deficit y d 9-11 15:30:00 Isauro 10:10: [id number] 00 Respiratory asthma Respirator Resolve 2019-04-02 Cherrise y d 9-11 15:30:00 [place] 10:10: [id number] 00 Respiratory nebulizer Respirator Resolve 2019-04-02 Cherrise treatment y d 9-11 15:30:00 [place] in home 10:10: [id number] 00 Elimination urinary Eliminatio Resolve 2019-04-02 Cherrise urgency n d 9-18 15:30:00 [place] 09:40: [id number] 00 Pain frequent Pain Mgmt Active 2018-06 Iris pain 0-02 Ingrahm 10:10: [id number] 00 Elimination urinary Eliminatio Resolve 2018-062019-04-02 Iris incontinenc n d 0-02 15:30:00 Ingrahm e 10:10: [id number] 00 Musculoskel transfer Musculoske Resolve 2018-062019-04-02 Iris etal assistance letal d 023 15:30:00 Ingrahm required 15:30: [id number] 00 Respiratory nebulizer Respirator Active 2018-06 Cherrise treatment y 0-30 Isauro in home 09:45: [id number] 00 Elimination urinary Eliminatio Active 2018-06 Cherrise urgency n 0-30 [place] 09:45: [id number] 00 Musculoskel requires Musculoske Active 2018-06 Cherrise etal human letal 0-30 [place] assist to 09:45: [id number] leave home 00 Allergies, Adverse Reactions, Alerts Allergy Name Allergy Status Severity Reaction(s) Onset Inactive Treating Comments Type Date Date Clinician Keflex Medication Active Unknown Reaction Prabha Name ID Unknown 12-02 Tellez [id number] codeine Base Active Unknown Reaction Prabha Ingredient Unknown 12-02 Tellez [id number] adhesive Base Active Unknown Reaction Prabha tape Ingredient Unknown 12-02 Tellez [id number] cortisone Base Active Unknown Reaction Prabha Ingredient Unknown 12-02 Tellez [id number] Iodine and Allergen Active Unknown Reaction Prabha Iodide Group Unknown 12-02 Tellez Containing [id number] Products paper tape Unknown Active Unknown red Cherrise irritation 6-14 [place] [id number] Medications Ordered Filled Start Stop Current Ordering Indication Dosage Frequency Signature Comments Components Medication Medication Date Date Medication? Clinician (SIG) Name Name vilazodone vilazodone 2016- No Howson 1 tab Unknown 40 mg 40 mg 12-02 Jesika BANKS tablet tablet Aleve 220 Aleve 220 2016- No Howson 1 tab Unknown mg tablet mg tablet 12-02 Jesika BANKS chlorproMAZ chlorproMAZ 2015- No Howson 1 tab Unknown INE 25 mg INE 25 mg 12-02 Jesika BANKS tablet tablet pantoprazol pantoprazol 2018- No Howson 1 tab Unknown e 40 mg e 40 mg 12-02 Jesika BANKS tablet,andry tablet,andry yed release yed release gabapentin gabapentin 2015- No Юлия 2 caps Unknown 300 mg 300 mg 12-02 Jesika BANKS capsule capsule naltrexone naltrexone 2015- No Howson 1 tab Unknown 50 mg 50 mg 12-02 Jesika BANKS tablet tablet prazosin 1 prazosin 1 2015- No Howson 1 cap Unknown mg capsule mg capsule 12-02 Jesika BANKS prazosin 5 prazosin 5 2015- No Smoothson 1 cap Unknown mg capsule mg capsule 12-02 Jeiska BANKS acamprosate acamprosate 2016- No Howson 2 tabs Unknown 333 mg 333 mg 12-02 Jesika BANKS tablet,andry tablet,andry yed release yed release Ambien 10 Ambien 10 2015- No Howson 1 tab Unknown mg tablet mg tablet 12-02 Jesika BANKS fexofenadin fexofenadin 2016- No Howson 1 tab Unknown e-pseudoeph e-pseudoeph 12-02 Jesika BANKS edrine ER edrine ER 180 mg-240 180 mg-240 mg mg tablet,ext. tablet,ext. release 24 release 24 hr hr albuterol albuterol No Юлия 2 puffs Unknown sulfate HFA sulfate HFA 12-02 Jesika BANKS 90 90 mcg/actuati mcg/actuati on aerosol on aerosol inhaler inhaler Advair Advair 2016- No Smoothson 1 puff Unknown Diskus 250 Diskus 250 12-02 Jesika BANKS mcg-50 mcg-50 mcg/dose mcg/dose powder for powder for inhalation inhalation LaMICtal LaMICtal Юлия 1 tab Unknown 200 mg 200 mg 12-02 MDJesika tablet tablet gabapentin gabapentin Юлия 1 tab Unknown 600 mg 600 mg 12-19 ,Jesika tablet tablet fluticasone fluticasone Howson 1 spray Unknown propionate propionate 12-22 MDJesika 50 50 mcg/actuati mcg/actuati on nasal on nasal spray,suspe spray,suspe nsion nsion chlorproMAZ chlorproMAZ Bandar 1 tab Unknown INE 25 mg INE 25 mg 12-02 Mee BANKS tablet tablet fluticasone fluticasone Smoothson 1 spray Unknown propionate propionate 12-02 Jesika BANKS 50 50 mcg/actuati mcg/actuati on nasal on nasal spray,suspe spray,suspe nsion nsion LaMICtal LaMICtal Bandar 1 tab Unknown 200 mg 200 mg 12-02 Mee BANKS tablet tablet prazosin 2 prazosin 2 Bandar 3 caps Unknown mg capsule mg capsule 12-30 Mee BANKS gabapentin gabapentin Bandar 1 tab Unknown 600 mg 600 mg 12-30 Mee BANKS tablet tablet meloxicam meloxicam Юлия 1 tab Unknown 15 mg 15 mg 01-03 Jesika BANKS tablet tablet chlorproMAZ chlorproMAZ Bandar 1-2 Unknown INE 25 mg INE 25 mg 01-20 Mee BANKSs tablet tablet prazosin 2 prazosin 2 Caity Portillo 3 caps Unknown mg capsule mg capsule 12-30 ,Mee prazosin 2 prazosin 2 Bandar 3 caps Unknown mg capsule mg capsule 02-16 ,Mee prazosin 2 prazosin 2 Caity Portillo 3 caps Unknown mg capsule mg capsule 02-16 Mee BANKS meloxicam meloxicam Bandar 1 tab Unknown 15 mg 15 mg 01-03 Mee BANKS tablet tablet chlorproMAZ chlorproMAZ 2015-06 No Bandar 1 tab Unknown INE 25 mg INE 25 mg 08-04 ,Mee tablet tablet chlorproMAZ chlorproMAZ 2015-06 No Bandar 2 tabs Unknown INE 25 mg INE 25 mg 08-04 Mee BANKS (prefil tablet tablet led 1 tab BED and give pt 7 tabs in bottle) Viibryd 20 Viibryd 20 2016- No Bandar 1 TAB Unknown mg tablet mg tablet 06-17 ,Mee brintellix brintellix No Bandar 1 tab Unknown 5mg 5mg 06-17 ,Mee Trintellix Trintellix Bandar 1 tab Unknown 10 mg 10 mg 06-24 ,Mee tablet tablet diphenhydrA diphenhydrA Bandar 25mg Unknown MINE 25 mg MINE 25 mg 06-29 ,Mee capsule capsule diphenhydrA diphenhydrA Bandar 25mg Unknown MINE 25 mg MINE 25 mg 06-29 ,Mee capsule capsule diphenhydrA diphenhydrA 2016- No Bandar 1 cap Unknown MINE 25 mg MINE 25 mg 06-29 ,Mee capsule capsule diphenhydrA diphenhydrA No Bandar 1 cap Unknown MINE 25 mg MINE 25 mg 06-29 ,Mee capsule capsule Trintellix Trintellix Bandar 2 tab Unknown 10 mg 10 mg 06-30 ,Mee tablet tablet Trintellix Trintellix No Bandar 1 tab Unknown 20 mg 20 mg 07-14 ,Mee tablet tablet docusate docusate Юлия 1 cap Unknown sodium 250 sodium 250 07-14 ,Jesika mg capsule mg capsule diphenhydrA diphenhydrA Bandar 1 cap Unknown MINE 25 mg MINE 25 mg 06-29 ,Mee capsule capsule QUEtiapine QUEtiapine Bandar 1 tab Unknown 100 mg 100 mg 08-04 ,Mee tablet tablet QUEtiapine QUEtiapine 2016- No Bandar 1 tab Unknown 25 mg 25 mg 08-05 Mee BANKS tablet tablet diclofenac diclofenac No Smooth[place] 1 Unknown 1 % topical 1 % topical 08-25 Jesika BANKS gel gel tion Restasis Restasis 2016- No Юлия 1 drop Unknown 0.05 % eye 0.05 % eye 08-25 Jesika BANKS drop drop emulsion emulsion Doc-Q-Lace Doc-Q-Lace No Smoothson 1 Unknown 100 mg soft 100 mg soft 08-25 Jesika BANKS Tablet gel tablet gel tablet polyethylen polyethylen 2017- No [place]лия 1 cap Unknown e glycol e glycol 09-12 Jesika BANKS [phone] [id number] 17 gram/dose gram/dose oral powder oral powder Lia-D Lia-D 2016- No Юлия 1 tab Unknown 24 Hour 180 24 Hour 180 12-02 Jesika BANKS mg-240 mg mg-240 mg tablet,exte tablet,exte nded nded release release lamoTRIgine lamoTRIgine No Bandar 1 tab Unknown 200 mg 200 mg 11-25 ,Mee tablet tablet Qvar 80 Qvar 80 No Юлия 2 puffs Unknown mcg/actuati mcg/actuati 01-23 Jesika BANKS on Metered on Metered Aerosol Aerosol oral oral inhaler inhaler triamcinolo triamcinolo 2016- No [place] thin Unknown ne ne 01-23 Jesika BANKS layer acetonide acetonide 0.1 % 0.1 % dental dental paste paste gabapentin gabapentin 2016- No Bandar 1 tab Unknown 600 mg 600 mg 12-30 Mee BANKS tablet tablet acamprosate acamprosate 2016- No Bandar 1 tab Unknown 333 mg 333 mg 02-26 Mee BANKS tablet,andry tablet,andry yed release yed release diphenhydrA diphenhydrA 2016- No Bandar 2 caps Unknown MINE 25 mg MINE 25 mg 02-26 Mee BANKS (50 mg) capsule capsule silver silver 2016- No [place] 1 Unknown sulfADIAZIN sulfADIAZIN 02-26 Jesika BANKS E 1 % E 1 % tion to topical topical reddene cream cream d jean of both forearm s mupirocin 2 mupirocin 2 2016- No Smooth[place] 1 Unknown % topical % topical 02-28 Jesika BANKS applickevin ointment ointment tion to reddene d areasof both forearm s mupirocin 2 mupirocin 2 Smoothson 1 Unknown % topical % topical 02-28 Jesika BANKS applickevin ointment ointment tion to reddene d areas of both forearm s diphenhydrA diphenhydrA No Bandar 2 caps Unknown MINE 25 mg MINE 25 mg 03-01 ,Mee (50 mg) capsule capsule acamprosate acamprosate No Bandar 2 tabs Unknown 333 mg 333 mg 03-01 ,Mee tablet,andry tablet,andry yed release yed release LORazepam 1 LORazepam 1 No Bandar 1 tab Unknown mg tablet mg tablet 03-01 Mee BANKS OLANZapine OLANZapine No Bandar 1 tab Unknown 10 mg 10 mg 02-26 ,Mee tablet tablet lithium lithium No Bandar 1 tab Unknown carbonate carbonate 02-26 Mee BANKS 300 mg 300 mg tablet tablet multivitami multivitami No Юлия 1 tab Unknown n tablet n tablet 02-26 Jesiak BANKS acamprosate acamprosate 2016-06- No Bandar 1 tab Unknown 333 mg 333 mg 06-28 ,Mee tablet,andry tablet,andry yed release yed release Trintellix Trintellix 2016-06 Caity Portillo 1 tab Unknown 10 mg 10 mg 0 MD,Mee tablet tablet QUEtiapine QUEtiapine 2016-06- No Bandar 4 tabs Unknown 25 mg 25 mg 05-18 ,Mee (100mg) tablet tablet QUEtiapine QUEtiapine 2016-06 No Bandar 2.5 Unknown 100 mg 100 mg 004-10 ,Mee tabs tablet tablet naltrexone naltrexone No Bandar 1 tab Unknown 50 mg 50 mg 12-02 ,Mee tablet tablet Ambien 10 Ambien 10 No Bandar 1 tab Unknown mg tablet mg tablet 12-02 Mee BANKS Restasis Restasis No Basia 1 drop Unknown 0.05 % eye 0.05 % eye 08-25 ,Ever drop drop emulsion emulsion QUEtiapine QUEtiapine 2016-06- No Bandar 1 tab Unknown 200 mg 200 mg 06-13 ,Mee tablet tablet QUEtiapine QUEtiapine 2016-06 No Bandar 1 tab Unknown 50 mg 50 mg 07-19 ,Mee tablet tablet fexofenadin fexofenadin 2016-06- No Юлия 1 tab Unknown e 180 mg e 180 mg 07-12 ,Jesika tablet tablet QUEtiapine QUEtiapine 2016-06- No Bandar 1-2 Unknown 100 mg 100 mg 02-14 Mee BANKSs tablet tablet Tylenol Tylenol No Юлия 2tabs Unknown Extra Extra 2- Jesika BANKS Strength Strength 500 mg 500 mg tablet tablet lisinopril lisinopril 2017- No Юлия 1 tab Unknown 2.5 mg 2.5 mg 09-05 Jesika BANKS tablet tablet predniSONE predniSONE 2017- No [place]лия 1 tab Unknown 50 mg 50 mg 10-15 ,Jesika tablet tablet azithromyci azithromyci 2018- No Юлия 2 tabs Unknown n 250 mg n 250 mg 10-15 Jesika BANKS first tablet tablet dose, then 1 tab amoxicillin amoxicillin 2017- No Юлия 1 tab Unknown [id number] 10-24 Jesika BANKS mg-potassiu mg-potassnateu m m clavulanate clavulanate 125 mg 125 mg tablet tablet lisinopril lisinopril No Юлия Unknown Unknown 5 mg tablet 5 mg tablet 10-01 Jesika BANKS fluticasone fluticasone 2016-06 No Юлия Unknown Unknown propionate propionate 07-08 Jesika BANKS 50 50 mcg/actuati mcg/actuati on nasal on nasal spray,suspe spray,suspe nsion nsion prednisoLON prednisoLON 2017- No Basia Unknown Unknown E acetate 1 E acetate 1 01-16- Ever BANKS % eye % eye drops,suspe drops,suspe nsion nsion QUEtiapine QUEtiapine 2017- No [place] Unknown Unknown ER 150 mg ER 150 mg 02-14 ,Jesika tablet,exte tablet,exte nded nded release 24 release 24 hr hr lidocaine 5 lidocaine 5 2017- No [place] Unknown Unknown % topical % topical 02-14 Jesika BANKS patch patch triamcinolo triamcinolo 2017- No [place] Unknown Unknown ne ne 02-14 Jesika BANKS acetonide acetonide 0.1 % 0.1 % topical topical cream cream Qvar Qvar No [place] Unknown Unknown RediHaler RediHaler 02-14 Jesika BANKS 80 80 mcg/actuati mcg/actuati on HFA on HFA breath breath activated activated aerosol aerosol silver silver 2017- No [place] Unknown Unknown sulfADIAZIN sulfADIAZIN 02-14 Jesika BANKS E 1 % E 1 % topical topical cream cream QUEtiapine QUEtiapine 2018- No Portillo Unknown Unknown 100 mg 100 mg 02-16 Mee BANKS tablet tablet amoxicillin amoxicillin 2017-06- No [place] Unknown Unknown [id number] 06-16 Jesika BANKS-potassiu mg-potassiu m m clavulanate clavulanate 125 mg 125 mg tablet tablet ondansetron ondansetron 2018- No [place] Unknown Unknown 4 mg 4 mg 07-09 Jesika BANKS disintegrat disintegrat ing tablet ing tablet Augmentin Augmentin 2018- No [place] Unknown Unknown 875 mg-125 875 mg-125 07-09 Jesika BANKS mg tablet mg tablet ondansetron ondansetron 2018- No [place] Unknown Unknown 4 mg 4 mg 07-09 Jesika BANKS disintegrat disintegrat ing tablet ing tablet Augmentin Augmentin 2018- No [place] Unknown Unknown 875 mg-125 875 mg-125 07-15 Jesika BANKS mg tablet mg tablet cyclobenzap cyclobenzap No Jatin Unknown Unknown rine 10 mg rine 10 mg - MD,Jinga tablet tablet cetirizine cetirizine 2018- No [place] Unknown Unknown 10 mg 10 mg 08-16- ,Jesika tablet tablet QUEtiapine QUEtiapine 2018- No Bandar Unknown Unknown 100 mg 100 mg 08-31 MD,Mee tablet tablet QUEtiapine QUEtiapine No Bandar Unknown Unknown 300 mg 300 mg 08-31 MD,Mee tablet tablet cetirizine cetirizine 2018- No Sm[place] Unknown Unknown 10 mg 10 mg 09-17 MD,Jesika tablet tablet predniSONE predniSONE 2018- No Sm[place]son Unknown Unknown 20 mg 20 mg 09-17- MD,Jesika tablet tablet Sudogest Sudogest 2018- No [place] Unknown Unknown 12-hour 120 12-hour 120 -02 10-24 MD,Jesika mg mg tablet,exte tablet,exte nded nded release release Sudogest Sudogest 2018- No [place] Unknown Unknown 12-hour 120 12-hour 120 -02 10-24 MD,Jesika mg mg tablet,exte tablet,exte nded nded release release fexofenadin fexofenadin 2018- No [place]son Unknown Unknown e 180 mg e 180 mg 10-04 ,Jesika tablet tablet Sudogest Sudogest No [place]son Unknown Unknown 12-hour 120 12-hour 120 - ,Jesika mg mg tablet,exte tablet,exte nded nded release release amoxicillin amoxicillin 2018- No Smoothson Unknown Unknown [id number] 10-10 MDJesika mg-potassiu mg-potassiu m m clavulanate clavulanate 125 mg 125 mg tablet tablet doxycycline doxycycline 2018- No [place]son Unknown Unknown monohydrate monohydrate 10-19 ,Jesika 100 mg 100 mg capsule capsule doxycycline doxycycline 2018- No Sm[place]son Unknown Unknown monohydrate monohydrate 10-19 ,Jesika 100 mg 100 mg capsule capsule benzonatate benzonatate 2018- No Sm[place]son Unknown Unknown 100 mg 100 mg 10-18 ,Jesika capsule capsule cetirizine cetirizine No Юлия Unknown Unknown 10 mg 10 mg 11-09 ,Jesika tablet tablet naltrexone naltrexone 2019-0 2019- No Portillo Unknown Unknown 50 mg 50 mg 11-30 07-05 MD,Mee tablet tablet acamprosate acamprosate No Portillo Unknown Unknown 333 mg 333 mg 12-13 MD,Mee tablet,andry tablet,andry yed release yed release predniSONE predniSONE 2018- Yes [place] Unknown Unknown 20 mg 20 mg 02-16 MD,Los tablet tablet azithromyci azithromyci 2018- Yes [place] Unknown Unknown n 250 mg n 250 mg 02-16 MD,Los tablet tablet albuterol albuterol Yes [place] Unknown Unknown sulfate 2.5 sulfate 2.5 02-19 MD,Los mg/3 mL mg/3 mL (0.083 %) (0.083 %) solution solution for for nebulizatio nebulizatio n n pantoprazol pantoprazol 2018-06 Yes [place] Unknown Unknown e 40 mg e 40 mg 0 MD,Alexand tablet,andry tablet,andry ra yed release yed release Ibuprofen Ibuprofen 2018-06 Yes [place] Unknown Unknown IB 200 mg IB 200 mg 06-18 MD,Alexand tablet tablet ra Vital Signs Vital Name Observation Time Observation Value Comments SYSTOLIC mm[Hg] 2019-04-23 18:08:50 146 mm[Hg] mm[Hg] Method: Sit SYSTOLIC mm[Hg] 2018-07-19 18:04:12 150 mm[Hg] mm[Hg] Method: Stand DIASTOLIC mm[Hg] 2019-04-23 18:08:50 80 mm[Hg] mm[Hg] Method: Sit DIASTOLIC mm[Hg] 2018-07-19 18:04:12 82 mm[Hg] mm[Hg] Method: Stand PULSE 2019-04-23 18:08:50 80 /min /min RESP RATE 2019-04-23 18:08:50 16 /min /min TEMP 2019-04-23 18:08:50 97.9 [degF] Procedures This patient has no known procedures. Results This patient has no known results.
--- OUTSIDE RECORDS SUMMARY | 2019-05-01 12:56 | XMS REPORT ---
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, disorder, [id number] recurrent, recurrent, unspecified unspecified Post-trauma Post-trauma Diagnosis Active Iris tic stress tic stress 11-30 Ingrahm disorder, disorder, [id number] unspecified unspecified 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 G40.909 G40.909 Diagnosis Active Iris 11-30 Ingrahm [id number] Pain frequent Pain Mgmt Resolve 2018-12-18 Prabha pain d 12-02 09:35:00 Geoff 14:30: [id number] 00 Pain knowledge/s Pain Mgmt Resolve 2015-12-09 Prabha kill d 12-02 10:15:00 Tellez deficit: pt 14:30: [id number] 00 Integument skin Integument Resolve 2015-12-17 Prabha integrity d 12-02 11:00:00 Tellez risk 14:30: [id number] 00 Elimination urinary Eliminatio Resolve 2015-12-09 Prabha incontinenc n d 12-02 10:15:00 Tellez e 14:30: [id number] 00 Neuro confusion Neuro/Emot Resolve 2015-12-09 Prabha present ion d 12-02 10:15:00 Tellez 14:30: [id number] 00 Neuro anxiety Neuro/Emot Resolve 2015-12-21 Prabha present ion d 12-02 14:15:00 Tellez 14:30: [id number] 00 Neuro depressive Neuro/Emot Resolve 2015-12-21 Prabha feelings ion d 12-02 14:15:00 Tellez present 14:30: [id number] 00 Neuro impaired Neuro/Emot Resolve 2015-12-09 Prabha decision-ma ion d 12-02 10:15:00 Geoff anika 14:30: [id number] 00 Activity ADL Activity Unknown Prabha assistance 12-02 Tellez required 14:30: [id number] 00 Safety fall risk Safety Resolve 2015-12-09 Prabha factor d 12-02 10:15:00 Tellez present 14:30: [id number] 00 Medication oral med Meds Resolve 2017-05-25 Prabha assistance d 12-02 11:19:00 Tellez required 14:30: [id number] 00 Neuro knowledge/s Neuro/Emot Resolve 2015-12-09 Cherrise kill ion d 12-08 10:15:00 Isauro deficit: pt 10:15: [id number] 00 Safety risk for Safety Resolve 2015-12-09 Cherrise hospitaliza d 12-08 10:15:00 [place] tion 10:15: [id number] 00 Medication knowledge/s Meds Resolve 2015-12-09 Katiarise kill d 12-08 10:15:00 Isauro deficit: pt 10:15: [id number] 00 Musculoskel requires Musculoske Resolve 2016-03-17 Cherrise etal human letal d 12-08 09:30:00 [place] assist to 10:15: [id number] leave home 00 Pain knowledge/s Pain Mgmt Resolve 2015-12-17 Halle kill d 12-16 11:00:00 Blank deficit: pt 11:00: [id number] 00 Neuro confusion Neuro/Emot Resolve 2016-02-25 Halle present ion d 12-16 11:30:00 Blank 11:00: [id number] 00 Neuro impaired Neuro/Emot Resolve 2016-02-25 Halle decision-ma ion d 12-16 11:30:00 Blank anika 11:00: [id number] 00 Medication oral med Meds Unknown Halle assistance 12-16 Blank required 11:00: [id number] 00 Medication knowledge/s Meds Resolve 2015-12-17 Halle kill d 12-16 11:00:00 Blank deficit: pt 11:00: [id number] 00 Pain frequent Pain Mgmt Unknown Iris pain 12-16 Ingrahm 20:00: [id number] 00 Elimination urinary Eliminatio Resolve 2015-12-17 Iris incontinenc n d 12-16 11:00:00 Ingrahm e 20:00: [id number] 00 Neuro knowledge/s Neuro/Emot Resolve 2016-01-07 Cherrise kill ion d 01-06 09:30:00 Isauro deficit: pt 09:30: [id number] 00 Safety fall risk Safety Resolve 2016-03-17 Cherrise factor d 01-06 09:30:00 Isauro present 09:30: [id number] 00 Safety risk for Safety Resolve 2016-03-17 Cherrise hospitaliza d 01-06 09:30:00 Isauro tion 09:30: [id number] 00 Neuro anxiety Neuro/Emot Resolve 2016-02-25 Iris present ion d 01-27 11:30:00 Ingrahm 10:30: [id number] 00 Activity ADL Activity Resolve 2016-03-17 Iris assistance d 01-27 09:30:00 Ingrahm required 10:30: [id number] 00 Integument skin Integument Resolve 2016-03-17 Cherrise integrity d 02-03 09:30:00 [place] risk 10:45: [id number] 00 Integument other wound Integument Resolve 2016-03-17 Cherrise present d 02-03 09:30:00 Isauro 10:45: [id number] 00 Integument knowledge/s Integument Resolve 2016-02-04 Cherrise kill d 02-03 10:45:00 Isauro deficit: pt 10:45: [id number] 00 Respiratory dyspnea Respirator Resolve 2017-02-26 Prabha present y d 9-08 17:45:00 Tellez 09:30: [id number] 00 Elimination urinary Eliminatio Resolve 2016-03-17 Prabha incontinenc n d 02-16 09:30:00 Tellez e 09:30: [id number] 00 Elimination bowel Eliminatio Resolve 2016-03-17 Prabha incontinenc n d 02-16 09:30:00 Tellez e 09:30: [id number] 00 Neuro depressive Neuro/Emot Resolve 2016-02-25 Prabha feelings ion d 02-16 11:30:00 Tellez present 09:30: [id number] 00 Medication oral med Meds Unknown Prabha assistance 02-16 Tellez required 09:30: [id number] 00 Medication potential Meds Resolve 2016-03-17 Prabha clinically d 02-16 09:30:00 Tellez significant 09:30: [id number] medication 00 issue Neuro impaired Neuro/Emot Resolve 2016-02-25 Maria Luisae decision-ma ion d 02-24 11:30:00 [place] anika 11:30: [id number] 00 Pain frequent Pain Mgmt Unknown 2015-06 Penelope pain 0-14 Isauro 09:20: [id number] 00 Safety risk for Safety Resolve 2015-062016-03-24 Maria Luisae hospitaliza d 0-14 09:20:00 Isauro tion 09:20: [id number] 00 Musculoskel requires Musculoske Resolve 2015-062018-10-16 Penelope etal human letal d 014 09:45:00 Isauro assist to 09:20: [id number] leave home 00 Safety risk for Safety Resolve 2015-062016-04-21 Katiarise hospitaliza d 0-17 09:25:00 Isauro tion 11:15: [id number] 00 Integument other wound Integument Resolve 2015-062016-07-17 Iris present d 0 15:54:00 Ingrahm 09:31: [id number] 00 Elimination urinary Eliminatio Resolve 2015-062016-06-16 Iris incontinenc n d 09:40:00 Ingrahm e 09:31: [id number] 00 Elimination bowel Eliminatio Resolve 2015-062016-06-16 Iris incontinenc n d 0-21 09:40:00 Ingrahm e 09:31: [id number] 00 Neuro confusion Neuro/Emot Resolve 2015-062016-04-07 Iris present ion d 0-21 09:20:00 Ingrahm 09:31: [id number] 00 Neuro anxiety Neuro/Emot Resolve 2015-062016-04-07 Iris present ion d 0 09:20:00 Ingrahm 09:31: [id number] 00 Neuro impaired Neuro/Emot Resolve 2015-062016-04-07 Iris decision-ma ion d 0 09:20:00 Ingrahm anika 09:31: [id number] 00 Activity ADL Activity Unknown 2015-06 Iris assistance Ingrahm required 09:31: [id number] 00 Safety fall risk Safety Resolve 2015-062016-04-21 Iris factor d 0 09:25:00 Ingrahm present 09:31: [id number] 00 Medication injectable Meds Resolve 2015-062017-05-25 Iris med d 11:19:00 Ingrahm assistance 09:31: [id number] required 00 Neuro depressive Neuro/Emot Resolve 2015-062016-04-07 Cherrise feelings ion d 09:20:00 Isauro present 09:20: [id number] 00 Neuro depressive Neuro/Emot Resolve 2015-062016-12-22 Cherrise feelings ion d 06-21 10:00:00 Isauro present 09:25: [id number] 00 Neuro impaired Neuro/Emot Resolve 2015-062016-04-21 Cherrise decision-ma ion d 06-21 09:25:00 Isauro anika 09:25: [id number] 00 Integument surgical Integument Resolve 2015-062016-07-17 Iris wound d 07-02 15:54:00 Ingrahm present 15:30: [id number] 00 Neuro anxiety Neuro/Emot Resolve 2015-062016-06-09 Iris present ion d 07-02 09:30:00 Ingrahm 15:30: [id number] 00 Safety risk for Safety Resolve 2015-062016-05-10 Iris hospitaliza d 07-02 10:55:00 Ingrahm tion 15:30: [id number] 00 Safety drug Safety Resolve 2015-062016-07-17 Iris dependency d - 15:54:00 Ingrahm reported 15:30: [id number] 00 Safety fall risk Safety Resolve 2015-062016-05-10 Iris factor d - 10:55:00 Ingrahm present 15:30: [id number] 00 Medication oral med Meds Unknown 2015-06 Iris assistance 07-02 Ingrahm required 15:30: [id number] 00 Neuro impaired Neuro/Emot Resolve 2015-062016-05-19 Maria Luisakrys decision-ma ion d 1- 09:40:00 [place] anika 10:55: [id number] 00 Safety risk for Safety Resolve 2015-062016-05-19 Cherrise hospitaliza d 07-20 09:40:00 [place] tion 09:40: [id number] 00 Safety fall risk Safety Resolve 2015-062016-06-09 Cherrise factor d 2- 09:30:00 Isauro present 08:30: [id number] 00 Safety risk for Safety Resolve 2015-062016-06-09 Cherrise hospitaliza d 2- 09:30:00 Isauro tion 08:30: [id number] 00 Pain frequent Pain Mgmt Unknown 2015-06 Iris pain 2-20 Ingrahm 09:24: [id number] 00 Neuro impaired Neuro/Emot Resolve 2015-062016-12-22 Maria Luisakrys decision-ma ion d 10:00:00 [place] anika 09:30: [id number] 00 Safety risk for Safety Resolve 2016-06-16 Cherrise hospitaliza d 06-16 09:40:00 [place] tion 09:40: [id number] 00 Safety fall risk Safety Resolve 2016-06-16 Cherrise factor d 06-16 09:40:00 [place] present 09:40: [id number] 00 Safety risk for Safety Resolve 2016-06-23 Cherrise hospitaliza d 06-23 09:30:00 Isauro tion 09:30: [id number] 00 Safety risk for Safety Resolve 2016-07-07 Iris hospitaliza d 1-20 09:50:00 Ingrahm tion 09:29: [id number] 00 Safety risk for Safety Resolve 2016-07-17 Cherrise hospitaliza d 1-28 15:54:00 Isauro tion 08:55: [id number] 00 Nutrition nutritional Nutrition Resolve 2016-07-17 Cherrise restriction d 2-03 15:54:00 [place] s 10:10: [id number] 00 Elimination urinary Eliminatio Resolve 2016-07-17 Cherrise incontinenc n d 2- 15:54:00 Isauro e 10:10: [id number] 00 Elimination constipatio Eliminatio Resolve 2016-07-17 Cherrise n n d 2- 15:54:00 [place] 10:10: [id number] 00 Safety fall risk Safety Resolve 2016-07-17 Cherrise factor d 2- 15:54:00 Isauro present 10:10: [id number] 00 Elimination urinary Eliminatio Resolve 2016-07-17 Genoveva urgency n d 2- 15:54:00 Funes 15:54: [id number] 00 Neuro anxiety Neuro/Emot Resolve 2016-12-22 Cherrise present ion d 2-10 10:00:00 Isauro 09:30: [id number] 00 Neuro memory Neuro/Emot Resolve 2017-02-26 Cherrise deficit ion d 2-10 17:45:00 [place] needing 09:30: [id number] supervision 00 Safety risk for Safety Resolve 2016-07-28 Cherrise hospitaliza d 2-10 10:00:00 [place] tion 09:30: [id number] 00 Pain frequent Pain Mgmt Unknown Annette pain 07-28 Regeczi 10:00: [id number] 00 Integument other wound Integument Resolve 2017-05-25 Annette present d 2-17 11:19:00 Regeczi 10:00: [id number] 00 Elimination urinary Eliminatio Resolve 2016-07-28 Annette incontinenc n d 2- 10:00:00 Regeczi e 10:00: [id number] 00 Safety fall risk Safety Resolve 2016-07-28 Annette factor d 2-17 10:00:00 Regeczi present 10:00: [id number] 00 Safety fall risk Safety Resolve 2017-02-26 Cherlaurie factor d 2-24 17:45:00 [place] present 09:45: [id number] 00 Safety risk for Safety Unknown Katiarise hospitaliza 2 Isauro tion 09:45: [id number] 00 Musculoskel requires Musculoske Unknown Cherrise etal human letal 08-11 Isauro assist to 11:45: [id number] leave home 00 Elimination urinary Eliminatio Resolve 2017-02-26 Cherrise incontinenc n d 3-10 17:45:00 [place] e 09:40: [id number] 00 Elimination constipatio Eliminatio Resolve 2017-02-26 Cherrise n n d 3-10 17:45:00 Isauro 09:40: [id number] 00 Safety can be left Safety Resolve 2017-02-26 Anita alone for d 4-14 17:45:00 Small only short 09:20: [id number] periods 00 Neuro depressive Neuro/Emot Unknown Penelope feelings ion 11-03 Isauro present 10:00: [id number] 00 Cardio edema Cardiovasc Resolve 2017-02-26 Penelope ular d 6 17:45:00 [place] 09:30: [id number] 00 Pain knowledge/s Pain Mgmt Resolve 2016-12-22 Iris kill d 12-15 10:00:00 Ingrahm deficit: cg 09:56: [id number] 00 Respiratory knowledge/s Respirator Resolve 2016-12-22 Iris kill y d 12-15 10:00:00 Ingrahm deficit: cg 09:56: [id number] 00 Integument knowledge/s Integument Resolve 2016-12-22 Iris kill d 12-15 10:00:00 Ingrahm deficit: cg 09:56: [id number] 00 Elimination knowledge/s Eliminatio Resolve 2017-02-26 Iris kill n d 12-15 17:45:00 Ingrahm deficit: cg 09:56: [id number] 00 Neuro knowledge/s Neuro/Emot Resolve 2016-12-22 Iris kill ion d 12-15 10:00:00 Ingrahm deficit: cg 09:56: [id number] 00 Safety knowledge/s Safety Resolve 2016-12-22 Iris kill d 12-15 10:00:00 Ingrahm deficit: cg 09:56: [id number] 00 Neuro anxiety Neuro/Emot Unknown Cherrise present ion 12-22 [place] 10:00: [id number] 00 Neuro impaired Neuro/Emot Unknown Cherrise decision-ma ion 12-22 Isauro anika 10:00: [id number] 00 Neuro impaired Neuro/Emot Resolve 2017-02-26 Cherrise decision-ma ion d 01-05 17:45:00 Isauro anika 10:00: [id number] 00 Respiratory knowledge/s Respirator Resolve 2017-02-26 Iris kill y d 01-12 17:45:00 Ingrahm deficit: cg 09:13: [id number] 00 Integument knowledge/s Integument Resolve 2017-05-25 Iris kill d 01-12 11:19:00 Ingrahm deficit: cg 09:13: [id number] 00 Neuro knowledge/s Neuro/Emot Resolve 2017-02-26 Iris kill ion d 01-12 17:45:00 Ingrahm deficit: cg 09:13: [id number] 00 Safety knowledge/s Safety Resolve 2017-02-26 Iris kill d 01-12 17:45:00 Ingrahm deficit: cg 09:13: [id number] 00 Neuro anxiety Neuro/Emot Resolve 2017-02-26 Iris present ion d 01-26 17:45:00 Ingrahm 09:11: [id number] 00 Neuro depressive Neuro/Emot Resolve 2017-02-26 Cherrise feelings ion d 02-02 17:45:00 [place] present 08:45: [id number] 00 Elimination urinary Eliminatio Resolve 2017-02-26 Cherrise urgency n d 02-09 17:45:00 [place] 09:40: [id number] 00 Pain severe pain Pain Mgmt Resolve 2018-12-18 Annette d 02-26 09:35:00 Regeczi 17:45: [id number] 00 Elimination urinary Eliminatio Resolve 2017-02-26 Annette incontinenc n d 02-26 17:45:00 Regeczi e 17:45: [id number] 00 Elimination constipatio Eliminatio Unknown Annette n n 02-26 Regeczi 17:45: [id number] 00 Neuro confusion Neuro/Emot Resolve 2017-02-26 Annette present ion d 02-26 17:45:00 Regeczi 17:45: [id number] 00 Neuro impaired Neuro/Emot Resolve 2017-02-26 Annette decision-ma ion d 02-26 17:45:00 Regeczi anika 17:45: [id number] 00 Safety structural Safety Resolve 2017-02-26 Annette barriers d 02-26 17:45:00 Regeczi present 17:45: [id number] 00 Safety safety Safety Resolve 2017-02-26 Annette hazards d 02-26 17:45:00 Regeczi present 17:45: [id number] 00 Safety knowledge/s Safety Resolve 2017-02-26 Annette kill d 02-26 17:45:00 Regeczi deficit: cg 17:45: [id number] 00 Safety risk for Safety Resolve 2017-02-26 Annette hospitaliza d 02-26 17:45:00 Regeczi tion 17:45: [id number] 00 Safety fall risk Safety Resolve 2017-02-26 Annette factor d 02-26 17:45:00 Regeczi present 17:45: [id number] 00 Medication potential Meds Resolve 2017-05-25 Annette clinically d 02-26 11:19:00 Regeczi significant 17:45: [id number] medication 00 issue Medication oral med Meds Unknown Annette assistance 02-26 Regeczi required 17:45: [id number] 00 Medication oral med Meds Unknown Annette assistance 02-26 Regeczi required 17:45: [id number] 00 Neuro impaired Neuro/Emot Resolve 2018-10-16 Cherlaurie decision-ma ion d 03-01 09:45:00 [place] anika 18:15: [id number] 00 Safety knowledge/s Safety Active Cherrise kill 03-01 [place] deficit: cg 18:15: [id number] 00 Safety fall risk Safety Resolve 2017-05-25 Cherrise factor d 03-01 11:19:00 [place] present 18:15: [id number] 00 Safety risk for Safety Resolve 2017-05-25 Cherlaurie hospitaliza d 03-01 11:19:00 Isauro tion 18:15: [id number] 00 Nutrition knowledge/s Nutrition Resolve 2017-05-25 Cherrise kill d 03-05 11:19:00 [place] deficit: pt 10:45: [id number] 00 Elimination urinary Eliminatio Resolve 2017-05-25 Cherrise urgency n d 03-05 11:19:00 Isauro 10:45: [id number] 00 Elimination constipatio Eliminatio Resolve 2017-05-25 Cherrise n n d 03-05 11:19:00 [place] 10:45: [id number] 00 Neuro seizures Neuro/Emot Resolve 2016-062018-10-16 Katiarise ion d 09:45:00 Isauro 09:30: [id number] 00 Elimination urinary Eliminatio Resolve 2016-062017-05-25 Mariposa incontinenc n d 0- 11:19:00 Aide marcano 17:00: [id number] 00 Neuro anxiety Neuro/Emot Resolve 2016-062018-10-16 Mariposa present ion d 0- 09:45:00 Aide 17:00: [id number] 00 Safety risk for Safety Resolve 2016-062017-12-19 Iris hospitaliza d 09:45:00 Ingrahm tion 09:15: [id number] 00 Nutrition knowledge/s Nutrition Resolve 2017-09-19 Cherrise kill d 1 09:45:00 [place] deficit: pt 09:20: [id number] 00 Elimination urinary Eliminatio Resolve 2018-10-16 Cherrise urgency n d 1- 09:45:00 [place] 09:20: [id number] 00 Safety fall risk Safety Resolve 2017-12-19 Cherrise factor d 1-12 09:45:00 [place] present 09:45: [id number] 00 Pain frequent Pain Mgmt Unknown Iris pain - Ingrahm 09:30: [id number] 00 Integument other wound Integument Resolve 2018-10-16 Iris present d 2 09:45:00 Ingrahm 09:30: [id number] 00 Elimination urinary Eliminatio Resolve 2018-10-16 Iris incontinenc n d 07-19 09:45:00 Ingrahm e 09:30: [id number] 00 Respiratory dyspnea Respirator Resolve 2018-12-18 Cherrise present y d 08-01 09:35:00 Isauro 15:10: [id number] 00 Integument skin Integument Resolve 2018-10-16 Cherrise integrity d 08-08 09:45:00 Isauro risk 09:30: [id number] 00 Neuro depressive Neuro/Emot Resolve 2018-10-16 Cherrise feelings ion d 08-08 09:45:00 Isauro present 09:30: [id number] 00 Cardio edema Cardiovasc Active Cherrise ular 08-22 [place] 09:45: [id number] 00 Cardio hypertensio Cardiovasc Resolve 2018-12-18 Cherrise n ular d 08-22 09:35:00 Isauro 09:45: [id number] 00 Musculoskel requires Musculoske Unknown Cherrise etal human letal 18 [place] assist to 09:45: [id number] leave home 00 Respiratory lung sounds Respirator Resolve 2018-10-30 Cherrise deficit y d 10-31 10:00:00 Isauro 09:30: [id number] 00 Safety structural Safety Resolve 2018-10-16 Cherrise barriers d -18 09:45:00 [place] present 09:50: [id number] 00 Safety risk for Safety Resolve 2018-10-16 Cherrise hospitaliza d 7-18 09:45:00 [place] tion 09:50: [id number] 00 Safety fall risk Safety Resolve 2018-10-16 Cherrise factor d 8- 09:45:00 Isauro present 10:00: [id number] 00 Nutrition knowledge/s Nutrition Active Kelly kill 01-16 Michael deficit: pt 10:10: [id number] 00 Nutrition nutritional Nutrition Resolve 2018-10-16 Kelly restriction d 01-16 09:45:00 Michael s 10:10: [id number] 00 Elimination UTI within Eliminatio Resolve 2018-10-16 Zeina past 14 n d 07-09 09:45:00 (Melinda) days 10:18: Chavez 00 [id number] Neuro confusion Neuro/Emot Resolve 2018-10-16 Zeina present ion d 07-09 09:45:00 (Melinda) 10:18: Chavez 00 [id number] Pain knowledge/s Pain Mgmt Resolve 2018-12-18 Zeina kill d 2-08 09:35:00 Guidelli deficit: pt 09:00: [id number] 00 Pain knowledge/s Pain Mgmt Resolve 2018-12-18 Zeina kill d 2-08 09:35:00 Guidelli deficit: cg 09:00: [id number] 00 Safety risk for Safety Active Cherrise hospitaliza 5-11 Isauro tion 09:40: [id number] 00 Elimination urinary Eliminatio Resolve 2018-12-18 Cherrise urgency n d 5-15 09:35:00 Isauro 09:15: [id number] 00 Neuro impaired Neuro/Emot Active Cherrise decision-ma ion 5-15 [place] anika 09:15: [id number] 00 Safety structural Safety Active Cherrise barriers 5-15 Isauro present 09:15: [id number] 00 Safety fall risk Safety Active Cherrise factor 5-15 [place] present 09:15: [id number] 00 Musculoskel requires Musculoske Resolve 2018-10-30 Cherrise etal human letal d 5-15 10:00:00 Isauro assist to 09:15: [id number] leave home 00 Neuro depressive Neuro/Emot Active Cherrise feelings ion 5-29 Isauro present 09:15: [id number] 00 Musculoskel requires Musculoske Resolve 2019-04-02 Cherrise etal human letal d 5-29 15:30:00 [place] assist to 09:15: [id number] leave home 00 Integument other wound Integument Resolve 2018-12-18 Iris present d 6 09:35:00 Ingrahm 09:37: [id number] 00 Elimination urinary Eliminatio Resolve 2018-12-18 Iris incontinenc n d 6 09:35:00 Ingrahm e 09:37: [id number] 00 Neuro confusion Neuro/Emot Active Iris present ion 6-13 Ingrahm 10:18: [id number] 00 Neuro anxiety Neuro/Emot Active Iris present ion 6-13 Ingrahm 10:18: [id number] 00 Elimination urinary Eliminatio Resolve 2019-01-15 Cherrise urgency n d 7-17 10:00:00 Isauro 09:30: [id number] 00 Pain frequent Pain Mgmt Resolve 2019-02-12 Iris pain d 8 09:57:00 Ingrahm 10:00: [id number] 00 Integument other wound Integument Resolve 2019-04-02 Iris present d 8 15:30:00 Ingrahm 10:00: [id number] 00 Elimination urinary Eliminatio Resolve 2019-02-12 Cherrise urgency n d 8 09:57:00 [place] 10:10: [id number] 00 Cardio hypertensio Cardiovasc Resolve 2019-02-12 Cherrise n ular d 02-05 09:57:00 [place] 10:05: [id number] 00 Respiratory lung sounds Respirator Resolve 2019-04-02 Cherrise deficit y d 9-11 15:30:00 Isauro 10:10: [id number] 00 Respiratory asthma Respirator Resolve 2019-04-02 Cherrise y d 9-11 15:30:00 [place] 10:10: [id number] 00 Respiratory nebulizer Respirator Resolve 2019-04-02 Cherrise treatment y d 9-11 15:30:00 [place] in home 10:10: [id number] 00 Elimination urinary Eliminatio Resolve 2019-04-02 Cherrise urgency n d 9-18 15:30:00 [place] 09:40: [id number] 00 Pain frequent Pain Mgmt Active 2018-06 Iris pain 0-02 Ingrahm 10:10: [id number] 00 Elimination urinary Eliminatio Resolve 2018-062019-04-02 Iris incontinenc n d 0-02 15:30:00 Ingrahm e 10:10: [id number] 00 Musculoskel transfer Musculoske Resolve 2018-062019-04-02 Iris etal assistance letal d 023 15:30:00 Ingrahm required 15:30: [id number] 00 Respiratory nebulizer Respirator Active 2018-06 Cherrise treatment y 0-30 Isauro in home 09:45: [id number] 00 Elimination urinary Eliminatio Active 2018-06 Cherrise urgency n 0-30 [place] 09:45: [id number] 00 Musculoskel requires Musculoske Active 2018-06 Cherrise etal human letal 0-30 [place] assist to 09:45: [id number] leave home 00 Allergies, Adverse Reactions, Alerts Allergy Name Allergy Status Severity Reaction(s) Onset Inactive Treating Comments Type Date Date Clinician Keflex Medication Active Unknown Reaction Prabha Name ID Unknown 12-02 Tellez [id number] codeine Base Active Unknown Reaction Prabha Ingredient Unknown 12-02 Tellez [id number] adhesive Base Active Unknown Reaction Prabha tape Ingredient Unknown 12-02 Tellez [id number] cortisone Base Active Unknown Reaction Prabha Ingredient Unknown 12-02 Tellez [id number] Iodine and Allergen Active Unknown Reaction Prabha Iodide Group Unknown 12-02 Tellez Containing [id number] Products paper tape Unknown Active Unknown red Cherrise irritation 6-14 [place] [id number] Medications Ordered Filled Start Stop Current Ordering [...] mg capsule mg capsule 12-02 Jesika BANKS acamprosate acamprosate 2016- No Howson 2 [...] tab Unknown n tablet n tablet 02-26 Jesika BANKS acamprosate acamprosate 2016-06- No Bandar 1 [...] rine 10 mg rine 10 mg - MD,Jigna tablet tablet cetirizine cetirizine 2018- No Howson [...]
--- OUTSIDE RECORDS SUMMARY | 2019-05-01 12:57 | XMS REPORT | Continuity of Care Document ---
:1965 External Reference #:[id number] Author Name Lyndsey Aviles, DO Address [address] [place] [address] Problems Active Problems Provider Date Adult health [...] 11/13/2018 Allergic rhinitis Onset: 11/08/2018 Inactive: 11/08/2018 Acute sinusitis Onset: 10/18/2018 Inactive: 10/18/2018 Sinusitis Onset: 10/10/2018 Inactive: 10/10/2018 Social History Type Date Description Comments Sex Unknown Allergies, Adverse Reactions, Alerts Active Allergies Reaction Severity Comments Date Codeine syncope 02/14/2019 Adhesive Tape No Reaction Indicated 02/14/2019 Contrast Dye No Reaction Indicated 02/14/2019 Cortisone No Reaction Indicated 02/14/2019 Keflex No Reaction Indicated 02/14/2019 Medications Active Medications SIG Qnty Indications Ordering Date Provider Nebulizer Use as directed 1units [place], 02/17/2019 Kit/Tubing/Mouthpie MD aaron Arce Nebulizer System q 4 hours prn cough 1units [place], 02/17/2019 [facility]-In-One and wheezing MD Morillo Albuterol Sulfate 1 unit by mouth 75ml [place], 02/17/2019 every 4 hours as (2.5mg/3ML) 0.083% needed Nebulizer Neomycin-Polymyxin- 4 gtte four times 10units Unknown 11/25/2018 HC each day Otic; 4 3.5-38782-2 gtte to left ear qid Suspension x 5 days. Cetirizine HCL 1 at bedtime prn 30tabs Unknown 11/20/2018 10mg Oral; use as needed Tablets for environemental allergies. Diclofenac Sodium Transdermal; Apply 100units Unknown 11/06/2018 To Affected Area(S) 1% Gel Two Times A Day Triamcinolone 2 sprays once daily 16.5units Unknown 10/01/2018 Acetonide each nostril Nasal 55mcg/Act Aerosol Cerovite Senior Oral; Take One 90tabs Unknown 06/07/2018 Tablet By Mouth Tablets Every Day Pantoprazole Sodium Oral; Take One 30tabs Unknown 04/30/2018 Tablet By Mouth 40mg Tablets DR Everyday Ventolin HFA 2 four times each 1units Unknown 01/28/2018 day Inhalation 108(90Base) mcg/Act Aerosol Meloxicam Oral; Take One 30tabs Unknown 12/26/2017 15mg Tablet By Mouth Tablets Every Day Qvar Redihaler Inhalation; Inhale 10.6units Unknown 11/13/2017 Two Puffs By Mouth 80mcg/Act Aerosol Twice A Day Lisinopril Oral; Take One 30tabs Unknown 10/01/2017 5mg Tablet By Mouth Tablets Every Day Seroquel 1 twice daily Oral Unknown 07/10/2017 50mg Tablets Seroquel 1 at bed-time Oral; Unknown 07/10/2017 100mg with 100mg prn Tablets Lamotrigine 1 daily Oral Unknown 02/28/2017 200mg Tablets Prazosin HCL 3 at bedtime prn 90caps Unknown 11/11/2015 2mg Oral Capsules Zolpidem Tartrate 1 at bedtime Oral Unknown 02/01/2015 10mg Tablets History Medications Sudogest 12 Hour 1 twice daily prn Oral 60tabs Unknown 02/07/2019 - 120mg 03/25/2019 Tablets ER 12HR Sudogest 12 Hour prn Oral; Take One 30tabs Unknown 01/22/2019 - 120mg Tablet By Mouth Every 02/07/2019 Tablets ER 12HR Day as Needed. Cetirizine HCL 1 at bedtime prn Oral; 30tabs Unknown 11/08/2018 - 10mg Tablets use as needed for 11/20/2018 environemental allergies. Sudogest 12 Hour Oral; Take One Tablet 30tabs Unknown 10/30/2018 - 120mg By Mouth Every Day 01/22/2019 Tablets ER 12HR Pseudoephedrine HCL ER 1 daily Oral 30tabs Unknown 10/22/2018 - 120mg 10/30/2018 Tablets ER 12HR Doxycycline Hyclate 1 twice daily Oral 20caps Unknown 10/18/2018 - 100mg 10/28/2018 Capsules Doxycycline Monohydrate 1 twice daily Oral 20caps Unknown 10/18/2018 - 100mg 10/28/2018 Capsules Tessalon Perles 1 three times daily 30caps Unknown 10/18/2018 - 100mg Oral 10/28/2018 Capsules Augmentin 1 twice daily Oral 14tabs Unknown 10/10/2018 - 875-125mg Tablets 10/17/2018 Qnasl 2 sprays daily in each 8.7units Unknown 09/30/2018 - 80mcg/Act Aerosol nostril Nasal 10/01/2018 Fexofenadine HCL 1 daily Oral 30tabs Unknown 09/27/2018 - 180mg 10/27/2018 Tablets Fexofenadine 1 daily Oral 30tabs Unknown 09/26/2018 - HCL/Pseudoephedrine HCL 09/30/2018 ER 180-240mg Tablets ER 24HR Medications Administered in Office Medication SIG Qnty Indications Ordering Provider Date TB Intradermal Test Unknown 07/18/2017 Injection TB Intradermal Test Unknown 12/31/2015 Injection TB Intradermal Test Unknown 12/24/2015 Injection Injection Medroxyprogesterone Unknown 01/05/2010 Acetate For Contraceptive Use Injection Immunizations CPT Code Status Date Vaccine Lot # [id number] Given 02/17/2019 Flu < 65 years 96754 Given 02/17/2019 Influenza Virus Vaccine, Split Virus, Preservative [id number] Free Im 0.5ML 27503 Given 02/18/2018 Shingrix - Shingles vaccine, Herpes Zoster 17766 Given 02/18/2018 Influenza Virus Vaccine, Quadrivalent, Split Virus, Im Use 0.5ML 60987 Given 02/18/2018 Flu < 65 years 27631 Given 02/18/2018 Influenza Virus Vaccine, Quadrivalent, Split, Preservative Free 27808 Given 02/18/2018 Flumist 69783 Given 02/18/2018 Flu High Dose 85760 Given 02/18/2018 Influenza Virus Vaccine, Split, Preserv Free, Intradermal Use 61840 Given 11/19/2017 Shingrix - Shingles vaccine, Herpes Zoster 44432 Given 02/27/2017 Influenza Virus Vaccine, Split, Preserv Free, Intradermal Use 53367 Given 02/27/2017 Flu High Dose 06858 Given 02/27/2017 Flumist 15678 Given 02/27/2017 Influenza Virus Vaccine, Quadrivalent, Split, Preservative Free 88473 Given 02/27/2017 Flu < 65 years 75687 Given 02/27/2017 Influenza Virus Vaccine, Quadrivalent, Split Virus, Im Use 0.5ML 13680 Given 07/06/2016 Tdap - Boostrix/Adacel 24420 Given 03/08/2016 Influenza Virus Vaccine, Quadrivalent, Split Virus, Im Use 0.5ML 41133 Given 03/08/2016 Flu < 65 years 53207 Given 03/08/2016 Influenza Virus Vaccine, Quadrivalent, Split, Preservative Free 00393 Given 03/08/2016 Flumist 01270 Given 03/08/2016 Flu High Dose 95679 Given 03/08/2016 Influenza Virus Vaccine, Split, Preserv Free, Intradermal Use 45966 Given 03/23/2015 Flu High Dose 68270 Given 03/23/2015 Flumist 64817 Given 03/23/2015 Influenza Virus Vaccine, Quadrivalent, Split, Preservative Free 31189 Given 03/23/2015 Flu < 65 years 09464 Given 03/23/2015 Influenza Virus Vaccine, Quadrivalent, Split Virus, Im Use 0.5ML 05617 Given 03/17/2014 Influenza Virus Vaccine, Quadrivalent, Split Virus, Im Use 0.5ML 16544 Given 03/17/2014 Flu < 65 years 97970 Given 03/17/2014 Influenza Virus Vaccine, Quadrivalent, Split, Preservative Free 18438 Given 03/17/2014 Flumist 72559 Given 03/17/2014 Flu High Dose 15754 Given 03/07/2013 Influenza Virus Vaccine Split Virus Intramuscular Use 0.5ML 20575 Given 03/07/2013 Flu High Dose 83371 Given 03/07/2013 Flumist 43614 Given 03/07/2013 Influenza Virus Vaccine, Quadrivalent, Split, Preservative Free 74159 Given 03/07/2013 Flu < 65 years 53961 Given 03/07/2013 Influenza Virus Vaccine, Quadrivalent, Split, Im Use 0.25ML 63102 Given 03/07/2013 Influenza Virus Vaccine, Quadrivalent, Split, Im Use 0.25ML 78358 Given 03/07/2013 Influenza Virus Vaccine, Quadrivalent, Split, Im Use 0.25ML 72152 Given 03/07/2013 Influenza Virus Vaccine, Quadrivalent, Split, Im Use 0.25ML 38217 Given 01/29/2012 Influenza Virus Vaccine Split Virus Intramuscular Use 0.5ML 25685 Given 01/29/2012 Flu High Dose 06130 Given 01/29/2012 Flumist 53779 Given 01/29/2012 Influenza Virus Vaccine, Quadrivalent, Split, Preservative Free 65495 Given 01/29/2012 Flu < 65 years 90451 Given 01/29/2012 Influenza Virus Vaccine, Quadrivalent, Split, Im Use 0.25ML 88988 Given 01/29/2012 Influenza Virus Vaccine, Quadrivalent, Split, Im Use 0.25ML 59146 Given 01/29/2012 Influenza Virus Vaccine, Quadrivalent, Split, Im Use 0.25ML 58730 Given 01/29/2012 Pneumovax - for >=2years - PPSV23 87214 Given 02/14/2011 Influenza Virus Vaccine, Quadrivalent, Split, Im Use 0.25ML 13702 Given 02/14/2011 Influenza Virus Vaccine, Quadrivalent, Split, Im Use 0.25ML 85897 Given 02/14/2011 Influenza Virus Vaccine Split Virus Intramuscular Use 0.5ML 44833 Given 08/12/2010 Tdap - Boostrix/Adacel Vital Signs Date Vital Result Comment 03/25/2019 1:39pm BP Systolic 124 mmHg BP Diastolic 62 mmHg Heart Rate 100 /min Body Temperature 98.0 F O2 % BldC Oximetry 96 % 02/24/2019 11:27am BP Systolic 118 mmHg right arm BP Diastolic 76 mmHg right arm Heart Rate 104 /min Body Temperature 97.9 F O2 % BldC Oximetry 98 % Results Test Date Facility Test Result H/L Range Note Laboratory 02/25/20 [facility] FSH (Follicle 18.0 mIU/mL 1 test finding [address] Stim Hormone) [place] [address] [phone] Order 02/18/20 [facility] Nebulizer patient 19 Treatment tolterated l Leuk Est-Ua 11/15/19 N2N/CCD Import Leuk Est-Ua Negative Negative 19 Lymph# 11/15/19 N2N/CCD Import Lymph# 1.5 10_3/ul 1.0-4.8 10 19 3/ul Lymph% 11/15/19 N2N/CCD Import Lymph% 23.7 % 20 - 45 % 19 MCH 11/15/19 N2N/CCD Import MCH 32 pg High 27-31 pg 19 MCHC 11/15/19 N2N/CCD Import MCHC 35 g/dL 31-36 g/dL 19 MCV 11/15/19 N2N/CCD Import MCV 93 fL 80-97 fL 19 [place]# 11/15/19 N2N/CCD Import [place]osa# 0.5 10_3/ul 0-0.8 10 19 3/ul [place]% 11/15/19 N2N/CCD Import [place]osa% 8.2 % 0 - 10 % 19 MPV 11/15/19 N2N/CCD Import MPV 8.0 fL 7.4-10.4 fL 19 Neut# 11/15/19 N2N/CCD Import Neut# 4.2 10_3/ul 1.5-7.7 10 19 3/ul Neut% 11/15/19 N2N/CCD Import Neut% 66.1 % 45 - 70 % 19 Nitrite-Ua 11/15/19 N2N/CCD Import Nitrite-Ua Negative Negative 19 NRBC# 11/15/19 N2N/CCD Import NRBC# 0.0 10_3/ul 19 NRBC% 11/15/19 N2N/CCD Import NRBC% 0.1 _ 19 PH-Ua 11/15/19 N2N/CCD Import PH-Ua 8.0 _ 5-9 19 Platelets 11/15/19 N2N/CCD Import Platelets 297 10_3/uL 150-450 10 19 3/uL Potassium 11/15/19 N2N/CCD Import Potassium 3.6 mmol/L 3.5-5.0 19 mmol/L Protein, Total 11/15/19 N2N/CCD Import Protein, 6.5 g/dL 6.4-8.9 19 Total g/dL Protein-Ua 11/15/19 N2N/CCD Import Protein-Ua Negative Negative 19 RBC 11/15/19 N2N/CCD Import RBC 4.52 10_6_/uL 3.70-4.87 19 10 6 /uL RBC-Ua 11/15/19 N2N/CCD Import RBC-Ua Trace(0-2/hpf Absent 19 ) RDW 11/15/19 N2N/CCD Import RDW 13 % 10-15 % 19 Salicylate 11/15/19 N2N/CCD Import Salicylate < 2.50 <30 mg/dL 19 Sodium 11/15/19 N2N/CCD Import Sodium 138 mmol/L 135-145 19 mmol/L SP Grav-Ua 11/15/19 N2N/CCD Import SP Grav-Ua 1.004 _ Low 1.010-1.030 19 TSH 11/15/19 N2N/CCD Import TSH 0.50 mcIU/mL 0.34-5.60 19 mcIU/mL Urobilinogen-U 11/15/19 N2N/CCD Import Urobilinogen- Negative Negative a 19 Ua WBC 11/15/19 N2N/CCD Import WBC 6.3 10_3/uL 3.5-10.8 10 19 3/uL WBC-Ua 11/15/19 N2N/CCD Import WBC-Ua Trace(0-5/hpf Absent 19 ) A/G Ratio 11/15/19 N2N/CCD Import A/G Ratio 1.6 _ 1-3 19 Albumin 11/15/19 N2N/CCD Import Albumin 4.0 g/dL 3.2-5.2 19 g/dL Alcohol 11/15/19 N2N/CCD Import Alcohol < 10 <10 mg/dL 19 Alk Phos 11/15/19 N2N/CCD Import Alk Phos 34 U/L 34-104 U/L 19 Alt 11/15/19 N2N/CCD Import Alt 11 U/L 7-52 U/L 19 Anion Gap 11/15/19 N2N/CCD Import Anion Gap 10 mmol/L 2-11 mmol/L 19 Appear-Ua 11/15/19 N2N/CCD Import Appear-Ua Clear 19 Ast 11/15/19 N2N/CCD Import Ast 12 U/L Low 13-39 U/L 19 Bacteria-Ua 11/15/19 N2N/CCD Import Bacteria-Ua Absent Absent 19 Baso# 11/15/19 N2N/CCD Import Baso# 0.1 10_3/ul 0-0.2 10 19 3/ul Baso% 11/15/19 N2N/CCD Import Baso% 1.0 % 0 - 2 % 19 Bilirubin 11/15/19 N2N/CCD Import Bilirubin 0.40 mg/dL 0.2-1.0 Total 19 Total mg/dL Bilirubin-Ua 11/15/19 N2N/CCD Import Bilirubin-Ua Negative Negative 19 Blood-Ua 11/15/19 N2N/CCD Import Blood-Ua 2+ Abnormal Negative 19 BUN 11/15/19 N2N/CCD Import BUN 10 mg/dL 6-24 mg/dL 19 BUN/Creat 11/15/19 N2N/CCD Import BUN/Creat 15.6 _ 8-20 Ratio 19 Ratio Calcium 11/15/19 N2N/CCD Import Calcium 9.6 mg/dL 8.6-10.3 19 mg/dL Chloride 11/15/19 N2N/CCD Import Chloride 106 mmol/L 101-111 19 mmol/L Co2 11/15/19 N2N/CCD Import Co2 22 mmol/L 22-32 19 mmol/L Color-Ua 11/15/19 N2N/CCD Import Color-Ua Straw 19 Creatinine 11/15/19 N2N/CCD Import Creatinine 0.64 mg/dL 0.51-0.95 19 mg/dL Eosin# 11/15/19 N2N/CCD Import Eosin# 0.1 10_3/ul 0-0.6 10 19 3/ul Eosin% 11/15/19 N2N/CCD Import Eosin% 1.0 % 0 - 5 % 19 GFR Afr Amer 11/15/19 N2N/CCD Import GFR Afr Amer 117.5 _ >60 19 GFR Non Afr 11/15/19 N2N/CCD Import GFR Non Afr 97.1 _ >60 Amer 19 Amer Globulin 06/06/20 N2N/CCD Import Globulin 2.5 g/dL 2-4 g/dL 19 Glucose 11/15/19 N2N/CCD Import Glucose 91 mg/dL 70-100 19 mg/dL Glucose-Ua 11/15/19 N2N/CCD Import Glucose-Ua Negative Negative 19 Hematocrit 11/15/19 N2N/CCD Import Hematocrit 42 % 35-47 % 19 Hemoglobin 11/15/19 N2N/CCD Import Hemoglobin 14.6 g/dL 12.0-16.0 19 g/dL Ketones-Ua 11/15/19 N2N/CCD Import Ketones-Ua Trace Abnormal Negative 19 1 Normally menstruating females - Follicular phase 3 - 9 - Mid-cycle peak 4 - 23 - Luteal phase 1 - 6 Postmenopausal females 16 - 114 Procedures Date Code Description Status 02/17/2019 60368 Pressurized/Non-Pressurized Inhalation Treatment,Acute Completed Obstructio Medical Devices Description No Information Available Encounters Type Date Location Provider Dx Diagnosis Office Visit 03/25/2019 [facility] Lyndsey Aviles DO R10.30 Lower abdominal pain, 1:45p unspecified D25.9 Leiomyoma of uterus, unspecified J30.9 Allergic rhinitis, unspecified Office Visit 02/24/2019 11:30a [facility] Los Vaca MD J06.9 Acute upper respiratory infection, unspecified R05 Cough Office Visit 02/17/2019 1:45p [facility] Los Vaca MD J45.21 Mild intermittent asthma with (acute) exacerbation Z23 Encounter for immunization Assessments Date Code Description Provider 03/25/2019 R10.30 Lower abdominal pain, unspecified Lyndsey Dallasw, DO 03/25/2019 D25.9 Leiomyoma of uterus, unspecified Lyndsey Karnow, DO 03/25/2019 J30.9 Allergic rhinitis, unspecified Lyndsey Dallasw, DO 02/24/2019 J06.9 Acute upper respiratory infection, unspecified [place] MD 02/24/2019 R05 Cough [place] MD 02/17/2019 J45.21 Mild intermittent asthma with (acute) [place] MD exacerbation 02/17/2019 Z23 Encounter for immunization [place] MD Plan of Treatment Future Appointment(s):07/01/2019 1:15 pm - Lyndsey Aviles DO at [facility] - Lyndsey Aviles, DOR10.30 Lower abdominal pain, unspecifiedComments: Non-specific RLQ pain present for two years, maybe only two months - no concerning features to the pain. Pt assumes associated with her fibroidsWe did discuss that appendix in this area but that if pain for 2 years, would not make sense that it is appendicitis - she understood this and did not think this was the case - she looks well We spent much of the visit trying to figure out next stepD25.9 Leiomyoma of uterus, unspecifiedComments:Saw [facility] SERVICE TECHNICIAN - [facility]SH ordered, mildly elevated to suggest heading towards menopause Pt has not heard back from [facility] SERVICE TECHNICIAN Discussed steps of endometrial biopsy if that would be indicated but need to speak with [facility] SERVICE TECHNICIAN first about plan since pt had not heard from themI placed a call to Dr. Samaniego called me back on 03/26/19 - she recommends Lupron injections for 3 months to shrink the fibroids a bit and then have pt see her back for a visit to discuss next step - most likely hysterectomy - I will let pt know this and we can administer the injections in our [id number] Allergic rhinitis, unspecifiedComments:Discussed reasons not to use Sudafed on a regular basis - pt expressed understanding and feels her symptoms are well controlled with the other meds at this point - she will let me know if things returnor change Functional Status Description No Information Available Mental Status Description No Information Available Referrals Description No Information Available
--- OUTSIDE RECORDS SUMMARY | 2019-05-01 12:57 | XMS REPORT ---
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, disorder, [id number] recurrent, recurrent, unspecified unspecified Post-trauma Post-trauma Diagnosis Active Iris tic stress tic stress 11-30 Ingrahm disorder, disorder, [id number] unspecified unspecified 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 [id number] G40.909 G40.909 Diagnosis Active Iris 11-30 Ingrahm [id number] Pain frequent Pain Mgmt Resolve 2018-12-18 Prabha pain d 12-02 09:35:00 Geoff 14:30: [id number] 00 Pain knowledge/s Pain Mgmt Resolve 2015-12-09 Prabha kill d 12-02 10:15:00 Tellez deficit: pt 14:30: [id number] 00 Integument skin Integument Resolve 2015-12-17 Prabha integrity d 12-02 11:00:00 Tellez risk 14:30: [id number] 00 Elimination urinary Eliminatio Resolve 2015-12-09 Prabha incontinenc n d 12-02 10:15:00 Tellez e 14:30: [id number] 00 Neuro confusion Neuro/Emot Resolve 2015-12-09 Prabha present ion d 12-02 10:15:00 Geoff 14:30: [id number] 00 Neuro anxiety Neuro/Emot Resolve 2015-12-21 Prabha present ion d 12-02 14:15:00 Tellez 14:30: [id number] 00 Neuro depressive Neuro/Emot Resolve 2015-12-21 Prabha feelings ion d 12-02 14:15:00 Tellez present 14:30: [id number] 00 Neuro impaired Neuro/Emot Resolve 2015-12-09 Prabha decision-ma ion d 12-02 10:15:00 Geoff anika 14:30: [id number] 00 Activity ADL Activity Unknown Prabha assistance 12-02 Tellez required 14:30: [id number] 00 Safety fall risk Safety Resolve 2015-12-09 Prabha factor d 12-02 10:15:00 Tellez present 14:30: [id number] 00 Medication oral med Meds Resolve 2017-05-25 Prabha assistance d 12-02 11:19:00 Tellez required 14:30: [id number] 00 Neuro knowledge/s Neuro/Emot Resolve 2015-12-09 Cherrise kill ion d 12-08 10:15:00 Isauro deficit: pt 10:15: [id number] 00 Safety risk for Safety Resolve 2015-12-09 Cherrise hospitaliza d 12-08 10:15:00 [place] tion 10:15: [id number] 00 Medication knowledge/s Meds Resolve 2015-12-09 Katiarise kill d 12-08 10:15:00 Isauro deficit: pt 10:15: [id number] 00 Musculoskel requires Musculoske Resolve 2016-03-17 Cherrise etal human letal d 12-08 09:30:00 [place] assist to 10:15: [id number] leave home 00 Pain knowledge/s Pain Mgmt Resolve 2015-12-17 Halle kill d 12-16 11:00:00 Blank deficit: pt 11:00: [id number] 00 Neuro confusion Neuro/Emot Resolve 2016-02-25 Halle present ion d 12-16 11:30:00 Blank 11:00: [id number] 00 Neuro impaired Neuro/Emot Resolve 2016-02-25 Halle decision-ma ion d 12-16 11:30:00 Blank anika 11:00: [id number] 00 Medication oral med Meds Unknown Halle assistance 12-16 Blank required 11:00: [id number] 00 Medication knowledge/s Meds Resolve 2015-12-17 Halle kill d 12-16 11:00:00 Blank deficit: pt 11:00: [id number] 00 Pain frequent Pain Mgmt Unknown Iris pain 12-16 Ingrahm 20:00: [id number] 00 Elimination urinary Eliminatio Resolve 2015-12-17 Iris incontinenc n d 12-16 11:00:00 Ingrahm e 20:00: [id number] 00 Neuro knowledge/s Neuro/Emot Resolve 2016-01-07 Cherrise kill ion d 01-06 09:30:00 Isauro deficit: pt 09:30: [id number] 00 Safety fall risk Safety Resolve 2016-03-17 Cherrise factor d 01-06 09:30:00 Isauro present 09:30: [id number] 00 Safety risk for Safety Resolve 2016-03-17 Cherrise hospitaliza d 01-06 09:30:00 Isauro tion 09:30: [id number] 00 Neuro anxiety Neuro/Emot Resolve 2016-02-25 Iris present ion d 01-27 11:30:00 Ingrahm 10:30: [id number] 00 Activity ADL Activity Resolve 2016-03-17 Iris assistance d 01-27 09:30:00 Ingrahm required 10:30: [id number] 00 Integument skin Integument Resolve 2016-03-17 Cherrise integrity d 02-03 09:30:00 [place] risk 10:45: [id number] 00 Integument other wound Integument Resolve 2016-03-17 Cherrise present d 02-03 09:30:00 Isauro 10:45: [id number] 00 Integument knowledge/s Integument Resolve 2016-02-04 Cherrise kill d 02-03 10:45:00 Isauro deficit: pt 10:45: [id number] 00 Respiratory dyspnea Respirator Resolve 2017-02-26 Prabha present y d 9-08 17:45:00 Tellez 09:30: [id number] 00 Elimination urinary Eliminatio Resolve 2016-03-17 Prabha incontinenc n d 02-16 09:30:00 Tellez e 09:30: [id number] 00 Elimination bowel Eliminatio Resolve 2016-03-17 Prabha incontinenc n d 02-16 09:30:00 Tellez e 09:30: [id number] 00 Neuro depressive Neuro/Emot Resolve 2016-02-25 Prabha feelings ion d 02-16 11:30:00 Tellez present 09:30: [id number] 00 Medication oral med Meds Unknown Prabha assistance 02-16 Tellez required 09:30: [id number] 00 Medication potential Meds Resolve 2016-03-17 Prabha clinically d 02-16 09:30:00 Tellez significant 09:30: [id number] medication 00 issue Neuro impaired Neuro/Emot Resolve 2016-02-25 Maria Luisae decision-ma ion d 02-24 11:30:00 [place] anika 11:30: [id number] 00 Pain frequent Pain Mgmt Unknown 2015-06 Penelope pain 0-14 Isauro 09:20: [id number] 00 Safety risk for Safety Resolve 2015-062016-03-24 Maria Luisae hospitaliza d 0-14 09:20:00 Isauro tion 09:20: [id number] 00 Musculoskel requires Musculoske Resolve 2015-062018-10-16 Penelope etal human letal d 014 09:45:00 Isauro assist to 09:20: [id number] leave home 00 Safety risk for Safety Resolve 2015-062016-04-21 Katiarise hospitaliza d 0-17 09:25:00 Isauro tion 11:15: [id number] 00 Integument other wound Integument Resolve 2015-062016-07-17 Iris present d 0 15:54:00 Ingrahm 09:31: [id number] 00 Elimination urinary Eliminatio Resolve 2015-062016-06-16 Iris incontinenc n d 09:40:00 Ingrahm e 09:31: [id number] 00 Elimination bowel Eliminatio Resolve 2015-062016-06-16 Iris incontinenc n d 0-21 09:40:00 Ingrahm e 09:31: [id number] 00 Neuro confusion Neuro/Emot Resolve 2015-062016-04-07 Iris present ion d 0-21 09:20:00 Ingrahm 09:31: [id number] 00 Neuro anxiety Neuro/Emot Resolve 2015-062016-04-07 Iris present ion d 0 09:20:00 Ingrahm 09:31: [id number] 00 Neuro impaired Neuro/Emot Resolve 2015-062016-04-07 Iris decision-ma ion d 0 09:20:00 Ingrahm anika 09:31: [id number] 00 Activity ADL Activity Unknown 2015-06 Iris assistance Ingrahm required 09:31: [id number] 00 Safety fall risk Safety Resolve 2015-062016-04-21 Iris factor d 0 09:25:00 Ingrahm present 09:31: [id number] 00 Medication injectable Meds Resolve 2015-062017-05-25 Iris med d 11:19:00 Ingrahm assistance 09:31: [id number] required 00 Neuro depressive Neuro/Emot Resolve 2015-062016-04-07 Cherrise feelings ion d 09:20:00 Isauro present 09:20: [id number] 00 Neuro depressive Neuro/Emot Resolve 2015-062016-12-22 Cherrise feelings ion d 06-21 10:00:00 Isauro present 09:25: [id number] 00 Neuro impaired Neuro/Emot Resolve 2015-062016-04-21 Cherrise decision-ma ion d 06-21 09:25:00 Isauro anika 09:25: [id number] 00 Integument surgical Integument Resolve 2015-062016-07-17 Iris wound d 07-02 15:54:00 Ingrahm present 15:30: [id number] 00 Neuro anxiety Neuro/Emot Resolve 2015-062016-06-09 Iris present ion d 07-02 09:30:00 Ingrahm 15:30: [id number] 00 Safety risk for Safety Resolve 2015-062016-05-10 Iris hospitaliza d 07-02 10:55:00 Ingrahm tion 15:30: [id number] 00 Safety drug Safety Resolve 2015-062016-07-17 Iris dependency d - 15:54:00 Ingrahm reported 15:30: [id number] 00 Safety fall risk Safety Resolve 2015-062016-05-10 Iris factor d - 10:55:00 Ingrahm present 15:30: [id number] 00 Medication oral med Meds Unknown 2015-06 Iris assistance 07-02 Ingrahm required 15:30: [id number] 00 Neuro impaired Neuro/Emot Resolve 2015-062016-05-19 Maria Luisakrys decision-ma ion d 1- 09:40:00 [place] anika 10:55: [id number] 00 Safety risk for Safety Resolve 2015-062016-05-19 Cherrise hospitaliza d 07-20 09:40:00 [place] tion 09:40: [id number] 00 Safety fall risk Safety Resolve 2015-062016-06-09 Cherrise factor d 2- 09:30:00 Isauro present 08:30: [id number] 00 Safety risk for Safety Resolve 2015-062016-06-09 Cherrise hospitaliza d 2- 09:30:00 Isauro tion 08:30: [id number] 00 Pain frequent Pain Mgmt Unknown 2015-06 Iris pain 2-20 Ingrahm 09:24: [id number] 00 Neuro impaired Neuro/Emot Resolve 2015-062016-12-22 Maria Luisakrys decision-ma ion d 10:00:00 [place] anika 09:30: [id number] 00 Safety risk for Safety Resolve 2016-06-16 Cherrise hospitaliza d 06-16 09:40:00 [place] tion 09:40: [id number] 00 Safety fall risk Safety Resolve 2016-06-16 Cherrise factor d 06-16 09:40:00 [place] present 09:40: [id number] 00 Safety risk for Safety Resolve 2016-06-23 Cherrise hospitaliza d 06-23 09:30:00 Isauro tion 09:30: [id number] 00 Safety risk for Safety Resolve 2016-07-07 Iris hospitaliza d 1-20 09:50:00 Ingrahm tion 09:29: [id number] 00 Safety risk for Safety Resolve 2016-07-17 Cherrise hospitaliza d 1-28 15:54:00 Isauro tion 08:55: [id number] 00 Nutrition nutritional Nutrition Resolve 2016-07-17 Cherrise restriction d 2-03 15:54:00 [place] s 10:10: [id number] 00 Elimination urinary Eliminatio Resolve 2016-07-17 Cherrise incontinenc n d 2- 15:54:00 Isauro e 10:10: [id number] 00 Elimination constipatio Eliminatio Resolve 2016-07-17 Cherrise n n d 2- 15:54:00 [place] 10:10: [id number] 00 Safety fall risk Safety Resolve 2016-07-17 Cherrise factor d 2- 15:54:00 Isauro present 10:10: [id number] 00 Elimination urinary Eliminatio Resolve 2016-07-17 Genoveva urgency n d 2- 15:54:00 Funes 15:54: [id number] 00 Neuro anxiety Neuro/Emot Resolve 2016-12-22 Cherrise present ion d 2-10 10:00:00 Isauro 09:30: [id number] 00 Neuro memory Neuro/Emot Resolve 2017-02-26 Cherrise deficit ion d 2-10 17:45:00 [place] needing 09:30: [id number] supervision 00 Safety risk for Safety Resolve 2016-07-28 Cherrise hospitaliza d 2-10 10:00:00 [place] tion 09:30: [id number] 00 Pain frequent Pain Mgmt Unknown Annette pain 07-28 Regeczi 10:00: [id number] 00 Integument other wound Integument Resolve 2017-05-25 Annette present d 2-17 11:19:00 Regeczi 10:00: [id number] 00 Elimination urinary Eliminatio Resolve 2016-07-28 Annette incontinenc n d 2- 10:00:00 Regeczi e 10:00: [id number] 00 Safety fall risk Safety Resolve 2016-07-28 Annette factor d 2-17 10:00:00 Regeczi present 10:00: [id number] 00 Safety fall risk Safety Resolve 2017-02-26 Cherlaurie factor d 2-24 17:45:00 [place] present 09:45: [id number] 00 Safety risk for Safety Unknown Katiarise hospitaliza 2 Isauro tion 09:45: [id number] 00 Musculoskel requires Musculoske Unknown Cherrise etal human letal 08-11 Isauro assist to 11:45: [id number] leave home 00 Elimination urinary Eliminatio Resolve 2017-02-26 Cherrise incontinenc n d 3-10 17:45:00 [place] e 09:40: [id number] 00 Elimination constipatio Eliminatio Resolve 2017-02-26 Cherrise n n d 3-10 17:45:00 Isauro 09:40: [id number] 00 Safety can be left Safety Resolve 2017-02-26 Anita alone for d 4-14 17:45:00 Small only short 09:20: [id number] periods 00 Neuro depressive Neuro/Emot Unknown Penelope feelings ion 11-03 Isauro present 10:00: [id number] 00 Cardio edema Cardiovasc Resolve 2017-02-26 Penelope ular d 6 17:45:00 [place] 09:30: [id number] 00 Pain knowledge/s Pain Mgmt Resolve 2016-12-22 Iris kill d 12-15 10:00:00 Ingrahm deficit: cg 09:56: [id number] 00 Respiratory knowledge/s Respirator Resolve 2016-12-22 Iris kill y d 12-15 10:00:00 Ingrahm deficit: cg 09:56: [id number] 00 Integument knowledge/s Integument Resolve 2016-12-22 Iris kill d 12-15 10:00:00 Ingrahm deficit: cg 09:56: [id number] 00 Elimination knowledge/s Eliminatio Resolve 2017-02-26 Iris kill n d 12-15 17:45:00 Ingrahm deficit: cg 09:56: [id number] 00 Neuro knowledge/s Neuro/Emot Resolve 2016-12-22 Iris kill ion d 12-15 10:00:00 Ingrahm deficit: cg 09:56: [id number] 00 Safety knowledge/s Safety Resolve 2016-12-22 Iris kill d 12-15 10:00:00 Ingrahm deficit: cg 09:56: [id number] 00 Neuro anxiety Neuro/Emot Unknown Cherrise present ion 12-22 [place] 10:00: [id number] 00 Neuro impaired Neuro/Emot Unknown Cherrise decision-ma ion 12-22 Isauro anika 10:00: [id number] 00 Neuro impaired Neuro/Emot Resolve 2017-02-26 Cherrise decision-ma ion d 01-05 17:45:00 Isauro anika 10:00: [id number] 00 Respiratory knowledge/s Respirator Resolve 2017-02-26 Iris kill y d 01-12 17:45:00 Ingrahm deficit: cg 09:13: [id number] 00 Integument knowledge/s Integument Resolve 2017-05-25 Iris kill d 01-12 11:19:00 Ingrahm deficit: cg 09:13: [id number] 00 Neuro knowledge/s Neuro/Emot Resolve 2017-02-26 Iris kill ion d 01-12 17:45:00 Ingrahm deficit: cg 09:13: [id number] 00 Safety knowledge/s Safety Resolve 2017-02-26 Iris kill d 01-12 17:45:00 Ingrahm deficit: cg 09:13: [id number] 00 Neuro anxiety Neuro/Emot Resolve 2017-02-26 Iris present ion d 01-26 17:45:00 Ingrahm 09:11: [id number] 00 Neuro depressive Neuro/Emot Resolve 2017-02-26 Cherrise feelings ion d 02-02 17:45:00 [place] present 08:45: [id number] 00 Elimination urinary Eliminatio Resolve 2017-02-26 Cherrise urgency n d 02-09 17:45:00 [place] 09:40: [id number] 00 Pain severe pain Pain Mgmt Resolve 2018-12-18 Annette d 02-26 09:35:00 Regeczi 17:45: [id number] 00 Elimination urinary Eliminatio Resolve 2017-02-26 Annette incontinenc n d 02-26 17:45:00 Regeczi e 17:45: [id number] 00 Elimination constipatio Eliminatio Unknown Annette n n 02-26 Regeczi 17:45: [id number] 00 Neuro confusion Neuro/Emot Resolve 2017-02-26 Annette present ion d 02-26 17:45:00 Regeczi 17:45: [id number] 00 Neuro impaired Neuro/Emot Resolve 2017-02-26 Annette decision-ma ion d 02-26 17:45:00 Regeczi anika 17:45: [id number] 00 Safety structural Safety Resolve 2017-02-26 Annette barriers d 02-26 17:45:00 Regeczi present 17:45: [id number] 00 Safety safety Safety Resolve 2017-02-26 Annette hazards d 02-26 17:45:00 Regeczi present 17:45: [id number] 00 Safety knowledge/s Safety Resolve 2017-02-26 Annette kill d 02-26 17:45:00 Regeczi deficit: cg 17:45: [id number] 00 Safety risk for Safety Resolve 2017-02-26 Annette hospitaliza d 02-26 17:45:00 Regeczi tion 17:45: [id number] 00 Safety fall risk Safety Resolve 2017-02-26 Annette factor d 02-26 17:45:00 Regeczi present 17:45: [id number] 00 Medication potential Meds Resolve 2017-05-25 Annette clinically d 02-26 11:19:00 Regeczi significant 17:45: [id number] medication 00 issue Medication oral med Meds Unknown Annette assistance 02-26 Regeczi required 17:45: [id number] 00 Medication oral med Meds Unknown Annette assistance 02-26 Regeczi required 17:45: [id number] 00 Neuro impaired Neuro/Emot Resolve 2018-10-16 Cherlaurie decision-ma ion d 03-01 09:45:00 [place] anika 18:15: [id number] 00 Safety knowledge/s Safety Active Cherrise kill 03-01 [place] deficit: cg 18:15: [id number] 00 Safety fall risk Safety Resolve 2017-05-25 Cherrise factor d 03-01 11:19:00 [place] present 18:15: [id number] 00 Safety risk for Safety Resolve 2017-05-25 Cherlaurie hospitaliza d 03-01 11:19:00 Isauro tion 18:15: [id number] 00 Nutrition knowledge/s Nutrition Resolve 2017-05-25 Cherrise kill d 03-05 11:19:00 [place] deficit: pt 10:45: [id number] 00 Elimination urinary Eliminatio Resolve 2017-05-25 Cherrise urgency n d 03-05 11:19:00 Isauro 10:45: [id number] 00 Elimination constipatio Eliminatio Resolve 2017-05-25 Cherrise n n d 03-05 11:19:00 [place] 10:45: [id number] 00 Neuro seizures Neuro/Emot Resolve 2016-062018-10-16 Katiarise ion d 09:45:00 Isauro 09:30: [id number] 00 Elimination urinary Eliminatio Resolve 2016-062017-05-25 Mariposa incontinenc n d 0- 11:19:00 Aide marcano 17:00: [id number] 00 Neuro anxiety Neuro/Emot Resolve 2016-062018-10-16 Mariposa present ion d 0- 09:45:00 Aide 17:00: [id number] 00 Safety risk for Safety Resolve 2016-062017-12-19 Iris hospitaliza d 09:45:00 Ingrahm tion 09:15: [id number] 00 Nutrition knowledge/s Nutrition Resolve 2017-09-19 Cherrise kill d 1 09:45:00 [place] deficit: pt 09:20: [id number] 00 Elimination urinary Eliminatio Resolve 2018-10-16 Cherrise urgency n d 1- 09:45:00 [place] 09:20: [id number] 00 Safety fall risk Safety Resolve 2017-12-19 Cherrise factor d 1-12 09:45:00 [place] present 09:45: [id number] 00 Pain frequent Pain Mgmt Unknown Iris pain - Ingrahm 09:30: [id number] 00 Integument other wound Integument Resolve 2018-10-16 Iris present d 2 09:45:00 Ingrahm 09:30: [id number] 00 Elimination urinary Eliminatio Resolve 2018-10-16 Iris incontinenc n d 07-19 09:45:00 Ingrahm e 09:30: [id number] 00 Respiratory dyspnea Respirator Resolve 2018-12-18 Cherrise present y d 08-01 09:35:00 Isauro 15:10: [id number] 00 Integument skin Integument Resolve 2018-10-16 Cherrise integrity d 08-08 09:45:00 Isauro risk 09:30: [id number] 00 Neuro depressive Neuro/Emot Resolve 2018-10-16 Cherrise feelings ion d 08-08 09:45:00 Isauro present 09:30: [id number] 00 Cardio edema Cardiovasc Active Cherrise ular 08-22 [place] 09:45: [id number] 00 Cardio hypertensio Cardiovasc Resolve 2018-12-18 Cherrise n ular d 08-22 09:35:00 Isauro 09:45: [id number] 00 Musculoskel requires Musculoske Unknown Cherrise etal human letal 18 [place] assist to 09:45: [id number] leave home 00 Respiratory lung sounds Respirator Resolve 2018-10-30 Cherrise deficit y d 10-31 10:00:00 Isauro 09:30: [id number] 00 Safety structural Safety Resolve 2018-10-16 Cherrise barriers d -18 09:45:00 [place] present 09:50: [id number] 00 Safety risk for Safety Resolve 2018-10-16 Cherrise hospitaliza d 7-18 09:45:00 [place] tion 09:50: [id number] 00 Safety fall risk Safety Resolve 2018-10-16 Cherrise factor d 8- 09:45:00 Isauro present 10:00: [id number] 00 Nutrition knowledge/s Nutrition Active Kelly kill 01-16 Michael deficit: pt 10:10: [id number] 00 Nutrition nutritional Nutrition Resolve 2018-10-16 Kelly restriction d 01-16 09:45:00 Michael s 10:10: [id number] 00 Elimination UTI within Eliminatio Resolve 2018-10-16 Zeian past 14 n d 07-09 09:45:00 (Melinda) days 10:18: Chavez 00 [id number] Neuro confusion Neuro/Emot Resolve 2018-10-16 Zeina present ion d 07-09 09:45:00 (Melinda) 10:18: Chavez 00 [id number] Pain knowledge/s Pain Mgmt Resolve 2018-12-18 Zeina kill d 2-08 09:35:00 Guidelli deficit: pt 09:00: [id number] 00 Pain knowledge/s Pain Mgmt Resolve 2018-12-18 Zeina kill d 2-08 09:35:00 Guidelli deficit: cg 09:00: [id number] 00 Safety risk for Safety Active Cherrise hospitaliza 5-11 Isauro tion 09:40: [id number] 00 Elimination urinary Eliminatio Resolve 2018-12-18 Cherrise urgency n d 5-15 09:35:00 Isauro 09:15: [id number] 00 Neuro impaired Neuro/Emot Active Cherrise decision-ma ion 5-15 [place] anika 09:15: [id number] 00 Safety structural Safety Active Cherrise barriers 5-15 Isauro present 09:15: [id number] 00 Safety fall risk Safety Active Cherrise factor 5-15 [place] present 09:15: [id number] 00 Musculoskel requires Musculoske Resolve 2018-10-30 Cherrise etal human letal d 5-15 10:00:00 Isauro assist to 09:15: [id number] leave home 00 Neuro depressive Neuro/Emot Active Cherrise feelings ion 5-29 Isauro present 09:15: [id number] 00 Musculoskel requires Musculoske Resolve 2019-04-02 Cherrise etal human letal d 5-29 15:30:00 [place] assist to 09:15: [id number] leave home 00 Integument other wound Integument Resolve 2018-12-18 Iris present d 6 09:35:00 Ingrahm 09:37: [id number] 00 Elimination urinary Eliminatio Resolve 2018-12-18 Iris incontinenc n d 6 09:35:00 Ingrahm e 09:37: [id number] 00 Neuro confusion Neuro/Emot Active Iris present ion 6-13 Ingrahm 10:18: [id number] 00 Neuro anxiety Neuro/Emot Active Iris present ion 6-13 Ingrahm 10:18: [id number] 00 Elimination urinary Eliminatio Resolve 2019-01-15 Cherrise urgency n d 7-17 10:00:00 Isauro 09:30: [id number] 00 Pain frequent Pain Mgmt Resolve 2019-02-12 Iris pain d 8 09:57:00 Ingrahm 10:00: [id number] 00 Integument other wound Integument Resolve 2019-04-02 Riis present d 8 15:30:00 Ingrahm 10:00: [id number] 00 Elimination urinary Eliminatio Resolve 2019-02-12 Cherrise urgency n d 8 09:57:00 [place] 10:10: [id number] 00 Cardio hypertensio Cardiovasc Resolve 2019-02-12 Cherrise n ular d 02-05 09:57:00 [place] 10:05: [id number] 00 Respiratory lung sounds Respirator Resolve 2019-04-02 Cherrise deficit y d 9-11 15:30:00 Isauro 10:10: [id number] 00 Respiratory asthma Respirator Resolve 2019-04-02 Cherrise y d 9-11 15:30:00 [place] 10:10: [id number] 00 Respiratory nebulizer Respirator Resolve 2019-04-02 Cherrise treatment y d 9-11 15:30:00 [place] in home 10:10: [id number] 00 Elimination urinary Eliminatio Resolve 2019-04-02 Cherrise urgency n d 9-18 15:30:00 [place] 09:40: [id number] 00 Pain frequent Pain Mgmt Active 2018-06 Iris pain 0-02 Ingrahm 10:10: [id number] 00 Elimination urinary Eliminatio Resolve 2018-062019-04-02 Iris incontinenc n d 0-02 15:30:00 Ingrahm e 10:10: [id number] 00 Musculoskel transfer Musculoske Resolve 2018-062019-04-02 Iris etal assistance letal d 023 15:30:00 Ingrahm required 15:30: [id number] 00 Respiratory nebulizer Respirator Active 2018-06 Cherrise treatment y 0-30 Isauro in home 09:45: [id number] 00 Elimination urinary Eliminatio Active 2018-06 Cherrise urgency n 0-30 [place] 09:45: [id number] 00 Musculoskel requires Musculoske Active 2018-06 Cherrise etal human letal 0-30 [place] assist to 09:45: [id number] leave home 00 Allergies, Adverse Reactions, Alerts Allergy Name Allergy Status Severity Reaction(s) Onset Inactive Treating Comments Type Date Date Clinician Keflex Medication Active Unknown Reaction Prabha Name ID Unknown 12-02 Etllez [id number] codeine Base Active Unknown Reaction Prabha Ingredient Unknown 12-02 Tellez [id number] adhesive Base Active Unknown Reaction Prabha tape Ingredient Unknown 12-02 Tellez [id number] cortisone Base Active Unknown Reaction Prabha Ingredient Unknown 12-02 Tellez [id number] Iodine and Allergen Active Unknown Reaction Prabha Iodide Group Unknown 12-02 Tellez Containing [id number] Products paper tape Unknown Active Unknown red Cherrise irritation 6-14 [place] [id number] Medications Ordered Filled Start Stop Current Ordering [...] Unknown Unknown 50 mg 50 mg 11-30 07- MD,Mee tablet tablet acamprosate acamprosate No Portillo [...] Observation Time Observation Value Comments SYSTOLIC mm[Hg] 2018-07-19 18:04:12 150 mm[Hg] mm[Hg] Method: Stand DIASTOLIC mm[Hg] 2018-07-19 18:04:12 82 mm[Hg] mm[Hg] Method: Stand Procedures This patient has no known procedures. Results This patient has no known results.
--- OUTSIDE RECORDS SUMMARY | 2019-05-01 12:57 | XMS REPORT | Continuity of Care Document ---
:1965 External Reference #:[id number] Author Name Brad Tristan, OD Address [address] [place] [address] Care Team Providers Name Role Phone Юлия BANKS, 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 Onset: 03/13/2014 After-cataract with vision obscured following Brad Beatty O.D. Onset: 08/2013 extraction of cataract Epiretinal membrane Brad Beatty O.D. Onset: 03/13/2014 Social History Type Date Description Comments Sex Unknown ETOH Use Denies alcohol use Tobacco Use Start: Unknown Patient has never smoked Smoking Status Reviewed: 04/21/19 Patient has never smoked Allergies, Adverse Reactions, Alerts Active Allergies Reaction Severity Comments Date Contrast Dye 08/20/2013 Codeine 08/20/2013 Cortisone 08/20/2013 Cephalexin 08/20/2013 Adhesives 08/20/2013 Iodine 08/20/2013 Medications Active Medications SIG Qnty Indications Ordering Provider Date Restasis one drop twice 180units Brad Tristan, OD 10/23/2018 0.05% Emulsion per day both eyes Lamictal 1 by mouth Unknown 150mg Tablets every night Ambien Unknown 5mg Tablets Protonix Unknown 20mg Tablets DR Miles HFA Unknown Aerosol Quetiapine Fumarate Unknown 50mg Tablets Qvar Redihaler Inhale Two Unknown Puffs By Mouth 80mcg/Act Aerosol Twice A Day Prazosin HCL Unknown 2mg Capsules Fexofenadine HCL Юлия BANKS, [facility] 180mg Tablets Lisinopril Юлия BANKS, [facility] 5mg Tablets Meloxicam Unknown 15mg Tablets Trintellix Unknown 10mg Tablets Quetiapine Fumarate Unknown 300mg Tablets Motrin Ib Unknown 200mg Capsules Immunizations Description No Information Available Vital Signs Date Vital Result Comment 10/17/2018 12:23pm Intraocular Pressure Right Eye 17 mmHg Intraocular Pressure Left Eye 17 mmHg 07/19/2018 12:19pm Intraocular Pressure Right Eye 16 mmHg Intraocular Pressure Left Eye 16 mmHg Results Description No Information Available Procedures Description No Information Available Medical Devices Description No Information Available Encounters Description No Information Available Assessments Date Code Description Provider 04/21/2019 H35.373 Puckering of macula, bilateral Brad Tristan, OD 04/21/2019 H16.223 Keratoconjunctivitis sicca, not specified as Brad Tristan, OD Sjogren's, bila Plan of Treatment 04/21/2019 - Brad Tristan, ODH35.373 Puckering of macula, misardfynW60.223 Keratoconjunctivitis sicca, not specified as Sjogren's, bilaFollow up:6 mos full , sooner PRN Functional Status Description No Information Available Mental Status Description No Information Available Referrals Description No Information Available
--- OUTSIDE RECORDS SUMMARY | 2019-05-01 12:57 | XMS REPORT | Continuity of Care Document ---
:1965 External Reference #:[id number] Author Name Lyndsey Aviles, DO Address [address] [place] [address] Problems Active Problems Provider Date Adult health [...] 11/08/2018 Acute sinusitis Onset: 10/18/2018 Inactive: 10/18/2018 Social History Type Date Description Comments Sex Female Allergies, Adverse Reactions, Alerts Active Allergies Reaction Severity Comments Date Codeine syncope 02/14/2019 Adhesive Tape No Reaction Indicated 02/14/2019 Contrast Dye No Reaction Indicated 02/14/2019 Cortisone No Reaction Indicated 02/14/2019 Keflex No Reaction Indicated 02/14/2019 Medications Active Medications SIG Qnty Indications Ordering Date Provider Nebulizer Use as directed 1units [place], 02/17/2019 Kit/Tubing/Mouthpie MD walker Kit Nebulizer System q 4 hours prn cough 1units [place], 02/17/2019 ALL-In-One and wheezing [facility] Albuterol Sulfate 1 unit by mouth 75ml [place], 02/17/2019 every 4 hours as MD (2.5mg/3ML) 0.083% needed Nebulizer Neomycin-Polymyxin- 4 gtte four times 10units Unknown 11/25/2018 HC each day Otic; 4 3.5-75572-0 gtte to left ear qid Suspension x [...] By Mouth Tablets Every Day Seroquel 1 at bed-time Oral; Unknown 07/10/2017 100mg with 100mg prn Tablets Seroquel 1 twice daily Oral Unknown 07/10/2017 50mg Tablets Lamotrigine 1 daily Oral Unknown 02/28/2017 200mg Tablets Prazosin HCL 3 at bedtime prn 90caps Unknown 11/11/2015 2mg Oral Capsules Zolpidem Tartrate 1 at bedtime Oral Unknown 02/01/2015 10mg Tablets History Medications Sudogest 12 Hour 1 twice daily prn Oral 60tabs Unknown 02/07/2019 - 120mg Tablets 03/25/2019 ER 12HR Sudogest 12 Hour prn Oral; Take One 30tabs Unknown 01/22/2019 - 120mg Tablets Tablet By Mouth Every 02/07/2019 ER 12HR Day as Needed. Cetirizine HCL 1 at bedtime prn Oral; 30tabs Unknown 11/08/2018 - 10mg Tablets use as needed for 11/20/2018 environemental allergies. Sudogest 12 Hour Oral; Take One Tablet By 30tabs Unknown 10/30/2018 - 120mg Tablets Mouth Every Day 01/22/2019 ER 12HR Pseudoephedrine HCL ER 1 daily Oral 30tabs Unknown 10/22/2018 - 120mg 10/30/2018 Tablets ER 12HR Doxycycline Hyclate 1 twice daily Oral 20caps Unknown 10/18/2018 - 100mg 10/28/2018 Capsules Doxycycline Monohydrate 1 twice daily Oral 20caps Unknown 10/18/2018 - 100mg 10/28/2018 Capsules Tessalon Perles 1 three times daily 30caps Unknown 10/18/2018 - 100mg Capsules Oral 10/28/2018 Medications Administered in Office Medication SIG Qnty Indications Ordering Provider Date TB Intradermal Test Unknown 07/18/2017 Injection TB Intradermal Test Unknown 12/31/2015 Injection TB Intradermal Test Unknown 12/24/2015 Injection Injection Medroxyprogesterone Unknown 01/05/2010 Acetate For Contraceptive Use Injection Immunizations CPT Code Status Date Vaccine Lot # [id number] Given 02/17/2019 Flu < 65 years 55418 Given 02/17/2019 Influenza Virus Vaccine, Split Virus, Preservative [id number] Free Im 0.5ML 55290 Given 02/18/2018 Shingrix - Shingles vaccine, Herpes Zoster 89356 Given 02/18/2018 Influenza Virus Vaccine, Quadrivalent, Split Virus, Im Use 0.5ML 81036 Given 02/18/2018 Flu < 65 years 40253 Given 02/18/2018 Influenza Virus Vaccine, Quadrivalent, Split, Preservative Free 17894 Given 02/18/2018 Flumist 28615 Given 02/18/2018 Flu High Dose 84240 Given 02/18/2018 Influenza Virus Vaccine, Split, Preserv Free, Intradermal Use 81062 Given 11/19/2017 Shingrix - Shingles vaccine, Herpes Zoster 07895 Given 02/27/2017 Influenza Virus Vaccine, Split, Preserv Free, Intradermal Use 55660 Given 02/27/2017 Flu High Dose 03817 Given 02/27/2017 Flumist 50603 Given 02/27/2017 Influenza Virus Vaccine, Quadrivalent, Split, Preservative Free 81180 Given 02/27/2017 Flu < 65 years 93686 Given 02/27/2017 Influenza Virus Vaccine, Quadrivalent, Split Virus, Im Use 0.5ML 53743 Given 07/06/2016 Tdap - Boostrix/Adacel 01990 Given 03/08/2016 Influenza Virus Vaccine, Quadrivalent, Split Virus, Im Use 0.5ML 37857 Given 03/08/2016 Flu < 65 years 14704 Given 03/08/2016 Influenza Virus Vaccine, Quadrivalent, Split, Preservative Free 63194 Given 03/08/2016 Flumist 64610 Given 03/08/2016 Flu High Dose 34971 Given 03/08/2016 Influenza Virus Vaccine, Split, Preserv Free, Intradermal Use 49335 Given 03/23/2015 Flu High Dose 35024 Given 03/23/2015 Flumist 52810 Given 03/23/2015 Influenza Virus Vaccine, Quadrivalent, Split, Preservative Free 48485 Given 03/23/2015 Flu < 65 years 39501 Given 03/23/2015 Influenza Virus Vaccine, Quadrivalent, Split Virus, Im Use 0.5ML 18385 Given 03/17/2014 Influenza Virus Vaccine, Quadrivalent, Split Virus, Im Use 0.5ML 21754 Given 03/17/2014 Flu < 65 years 08485 Given 03/17/2014 Influenza Virus Vaccine, Quadrivalent, Split, Preservative Free 35700 Given 03/17/2014 Flumist 52075 Given 03/17/2014 Flu High Dose 98656 Given 03/07/2013 Influenza Virus Vaccine Split Virus Intramuscular Use 0.5ML 47053 Given 03/07/2013 Flu High Dose 14958 Given 03/07/2013 Flumist 10637 Given 03/07/2013 Influenza Virus Vaccine, Quadrivalent, Split, Preservative Free 62259 Given 03/07/2013 Flu < 65 years 64910 Given 03/07/2013 Influenza Virus Vaccine, Quadrivalent, Split, Im Use 0.25ML 24632 Given 03/07/2013 Influenza Virus Vaccine, Quadrivalent, Split, Im Use 0.25ML 46508 Given 03/07/2013 Influenza Virus Vaccine, Quadrivalent, Split, Im Use 0.25ML 88143 Given 03/07/2013 Influenza Virus Vaccine, Quadrivalent, Split, Im Use 0.25ML 71831 Given 01/29/2012 Influenza Virus Vaccine Split Virus Intramuscular Use 0.5ML 52265 Given 01/29/2012 Flu High Dose 73954 Given 01/29/2012 Flumist 09249 Given 01/29/2012 Influenza Virus Vaccine, Quadrivalent, Split, Preservative Free 88295 Given 01/29/2012 Flu < 65 years 19705 Given 01/29/2012 Influenza Virus Vaccine, Quadrivalent, Split, Im Use 0.25ML 97157 Given 01/29/2012 Influenza Virus Vaccine, Quadrivalent, Split, Im Use 0.25ML 17657 Given 01/29/2012 Influenza Virus Vaccine, Quadrivalent, Split, Im Use 0.25ML 28975 Given 01/29/2012 Pneumovax - for >=2years - PPSV23 19155 Given 02/14/2011 Influenza Virus Vaccine, Quadrivalent, Split, Im Use 0.25ML 81589 Given 02/14/2011 Influenza Virus Vaccine, Quadrivalent, Split, Im Use 0.25ML 38159 Given 02/14/2011 Influenza Virus Vaccine Split Virus Intramuscular Use 0.5ML 73019 Given 08/12/2010 Tdap - Boostrix/Adacel Vital Signs Date Vital Result Comment 04/14/2019 11:40am BP Systolic 122 mmHg BP Diastolic 68 mmHg Heart Rate 84 /min Body Temperature 97.7 F O2 % BldC Oximetry 97 % 03/25/2019 1:39pm BP Systolic 124 mmHg BP Diastolic 62 mmHg Heart Rate 100 /min Body Temperature 98.0 F O2 % BldC Oximetry 96 % Results Test Acquired Facility Test Result H/L Range Note Date Laboratory 02/24/2019 [facility] FSH (Follicle 18.0 mIU/mL 1 test finding [address] Stim Hormone) [place] [address] [phone] Order 02/17/2019 [facility] Nebulizer patient Treatment tolterated l Leuk Est-Ua 11/14/2018 N2N/CCD Import Leuk Est-Ua Negative Negative Lymph# 11/14/2018 N2N/CCD Import Lymph# 1.5 10_3/ul 1.0-4.8 10 3/ul Lymph% 11/14/2018 N2N/CCD Import Lymph% 23.7 % 20 - 45 % MCH 11/14/2018 N2N/CCD Import MCH 32 pg High 27-31 pg MCHC 11/14/2018 N2N/CCD Import MCHC 35 g/dL 31-36 g/dL MCV 11/14/2018 N2N/CCD Import MCV 93 fL 80-97 fL [place]# 11/14/2018 N2N/CCD Import [place]# 0.5 10_3/ul 0-0.8 10 3/ul [place]% 11/14/2018 N2N/CCD Import [place]% 8.2 % 0 - 10 % MPV [...] 114 Procedures Date Code Description Status 02/17/2019 35173 Pressurized/Non-Pressurized Inhalation Treatment,Acute Completed Obstructio Medical Devices Description No Information Available Encounters Type Date Location Provider Dx Diagnosis Office Visit 04/14/2019 [facility] Lyndsey Haynesw, DO D25.9 Leiomyoma of uterus, 11:45a unspecified R10.30 Lower abdominal pain, unspecified F43.12 Post-traumatic stress disorder, chronic X78.1xxS Intentional self-harm by knife, sequela Office Visit 03/25/2019 1:[facility]p [facility] Lyndsey Haynesw, R10.30 Lower abdominal DO pain, unspecified D25.9 Leiomyoma of uterus, unspecified J30.9 Allergic rhinitis, unspecified Office Visit 02/24/2019 11:30a [facility] Main Los Vaca MD J06.9 Acute upper respiratory infection, unspecified R05 Cough Office Visit 02/17/2019 1:45p [facility] Main [place] MD J45.21 Mild intermittent asthma with (acute) exacerbation Z23 Encounter for immunization Assessments Date Code Description Provider 04/14/2019 D25.9 Leiomyoma of uterus, unspecified Lyndsey Luciennow, DO 04/14/2019 R10.30 Lower abdominal pain, unspecified Lyndsey Karnow, DO 04/14/2019 F43.12 Post-traumatic stress disorder, chronic Lyndsey Luciennow, DO 04/14/2019 X78.1xxS Intentional self-harm by knife, sequela Lyndsey Haynesw , DO 03/25/2019 R10.30 Lower abdominal pain, unspecified Lyndsey Luciennow, DO 03/25/2019 D25.9 Leiomyoma of uterus, unspecified Lyndsey Luciennow, DO 03/25/2019 J30.9 Allergic rhinitis, unspecified Lyndsey Luciennow, DO 02/24/2019 J06.9 Acute upper respiratory infection, [place] MD unspecified 02/24/2019 R05 Cough [place] MD 02/17/2019 J45.21 Mild intermittent asthma with (acute) [place] MD exacerbation 02/17/2019 Z23 Encounter for immunization [place] MD Plan of Treatment Future Appointment(s):07/01/2019 1:15 pm - Lyndsey Aviles DO at [facility]09/2018 - Lyndsey Aviles DOD25.9 Leiomyoma of uterus, unspecifiedComments: Long conversation about the process of once monthly Lupron injections that are not yet approved by her insurance Then discussion with Dr. Abarca about possible hysterectomyThe thought of the needles really upsets the patient and I discussed it with her as best I could I recommend that she make another visit sooner with Dr. Abarca to discuss next ktwxyE87.30 Lower abdominal pain, unspecifiedComments:Unchanged - nothing worse or new - hrmcjszT70.12 Post- traumatic stress disorder, chronicComments:Patient really upset today by the whole conversation so we spent extra time reviewing and going overthingsHer advocate was present and helpful as Robyn has regular counseling and psychiatric careX78.1xxS Intentional self-harm by knife, sequelaComments:No evidence of infectionArea cleaned and bandagedReviewed s/s of infection and when to worryShe denies current active SI and reports has safety plan for if/ when she has those thoughts Functional Status Description No Information Available Mental Status Description No Information Available Referrals Description No Information Available
--- OUTSIDE RECORDS SUMMARY | 2019-05-01 12:57 | XMS REPORT | Continuity of Care Document ---
:1965 External Reference #:[id number] Author Name Lucy Bernard MD Address [address] [place] [address] Problems Active Problems Provider Date Adult health [...] Ordering Date Provider Nebulizer Use as directed 1unruby Vaca MD Kit/Tubing/Mouthpie 9 ce Kit Nebulizer System q 4 hours prn cough 1unruby Vaca MD ALL-In-One and wheezing 9 Misc Albuterol Sulfate 1 unit by mouth 75ml [place] MD every 4 hours as 9 (2.5mg/3ML) 0.083% needed Nebulizer Neomycin-Polymyxin- 4 gtte four times 10units Unknown HC each day Otic; 4 9 3.5-58044-4 gtte to left ear qid Suspension x [...] Mouth 8 Tablets Every Day Seroquel 1 at bed-time Oral; Unknown 100mg with 100mg prn 8 Tablets Seroquel 1 twice daily Oral Unknown 50mg 8 Tablets Lamotrigine 1 daily Oral Unknown [...] CPT Code Status Date Vaccine Lot # [id number] Given 02/17/2019 Flu < 65 years 07887 Given 02/17/2019 Influenza Virus Vaccine, Split Virus, Preservative [id number] Free Im 0.5ML 29504 Given 02/18/2018 Shingrix - Shingles vaccine, Herpes Zoster 85832 Given 02/18/2018 Influenza Virus Vaccine, Quadrivalent, Split Virus, Im Use 0.5ML 50476 Given 02/18/2018 Flu < 65 years 10857 Given 02/18/2018 Influenza Virus Vaccine, Quadrivalent, Split, Preservative Free 71378 Given 02/18/2018 Flumist 92256 Given 02/18/2018 Flu High Dose 96073 Given 02/18/2018 Influenza Virus Vaccine, Split, Preserv Free, Intradermal Use 15799 Given 11/19/2017 Shingrix - Shingles vaccine, Herpes Zoster 61627 Given 02/27/2017 Influenza Virus Vaccine, Split, Preserv Free, Intradermal Use 91892 Given 02/27/2017 Flu High Dose 02634 Given 02/27/2017 Flumist 30705 Given 02/27/2017 Influenza Virus Vaccine, Quadrivalent, Split, Preservative Free 93431 Given 02/27/2017 Flu < 65 years 33851 Given 02/27/2017 Influenza Virus Vaccine, Quadrivalent, Split Virus, Im Use 0.5ML 40501 Given 07/06/2016 Tdap - Boostrix/Adacel 01569 Given 03/08/2016 Influenza Virus Vaccine, Quadrivalent, Split Virus, Im Use 0.5ML 45095 Given 03/08/2016 Flu < 65 years 46943 Given 03/08/2016 Influenza Virus Vaccine, Quadrivalent, Split, Preservative Free 71913 Given 03/08/2016 Flumist 91492 Given 03/08/2016 Flu High Dose 09585 Given 03/08/2016 Influenza Virus Vaccine, Split, Preserv Free, Intradermal Use 43433 Given 03/23/2015 Flu High Dose 52703 Given 03/23/2015 Flumist 13918 Given 03/23/2015 Influenza Virus Vaccine, Quadrivalent, Split, Preservative Free 01623 Given 03/23/2015 Flu < 65 years 88961 Given 03/23/2015 Influenza Virus Vaccine, Quadrivalent, Split Virus, Im Use 0.5ML 60885 Given 03/17/2014 Influenza Virus Vaccine, Quadrivalent, Split Virus, Im Use 0.5ML 18029 Given 03/17/2014 Flu < 65 years 07112 Given 03/17/2014 Influenza Virus Vaccine, Quadrivalent, Split, Preservative Free 53111 Given 03/17/2014 Flumist 49189 Given 03/17/2014 Flu High Dose 85759 Given 03/07/2013 Influenza Virus Vaccine Split Virus Intramuscular Use 0.5ML 04423 Given 03/07/2013 Flu High Dose 43135 Given 03/07/2013 Flumist 94232 Given 03/07/2013 Influenza Virus Vaccine, Quadrivalent, Split, Preservative Free 82241 Given 03/07/2013 Flu < 65 years 39355 Given 03/07/2013 Influenza Virus Vaccine, Quadrivalent, Split, Im Use 0.25ML 63244 Given 03/07/2013 Influenza Virus Vaccine, Quadrivalent, Split, Im Use 0.25ML 06140 Given 03/07/2013 Influenza Virus Vaccine, Quadrivalent, Split, Im Use 0.25ML 27613 Given 03/07/2013 Influenza Virus Vaccine, Quadrivalent, Split, Im Use 0.25ML 87314 Given 01/29/2012 Influenza Virus Vaccine Split Virus Intramuscular Use 0.5ML 53284 Given 01/29/2012 Flu High Dose 28856 Given 01/29/2012 Flumist 41290 Given 01/29/2012 Influenza Virus Vaccine, Quadrivalent, Split, Preservative Free 48481 Given 01/29/2012 Flu < 65 years 77682 Given 01/29/2012 Influenza Virus Vaccine, Quadrivalent, Split, Im Use 0.25ML 78490 Given 01/29/2012 Influenza Virus Vaccine, Quadrivalent, Split, Im Use 0.25ML 63877 Given 01/29/2012 Influenza Virus Vaccine, Quadrivalent, Split, Im Use 0.25ML 02861 Given 01/29/2012 Pneumovax - for >=2years - PPSV23 63995 Given 02/14/2011 Influenza Virus Vaccine, Quadrivalent, Split, Im Use 0.25ML 76065 Given 02/14/2011 Influenza Virus Vaccine, Quadrivalent, Split, Im Use 0.25ML 06394 Given 02/14/2011 Influenza Virus Vaccine Split Virus Intramuscular Use 0.5ML 90547 Given 08/12/2010 Tdap - Boostrix/Adacel Vital Signs Date Vital Result Comment 04/18/2019 2:10pm BP Systolic 124 mmHg BP Diastolic 68 mmHg Heart Rate 84 /min Body Temperature 98.4 F O2 % BldC Oximetry 97 % 04/14/2019 11:40am BP Systolic 122 mmHg BP Diastolic 68 mmHg Heart Rate 84 /min Body Temperature 97.7 F O2 % BldC Oximetry 97 % Results Test Acquired Facility Test Result H/L Range Note Date Laboratory 02/24/2019 [facility] FSH (Follicle 18.0 mIU/mL 1 test finding [address] Stim Hormone) [place] [address] [phone] Order 02/17/2019 [facility] Nebulizer patient Treatment tolterated l Leuk Est-Ua 11/14/2018 N2N/CCD Import Leuk Est-Ua Negative Negative Lymph# 11/14/2018 N2N/CCD Import Lymph# 1.5 10_3/ul 1.0-4.8 10 3/ul Lymph% 11/14/2018 N2N/CCD Import Lymph% 23.7 % 20 - 45 % MCH 11/14/2018 N2N/CCD Import MCH 32 pg High 27-31 pg MCHC 11/14/2018 N2N/CCD Import MCHC 35 g/dL 31-36 g/dL MCV 11/14/2018 N2N/CCD Import MCV 93 fL 80-97 fL Day# 11/14/2018 N2N/CCD Import Day# 0.5 10_3/ul 0-0.8 10 3/ul Day% 11/14/2018 N2N/CCD Import Day% 8.2 % 0 - 10 % MPV [...] 114 Procedures Date Code Description Status 02/17/2019 29972 Pressurized/Non-Pressurized Inhalation Treatment,Acute Completed Obstructio Medical Devices Description No Information Available Encounters Type Date Location Provider Dx Diagnosis Office Visit 04/18/2019 [facility] Shahab Bernard MD R10.30 Lower abdominal pain, 2:15p unspecified Office Visit 04/14/2019 [facility] Lyndsey Aviles, DO D25.9 Leiomyoma of uterus, 11:45a unspecified R10.30 Lower abdominal pain, unspecified F43.12 Post-traumatic stress disorder, chronic X78.1xxS Intentional self-harm by knife, sequela Office Visit 03/25/2019 1:45p [facility] Lyndsey Haynesw, R10.30 Lower abdominal DO pain, unspecified D25.9 Leiomyoma of uterus, unspecified J30.9 Allergic rhinitis, unspecified Office Visit 02/24/2019 11:30a [facility] Shahab Vaca MD J06.9 Acute upper respiratory infection, unspecified R05 Cough Office Visit 02/17/2019 1:45p [facility] Shahab Vaca MD J45.21 Mild intermittent asthma with (acute) exacerbation Z23 Encounter for immunization Assessments Date Code Description Provider 04/18/2019 R10.30 Lower abdominal pain, unspecified Lucy [...] 1:15 pm - Lyndsey Aviles DO at [facility] Main01/2019 - Lucy Bernard, MDR10.30 Lower abdominal pain, unspecified Functional Status Description No Information Available Mental Status Description No Information Available Referrals Description No Information Available
[2019-05-01 13:12] LABS: ALT 15 U/L (7-52); AST 13 U/L (13-39); Albumin 4.2 g/dL (3.2-5.2); Albumin/Globulin Ratio 1.4 (1-3); Alkaline Phosphatase 47 U/L (34-104); Anion Gap 12 mmol/L (2-11); BUN/Creatinine Ratio 21.6 (8-20); Blood Urea Nitrogen 16 mg/dL (6-24); CO2 Carbon Dioxide 21 mmol/L (22-32); Calcium 9.7 mg/dL (8.6-10.3); Chloride 107 mmol/L (101-111); Creatine Kinase 35 U/L (10-223); EGFR Non-African American 81.8 (>60); Globulin 2.9 g/dL (2-4); Glucose 116 mg/dL (70-100); Potassium 3.5 mmol/L (3.5-5.0); Sodium 140 mmol/L (135-145); Total Protein 7.1 g/dL (6.4-8.9)
[2019-05-01 13:32] LABS: Acetaminophen < 15 mcg/mL; Alcohol < 10 mg/dL (<10); Salicylate < 2.50 mg/dL (<30)
[2019-05-01 13:35] LABS: Urine Appearance Clear; Urine Bilirubin Negative (Negative); Urine Blood Negative (Negative); Urine Color Yellow; Urine Glucose Negative (Negative); Urine Ketones Negative (Negative); Urine Nitrite Negative (Negative); Urine Protein Negative (Negative); Urine Specific Gravity 1.012 (1.010-1.030); Urine Urobilinogen Negative (Negative)
[2019-05-01 13:43] LABS: Urine Benzodiazepine Screen None Detected (None Detect); Urine Opiates Screen None Detected (None Detect)
[2019-05-01 13:46] LABS: TSH (Thyroid Stimulating Horm) 0.71 mcIU/mL (0.34-5.60)
[2019-05-01] MEDS ORDERED: KETAMINE HCL* 50 MG/ML 10 ML VIAL IM ONE (13:51)
[2019-05-01] MEDS: Mometasone 220 MCG MDI INH SCH (22:32)
[2019-05-01] MEDS: Prazosin CAP* 1 MG PO SCH (22:32)
[2019-05-01] MEDS: Prazosin CAP* 5 MG PO SCH (22:32)
[2019-05-01] MEDS: QUEtiapine TAB* 25 MG PO SCH (22:32)
[2019-05-02] MEDS: Cyclobenzaprine TAB* 10 MG PO PRN (04:10)
[2019-05-02] MEDS ORDERED: Vortioxetine (NF) 10 MG TAB (FORMERLY Brintellix) PO SCH (09:00)
[2019-05-02] MEDS: QUEtiapine TAB* 25 MG PO SCH ×2 (10:12→22:05)
[2019-05-02] MEDS: lamoTRIgine TAB(*) 100 MG PO SCH (10:12)
[2019-05-02] MEDS: Naltrexone TAB* 50 MG TAB PO SCH (10:12)
[2019-05-02] MEDS: Pantoprazole TAB * 40 MG TAB PO SCH (10:13)
[2019-05-02] MEDS: Lisinopril TAB* 5 MG PO SCH (10:13)
[2019-05-02] MEDS ORDERED: LORazepam TAB(*) 1 MG PO SCH (11:00)
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
[2019-05-02] MEDS: risperiDONE TAB* 2 MG PO PRN ×2 (13:17→20:18)
[2019-05-02] MEDS: CMC:Meloxicam(NF) 7.5 MG TAB PO SCH (13:17)
[2019-05-02] MEDS: Fluticasone NASAL SPRAY 50MCG* 16 gm SPRAY BTL BOTH NARES SCH (13:19)
[2019-05-02] MEDS: VORTIOXETINE 10 MG PO SCH (13:19)
[2019-05-02] MEDS: Mometasone 220 MCG MDI INH SCH (17:54)
[2019-05-02] MEDS: Acetaminophen TAB* 325 MG PO PRN (18:52)
[2019-05-02] MEDS: Prazosin CAP* 5 MG PO SCH (22:05)
[2019-05-02] MEDS: Prazosin CAP* 1 MG PO SCH (22:05)
[2019-05-02] MEDS: Zolpidem TAB* 10 MG PO SCH (22:06)
[2019-05-03] MEDS: risperiDONE TAB* 2 MG PO PRN ×2 (03:09→15:18)
[2019-05-03] MEDS: Lisinopril TAB* 5 MG PO SCH (09:20)
[2019-05-03] MEDS: Folic Acid TAB* 1 MG PO SCH (10:24)
[2019-05-03] MEDS: QUEtiapine TAB* 25 MG PO SCH ×2 (10:25→21:54)
[2019-05-03] MEDS: lamoTRIgine TAB(*) 100 MG PO SCH (10:25)
[2019-05-03] MEDS: Naltrexone TAB* 50 MG TAB PO SCH (10:25)
[2019-05-03] MEDS: Pantoprazole TAB * 40 MG TAB PO SCH (10:25)
[2019-05-03] MEDS: Thiamine TAB* 100 MG TAB PO SCH (10:26)
[2019-05-03] MEDS: VORTIOXETINE 10 MG PO SCH (10:26)
[2019-05-03] MEDS: CMC:Meloxicam(NF) 7.5 MG TAB PO SCH (10:27)
[2019-05-03] MEDS: Fluticasone NASAL SPRAY 50MCG* 16 gm SPRAY BTL BOTH NARES SCH (10:28)
--- NOTE | 2019-05-03 11:04 | PN ---
Subjective - Subjective Date of Service: 05/03/19 Service Type: [id number] Hosp care 15 min low complexity Subjective: Feeling better. Sleeping "good I guess", but tired. Unable to walk because of knee and hip problems, sciatic pain primarily. Looking forward to discharge, denies suicidality. Objective - General Observations Appearance: Disheveled Appears Stated Age: Yes Stature: Short Posture: Slumped Eye Contact: Average Behavior/Activity: Slowed - Interaction Observations Attitude Towards Examiner: Cooperative Stated Mood: Euthymic Affect: Restricted Speech Pattern/Tone: Unclear, Slurred, Quiet Volume Thought Process: Coherent, Goal Directed Perception: WNL Thought Content: WNL Hallucination Type: None Delusion Type: None - Cognitive Function Orientation: Person, Place, Situation Level of Consciousness: Awake, Alert, Appropriate Cognition: Impaired Memory Ability to Make Reasonable Decisions: Moderately Impaired - Medication Compliance Cooperative with Inpatient Medication Regimen: Yes - Group Participation Participates in Group Activities: No Assessment - Assessment Merits Inpatient Hospitalization: For Immediate Safety, For Stabilization, Consolidate Improvements, For Discharge Planning, Pending Safe DC Plan Clinical Impression: Sandy has been admitted for stabiization following decompensation due to learning of her psychiatrist and therapists departures. She reports currently no SI, psychosis or mood disturbance. Plan - Plan Treatment Plan: Name: SANDY JAIMES Birthdate: 1965 [id number] Continue current medications. Continue to provide individual care for this patient who cannot tolerate groups due to PTSD. Plan toward d/c back to care at [facility]. Continued Medication Management: Continue Outpt Medication Medications: Current Medications Acetaminophen (Tylenol Tab*) 650 mg PO Q4H PRN PRN Reason: for pain; or Temp >101 F Last Admin: 05/02/19 18:52 Dose: 650 mg Al Hydrox/Mg Hydrox/Simethicone (Maalox Plus*) 30 ml PO Q4H PRN PRN Reason: INDIGESTION Albuterol (Ventolin Hfa Inhaler*) 1 puff INH Q6H PRN PRN Reason: SHORTNESS OF BREATH Last Admin: 05/02/19 20:43 Dose: 1 puff Albuterol/Ipratropium (Duoneb (Albuterol 2.5 Mg/Ipratropium 0.5 Mg)) 1 neb INH Q4H PRN PRN Reason: SOB/WHEEZING Cetirizine HCl (Zyrtec*) 10 mg PO BEDTIME PRN PRN Reason: ALLERGY SYMPTOMS Cyclobenzaprine HCl (Flexeril Tab*) 10 mg PO BID PRN PRN Reason: SPASMS - MUSCLE Last Admin: 05/02/19 04:10 Dose: 10 mg Docusate Sodium (Colace Cap*) 100 mg PO BID PRN PRN Reason: CONSTIPATION Fluticasone Propionate (Flonase Nasal [place] 50mcg*) 2 spray BOTH NARES DAILY [facility] Last Admin: 05/03/19 10:28 Dose: 2 spray Folic Acid (Folvite Tab*) 1 mg PO DAILY [facility] Last Admin: 05/03/19 10:24 Dose: 1 mg Lamotrigine (Lamictal Tab(*)) 200 mg PO DAILY [facility] Last Admin: 05/03/19 10:25 Dose: 200 mg Lisinopril (Prinivil Tab*) 5 mg PO QAM [facility] Last Admin: 05/03/19 09:20 Dose: Not Given Lorazepam (Ativan Tab(*)) 0 - 6 mg PO .PER [facility] PROTOCOL [facility]; Protocol Meloxicam (Mobic(Nf)) 15 mg PO DAILY [facility] Last Admin: 05/03/19 10:27 Dose: 15 mg Mometasone Furoate (Asmanex 220 Mcg Mdi *) 2 puff INH QPM [facility] Last Admin: 05/02/19 17:54 Dose: 2 puff Naltrexone HCl (Naltrexone Tab*) 50 mg PO DAILY [facility]; Protocol Last Admin: 05/03/19 10:25 Dose: 50 mg Pantoprazole Sodium (Protonix Tab*) 40 mg PO DAILY [facility] Last Admin: 05/03/19 10:25 Dose: 40 mg Prazosin HCl (Minipress Cap*) 5 mg PO BEDTIME [facility] Last Admin: 05/02/19 22:05 Dose: 5 mg Prazosin HCl (Minipress Cap*) 1 mg PO BEDTIME [facility] Last Admin: 05/02/19 22:05 Dose: 1 mg Quetiapine Fumarate (Seroquel Tab*) 50 mg PO BID [facility] Last Admin: 05/03/19 10:25 Dose: 50 mg Risperidone (Risperdal*) 2 mg PO Q6H PRN PRN Reason: AGITATION Last Admin: 05/03/19 03:09 Dose: 2 mg Thiamine HCl (Vitamin B-1 Tab*) 100 mg PO DAILY [facility] Last Admin: 05/03/19 10:26 Dose: 100 mg Vortioxetine (Trintellix (Nf)) 10 mg PO DAILY [facility] Last Admin: 05/03/19 10:26 Dose: 10 mg Zolpidem Tartrate (Ambien Tab*) 10 mg PO BEDTIME [facility] Last Admin: 05/02/19 22:06 Dose: 10 mg - Discharge Plan Discharge Plan: Outpatient Follow Up Outpatient Program: [facility]
[2019-05-03] MEDS: Acetaminophen TAB* 325 MG PO PRN (16:03)
[2019-05-03] MEDS ORDERED: risperiDONE TAB* 1 MG ONE (16:57)
[2019-05-03] MEDS ORDERED: risperiDONE TAB* 1 MG PO STA (17:12)
[2019-05-03] MEDS: Mometasone 220 MCG MDI INH SCH (17:55)
[2019-05-03] MEDS: Zolpidem TAB* 10 MG PO SCH (21:54)
[2019-05-03] MEDS: Prazosin CAP* 1 MG PO SCH (21:54)
[2019-05-03] MEDS: Prazosin CAP* 5 MG PO SCH (21:59)
[2019-05-04] MEDS: risperiDONE TAB* 2 MG PO PRN ×2 (02:30→16:23)
[2019-05-04] MEDS: Folic Acid TAB* 1 MG PO SCH (09:03)
[2019-05-04] MEDS: QUEtiapine TAB* 25 MG PO SCH ×2 (09:03→20:55)
[2019-05-04] MEDS: Naltrexone TAB* 50 MG TAB PO SCH (09:04)
[2019-05-04] MEDS: lamoTRIgine TAB(*) 100 MG PO SCH (09:04)
[2019-05-04] MEDS: Lisinopril TAB* 5 MG PO SCH (09:04)
[2019-05-04] MEDS: VORTIOXETINE 10 MG PO SCH (09:05)
[2019-05-04] MEDS: Pantoprazole TAB * 40 MG TAB PO SCH (09:05)
[2019-05-04] MEDS: Thiamine TAB* 100 MG TAB PO SCH (09:05)
[2019-05-04] MEDS: CMC:Meloxicam(NF) 7.5 MG TAB PO SCH (09:05)
[2019-05-04] MEDS: Fluticasone NASAL SPRAY 50MCG* 16 gm SPRAY BTL BOTH NARES SCH (09:13)
[2019-05-04] MEDS: Acetaminophen TAB* 325 MG PO PRN ×2 (11:39→16:09)
[2019-05-04] MEDS: Mometasone 220 MCG MDI INH SCH (17:43)
[2019-05-04] MEDS: Prazosin CAP* 1 MG PO SCH (20:55)
[2019-05-04] MEDS: Zolpidem TAB* 10 MG PO SCH (20:55)
[2019-05-04] MEDS: Prazosin CAP* 5 MG PO SCH (20:55)
[2019-05-05] MEDS: Acetaminophen TAB* 325 MG PO PRN ×3 (05:02→13:09)
[2019-05-05] MEDS: Lisinopril TAB* 5 MG PO SCH (08:56)
[2019-05-05] MEDS: Naltrexone TAB* 50 MG TAB PO SCH (08:56)
[2019-05-05] MEDS: Folic Acid TAB* 1 MG PO SCH (08:56)
[2019-05-05] MEDS: Thiamine TAB* 100 MG TAB PO SCH (08:57)
[2019-05-05] MEDS: Pantoprazole TAB * 40 MG TAB PO SCH (08:57)
[2019-05-05] MEDS: CMC:Meloxicam(NF) 7.5 MG TAB PO SCH (08:57)
[2019-05-05] MEDS: lamoTRIgine TAB(*) 100 MG PO SCH (08:57)
[2019-05-05] MEDS: QUEtiapine TAB* 25 MG PO SCH ×2 (08:57→20:53)
[2019-05-05] MEDS: Fluticasone NASAL SPRAY 50MCG* 16 gm SPRAY BTL BOTH NARES SCH (09:00)
[2019-05-05] MEDS: VORTIOXETINE 10 MG PO SCH (09:00)
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
[2019-05-05] MEDS: risperiDONE TAB* 2 MG PO PRN (16:21)
[2019-05-05] MEDS: Mometasone 220 MCG MDI INH SCH (18:00)
[2019-05-05] MEDS: Zolpidem TAB* 10 MG PO SCH (20:53)
[2019-05-05] MEDS: Prazosin CAP* 1 MG PO SCH (20:53)
[2019-05-05] MEDS: Prazosin CAP* 5 MG PO SCH (20:53)
[2019-05-06] MEDS: lamoTRIgine TAB(*) 100 MG PO SCH (09:32)
[2019-05-06] MEDS: CMC:Meloxicam(NF) 7.5 MG TAB PO SCH (09:32)
[2019-05-06] MEDS: Fluticasone NASAL SPRAY 50MCG* 16 gm SPRAY BTL BOTH NARES SCH (09:32)
[2019-05-06] MEDS: Lisinopril TAB* 5 MG PO SCH (09:33)
[2019-05-06] MEDS: Folic Acid TAB* 1 MG PO SCH (09:33)
[2019-05-06] MEDS: Pantoprazole TAB * 40 MG TAB PO SCH (09:34)
[2019-05-06] MEDS: Thiamine TAB* 100 MG TAB PO SCH (09:34)
[2019-05-06] MEDS: Naltrexone TAB* 50 MG TAB PO SCH (09:34)
[2019-05-06] MEDS: QUEtiapine TAB* 25 MG PO SCH ×2 (09:34→20:35)
[2019-05-06] MEDS: VORTIOXETINE 10 MG PO SCH (09:35)
[2019-05-06] MEDS: Acetaminophen TAB* 325 MG PO PRN (10:27)
[2019-05-06] MEDS: Cyclobenzaprine TAB* 10 MG PO PRN (12:45)
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
[2019-05-06] MEDS: Mometasone 220 MCG MDI INH SCH (17:31)
[2019-05-06] MEDS: Prazosin CAP* 1 MG PO SCH (20:34)
[2019-05-06] MEDS: Prazosin CAP* 5 MG PO SCH (20:34)
[2019-05-06] MEDS: Zolpidem TAB* 10 MG PO SCH (20:36)
[2019-05-07 08:24] VITALS: BP 110/76
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
[2019-05-07] MEDS: Folic Acid TAB* 1 MG PO SCH (08:38)
[2019-05-07] MEDS: Naltrexone TAB* 50 MG TAB PO SCH (08:38)
[2019-05-07] MEDS: Pantoprazole TAB * 40 MG TAB PO SCH (08:38)
[2019-05-07] MEDS: Thiamine TAB* 100 MG TAB PO SCH (08:38)
[2019-05-07] MEDS: lamoTRIgine TAB(*) 100 MG PO SCH (08:39)
[2019-05-07] MEDS: QUEtiapine TAB* 25 MG PO SCH (08:39)
[2019-05-07] MEDS: CMC:Meloxicam(NF) 7.5 MG TAB PO SCH (08:39)
[2019-05-07] MEDS: Lisinopril TAB* 5 MG PO SCH (08:39)
[2019-05-07] MEDS: VORTIOXETINE 10 MG PO SCH (08:40)
[2019-05-07] MEDS: Fluticasone NASAL SPRAY 50MCG* 16 gm SPRAY BTL BOTH NARES SCH (08:41)
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
== END 2019-05-07 09:50 | disposition home or self-care (01) | DRG 755 ==
LOC: ED 11:49 → BSU 12:26
PROVIDERS: ADMIT Psychiatry & Neurology Psychiatry; ATTEND Psychiatry & Neurology Psychiatry
DX: F43.12 Post-traumatic stress disorder, chronic (principal); R45.851 Suicidal ideations; T74.21XA Adult sexual abuse, confirmed, initial encounter; E78.00 Pure hypercholesterolemia, unspecified; J45.909 Unspecified asthma, uncomplicated; K21.9 Gastro-esophageal reflux disease without esophagitis; E78.5 Hyperlipidemia, unspecified; K58.9 Irritable bowel syndrome, unspecified; M19.042 Primary osteoarthritis, left hand; M81.0 Age-related osteoporosis without current pathological fracture; G40.909 Epilepsy, unspecified, not intractable, without status epilepticus; F41.9 Anxiety disorder, unspecified; F31.9 Bipolar disorder, unspecified; F60.3 Borderline personality disorder; E66.3 Overweight; F44.81 Dissociative identity disorder; F50.9 Eating disorder, unspecified; M17.0 Bilateral primary osteoarthritis of knee; I89.0 Lymphedema, not elsewhere classified; I10 Essential (primary) hypertension; S51.811A Laceration without foreign body of right forearm, initial encounter; X78.8XXA Intentional self-harm by other sharp object, initial encounter; S80.11XA Contusion of right lower leg, initial encounter; Z91.5 Personal history of self-harm; Z88.8 Allergy status to other drugs, medicaments and biological substances; Z88.6 Allergy status to analgesic agent; Z88.1 Allergy status to other antibiotic agents; Z91.041 Radiographic dye allergy status; Z68.30 Body mass index [BMI] 30.0-30.9, adult; Y92.009 Unspecified place in unspecified non-institutional (private) residence as the place of occurrence of the external cause; Z79.52 Long term (current) use of systemic steroids; Z79.899 Other long term (current) drug therapy
CPT/HCPCS: 36415; 80053; 80307; 80320; 80329; 81003; 82550; 84443; 85025; 96372; 99222; 99231; 99232; 99238; 99284; A9270-GY; G0480; J1200; J1630; J2060

== ENCOUNTER 2019-08-22 09:24 | Observation (INO) | payer OTHER ==
[~2019-08-22 09:24] MED LIST changes: -Acetaminophen TAB* 325 MG PO PRN; -Buffered Lidocaine 0.9% SYRIN* 5 ML/SYR SYRINGE INTRADERM ONE; +Clindamycin 900 MG/D5W BAG(*) 900 MG/50 ML BAG IVPB ONE; +NS 0.9% 500 ML* 500 ML IV ONE; +Naproxen TAB* 250 MG PO ONE; +Ondansetron INJ* 2 MG/ML VIAL IV ONE; +Scopolamine 1.5 mg* PATCH TRANSDERM ONE; +oxyCODONE SR TAB(*) 10 MG TAB.SR PO ONE
[2019-08-22] MEDS ORDERED: Clindamycin 900 MG/D5W BAG(*) 900 MG/50 ML BAG IVPB ONE (10:00)
[2019-08-22 10:09] LABS: ABS Lymphocytes 0.4 10^3/ul (1.0-4.8); ABS Monocytes 0.1 10^3/ul (0-0.8); Hematocrit 44 % (35-47); Hemoglobin 15.3 g/dL (12.0-16.0); Lymphocyte % 9.5 %; Mean Corpuscular HGB Conc 35 g/dL (31-36); Mean Corpuscular Hemoglobin 33 pg (27-31); Mean Corpuscular Volume 94 fL (80-97); Mean Platelet Volume 8.3 fL (7.4-10.4); Platelet Count 303 10^3/uL (150-450); Red Cell Distribution Width 13 % (10-15); White Blood Count 4.5 10^3/uL (3.5-10.8)
[2019-08-22 10:22] LABS: INR 0.97 (0.82-1.09)
[2019-08-22 10:25] LABS: EGFR Non-African American 96.7 (>60)
[2019-08-22] MEDS ORDERED: Ondansetron INJ* 2 MG/ML VIAL ONE ×2 (12:59→17:35)
[2019-08-22] MEDS ORDERED: Scopolamine 1.5 mg* PATCH ONE (12:59)
[2019-08-22] MEDS ORDERED: diPHENhydraMINE PO* 25 MG ONE (12:59)
[2019-08-22] MEDS ORDERED: Naproxen TAB* 250 MG ONE (12:59)
[2019-08-22] MEDS ORDERED: LORazepam TAB(*) 1 MG ONE (13:00)
[2019-08-22] MEDS ORDERED: oxyCODONE SR TAB(*) 10 MG TAB.SR ONE (13:00)
[2019-08-22] MEDS ORDERED: Iohexol 350 (CONTRAST) 200 ML MDV IV ONE ×2 (13:48→15:15)
[2019-08-22] MEDS ORDERED: Lidocaine 1% INJ* 10 MG/ML 30 ML SDV ONE (13:48)
[2019-08-22] MEDS ORDERED: Heparin 2 UNITS/ML IVPREMIX* 2,000 ML IV ONE (13:48)
[2019-08-22] MEDS ORDERED: Ketorolac INJ* 30 MG/ML 1 ML VIAL ONE ×2 (13:51→17:35)
[2019-08-22] MEDS ORDERED: Midazolam* 1 MG/ML 5 ML VIAL (5 MG) ONE (13:51)
[2019-08-22] MEDS ORDERED: fentaNYL* 50 MCG/ML 5 ML VIAL (250 MCG VIAL) ONE (13:51)
[2019-08-22] MEDS ORDERED: methylPREDNISolone 125 MG* 2 ML VIAL ONE (13:54)
[2019-08-22] MEDS ORDERED: diPHENhydraMINE IV* 50 MG/ML 1 ml VIAL (BENADRYL) ONE (14:05)
[2019-08-22] MEDS ORDERED: nitroGLYCERIN DRIP* 25,000 MCG/250 ML BTL ONE (14:08)
[2019-08-22] MEDS ORDERED: fentaNYL* 50 MCG/ML 2 ML VIAL (100 MCG VIAL) ONE (15:03)
[2019-08-22] MEDS ORDERED: Gelfoam Sponge SIZE 100* SPONGE ONE (15:36)
[2019-08-22] MEDS ORDERED: HYDROmorphone INJ1* 1 MG/ML SYRINGE ONE ×2 (16:03→16:21)
[2019-08-22] MEDS ORDERED: HYDROmorphone PCA* 20 MG/20 ML PCA.SYRING PCA SCH (16:20)
[2019-08-22] MEDS: NS 0.9% 1000 ML** 1,000 ML IV SCH ×2 (17:33→23:00)
[2019-08-22] MEDS: Ondansetron INJ* 2 MG/ML VIAL IV SCH ×2 (17:37→23:01)
[2019-08-22] MEDS: Ketorolac INJ* 15 MG/ML 1 ML VIAL IV PUSH SCH ×2 (17:41→23:01)
[2019-08-22] MEDS ORDERED: Albuterol 2.5 MG/3 ML NEB.SOL* (0.083%) INH PRN (19:27)
[2019-08-22] MEDS ORDERED: Albuterol HFA INHALER* 8 gm MDI INH PRN (19:27)
[2019-08-22] MEDS ORDERED: Zolpidem TAB* 5 MG PO PRN (19:47)
[2019-08-22] MEDS ORDERED: QUEtiapine TAB* 100 MG PO SCH (21:00)
[2019-08-22] MEDS ORDERED: Cetirizine* 10 MG TAB PO SCH (21:00)
--- NOTE | 2019-08-22 21:06 | HP ---
ADDENDUM FOR MEDICATIONS NOW INCLUDED ON THIS REPORT CC: Dr. Lyndsey Aviles * HISTORY AND PHYSICAL: DATE OF ADMISSION: 08/22/19 PROVIDER: Lizzie Garrison NP ATTENDING PHYSICIAN WHILE IN THE HOSPITAL: Dr. Honorio Torres * (dictated by Lizzie Garrison NP). CHIEF COMPLAINT: Status post uterine fibroid embolization. HISTORY OF PRESENT ILLNESS: Ms. Swenson is a 53-year-old female with a past medical history significant for seizures, asthma, mental health disorders, major depression, PTSD, anxiety, history of MRSA, and hypertension, who presented to [facility] for a uterine fibroid artery embolization with Dr. Alcantar. Please see dictated H and P from Dr. Alcantar for complete details. In brief, the patient had excessive bleeding and therefore opted to undergo a uterine fibroid artery embolization with Dr. Alcantar due to the excessive bleeding. In the immediate postoperative period, the patient has no complaints. She denies any fever, chills, unintended weight loss, chest pain, or edema. She denies any hemoptysis. She does report she has chronic cough and shortness of breath at baseline. Denies any nausea, vomiting, diarrhea, abdominal pain, hematuria, dysuria. She does complain of mild back pain. Denies any focal weakness, sensory loss, visual complaints, dysphagia, arthralgias, myalgias, rashes, lesions, open sores, psychosis, or anxiety. Due to the patient requiring overnight observation after her uterine fibroid embolization, Hospital Medicine was asked to see and evaluate her for admission. PAST MEDICAL HISTORY: Significant for: 1. Seizures. 2. Asthma. 3. Major depression. 4. PTSD. 5. Anxiety. 6. History of MRSA. 7. Hypertension. PAST SURGICAL HISTORY: 1. Right knee surgery x5. 2. Right wrist surgery with plates. 3. Parotid gland removal. 4. Eye surgery. 5. Left cataract. 6. Shoulder surgery. 7. Cholecystectomy. 8. Tubal ligation. 9. D and C. FAMILY HISTORY: Mother with a history of heart disease. Father, unknown history. SOCIAL HISTORY: The patient denies any tobacco use. Does report that she has had no alcohol times 1.5 months. Prior to that, she drank 3 to 12 beers daily. She denies any illicit drug use for several years. She lives alone. Surrogate decision maker in the event she is unable to make her own decisions is her sister. She is a full code. REVIEW OF SYSTEMS: A 14-point review of systems was completed. All pertinent positives were mentioned in the HPI. PHYSICAL EXAMINATION GENERAL: At this time, Ms. Swenson is alert and oriented, resting in her hospital bed. She is in no acute distress. VITAL SIGNS: Blood pressure 154/90, heart rate 72, respirations are 18, O2 saturation 98%, temperature was 99.0. HEENT: Head is atraumatic, normocephalic. Eyes: EOMs are intact. Sclerae anicteric and not pale. Oral mucosa is moist. NECK: Supple. LUNGS: Clear to auscultation bilaterally. No wheezes, rales, or rhonchi. CARDIAC: S1, S2. Regular rate and rhythm. No murmurs, rubs, or gallops. ABDOMEN: Soft and nontender. Bowel sounds are present x4. EXTREMITIES: She is able to move all 4 extremities. There is no clubbing or cyanosis. Pedal pulses are +2 bilaterally. NEUROLOGIC: She is awake, alert, oriented x3. Speech is clear. Thought process is intact. SKIN: Intact. DIAGNOSTIC STUDIES/LAB DATA: WBCs are 4.5, RBCs 4.70, hemoglobin 15.3, hematocrit 44, platelet count 303. INR is 0.97. Sodium 136, potassium 4.0, chloride 105, carbon dioxide was 20, anion gap was 11, BUN was 16, creatinine 0.64, glucose was 141, calcium was 10.0. Beta hCG was 0.67. ASSESSMENT AND PLAN: Ms. Swenson is a 53-year-old female with past medical history significant for seizures, asthma, major depressive disorder, posttraumatic stress disorder, anxiety, history of methicillin-resistant Staphylococcus aureus, and hypertension, who presented to [facility] for an elective uterine artery fibroid embolization with Dr. Alcantar. She will be admitted under observation for: 1. Status post uterine fibroid artery embolization. Management per Dr. Alcantar' s orders. She will have a Dilaudid CONSERVATION AGENT pump, Toradol, and Zofran as needed for nausea. 2. Major depressive disorder. The patient should continue on Seroquel, Minipress, lamotrigine, Trintellix as previously prescribed. 3. Gastroesophageal reflux disease. She should continue on pantoprazole 40 mg p.o. daily. 4. Hypertension. She should continue lisinopril with holding parameters for systolic blood pressure less than 120. 5. Asthma. She should continue on albuterol inhaler as needed for shortness of breath and QVAR inhaler as previously prescribed. 6. FEN: She can have a regular diet. 7. Code status: She is a full code. 8. DVT prophylaxis: I will place BILLIE stockings and encourage ambulation. TIME SPENT: Time spent on this admission was 60 minutes, greater than half that time was spent at the bedside reviewing events leading thus far to her hospitalization, performing physical exam, and reviewing my plan of care. I have discussed this with my attending, Dr. Torres; he is in agreement with my plan. LIZZIE GARRISON NP ADDENDUM: MEDICATIONS: 1. Albuterol HFA inhaler 2 puffs every 4 to 6 hours as needed for shortness of breath. 2. Prazosin 6 mg at bedtime. 3. Diclofenac 1% gel topically twice daily as needed for pain. 4. Lamotrigine 200 mg in the morning. 5. Multivitamin 1 tablet p.o. daily. 6. Trintellix 10 mg p.o. daily. 7. Ambien 10 mg p.o. at bedtime. 8. Restasis 1 drop twice daily. 9. Seroquel 50 mg twice daily morning and evening. 10. Tylenol extra strength 500 mg 2 tablets every 6 hours as needed for pain. 11. Lisinopril 5 mg p.o. daily. 12. Fluticasone 15 mcg 2 sprays 2 nares daily - is not currently using. 13. Qvar inhaler 80 mcg 2 puffs inhaled twice daily. 14. Cyclobenzaprine 10 mg 1 tablet twice daily as needed. 15. Seroquel 300 mg at bedtime. 16. Cetirizine 10 mg at bedtime. 17. Acamprosate 333 mg 1 tablet 3 times a day. 18. Albuterol nebulizer 1 neb every 4 hours as needed for shortness of breath. 19. Pantoprazole 40 mg p.o. daily. 20. Ibuprofen 400 mg every 6 hours as needed for pain. 21. Naltrexone 50 mg p.o. daily. 22. Refresh eyedrops 1 drop twice daily. ALLERGIES: CEPHALEXIN, CORTISONE, ADHESIVE TAPE, CODEINE, IODINE CONTRAST. LIZZIE GARRISON, ANGELIA [id number]/CPS #: [id number]/CPS #: [id number] STONEY
--- NOTE | 2019-08-22 21:23 | HP ---
HISTORY AND PHYSICAL: ADDENDUM: MEDICATIONS: 1. Albuterol HFA inhaler 2 puffs every 4 to 6 hours as needed for shortness of breath. 2. Prazosin 6 mg at bedtime. 3. Diclofenac 1% gel topically twice daily as needed for pain. 4. Lamotrigine 200 mg in the morning. 5. Multivitamin 1 tablet p.o. daily. 6. Trintellix 10 mg p.o. daily. 7. Ambien 10 mg p.o. at bedtime. 8. Restasis 1 drop twice daily. 9. Seroquel 50 mg twice daily morning and evening. 10. Tylenol extra strength 500 mg 2 tablets every 6 hours as needed for pain. 11. Lisinopril 5 mg p.o. daily. 12. Fluticasone 15 mcg 2 sprays 2 nares daily - is not currently using. 13. Qvar inhaler 80 mcg 2 puffs inhaled twice daily. 14. Cyclobenzaprine 10 mg 1 tablet twice daily as needed. 15. Seroquel 300 mg at bedtime. 16. Cetirizine 10 mg at bedtime. 17. Acamprosate 333 mg 1 tablet 3 times a day. 18. Albuterol nebulizer 1 neb every 4 hours as needed for shortness of breath. 19. Pantoprazole 40 mg p.o. daily. 20. Ibuprofen 400 mg every 6 hours as needed for pain. 21. Naltrexone 50 mg p.o. daily. 22. Refresh eyedrops 1 drop twice daily. ALLERGIES: CEPHALEXIN, CORTISONE, ADHESIVE TAPE, CODEINE, IODINE CONTRAST. OPAL CORTEZ, ANGELIA [id number]/[facility] #: [id number] [facility]OSPITALFlor
[2019-08-22] MEDS: QUEtiapine TAB* 25 MG PO SCH (21:29)
[2019-08-22] MEDS ORDERED: Mometasone 220 MCG MDI INH SCH (21:30)
[2019-08-22] MEDS: Cyclosporine 0.05% OPHTH (NF) 0.4 ML VIAL BOTH EYES SCH (21:30)
[2019-08-22] MEDS: ACAMPROSATE 333 MG PO SCH (21:30)
[2019-08-23] MEDS: Ondansetron INJ* 2 MG/ML VIAL IV SCH (05:11)
[2019-08-23] MEDS: Ketorolac INJ* 15 MG/ML 1 ML VIAL IV PUSH SCH (05:11)
[2019-08-23] MEDS ORDERED: lamoTRIgine TAB(*) 100 MG PO SCH (09:00)
[2019-08-23] MEDS ORDERED: HYDROcodone/ACETAMIN 5-325 MG* 1 TAB PO PRN (09:00)
[2019-08-23] MEDS ORDERED: Multivitamins/Minerals TAB PO SCH (09:00)
[2019-08-23] MEDS ORDERED: Pantoprazole TAB * 40 MG TAB PO SCH (09:00)
[2019-08-23] MEDS ORDERED: VORTIOXETINE 10 MG PO SCH (09:00)
--- NOTE | 2019-08-23 09:00 | PN ---
Subjective Date of Service: 08/23/19 Interval History: Ms. Swenson reports that she is feeling well and is very eager for discharge to home. She denies nausea, vomiting and reports that her pain is well- controlled. She is here with her best friend who will be helping her manage her meds at discharge. Objective Active Medications: Acamprosate (Campral (Nf)) 333 mg PO TID SHAYLA; Protocol Albuterol (Ventolin 2.5 Mg/3 Ml Neb.Shannan*) 2.5 mg INH Q4H PRN Albuterol (Ventolin Hfa Inhaler*) 1 puff INH Q6H PRN Cetirizine HCl (Zyrtec*) 10 mg PO BEDTIME SHAYLA Cyclosporine (Restasis 0.05% Ophth) 1 drop BOTH EYES BID SHAYLA; Protocol Hydromorphone HCl (Dilaudid Construction Management Instructor*) 20 mg in 20 mls @ 0 mls/hr LEARNING DISABLED TEACHER Q24H SHAYLA; Protocol Ketorolac Tromethamine (Toradol Inj*) 10 mg IV PUSH Q6H SHAYLA Lamotrigine (Lamictal Tab(*)) 200 mg PO DAILY [facility] Mometasone Furoate (Asmanex 220 Mcg Mdi *) 2 puff INH QPM SHAYLA Multivitamins/Minerals (Theragran/Minerals Tab*) 1 tab PO DAILY [facility] Ondansetron HCl (Zofran Inj*) 4 mg IV Q6H SHAYLA Pantoprazole Sodium (Protonix Tab*) 40 mg PO DAILY [facility] Pharmacy Profile Note (Scopolamine Patch Remove*) 1 note PATCH OFF ONCE ONE Prazosin HCl (Minipress 1 Mg Cap) 6 mg PO BEDTIME [facility] Quetiapine Fumarate (Seroquel Tab*) 50 mg PO BID [facility] Quetiapine Fumarate (Seroquel Tab*) 150 mg PO BEDTIME SHAYLA Vortioxetine (Trintellix (Nf)) 10 mg PO DAILY SHAYLA Zolpidem Tartrate (Ambien Tab*) 2.5 mg PO BEDTIME PRN Vital Signs: Temp Pulse Resp BP Pulse Ox 98.6 F 64 20 102/48 97 08/23/19 07:59 08/23/19 07:59 08/23/19 08:00 08/23/19 07:59 08/23/19 08:00 Oxygen Devices in Use Now: None Appearance: Female lying in bed in NAD Eyes: No Scleral Icterus Ears/Nose/Mouth/Throat: Mucous Membranes Moist Neck: Trachea Midline Respiratory: Symmetrical Chest Expansion and Respiratory Effort, Clear to Auscultation Cardiovascular: NL Sounds; No Murmurs; No JVD, No Edema Abdominal: NL Sounds; No Tenderness; No Distention Extremities: No Edema Skin: No Rash or Ulcers Neurological: Alert and Oriented x 3, NL Muscle Strength and Tone Nutrition: Taking PO's Result Diagrams: 08/22/19 09:50 08/22/19 09:50 Assess/Plan/Problems-Billing Assessment: Ms. Swenson is a 53 yo F with a PMH of anxiety, depression, PTSD, seizures and asthma who was admitted on 08/22/19 for a uterine fibroid embolization for heavy uterine bleeding. - Patient Problems (1) History of uterine fibroid Comment: - S/p UFE on 08/22/19 - Pain and nausea well controlled (2) Mood disorder Comment: - Continue home meds (3) History of asthma Comment: - Asymptomatic - Continue albuterol prn (4) DVT prophylaxis Comment: Low risk, early mobility and TEDs (5) Full code status Comment: Status and Disposition: OBV. Discharge to home.
[2019-08-23] MEDS: Cyclosporine 0.05% OPHTH (NF) 0.4 ML VIAL BOTH EYES SCH (09:05)
[2019-08-23] MEDS: ACAMPROSATE 333 MG PO SCH ×2 (09:05→12:01)
[2019-08-23] MEDS: QUEtiapine TAB* 25 MG PO SCH (09:15)
[2019-08-23] MEDS ORDERED: Ondansetron TAB* 4 MG PO SCH (11:00)
[2019-08-23] MEDS ORDERED: Ketorolac TAB * 10 MG TAB PO SCH (11:00)
[2019-08-23 11:12] VITALS: BP 107/47
--- NOTE | 2019-08-23 12:44 | PN ---
Progress Note - Progress Note Date of Service: 08/23/19 SOAP: Subjective: The patient reports only mild crampy pelvic pain that is not severe enough for pain scale rating. 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 She denies nausea or emesis. + void. + eaten solid food. Objective: Selected Entries 08/23/19 08/23/19 08/23/19 07:59 08:00 11:11 Temperature 98.6 F 98.6 F Temperature Temporal Artery Temporal Artery Source Scan Scan Pulse Rate 64 68 Respiratory 20 12 Rate Blood Pressure 102/48 107/47 (mmHg) Blood Pressure 66 67 Mean O2 Sat by Pulse 97 98 Oximetry Patient on Room Yes Air NAD, AAO x 3 Uterine fundus is palpable just above the umbilicus. The patient reports only mild tenderness with deep palpation at the uterine fundus. There is no rebound or guarding. The right groin is soft and nontender. The dressing overlying the right common femoral arteriotomy is clean, dry and intact. 2+ pulses are readily palpable at the right common femoral artery, popliteal artery and dorsalis pedis artery. Neuromuscular function of the right lower extremity is grossly intact. Assessment: 53-year-old woman postop day #1 following uterine fibroid embolization of the right uterine artery only. Emelyn has a very large and very vascular fibroid uterus. Her dominant right uterine artery required 19 vials of embolic particles as well as ~10 mL of Gelfoam slurry to arrest arterial flow. To avoid heightened postembolization risks including infection and also to avoid excessive postembolization syndrome symptoms, the relatively smaller left uterine artery was not embolized. Emelyn is aware of this. As I discussed with her, I expect she will experience a significant reduction and vaginal bleeding as she has undergone an estimated 75-80% degree embolization of her fibroid uterus. If the reduction in menstrual bleeding is not satisfactory, we will repeat uterine fibroid embolization with the intention of embolizing the left uterine artery as well. Plan: 1. DC to home. 2. Routine interventional radiology follow-up will include calls from the IR clinic nurse August 24 and 08/29/2019. The patient is scheduled for routine office visit approximately 6 weeks from the date of her uterine fibroid embolization. 3. According to the patient's request, no narcotic prescription will be provided. 4. Outpatient medications will be as follows: Toradol 10 mg PO Q 6 hours x 3 days (Dispense #15 with one refill) AFTER Toradol is complete: Ibuprofen 400 mg PO Q 6 hours for 3-5 days (do not take both) Zofran 4 mg PO Q 6 hours x 5 days (Dispense #30 with one refill) Drink one cup of laxative tea daily (For example, "Smooth Move") for one week.
--- NOTE | 2019-08-23 19:18 | DS ---
CC: Dr. Redman * [facility] MEDICINE DISCHARGE SUMMARY: DATE OF ADMISSION: 08/22/19 DATE OF DISCHARGE: 08/23/19 PRIMARY CARE PHYSICIAN: Dr. Redman. ATTENDING PHYSICIAN: Dr. Ang Alicea * (dictation provided by Rodoflo Vaughn NP ). PRIMARY DIAGNOSIS: Uterine fibroid, status post uterine fibroid embolization. SECONDARY DIAGNOSES: 1. Posttraumatic stress disorder. 2. Depression. 3. Anxiety. 4. Seizures. 5. Asthma. 6. History of methicillin-resistant Staphylococcus aureus. 7. Hypertension. MEDICATIONS AT THE TIME OF DISCHARGE: 1. Lamotrigine 200 mg p.o. daily. 2. Zolpidem 10 mg p.o. at bedtime p.r.n. 3. Trintellix 10 mg p.o. daily. 4. Triamcinolone nasal spray 2 sprays both nares daily. 5. Seroquel 50 mg p.o. b.i.d., with 300 mg at bedtime. 6. Prazosin 6 mg p.o. at bedtime. 7. Pantoprazole 40 mg p.o. daily. 8. Ondansetron 4 mg p.o. q.6 hours p.r.n. 9. Naltrexone 50 mg p.o. daily. 10. Multivitamin with minerals 1 tab p.o. daily. 11. Lisinopril 5 mg p.o. q.a.m. 12. Ketorolac 10 mg p.o. q.6 hours. 13. Ibuprofen 400 mg p.o. q.6 hours p.r.n. once Toradol is stopped. 14. Campral 333 mg p.o. t.i.d. 15. Albuterol inhaler p.r.n. 16. Beclomethasone 2 puffs inhaled b.i.d. 17. Cetirizine 10 mg p.o. at bedtime. 18. Cyclobenzaprine 10 mg p.o. daily. 19. Cyclosporine eye drops 1 drop both eyes b.i.d. 20. Diclofenac 1 application topically b.i.d. HOSPITAL COURSE: Ms. Swenson is a 53-year-old female who presented to the hospital for uterine fibroid embolization due to heavy bleeding. She underwent uterine fibroid embolization successfully with Dr. Alcantar and I refer you to his documentation for full details. In that postprocedural period, she has had good pain control and good control of nausea. Ms. Swenson is medically stable for discharge to home. DISPOSITION: Home. DIET: Regular. ACTIVITY: As tolerated. FOLLOWUP PLANS: Please follow up with Dr. Alcantar as is outlined in the discharge instructions. TIME SPENT: Approximately 60 minutes was spent on the discharge of this patient , more than half the time was spent with the patient at the bedside reviewing the events leading up to this hospitalization, performing the physical examination, and reviewing my plan of care. RODOLFO VAUGHN NP [id number]/[facility] #: [id number] [place]
[2019-08-24] MEDS ORDERED: Scopolamine PATCH Remove* 1 NOTE MISC PATCH OFF ONE (09:00)
== END 2019-08-23 14:10 | disposition home or self-care (01) ==
LOC: CHICATH 09:24 → SSU 18:44
PROVIDERS: ADMIT Radiology Diagnostic Radiology; ATTEND Internal Medicine
DX: D25.9 Leiomyoma of uterus, unspecified (principal); I10 Essential (primary) hypertension; F43.10 Post-traumatic stress disorder, unspecified; F32.9 Major depressive disorder, single episode, unspecified; F41.9 Anxiety disorder, unspecified; R56.9 Unspecified convulsions; K21.9 Gastro-esophageal reflux disease without esophagitis; J45.909 Unspecified asthma, uncomplicated; Z86.14 Personal history of Methicillin resistant Staphylococcus aureus infection; Z79.899 Other long term (current) drug therapy; Z88.6 Allergy status to analgesic agent
CPT/HCPCS: 36415; 37243; 75736; 76937; 80048; 84702; 85025; 85610; 85730; 96374; 96376; 99156; 99157; A9270-GY; C1769; C1884; C1887; C1894; G0378; J1170; J1200; J1644; J1885; J2250; J2405; J2930; J3010

== ENCOUNTER 2020-01-21 23:46 | Inpatient (IN) ==
[2020-01-21] MEDS ORDERED: NS 0.9% 1000 ml BAG 1,000 ML IV ONE (23:49)
[2020-01-22 01:09] LABS: ABS Basophils 0.1 10^3/ul (0-0.2); ABS Eosinophils 0.1 10^3/ul (0-0.6); ABS Lymphocytes 1.9 10^3/ul (1.0-4.8); ABS Monocytes 0.5 10^3/ul (0-0.8); ABS Neutrophils 3.3 10^3/ul (1.5-7.7); Eosinophil % 1.6 %; Hematocrit 42 % (35-47); Hemoglobin 14.4 g/dL (12.0-16.0); Lymphocyte % 32.4 %; Mean Corpuscular HGB Conc 35 g/dL (31-36); Mean Corpuscular Hemoglobin 32 pg (27-31); Mean Corpuscular Volume 93 fL (80-97); Mean Platelet Volume 8.5 fL (7.4-10.4); Platelet Count 272 10^3/uL (150-450); Red Cell Distribution Width 13 % (10-15)
[2020-01-22] MEDS ORDERED: Lorazepam PYXIS KEY PRN (01:24)
[2020-01-22] MEDS ORDERED: LORazepam 2 mg VIAL 1 ml IV PUSH ONE (01:24)
[2020-01-22 01:25] LABS: Acetaminophen < 15 mcg/mL; Alcohol, S < 10 mg/dL (<10); Salicylate < 2.50 mg/dL (<30)
[2020-01-22 01:26] LABS: ALT 12 U/L (7-52); AST 12 U/L (13-39); Albumin 3.9 g/dL (3.2-5.2); Albumin/Globulin Ratio 1.6 (1-3); Alkaline Phosphatase 40 U/L (34-104); Anion Gap 8 mmol/L (2-11); BUN/Creatinine Ratio 32.4 (8-20); Blood Urea Nitrogen 23 mg/dL (6-24); CO2 Carbon Dioxide 24 mmol/L (22-32); Calcium 9.1 mg/dL (8.6-10.3); Chloride 105 mmol/L (101-111); EGFR African American 103.4 (>60); EGFR Non-African American 85.5 (>60); Globulin 2.5 g/dL (2-4); Glucose 132 mg/dL (70-100); Potassium 3.5 mmol/L (3.5-5.0); Sodium 137 mmol/L (135-145); Total Protein 6.4 g/dL (6.4-8.9)
[2020-01-22 01:41] LABS: TSH Ultra Thyroid Stim Horm 3.25 mcIU/mL (0.34-5.60)
[2020-01-22 12:13] LABS: Urine Appearance Clear; Urine Bilirubin Negative (Negative); Urine Blood Negative (Negative); Urine Color Yellow; Urine Glucose Negative (Negative); Urine Ketones Negative (Negative); Urine Nitrite Negative (Negative); Urine Protein Negative (Negative); Urine Specific Gravity 1.014 (1.010-1.030); Urine Urobilinogen Negative (Negative)
[2020-01-22 12:28] LABS: Urine Bacteria Absent (Absent); Urine Red Blood Cell Absent (Absent); Urine Squamous Epithelial Cell Present (Absent); Urine White Blood Cell Trace(0-5/hpf) (Absent)
[2020-01-22 12:29] LABS: Urine Benzodiazepine Screen None Detected (None Detect); Urine Cannabinoids Screen None Detected (None Detect); Urine Opiates Screen None Detected (None Detect)
[2020-01-22] MEDS ORDERED: Al Hydrox/Mg Hydrox/Simet LIQ 30 ML UDC PO PRN (13:04)
[2020-01-22] MEDS ORDERED: Albuterol 2.5mg/3 ml (0.083%) NEB.SOLN INH PRN (13:07)
[2020-01-22] MEDS ORDERED: ACAMPROSATE 333 MG PO SCH (14:00)
[2020-01-22] MEDS ORDERED: Albuterol HFA INHALER 8 gm MDI INH PRN (15:30)
[2020-01-22] MEDS: ACAMPROSATE 333 MG PO SCH ×2 (17:39→19:44)
[2020-01-22] MEDS: Mometasone 220 MCG MDI INH SCH (19:43)
[2020-01-23] MEDS: ACAMPROSATE 333 MG PO SCH ×3 (09:07→23:24)
[2020-01-23] MEDS: Mometasone 220 MCG MDI INH SCH (20:12)
[2020-01-24] MEDS: ACAMPROSATE 333 MG PO SCH ×3 (09:42→21:09)
[2020-01-24] MEDS: CMCS:Cyclosporine 0.05% OPHTH (NF) 0.4 ML VIAL BOTH EYES SCH ×2 (13:58→21:10)
[2020-01-24] MEDS: Mometasone 220 MCG MDI INH SCH (18:32)
[2020-01-25] MEDS: CMCS:Cyclosporine 0.05% OPHTH (NF) 0.4 ML VIAL BOTH EYES SCH ×2 (11:43→20:45)
[2020-01-25] MEDS: ACAMPROSATE 333 MG PO SCH ×3 (11:51→20:45)
[2020-01-25] MEDS: Mometasone 220 MCG MDI INH SCH ×2 (17:48→20:11)
[2020-01-26] MEDS: CMCS:Cyclosporine 0.05% OPHTH (NF) 0.4 ML VIAL BOTH EYES SCH (08:52)
[2020-01-26] MEDS: ACAMPROSATE 333 MG PO SCH ×2 (08:53→13:47)
[2020-01-26 11:40] VITALS: BP 119/70
== END 2020-01-26 14:30 | disposition home or self-care (01) | DRG 755 ==
LOC: ED 23:46 → BSU 01-22 13:04 → ED 01-22 13:25
PROVIDERS: ADMIT Nurse Practitioner Psychiatric/Mental Health; ATTEND Psychiatry & Neurology Psychiatry

== ENCOUNTER 2020-03-30 17:22 | Inpatient (IN) ==
[2020-03-30] MEDS ORDERED: LORazepam 2 mg VIAL 1 ml IM ONE (17:48)
[2020-03-30] MEDS ORDERED: Haloperidol 5 mg/ml SDV IV/IM 5 MG/ML AMP IM ONE (17:48)
[2020-03-30] MEDS ORDERED: Lorazepam PYXIS KEY ONE (17:53)
[2020-03-30 18:01] LABS: Urine Appearance Cloudy; Urine Bilirubin Negative (Negative); Urine Blood 1+ (Negative); Urine Color Yellow; Urine Glucose Negative (Negative); Urine Ketones Negative (Negative); Urine Nitrite Negative (Negative); Urine Protein Negative (Negative); Urine Urobilinogen Negative (Negative)
[2020-03-30 18:07] LABS: Urine Bacteria 2+ (Absent); Urine Red Blood Cell 1+(3-5/hpf) (Absent); Urine Squamous Epithelial Cell Present (Absent); Urine White Blood Cell Trace(0-5/hpf) (Absent)
[2020-03-30 18:26] LABS: Urine Benzodiazepine Screen None Detected (None Detect); Urine Cannabinoids Screen None Detected (None Detect); Urine Opiates Screen None Detected (None Detect)
[2020-03-30 23:03] LABS: ABS Basophils 0.1 10^3/ul (0-0.2); ABS Eosinophils 0.1 10^3/ul (0-0.6); ABS Lymphocytes 2.2 10^3/ul (1.0-4.8); ABS Monocytes 0.7 10^3/ul (0-0.8); Eosinophil % 1.1 %; Hematocrit 41 % (35-47); Hemoglobin 14.1 g/dL (12.0-16.0); Lymphocyte % 27.3 %; Mean Corpuscular HGB Conc 35 g/dL (31-36); Mean Corpuscular Hemoglobin 33 pg (27-31); Mean Corpuscular Volume 94 fL (80-97); Mean Platelet Volume 8.1 fL (7.4-10.4); Platelet Count 274 10^3/uL (150-450); Red Blood Count 4.33 10^6 /uL (3.70-4.87); Red Cell Distribution Width 13 % (10-15); White Blood Count 8.1 10^3/uL (3.5-10.8)
[2020-03-30 23:19] LABS: ALT 12 U/L (7-52); AST 16 U/L (13-39); Albumin 3.7 g/dL (3.2-5.2); Albumin/Globulin Ratio 1.5 (1-3); Alkaline Phosphatase 39 U/L (34-104); Anion Gap 7 mmol/L (2-11); Blood Urea Nitrogen 15 mg/dL (6-24); CO2 Carbon Dioxide 23 mmol/L (22-32); Calcium 8.9 mg/dL (8.6-10.3); Chloride 108 mmol/L (101-111); EGFR African American 125.6 (>60); EGFR Non-African American 103.8 (>60); Globulin 2.4 g/dL (2-4); Glucose 84 mg/dL (70-100); Potassium 3.9 mmol/L (3.5-5.0); Sodium 138 mmol/L (135-145); Total Protein 6.1 g/dL (6.4-8.9)
[2020-03-30 23:32] LABS: Acetaminophen < 15 mcg/mL; Alcohol, S < 10 mg/dL (<10); Salicylate < 2.50 mg/dL (<30)
[2020-03-30 23:46] LABS: TSH Ultra Thyroid Stim Horm 0.74 mcIU/mL (0.34-5.60)
[2020-03-31] MEDS ORDERED: Al Hydrox/Mg Hydrox/Simet LIQ 30 ML UDC PO PRN (00:16)
[2020-03-31] MEDS ORDERED: Albuterol 2.5mg/3 ml (0.083%) NEB.SOLN INH PRN (00:18)
[2020-03-31] MEDS ORDERED: Albuterol HFA INHALER 8 gm MDI INH PRN (00:23)
[2020-03-31] MEDS: CMCS: Acamprosate DR 333 mg TAB (NF) PO SCH ×3 (10:34→21:48)
[2020-03-31] MEDS: Vitamin THERAPEUTIC TAB PO SCH (10:55)
[2020-03-31] MEDS: Fluticasone NASAL SPRAY 50MCG 16 gm SPRAY BTL BOTH NARES SCH (14:02)
[2020-03-31] MEDS: CMCS: Cyclosporine 0.05% OPHTH (NF) 0.4 ML VIAL BOTH EYES SCH ×2 (14:02→21:47)
[2020-03-31] MEDS: Mometasone 220 MCG MDI INH SCH (19:16)
[2020-04-01] MEDS ORDERED: risperiDONE-M 1 mg Oradis TAB ONE (08:49)
[2020-04-01] MEDS ORDERED: risperiDONE-M 1 mg Oradis TAB PO ONE (09:13)
[2020-04-01] MEDS: CMCS: Acamprosate DR 333 mg TAB (NF) PO SCH ×3 (09:35→20:47)
[2020-04-01] MEDS: CMCS: Cyclosporine 0.05% OPHTH (NF) 0.4 ML VIAL BOTH EYES SCH ×2 (09:36→20:48)
[2020-04-01] MEDS: Vitamin THERAPEUTIC TAB PO SCH (09:37)
[2020-04-01] MEDS: Fluticasone NASAL SPRAY 50MCG 16 gm SPRAY BTL BOTH NARES SCH (09:37)
[2020-04-01] MEDS ORDERED: Naltrexone INJ 380 MG IM ONE (10:47)
[2020-04-01] MEDS: Mometasone 220 MCG MDI INH SCH (17:52)
[2020-04-02] MEDS: CMCS: Acamprosate DR 333 mg TAB (NF) PO SCH ×3 (09:13→21:38)
[2020-04-02] MEDS: Vitamin THERAPEUTIC TAB PO SCH (09:13)
[2020-04-02] MEDS: CMCS: Cyclosporine 0.05% OPHTH (NF) 0.4 ML VIAL BOTH EYES SCH ×2 (10:50→21:41)
[2020-04-02] MEDS: Fluticasone NASAL SPRAY 50MCG 16 gm SPRAY BTL BOTH NARES SCH (10:50)
[2020-04-02] MEDS: Mometasone 220 MCG MDI INH SCH (17:40)
[2020-04-03] MEDS: Fluticasone NASAL SPRAY 50MCG 16 gm SPRAY BTL BOTH NARES SCH (09:19)
[2020-04-03] MEDS: CMCS: Cyclosporine 0.05% OPHTH (NF) 0.4 ML VIAL BOTH EYES SCH ×2 (09:19→22:25)
[2020-04-03] MEDS: CMCS: Acamprosate DR 333 mg TAB (NF) PO SCH ×3 (09:20→22:25)
[2020-04-03] MEDS: Vitamin THERAPEUTIC TAB PO SCH (09:20)
[2020-04-03] MEDS: Mometasone 220 MCG MDI INH SCH (18:07)
[2020-04-04] MEDS: Fluticasone NASAL SPRAY 50MCG 16 gm SPRAY BTL BOTH NARES SCH (08:26)
[2020-04-04] MEDS: CMCS: Acamprosate DR 333 mg TAB (NF) PO SCH ×3 (08:27→21:58)
[2020-04-04] MEDS: Vitamin THERAPEUTIC TAB PO SCH (08:28)
[2020-04-04] MEDS: CMCS: Cyclosporine 0.05% OPHTH (NF) 0.4 ML VIAL BOTH EYES SCH ×2 (08:28→22:00)
[2020-04-04] MEDS: Mometasone 220 MCG MDI INH SCH (17:43)
[2020-04-05] MEDS: Fluticasone NASAL SPRAY 50MCG 16 gm SPRAY BTL BOTH NARES SCH (08:13)
[2020-04-05] MEDS: CMCS: Cyclosporine 0.05% OPHTH (NF) 0.4 ML VIAL BOTH EYES SCH (08:13)
[2020-04-05] MEDS: CMCS: Acamprosate DR 333 mg TAB (NF) PO SCH (08:14)
[2020-04-05] MEDS: Vitamin THERAPEUTIC TAB PO SCH (08:15)
[2020-04-05 12:45] VITALS: BP 115/50
== END 2020-04-05 14:03 | disposition home health service (06) | DRG 755 ==
LOC: ED 17:22 → BSU 03-31 00:01
PROVIDERS: ADMIT Psychiatry & Neurology Psychiatry; ATTEND Psychiatry & Neurology Psychiatry

== ENCOUNTER 2020-08-10 16:06 | Inpatient (IN) ==
[2020-08-10] MEDS ORDERED: Haloperidol 5 mg/ml SDV IV/IM 5 MG/ML AMP IM ONE (16:34)
[2020-08-10] MEDS ORDERED: Lorazepam PYXIS KEY PRN (16:49)
[2020-08-10] MEDS ORDERED: LORazepam 2 mg VIAL 1 ml IM ONE (16:49)
[2020-08-10] MEDS ORDERED: diPHENhydraMINE IV 50 MG/ML 1 ml VIAL (BENADRYL) IV ONE (16:49)
[2020-08-10] MEDS ORDERED: Lorazepam PYXIS KEY ONE (16:51)
[2020-08-10 18:55] LABS: ABS Lymphocytes 1.6 10^3/ul (1.0-4.8); ABS Monocytes 0.5 10^3/ul (0-0.8); ABS Neutrophils 4.5 10^3/ul (1.5-7.7); Eosinophil % 0.4 %; Hematocrit 44 % (35-47); Hemoglobin 15.1 g/dL (12.0-16.0); Lymphocyte % 24.1 %; Mean Corpuscular HGB Conc 34 g/dL (31-36); Mean Corpuscular Hemoglobin 32 pg (27-31); Mean Corpuscular Volume 94 fL (80-97); Mean Platelet Volume 8.4 fL (7.4-10.4); Platelet Count 309 10^3/uL (150-450); Red Blood Count 4.71 10^6 /uL (3.70-4.87); Red Cell Distribution Width 13 % (10-15); White Blood Count 6.8 10^3/uL (3.5-10.8)
[2020-08-10 19:10] LABS: ALT 17 U/L (7-52); AST 14 U/L (13-39); Albumin 4.1 g/dL (3.2-5.2); Albumin/Globulin Ratio 1.6 (1-3); Alkaline Phosphatase 41 U/L (34-104); Anion Gap 7 mmol/L (2-11); Blood Urea Nitrogen 18 mg/dL (6-24); CO2 Carbon Dioxide 23 mmol/L (22-32); Calcium 9.6 mg/dL (8.6-10.3); Chloride 108 mmol/L (101-111); EGFR African American 101.8 (>60); EGFR Non-African American 84.1 (>60); Globulin 2.5 g/dL (2-4); Glucose 95 mg/dL (70-100); Potassium 3.9 mmol/L (3.5-5.0); Sodium 138 mmol/L (135-145); Total Protein 6.6 g/dL (6.4-8.9)
[2020-08-10 19:46] LABS: Acetaminophen < 15 mcg/mL; Alcohol, S < 10 mg/dL (<10); Salicylate < 2.50 mg/dL (<30); TSH Ultra Thyroid Stim Horm 0.46 mcIU/mL (0.34-5.60)
[2020-08-11] MEDS ORDERED: Al Hydrox/Mg Hydrox/Simet LIQ 30 ML UDC PO PRN (07:43)
[2020-08-11] MEDS: Vitamin THERAPEUTIC TAB PO SCH (09:45)
[2020-08-11] MEDS: risperiDONE-M 1 mg Oradis TAB PO PRN (14:25)
[2020-08-11] MEDS: Mometasone 220 MCG MDI INH SCH (15:37)
[2020-08-12] MEDS: Cyclosporine 0.05% OPHTH (NF) 0.4 ML VIAL BOTH EYES SCH ×3 (01:14→19:58)
[2020-08-12] MEDS: risperiDONE-M 1 mg Oradis TAB PO PRN (03:03)
[2020-08-12] MEDS: Vitamin THERAPEUTIC TAB PO SCH (09:41)
[2020-08-12] MEDS: CMCS:Vortioxetine 10 mg TAB (NF) PO SCH (10:50)
[2020-08-12] MEDS ORDERED: Dextran 70/Hypromellose Tears Eye Drops 15 ml BTL (for Artificials Tears) BOTH EYES PRN (14:17)
[2020-08-12] MEDS: Mometasone 220 MCG MDI INH SCH (19:54)
[2020-08-13] MEDS: risperiDONE-M 1 mg Oradis TAB PO PRN (06:54)
[2020-08-13] MEDS: CMCS:Vortioxetine 10 mg TAB (NF) PO SCH (09:36)
[2020-08-13] MEDS: Vitamin THERAPEUTIC TAB PO SCH (09:37)
[2020-08-13] MEDS: Cyclosporine 0.05% OPHTH (NF) 0.4 ML VIAL BOTH EYES SCH ×2 (09:38→20:13)
[2020-08-13] MEDS: Mometasone 220 MCG MDI INH SCH (17:45)
[2020-08-13] MEDS: Albuterol HFA INHALER 8 gm MDI INH PRN (20:13)
[2020-08-14] MEDS: risperiDONE-M 1 mg Oradis TAB PO PRN (08:46)
[2020-08-14] MEDS: CMCS:Vortioxetine 10 mg TAB (NF) PO SCH (08:47)
[2020-08-14] MEDS: Cyclosporine 0.05% OPHTH (NF) 0.4 ML VIAL BOTH EYES SCH ×2 (08:47→22:23)
[2020-08-14] MEDS: Vitamin THERAPEUTIC TAB PO SCH (08:48)
[2020-08-14] MEDS: Mometasone 220 MCG MDI INH SCH (17:22)
[2020-08-15] MEDS: Vitamin THERAPEUTIC TAB PO SCH (07:49)
[2020-08-15] MEDS: Cyclosporine 0.05% OPHTH (NF) 0.4 ML VIAL BOTH EYES SCH ×2 (07:49→19:59)
[2020-08-15] MEDS: CMCS:Vortioxetine 10 mg TAB (NF) PO SCH (07:49)
[2020-08-15] MEDS: risperiDONE-M 1 mg Oradis TAB PO PRN (08:31)
[2020-08-15] MEDS: Mometasone 220 MCG MDI INH SCH (18:10)
[2020-08-16] MEDS: Vitamin THERAPEUTIC TAB PO SCH (08:37)
[2020-08-16] MEDS: CMCS:Vortioxetine 10 mg TAB (NF) PO SCH (08:39)
[2020-08-16] MEDS: Cyclosporine 0.05% OPHTH (NF) 0.4 ML VIAL BOTH EYES SCH ×2 (08:39→20:05)
[2020-08-16] MEDS: Albuterol HFA INHALER 8 gm MDI INH PRN (09:22)
[2020-08-16] MEDS: Mometasone 220 MCG MDI INH SCH (20:05)
[2020-08-17] MEDS: Cyclosporine 0.05% OPHTH (NF) 0.4 ML VIAL BOTH EYES SCH ×2 (08:23→20:00)
[2020-08-17] MEDS: Vitamin THERAPEUTIC TAB PO SCH (08:24)
[2020-08-17] MEDS: CMCS:Vortioxetine 10 mg TAB (NF) PO SCH (08:25)
[2020-08-17] MEDS ORDERED: Naltrexone INJ 380 MG IM ONE (10:07)
[2020-08-17] MEDS: risperiDONE-M 1 mg Oradis TAB PO PRN (13:17)
[2020-08-17] MEDS: Mometasone 220 MCG MDI INH SCH (17:37)
[2020-08-18 08:37] VITALS: BP 124/62
[2020-08-18] MEDS: Vitamin THERAPEUTIC TAB PO SCH (08:39)
[2020-08-18] MEDS: Cyclosporine 0.05% OPHTH (NF) 0.4 ML VIAL BOTH EYES SCH (08:42)
[2020-08-18] MEDS: CMCS:Vortioxetine 10 mg TAB (NF) PO SCH (08:42)
[2020-08-18 11:54] LABS: Urine Appearance Cloudy; Urine Bilirubin Negative (Negative); Urine Blood Negative (Negative); Urine Color Yellow; Urine Glucose Negative (Negative); Urine Ketones Negative (Negative); Urine Nitrite Negative (Negative); Urine Protein Negative (Negative); Urine Specific Gravity 1.005 (1.010-1.030); Urine Urobilinogen Negative (Negative)
== END 2020-08-18 11:45 | disposition home health service (06) | DRG 755 ==
LOC: ED 16:06 → BSU 22:30
PROVIDERS: ADMIT Psychiatry & Neurology Psychiatry; ATTEND Psychiatry & Neurology Psychiatry

== ENCOUNTER 2021-02-16 14:23 | Inpatient (IN) ==
[2021-02-16] MEDS ORDERED: LORazepam 2 mg VIAL 1 ml IM ONE (14:30)
[2021-02-16] MEDS ORDERED: Lorazepam PYXIS KEY PRN (14:30)
[2021-02-16 16:26] LABS: ABS Basophils 0.1 10^3/ul (0-0.2); ABS Lymphocytes 1.7 10^3/ul (1.0-4.8); ABS Monocytes 0.8 10^3/ul (0-0.8); ABS Neutrophils 6.7 10^3/ul (1.5-7.7); Eosinophil % 0.4 %; Hematocrit 44 % (35-47); Hemoglobin 15.1 g/dL (12.0-16.0); Lymphocyte % 17.8 %; Mean Corpuscular HGB Conc 35 g/dL (31-36); Mean Corpuscular Hemoglobin 32 pg (27-31); Mean Corpuscular Volume 93 fL (80-97); Mean Platelet Volume 8.4 fL (7.4-10.4); Platelet Count 272 10^3/uL (150-450); Red Blood Count 4.68 10^6 /uL (3.70-4.87); Red Cell Distribution Width 13 % (10-15); White Blood Count 9.3 10^3/uL (3.5-10.8)
[2021-02-16 16:29] LABS: Urine Appearance Cloudy; Urine Bilirubin Negative (Negative); Urine Blood Negative (Negative); Urine Color Yellow; Urine Glucose Negative (Negative); Urine Ketones Negative (Negative); Urine Nitrite Negative (Negative); Urine Protein Negative (Negative); Urine Specific Gravity 1.011 (1.002-1.030); Urine Urobilinogen Negative (Negative)
[2021-02-16 16:39] LABS: ALT 22 U/L (7-52); AST 18 U/L (13-39); Albumin 4.2 g/dL (3.2-5.2); Albumin/Globulin Ratio 1.6 (1-3); Alkaline Phosphatase 42 U/L (35-149); Anion Gap 10 mmol/L (2-11); Blood Urea Nitrogen 14 mg/dL (6-24); CO2 Carbon Dioxide 23 mmol/L (22-32); Calcium 10.2 mg/dL (8.6-10.3); Chloride 105 mmol/L (101-111); EGFR African American 110.2 (>60); Globulin 2.6 g/dL (2-4); Glucose 88 mg/dL (70-100); Potassium 4.3 mmol/L (3.5-5.0); Sodium 138 mmol/L (135-145); Total Protein 6.8 g/dL (6.4-8.9)
[2021-02-16 16:46] LABS: Urine Benzodiazepine Screen None Detected (None Detect); Urine Cannabinoids Screen None Detected (None Detect); Urine Opiates Screen None Detected (None Detect)
[2021-02-16] MEDS ORDERED: diPHENhydraMINE IV 50 MG/ML 1 ml VIAL (BENADRYL) IM ONE (16:47)
[2021-02-16 17:26] LABS: Acetaminophen < 15 mcg/mL; Alcohol, S < 13 mg/dL (<13); Salicylate < 2.50 mg/dL (<30)
[2021-02-16 17:39] LABS: TSH Ultra Thyroid Stim Horm 0.73 mcIU/mL (0.34-5.60)
[2021-02-16] MEDS ORDERED: Albuterol HFA INHALER 8 gm MDI INH PRN (20:02)
[2021-02-16] MEDS: Al Hydrox/Mg Hydrox/Simet LIQ 30 ML UDC PO PRN (20:05)
[2021-02-16] MEDS: Cyclosporine 0.05% OPHTH (NF) 0.4 ML VIAL BOTH EYES SCH (21:09)
[2021-02-16] MEDS: CMCS:Acamprosate DR 333 mg TAB (NF) PO SCH (21:09)
[2021-02-17] MEDS: Vitamin THERAPEUTIC TAB PO SCH (09:05)
[2021-02-17] MEDS: CMCS:Acamprosate DR 333 mg TAB (NF) PO SCH ×2 (09:08→16:47)
[2021-02-17] MEDS: Cyclosporine 0.05% OPHTH (NF) 0.4 ML VIAL BOTH EYES SCH (09:08)
[2021-02-17] MEDS: Fluticasone NASAL SPRAY 50MCG 16 gm SPRAY BTL BOTH NARES SCH (09:08)
[2021-02-17] MEDS: CMCS:Vortioxetine 10 mg TAB (NF) PO SCH (09:09)
[2021-02-17] MEDS: Mometasone 220 MCG MDI INH SCH (21:42)
[2021-02-18] MEDS: Cyclosporine 0.05% OPHTH (NF) 0.4 ML VIAL BOTH EYES SCH ×3 (00:08→20:58)
[2021-02-18] MEDS: CMCS:Acamprosate DR 333 mg TAB (NF) PO SCH ×5 (00:08→20:50)
[2021-02-18] MEDS: Vitamin THERAPEUTIC TAB PO SCH (09:14)
[2021-02-18] MEDS: Fluticasone NASAL SPRAY 50MCG 16 gm SPRAY BTL BOTH NARES SCH (09:15)
[2021-02-18] MEDS: CMCS:Vortioxetine 10 mg TAB (NF) PO SCH (09:17)
[2021-02-18] MEDS: Mometasone 220 MCG MDI INH SCH (20:51)
[2021-02-19] MEDS: Cyclosporine 0.05% OPHTH (NF) 0.4 ML VIAL BOTH EYES SCH ×2 (11:31→20:43)
[2021-02-19] MEDS: CMCS:Acamprosate DR 333 mg TAB (NF) PO SCH ×3 (11:31→20:42)
[2021-02-19] MEDS: Fluticasone NASAL SPRAY 50MCG 16 gm SPRAY BTL BOTH NARES SCH (11:31)
[2021-02-19] MEDS: CMCS:Vortioxetine 10 mg TAB (NF) PO SCH (11:32)
[2021-02-19] MEDS: Vitamin THERAPEUTIC TAB PO SCH (11:35)
[2021-02-19] MEDS: Mometasone 220 MCG MDI INH SCH (18:20)
[2021-02-20] MEDS: Vitamin THERAPEUTIC TAB PO SCH (09:41)
[2021-02-20] MEDS: Cyclosporine 0.05% OPHTH (NF) 0.4 ML VIAL BOTH EYES SCH ×2 (09:43→22:00)
[2021-02-20] MEDS: CMCS:Acamprosate DR 333 mg TAB (NF) PO SCH ×3 (09:43→21:59)
[2021-02-20] MEDS: Fluticasone NASAL SPRAY 50MCG 16 gm SPRAY BTL BOTH NARES SCH (09:43)
[2021-02-20] MEDS: CMCS:Vortioxetine 10 mg TAB (NF) PO SCH (12:16)
[2021-02-20] MEDS: Mometasone 220 MCG MDI INH SCH (17:38)
[2021-02-21] MEDS: Vitamin THERAPEUTIC TAB PO SCH (09:54)
[2021-02-21] MEDS: CMCS:Acamprosate DR 333 mg TAB (NF) PO SCH ×3 (09:55→20:16)
[2021-02-21] MEDS: Cyclosporine 0.05% OPHTH (NF) 0.4 ML VIAL BOTH EYES SCH ×2 (09:55→20:16)
[2021-02-21] MEDS: CMCS:Vortioxetine 10 mg TAB (NF) PO SCH (09:56)
[2021-02-21] MEDS: Fluticasone NASAL SPRAY 50MCG 16 gm SPRAY BTL BOTH NARES SCH (09:56)
[2021-02-21] MEDS: Mometasone 220 MCG MDI INH SCH (18:18)
[2021-02-22 08:44] LABS: HDL Cholesterol 31.6 mg/dL
[2021-02-22] MEDS: Vitamin THERAPEUTIC TAB PO SCH (09:30)
[2021-02-22] MEDS: CMCS:Vortioxetine 10 mg TAB (NF) PO SCH (09:30)
[2021-02-22] MEDS: Fluticasone NASAL SPRAY 50MCG 16 gm SPRAY BTL BOTH NARES SCH (09:30)
[2021-02-22] MEDS: CMCS:Acamprosate DR 333 mg TAB (NF) PO SCH ×3 (09:31→20:27)
[2021-02-22] MEDS: Cyclosporine 0.05% OPHTH (NF) 0.4 ML VIAL BOTH EYES SCH ×2 (09:31→20:27)
[2021-02-22] MEDS: Al Hydrox/Mg Hydrox/Simet LIQ 30 ML UDC PO PRN ×2 (11:25→17:38)
[2021-02-22] MEDS: Mometasone 220 MCG MDI INH SCH (17:39)
[2021-02-23 00:06] VITALS: BP 134/71
[2021-02-23] MEDS: Fluticasone NASAL SPRAY 50MCG 16 gm SPRAY BTL BOTH NARES SCH (08:34)
[2021-02-23] MEDS: CMCS:Vortioxetine 10 mg TAB (NF) PO SCH (08:35)
[2021-02-23] MEDS: Cyclosporine 0.05% OPHTH (NF) 0.4 ML VIAL BOTH EYES SCH (08:35)
[2021-02-23] MEDS: CMCS:Acamprosate DR 333 mg TAB (NF) PO SCH (08:35)
[2021-02-23] MEDS: Vitamin THERAPEUTIC TAB PO SCH (08:36)
== END 2021-02-23 14:00 | disposition home or self-care (01) | DRG 751 ==
LOC: ED 14:23 → BSU 19:08
PROVIDERS: ADMIT Psychiatry & Neurology Psychiatry; ATTEND Psychiatry & Neurology Psychiatry

== ENCOUNTER 2021-03-17 11:11 | Observation (INO) ==
[2021-03-17] MEDS ORDERED: oxyCODONE SR 10 mg TAB ONE (12:23)
[2021-03-17] MEDS ORDERED: Ondansetron 4 mg VIAL 2 MG/ML 2 ml VIAL ONE (12:23)
[2021-03-17 12:24] LABS: ABS Lymphocytes 0.7 10^3/ul (1.0-4.8); ABS Monocytes 0.1 10^3/ul (0-0.8); ABS Neutrophils 5.5 10^3/ul (1.5-7.7); Hematocrit 43 % (35-47); Lymphocyte % 10.8 %; Mean Corpuscular HGB Conc 35 g/dL (31-36); Mean Corpuscular Hemoglobin 32 pg (27-31); Mean Corpuscular Volume 92 fL (80-97); Mean Platelet Volume 8.2 fL (7.4-10.4); Platelet Count 319 10^3/uL (150-450); Red Blood Count 4.71 10^6 /uL (3.70-4.87); Red Cell Distribution Width 13 % (10-15); White Blood Count 6.3 10^3/uL (3.5-10.8)
[2021-03-17 12:37] LABS: Activated Partial Thrombo Time 28.9 seconds (26.0-38.0); INR 0.97 (0.86-1.15)
[2021-03-17 12:50] LABS: Calcium 9.6 mg/dL (8.6-10.3); HCG Pregnancy 2.89 mIU/mL; Potassium 4.1 mmol/L (3.5-5.0)
[2021-03-17] MEDS ORDERED: Midazolam 5 mg/5 ml VIAL 1 mg/ml 5 ml VIAL (5 mg) ONE (13:21)
[2021-03-17] MEDS ORDERED: fentaNYL 100 mcg/2 ml 50 MCG/ML VIAL ONE ×2 (13:21→14:27)
[2021-03-17] MEDS ORDERED: Lidocaine 1% VIAL 10 MG/ML VIAL ONE (13:22)
[2021-03-17] MEDS ORDERED: Iohexol 350 (CONTRAST) 200 ML MDV IV ONE (13:22)
[2021-03-17] MEDS ORDERED: nitroGLYCERIN DRIP 25,000 MCG/250 ML BTL ONE (13:23)
[2021-03-17] MEDS ORDERED: Heparin 2 UNITS/ML IVPREMIX 2,000 UNIT/1,000 ML BAG IV ONE (13:23)
[2021-03-17] MEDS ORDERED: Clindamycin 900 MG/D5W BAG IVPB ONE (14:00)
[2021-03-17] MEDS ORDERED: HYDROmorphone 1 MG/1 ML SYRINGE ONE ×2 (14:54→15:23)
[2021-03-17] MEDS ORDERED: Prochlorperazine 5 mg/ml 2 ml VIAL (10 mg) ONE (15:13)
[2021-03-17] MEDS ORDERED: HYDROmorphone PCA 1 MG/ML Titrat per Protocol PCA SCH (16:00)
[2021-03-17] MEDS ORDERED: Albuterol HFA INHALER 8 gm MDI INH PRN (16:04)
[2021-03-17] MEDS: NS 0.9% 1000 ml BAG 1,000 ML IV SCH ×2 (16:10→23:14)
[2021-03-17] MEDS: Ondansetron 4 mg VIAL 2 MG/ML 2 ml VIAL IV SCH (19:25)
[2021-03-17] MEDS ORDERED: Mometasone 220 MCG MDI INH SCH (21:00)
[2021-03-17] MEDS: CMC:Acamprosate DR 333 mg TAB (NF) PO SCH (21:11)
[2021-03-17] MEDS: CMC:Cyclosporine 0.05% OPHTH (NF) 0.4 ML VIAL BOTH EYES SCH (21:11)
[2021-03-18] MEDS: Ondansetron 4 mg VIAL 2 MG/ML 2 ml VIAL IV SCH ×2 (03:28→12:03)
[2021-03-18 07:00] LABS: ABS Lymphocytes 2.6 10^3/ul (1.0-4.8); ABS Monocytes 0.8 10^3/ul (0-0.8); ABS Neutrophils 6.4 10^3/ul (1.5-7.7); Eosinophil % 0.3 %; Hematocrit 39 % (35-47); Hemoglobin 13.6 g/dL (12.0-16.0); Lymphocyte % 26.1 %; Mean Corpuscular HGB Conc 35 g/dL (31-36); Mean Corpuscular Hemoglobin 33 pg (27-31); Mean Corpuscular Volume 94 fL (80-97); Mean Platelet Volume 8.5 fL (7.4-10.4); Platelet Count 250 10^3/uL (150-450); Red Blood Count 4.16 10^6 /uL (3.70-4.87); Red Cell Distribution Width 13 % (10-15); White Blood Count 9.9 10^3/uL (3.5-10.8)
[2021-03-18 07:13] LABS: Calcium 8.5 mg/dL (8.6-10.3); Potassium 3.7 mmol/L (3.5-5.0)
[2021-03-18] MEDS ORDERED: Fluticasone NASAL SPRAY 50MCG 16 gm SPRAY BTL INTRANASAL SCH (09:00)
[2021-03-18] MEDS ORDERED: CMC:Vortioxetine 10 mg TAB (NF) PO SCH (09:00)
[2021-03-18] MEDS ORDERED: Multivitamins/Minerals TAB PO SCH (09:00)
[2021-03-18] MEDS ORDERED: HYDROcodone/ACETAMIN 5/325 mg TAB PO PRN ×2 (09:12)
[2021-03-18] MEDS: CMC:Acamprosate DR 333 mg TAB (NF) PO SCH (09:17)
[2021-03-18] MEDS: CMC:Cyclosporine 0.05% OPHTH (NF) 0.4 ML VIAL BOTH EYES SCH (09:19)
[2021-03-18] MEDS ORDERED: CMCS:Ketorolac 10 mg TAB (NF) PO SCH (10:00)
[2021-03-18 11:32] VITALS: BP 104/62
== END 2021-03-18 13:05 | disposition home or self-care (01) ==
LOC: SSU 11:11 → CHICATH 11:11
PROVIDERS: ADMIT Internal Medicine; ATTEND Internal Medicine
PROC: ANG.UFE (2021-03-17 12:10)

== ENCOUNTER 2022-08-03 17:01 | Inpatient (IN) ==
[2022-08-03 19:34] LABS: ABS Basophils 0.1 10^3/ul (0-0.2); ABS Eosinophils 0.1 10^3/ul (0-0.6); ABS Lymphocytes 2.6 10^3/ul (1.0-4.8); ABS Monocytes 0.7 10^3/ul (0-0.8); ABS Neutrophils 4.8 10^3/ul (1.5-7.7); Hematocrit 45 % (35-47); Hemoglobin 15.1 g/dL (12.0-16.0); Lymphocyte % 31.2 %; Mean Corpuscular HGB Conc 34 g/dL (31-36); Mean Corpuscular Hemoglobin 31 pg (27-31); Mean Corpuscular Volume 92 fL (80-97); Mean Platelet Volume 8.5 fL (7.4-10.4); Platelet Count 275 10^3/uL (150-450); Red Blood Count 4.88 10^6 /uL (3.70-4.87); Red Cell Distribution Width 13 % (10-15); White Blood Count 8.3 10^3/uL (3.5-10.8)
[2022-08-03 20:19] LABS: ALT 16 U/L (7-52); Albumin 4.2 g/dL (3.2-5.2); Albumin/Globulin Ratio 1.8 (1-3); Alcohol, S < 13 mg/dL (<13); Alkaline Phosphatase 46 U/L (35-149); Blood Urea Nitrogen 13 mg/dL (6-24); CO2 Carbon Dioxide 24 mmol/L (22-32); Chloride 109 mmol/L (101-111); Creatinine, Serum 0.84 mg/dL (0.51-0.95); Globulin 2.3 g/dL (2-4); Glucose 86 mg/dL (70-100); Salicylate < 2.50 mg/dL (<30); Sodium 140 mmol/L (135-145); Total Protein 6.5 g/dL (6.4-8.9)
[2022-08-03 20:20] LABS: Acetaminophen < 15 mcg/mL
[2022-08-03 20:30] LABS: Anion Gap 7 mmol/L (2-11)
[2022-08-03 20:32] LABS: TSH Ultra Thyroid Stim Horm 0.52 mcIU/mL (0.34-5.60)
[2022-08-04 02:52] LABS: Urine Appearance Cloudy; Urine Bilirubin Negative (Negative); Urine Blood Negative (Negative); Urine Color Yellow; Urine Glucose Negative (Negative); Urine Ketones Negative (Negative); Urine Nitrite Negative (Negative); Urine Protein Negative (Negative); Urine Specific Gravity 1.014 (1.002-1.030); Urine Urobilinogen Negative (Negative)
[2022-08-04 03:06] LABS: Urine Benzodiazepine Screen Presumptive Positive (None Detect); Urine Cannabinoids Screen None Detected (None Detect); Urine Opiates Screen None Detected (None Detect)
[2022-08-04 03:28] LABS: Urine Bacteria 1+ (Absent); Urine Red Blood Cell 1+(3-5/hpf) (Absent); Urine Squamous Epithelial Cell Present (Absent); Urine White Blood Cell 3+(>20/hpf) (Absent)
[2022-08-04] MEDS ORDERED: LAMOTRIGINE 200 MG PO ONE (08:00)
[2022-08-04] MEDS ORDERED: Albuterol HFA INHALER 8 gm MDI INH PRN ×2 (10:23→10:26)
[2022-08-04] MEDS ORDERED: Beclomethasone 40 MCG MDI(NF) 40 MCG/PUFF MDI INH SCH (19:00)
[2022-08-04] MEDS: CMC:Cyclosporine 0.05% OPHTH (NF) 0.4 ML VIAL BOTH EYES SCH (21:29)
[2022-08-04] MEDS: Mometasone 220 MCG MDI INH SCH (21:29)
[2022-08-04] MEDS: Al Hydrox/Mg Hydrox/Simet LIQ 30 ML UDC PO PRN (21:55)
[2022-08-05] MEDS: CMC:Vortioxetine 10 mg TAB (NF) PO SCH (07:59)
[2022-08-05] MEDS: CMC:Cyclosporine 0.05% OPHTH (NF) 0.4 ML VIAL BOTH EYES SCH ×2 (08:00→20:19)
[2022-08-05] MEDS: Vitamin THERAPEUTIC TAB PO SCH (08:00)
[2022-08-05] MEDS: Fluticasone NASAL SPRAY 50MCG 16 gm SPRAY BTL INTRANASAL SCH (08:00)
[2022-08-05] MEDS ORDERED: TRIAMCINOLONE ACETONIDE 55 MCG INTRANASAL SCH (09:00)
[2022-08-05] MEDS ORDERED: Vortioxetine 10 mg TAB (NF) PO SCH (09:00)
[2022-08-05] MEDS: Mometasone 220 MCG MDI INH SCH (20:18)
[2022-08-06] MEDS: CMC:Cyclosporine 0.05% OPHTH (NF) 0.4 ML VIAL BOTH EYES SCH ×2 (07:47→19:11)
[2022-08-06] MEDS: Fluticasone NASAL SPRAY 50MCG 16 gm SPRAY BTL INTRANASAL SCH (07:47)
[2022-08-06] MEDS: CMC:Vortioxetine 10 mg TAB (NF) PO SCH (07:48)
[2022-08-06] MEDS: Vitamin THERAPEUTIC TAB PO SCH (07:48)
[2022-08-06] MEDS: Mometasone 220 MCG MDI INH SCH (19:11)
[2022-08-07] MEDS: Fluticasone NASAL SPRAY 50MCG 16 gm SPRAY BTL INTRANASAL SCH (09:27)
[2022-08-07] MEDS: CMC:Vortioxetine 10 mg TAB (NF) PO SCH (09:28)
[2022-08-07] MEDS: Vitamin THERAPEUTIC TAB PO SCH (09:29)
[2022-08-07] MEDS: CMC:Cyclosporine 0.05% OPHTH (NF) 0.4 ML VIAL BOTH EYES SCH ×2 (09:30→19:32)
[2022-08-07] MEDS: CMCS:diPHENhydraMINE CREAM 2%(NF) 28 gm TUBE TOPICAL SCH ×2 (12:33→19:38)
[2022-08-07] MEDS: Mometasone 220 MCG MDI INH SCH (19:32)
[2022-08-08] MEDS: CMCS:diPHENhydraMINE CREAM 2%(NF) 28 gm TUBE TOPICAL SCH ×3 (08:53→20:06)
[2022-08-08] MEDS: CMC:Vortioxetine 10 mg TAB (NF) PO SCH (08:54)
[2022-08-08] MEDS: Vitamin THERAPEUTIC TAB PO SCH (08:54)
[2022-08-08] MEDS: CMC:Cyclosporine 0.05% OPHTH (NF) 0.4 ML VIAL BOTH EYES SCH ×2 (08:55→20:06)
[2022-08-08] MEDS: Fluticasone NASAL SPRAY 50MCG 16 gm SPRAY BTL INTRANASAL SCH (08:55)
[2022-08-08] MEDS: Mometasone 220 MCG MDI INH SCH (20:04)
[2022-08-09] MEDS: Vitamin THERAPEUTIC TAB PO SCH (09:21)
[2022-08-09] MEDS: CMC:Cyclosporine 0.05% OPHTH (NF) 0.4 ML VIAL BOTH EYES SCH ×2 (09:23→20:10)
[2022-08-09] MEDS: CMC:Vortioxetine 10 mg TAB (NF) PO SCH (09:23)
[2022-08-09] MEDS: CMCS:diPHENhydraMINE CREAM 2%(NF) 28 gm TUBE TOPICAL SCH ×3 (09:24→20:03)
[2022-08-09] MEDS: Fluticasone NASAL SPRAY 50MCG 16 gm SPRAY BTL INTRANASAL SCH (09:24)
[2022-08-09] MEDS: Al Hydrox/Mg Hydrox/Simet LIQ 30 ML UDC PO PRN (11:41)
[2022-08-09] MEDS: Mometasone 220 MCG MDI INH SCH (20:07)
[2022-08-10] MEDS: CMC:Cyclosporine 0.05% OPHTH (NF) 0.4 ML VIAL BOTH EYES SCH ×2 (08:53→19:26)
[2022-08-10] MEDS: CMC:Vortioxetine 10 mg TAB (NF) PO SCH (08:54)
[2022-08-10] MEDS: Vitamin THERAPEUTIC TAB PO SCH (08:54)
[2022-08-10] MEDS: Fluticasone NASAL SPRAY 50MCG 16 gm SPRAY BTL INTRANASAL SCH (08:56)
[2022-08-10] MEDS: CMCS:diPHENhydraMINE CREAM 2%(NF) 28 gm TUBE TOPICAL SCH ×3 (08:56→19:30)
[2022-08-10] MEDS: Al Hydrox/Mg Hydrox/Simet LIQ 30 ML UDC PO PRN (18:42)
[2022-08-10] MEDS: Mometasone 220 MCG MDI INH SCH (19:26)
[2022-08-11 08:08] VITALS: BP 139/65
[2022-08-11] MEDS: CMC:Cyclosporine 0.05% OPHTH (NF) 0.4 ML VIAL BOTH EYES SCH (08:59)
[2022-08-11] MEDS: CMC:Vortioxetine 10 mg TAB (NF) PO SCH (08:59)
[2022-08-11] MEDS: Vitamin THERAPEUTIC TAB PO SCH (09:01)
[2022-08-11] MEDS: Fluticasone NASAL SPRAY 50MCG 16 gm SPRAY BTL INTRANASAL SCH (09:02)
[2022-08-11] MEDS: CMCS:diPHENhydraMINE CREAM 2%(NF) 28 gm TUBE TOPICAL SCH (09:02)
== END 2022-08-11 10:45 | disposition home or self-care (01) | DRG 351 ==
LOC: ED 17:01 → BSU 08-04 10:43
PROVIDERS: ADMIT Psychiatry & Neurology Psychiatry; ATTEND Student in an Organized Health Care Education/Training Program